=== PATIENT | male | born 1935 | race Caucasian/White ===

== ENCOUNTER 2017-09-18 17:46 | Inpatient (IN) | payer MEDICARE, OTHER ==
[~2017-09-18] VITALS: Ht 182.9 cm; Wt 102.3 kg
--- NOTE | 2017-09-18 18:12 | ED.ADGEN ---
Past History Past Medical History: Dementia, Depression, High Cholesterol, Other Adult General Chief Complaint Chief Complaint " I don't like sticker's.. " HPI HPI Patient is a 82 year old male who presents with hx of Dementia, Behavior Disorder, and increase aggressive behavior at [facility] in [place], [place]. Pt. has been hitting staff and other residents. Spitting on residents and staff. Pt. has hx of elevated lipids, depression, and anxiety. Pt. Dementia reportedly seems to becoming more profound the past couple months. Pt. currently can only identify his , does not recognizes his child or other close family members Pt. Normally follows with Dr. Ferrell. Review of Systems Review of Systems Constitutional: Denies fever or chills [] Eyes: Denies change in visual acuity, redness, or eye pain [] HENT: Denies nasal congestion or sore throat [] Respiratory: Denies cough or shortness of breath [] Cardiovascular: No additional information not addressed in HPI [] GI: Denies abdominal pain, nausea, vomiting, bloody stools or diarrhea [] : Denies dysuria or hematuria [] Musculoskeletal: Denies back pain or joint pain [] Integument: Denies rash or skin lesions [] Neurologic: Denies headache, focal weakness or sensory changes [] Endocrine: Denies polyuria or polydipsia [] All other systems were reviewed and found to be within normal limits, except as documented in this note. Family History Family History Non-contributory Current Medications Current Medications Current Medications Medications (Trade) Dose Ordered Sig/Jane Start Time Stop Time Status Last Admin Dose Admin Diphenhydramine HCl (Benadryl) 50 mg 1X ONCE 09/18/17 20:30 09/18/17 20:31 DC 09/18/17 21:14 50 MG Iohexol (Omnipaque 300 Mg/ml) 75 ml 1X ONCE 09/18/17 20:30 09/18/17 20:31 DC 09/18/17 21:29 75 ML Lactated Ringer's 1,000 ml @ 1,000 mls/hr 1X ONCE 09/18/17 20:30 09/18/17 21:29 DC 09/18/17 21:14 1,000 MLS/HR Lorazepam (Ativan) 2 mg 1X ONCE 09/18/17 22:45 09/18/17 22:46 DC Ziprasidone (Geodon Im) 10 mg 1X ONCE 09/18/17 22:45 09/18/17 22:46 DC See Nursing for home meds Allergies Allergies Allergies Coded Allergies Type Severity Reaction Last Updated Verified mirtazapine Allergy Unknown 09/18/17 Yes Physical Exam Physical Exam Constitutional: Well developed, well nourished, in acute emotional distress, non-toxic appearance. [] HENT: Normocephalic, atraumatic, bilateral external ears normal, oropharynx moist, no oral exudates, nose normal. [] Eyes: PERRLA, EOMI, conjunctiva normal, no discharge. [] Neck: Normal range of motion, no tenderness, supple, no stridor. [] Cardiovascular:Heart rate regular rhythm, no murmur [] Lungs & Thorax: Bilateral breath sounds at apex with wheezes, crackles and rhonchi on Rt with auscultation [] Abdomen: Bowel sounds normal, soft, no tenderness, no masses, no pulsatile masses. [] Skin: Warm, dry, no erythema, no rash. [] Back: No tenderness, no CVA tenderness. [] Extremities: No tenderness, no cyanosis, no clubbing, ROM intact, no edema. [] Scar Lt Knee Neurologic: Alert and oriented X 3,No gross motor function deficits, distal sensory function, no gross focal deficits noted. [] Psychologic: Affect angry, agitated, judgement lacks insight, mood depressed, obvious memory problems. Current Patient Data Vital Signs Vital Signs Date Time Temp Pulse Resp B/P (MAP) Pulse Ox O2 Delivery O2 Flow Rate FiO2 09/19/17 00:02 64 14 154/69 (97) 96 Room Air 09/18/17 19:09 97.4 Lab Results Laboratory Tests Test 09/18/17 19:27 09/19/17 00:06 White Blood Count 5.2 x10^3/uL (4.0-11.0) Red Blood Count 4.11 x10^6/uL (4.30-5.70) L Hemoglobin 14.2 g/dL (13.0-17.5) Hematocrit 41.1 % (39.0-53.0) Mean Corpuscular Volume 100 fL (79-100) Mean Corpuscular Hemoglobin 34 pg (25-35) Mean Corpuscular Hemoglobin Concent 34 g/dL (31-37) Red Cell Distribution Width 15.8 % (11.5-14.5) H Platelet Count 135 x10^3/uL (140-400) L Neutrophils (%) (Auto) 80 % (31-73) H Lymphocytes (%) (Auto) 12 % (24-48) L Monocytes (%) (Auto) 6 % (0-9) Eosinophils (%) (Auto) 1 % (0-3) Basophils (%) (Auto) 0 % (0-3) Neutrophils # (Auto) 4.2 x10^3uL (1.8-7.7) Lymphocytes # (Auto) 0.6 x10^3/uL (1.0-4.8) L Monocytes # (Auto) 0.3 x10^3/uL (0.0-1.1) Eosinophils # (Auto) 0.1 x10^3/uL (0.0-0.7) Basophils # (Auto) 0.0 x10^3/uL (0.0-0.2) Prothrombin Time 11.6 SEC (9.4-11.4) H Prothrombin Time INR 1.1 (0.9-1.1) PTT 27 SEC (23-33) Sodium Level 144 mmol/L (136-145) Potassium Level 4.8 mmol/L (3.5-5.1) Chloride Level 108 mmol/L (98-107) H Carbon Dioxide Level 31 mmol/L (21-32) Anion Gap 5 (6-14) L Blood Urea Nitrogen 15 mg/dL (8-26) Creatinine 1.0 mg/dL (0.7-1.3) Estimated GFR (Cockcroft-Gault) 71.5 BUN/Creatinine Ratio 15 (6-20) Glucose Level 119 mg/dL (70-99) H Calcium Level 8.2 mg/dL (8.5-10.1) L Magnesium Level 2.3 mg/dL (1.8-2.4) Total Bilirubin 0.6 mg/dL (0.2-1.0) Aspartate Amino Transferase (AST) 13 U/L (15-37) L Alanine Aminotransferase (ALT) 19 U/L (16-63) Alkaline Phosphatase 121 U/L (46-116) H Troponin I Quantitative < 0.017 ng/mL (0-0.055) UV-Apo-M-Type Natriuretic Peptide 472 pg/mL (0-449) H Total Protein 6.7 g/dL (6.4-8.2) Albumin 3.0 g/dL (3.4-5.0) L Albumin/Globulin Ratio 0.8 (1.0-1.7) L Valproic Acid Level 31 mcg/mL (50-100) L Valproic Acid Last Dose Date 09/18/2017 Valproic Acid Last Dose Time 1900 Urine Collection Type U cath Urine Color Yellow Urine Clarity Clear Urine pH 6.5 Urine Specific [place] 1.010 Urine Protein Neg (NEG-TRACE) Urine Glucose (UA) Neg mg/dL (NEG) Urine Ketones (Stick) Neg mg/dL (NEG) Urine Blood Trace (NEG) Urine Nitrite Neg (NEG) Urine Bilirubin Neg (NEG) Urine Urobilinogen Dipstick 0.2 mg/dL (0.2 mg/dL) Urine Leukocyte Esterase Neg (NEG) Urine RBC Occ /HPF (0-2) Urine WBC 1-4 /HPF (0-4) Urine Squamous Epithelial Cells None /LPF Urine Bacteria 0 /HPF (0-FEW) EKG EKG My interpretation of EKG shows a irregular rhythm at 64 and low voltage. No findings acute STEMI with contralateral changes. Radiology/Procedures Radiology/Procedures I interpretation of chest x-ray shows[] obvious pleural thickening and volume loss on right side. CT head shows no shift, mass, edema, bleed, or fracture. Does have significant parenchymal volume loss. CT of chest shows no pulmonary embolism but rounded atelectasis and pleural thickening. Course & Med Decision Making Course & Med Decision Making Pertinent Labs and Imaging studies reviewed. (See chart for details) Discussed presentation, testing and treatment plan with - Will admit to [facility]. will attempt to obtain old films or CT 's. Pt. admitted to Dr. Godfrey. [] Final Impression Final Impression 1. Mental Status Change[] 2. Dementia 3. Aggressive Behavior 4. Thrombocytopenia 5. 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 Reactive? Problems: Dragon Disclaimer Dragon Disclaimer This electronic medical record was generated, in whole or in part, using a voice recognition dictation system. ZAID NEWMAN MD Sep 18, 2017 18:12
--- NOTE | 2017-09-18 18:31 | EKG ---
[address] [address] Test Date: 2017-09-18 Test Time: 18:23:07 Pat Name: CHARLIE GODWIN Department: Room: Gender: M Resaw Feeder: AWA : 1935 Requested By: ZAID NEWMAN Order Number: [id number] Reading MD: Hussain Smyth Measurements Intervals [place] Rate: 64 P: MS: QRS: 21 QRSD: 56 T: 17 QT: 446 QTc: 465 Interpretive Statements ATRIAL FIBRILLATION LOW LIMB LEAD VOLTAGE Electronically Signed On 09-25-2017 14:26:35 ART CLASS MODEL by Hussain Smyth
[2017-09-18 19:45] LABS: BASO % 0 % (0-3); EOS # 0.1 x10^3/uL (0.0-0.7); EOS % 1 % (0-3); HEMATOCRIT 41.1 % (39.0-53.0); HEMOGLOBIN 14.2 g/dL (13.0-17.5); LYMPH # 0.6 x10^3/uL (1.0-4.8); LYMPH % 12 % (24-48); MEAN CORPUSCULAR HEMOGLOBIN 34 pg (25-35); MEAN CORPUSCULAR HGB CONC 34 g/dL (31-37); MEAN CORPUSCULAR VOLUME 100 fL (79-100); MONO # 0.3 x10^3/uL (0.0-1.1); MONO % 6 % (0-9); NEUT # 4.2 x10^3uL (1.8-7.7); NEUT % 80 % (31-73); PLATELET COUNT 135 x10^3/uL (140-400); RED BLOOD COUNT 4.11 x10^6/uL (4.30-5.70); RED CELL DISTRIBUTION WIDTH 15.8 % (11.5-14.5); WHITE BLOOD COUNT 5.2 x10^3/uL (4.0-11.0)
[2017-09-18 19:57] LABS: ALBUMIN/GLOBULIN RATIO 0.8 (1.0-1.7); CALCIUM 8.2 mg/dL (8.5-10.1); GFR 71.5; MAGNESIUM 2.3 mg/dL (1.8-2.4); POTASSIUM 4.8 mmol/L (3.5-5.1); TOTAL BILIRUBIN 0.6 mg/dL (0.2-1.0); TOTAL PROTEIN 6.7 g/dL (6.4-8.2)
[2017-09-18] MEDS ORDERED: diphenhydrAMINE 50 MG/ML VIAL IVP ONE (20:30)
[2017-09-18] MEDS ORDERED: IOHEXOL 300 MG/ML 75 ML VIAL. IV ONE (20:30)
[2017-09-18] MEDS ORDERED: IV RINGERS SOLUTION,LACTATED 1,000 ML IV ONE (20:30)
[2017-09-18] MEDS ORDERED: LORazepam 2 MG/ML VIAL IV ONE (20:30)
[2017-09-18] MEDS ORDERED: DONE23TA3 PO (20:50)
[2017-09-18] MEDS ORDERED: LORA0.5T96 PO (20:50)
[2017-09-18] MEDS ORDERED: SENN-6 PO (20:50)
[2017-09-18] MEDS ORDERED: POTA20TA4 PO (20:50)
[2017-09-18] MEDS ORDERED: ESCITALOPRAM OX10 MG PO (20:50)
[2017-09-18] MEDS ORDERED: MULT1TAB52 PO (20:50)
[2017-09-18] MEDS ORDERED: TRAZ50TA15 PO (20:50)
[2017-09-18] MEDS ORDERED: QUET25TA5 PO (20:50)
[2017-09-18] MEDS ORDERED: DIVA125C PO (20:50)
[2017-09-18] MEDS ORDERED: MAGN400O7 PO (20:50)
[2017-09-18] MEDS ORDERED: ACET325T9 PO (20:50)
[2017-09-18] MEDS ORDERED: METH1TAB47 PO (20:50)
[2017-09-18] MEDS ORDERED: ZIPRASIDONE IM 20 MG VIAL. IM ONE ×2 (22:30→22:45)
[2017-09-18] MEDS ORDERED: LORazepam 2 MG/ML VIAL IM ONE (22:45)
--- NOTE | 2017-09-18 23:18 | RAD ---
CT Head W/O Contrast: History: 557514.001 Altered mental status, combative, confusion. Hx: Dementia. No priors. Comparison: none Axial images were obtained without contrast. There is severe diffuse atrophy. There is no mass effect, extraaxial fluid collections or hydrocephalus. There is no gross bleed. Mild, patchy periventricular and subcortical white matter hypoattenuation is seen. There is no focal loss of ulrich-white matter distinction to suggest acute ischemia, i.e. stroke. Impression: Severe atrophy. No acute findings. PQRS Compliance Statement: One or more of the following individualized dose reduction techniques were utilized for this examination: 1. Automated exposure control 2. Adjustment of the mA and/or kV according to patient size 3. Use of iterative reconstruction technique Electronically signed by: Dillon Henry III, MD (09/18/2017 11:15 PM) [facility]
--- NOTE | 2017-09-18 23:46 | RAD ---
CTA Chest with contrast: Clinical History: 454912.001 Omni 300 75cc: PE protocol: Abnormal CXR tonight, short of air, wheezing. Pt has altered mental status, dementia, unable to follow breathing instructions for test. No priors but I sent CXR from [facility] for comparison. . Axial helical images of the chest were obtained after the administration of 100 cc of IV Isovue-370 and timed appropriately for a pulmonary arterial study. Conventional axial reconstruction was performed in addition to coronal, sagittal and bilateral oblique MIP (maximum intensity projection). This study was ordered to detect possible pulmonary embolism. There are no filling defects to suggest pulmonary embolism. The ascending thoracic aorta is mildly dilated measuring 4.3 cm in diameter. There is patchy round-like opacities in the right lung base with volume loss and shift of the mediastinal contents to the right. There is no mediastinal or hilar lymphadenopathy. Impression: 1. No evidence of pulmonary embolism. 2. Pleural parenchymal changes in the right lung base and volume loss could be round atelectasis. A neoplasm is possible. Comparison to old studies would be helpful. Otherwise the patient may benefit from a PET/CT. 3. Mildly dilated ascending thoracic aorta. PQRS Compliance Statement: One or more of the following individualized dose reduction techniques were utilized for this examination: 1. Automated exposure control 2. Adjustment of the mA and/or kV according to patient size 3. Use of iterative reconstruction technique Electronically signed by: Dillon Henry III, MD (09/18/2017 11:42 PM) [facility]
--- NOTE | 2017-09-18 23:57 | RAD ---
PORTABLE CHEST 1V Clinical History: 600255.001 Short of air, wheezing. No priors. Technique: AP view of the chest was obtained at 09/18/2017 6:19 PM. Comparison: None. Findings: The heart is moderately enlarged. The pulmonary vessels appear normal. There is hazy opacity over the right hemithorax. There is density along the pleural margin on the right. Impression: Mild to moderate right-sided pleural effusion. Electronically signed by: Dillon Henry III, MD (09/18/2017 11:54 PM) [facility]
[2017-09-19 00:38] LABS: BILIRUBIN,URINE NEG (NEG); CLARITY,URINE CLEAR; COLOR,URINE YELLOW; GLUCOSE,URINE NEG (NEG)
[2017-09-19 00:39] LABS: BACTERIA,URINE 0 /HPF (0-FEW); NITRITE,URINE NEG (NEG); RBC,URINE OCC /HPF (0-2); UROBILINOGEN,URINE 0.2 mg/dL (0.2 mg/dL)
[2017-09-19 01:28] VITALS: BP 148/88
[2017-09-19] MEDS ORDERED: ACETAMINOPHEN 325 MG TABLET PO PRN ×2 (01:30→06:15)
[2017-09-19] MEDS ORDERED: MAG HYDROX/AL HYDROX/SIMETH 30 ML ORAL.SUSP PO PRN (01:30)
[2017-09-19] MEDS ORDERED: METHYL SALICYLATE/MENTHOL TOPICAL OINTMENT 29GM TUBE. TP PRN (01:30)
[2017-09-19 02:12] LABS: VAL ACID 31 mcg/mL (50-100)
[2017-09-19] MEDS ORDERED: MAGNESIUM HYDROXIDE 2,400 MG/30 ML ORAL.SUSP. PO PRN (06:15)
[2017-09-19 06:20] VITALS: BP 141/79
[2017-09-19] MEDS: MULTIVITAMIN with MINERAL TABLET. PO SCH ×2 (08:04→09:00)
[2017-09-19] MEDS: CITALOPRAM 20 MG TABLET. PO SCH (08:04)
[2017-09-19] MEDS: VITAMIN B COMPLEX CAPSULE. PO SCH ×3 (08:04→19:35)
[2017-09-19] MEDS: POTASSIUM CHLORIDE 20 MEQ TABLET.ER. PO SCH ×3 (08:05→19:36)
[2017-09-19] MEDS ORDERED: DIVALPROEX 125 MG CAP.SPRINK PO SCH (09:00)
[2017-09-19 15:13] LABS: THYROID STIM HORMONE (TSH) 2.641 uIU/mL (0.358-3.740)
[2017-09-19 15:47] VITALS: BP 131/88
[2017-09-19 18:07] LABS: T3 TOTAL 62 ng/dL (71-180)
[2017-09-19] MEDS: DIVALPROEX 125 MG CAP.SPRINK PO SCH (19:35)
[2017-09-19] MEDS: DONEPEZIL 23 MG TABLET PO SCH (19:35)
[2017-09-19] MEDS: traZODone 50 MG TABLET. PO SCH (19:36)
[2017-09-19] MEDS: SENNOSIDES/DOCUSATE 8.6/50MG TABLET. PO SCH (19:36)
[2017-09-19] MEDS: QUEtiapine 25 MG TABLET. PO SCH (19:36)
--- NOTE | 2017-09-19 20:11 | PDOC ---
Exam Note: Cyrus Note: Please also refer to the separate dictated note~for this date of service dictated separately.~Patient seen individually. Discussed the patient with Nursing staff reviewed the chart.~Reviewed interim history and current functioning. Reviewed vital signs,~Labs/ Radiology~and current medications noted below. Continue current treatment with the changes noted in the dictated addendum note Assessment: Vital Signs: Vital Signs Date Time Temp Pulse Resp B/P (MAP) Pulse Ox O2 Delivery O2 Flow Rate FiO2 09/19/17 15:47 97.7 81 18 131/88 (102) 96 Room Air 09/19/17 01:28 0.0 I&O Intake and Output 09/19/17 07:00 Intake Total 800 ml Balance 800 ml IV Total 800 ml # Voids 3 # Bowel Movements 1 Labs: Laboratory Tests Test 09/19/17 00:06 Urine Collection Type U cath Urine Color Yellow Urine Clarity Clear Urine pH 6.5 Urine Specific [place] 1.010 Urine Protein Neg (NEG-TRACE) Urine Glucose (UA) Neg mg/dL (NEG) Urine Ketones (Stick) Neg mg/dL (NEG) Urine Blood Trace (NEG) Urine Nitrite Neg (NEG) Urine Bilirubin Neg (NEG) Urine Urobilinogen Dipstick 0.2 mg/dL (0.2 mg/dL) Urine Leukocyte Esterase Neg (NEG) Urine RBC Occ /HPF (0-2) Urine WBC 1-4 /HPF (0-4) Urine Squamous Epithelial Cells None /LPF Urine Bacteria 0 /HPF (0-FEW) Current Medications: Meds: Current Medications Iohexol (Omnipaque 300 Mg/ml) 75 ml 1X ONCE IV Last administered on 21:29; Start 09/18/17 at 20:30; Stop 09/18/17 at 20:31; Status DC Lorazepam (Ativan) 2 mg 1X ONCE IV Last administered on 09/18/17 21:14; Start 09/18/17 at 20:30; Stop 09/18/17 at 20:31; Status DC Diphenhydramine HCl (Benadryl) 50 mg 1X ONCE IVP Last administered on 21:14; Start 09/18/17 at 20:30; Stop 09/18/17 at 20:31; Status DC Lactated Ringer's 1,000 ml @ 1,000 mls/hr 1X ONCE IV Last administered on 21:14; Start 09/18/17 at 20:30; Stop 09/18/17 at 21:29; Status DC Ziprasidone (Geodon Im) 20 mg 1X ONCE IM Last administered on 09/18/17 22:07 ; Start 09/18/17 at 22:30; Stop 09/18/17 at 22:31; Status DC Lorazepam (Ativan) 2 mg 1X ONCE IM ; Start 09/18/17 at 22:45; Stop 09/18/17 at 22:46; Status DC Ziprasidone (Geodon Im) 10 mg 1X ONCE IM ; Start 09/18/17 at 22:45; Stop at 22:46; Status DC Acetaminophen (Tylenol) 650 mg PRN Q6HRS PRN PO MILD PAIN / TEMP; Start at 01:30 Multi-Ingredient Ointment (Analgesic [place]) 1 betzy PRN QID PRN TP MUSCLE PAIN; Start 09/19/17 at 01:30 Al Hydroxide/Mg Hydroxide (Mylanta Plus Xs) 15 ml PRN AFTMEALHC PRN PO DYSPEPSIA; Start 09/19/17 at 01:30 Magnesium Hydroxide (Milk Of Magnesia) 2,400 mg PRN QHS PRN PO CONSTIPATION; Start 09/19/17 at 01:30 Divalproex Sodium (Depakote Sprinkles) 250 mg BID PO Last administered on 09/19 08:04; Start 09/19/17 at 09:00; Stop 09/19/17 at 19:02; Status DC Donepezil HCl (Aricept) 23 mg QHS PO Last administered on 09/19/17 19:35; Start 09/19/17 at 21:00 Lorazepam (Ativan) 0.25 mg PRN Q4HRS PRN PO ANXIETY / AGITATION; Start at 01:30 Quetiapine Fumarate (SEROquel) 25 mg QHS PO Last administered on 09/19/17 19: 36; Start 09/19/17 at 21:00 Trazodone HCl (Desyrel) 125 mg QHS PO Last administered on 09/19/17 19:36; Start 09/19/17 at 21:00 Citalopram Hydrobromide (CeleXA) 20 mg DAILY PO Last administered on 08:04; Start 09/19/17 at 09:00 Acetaminophen (Tylenol) 650 mg PRN Q6HRS PRN PO PAIN / TEMP; Start 09/19/17 at 06:15; Status UNV Magnesium Hydroxide (Milk Of Magnesia) 2,400 mg PRN QHS PRN PO CONSTIPATION; Start 09/19/17 at 06:15; Status UNV Potassium Chloride (Klor-Con) 20 meq BID PO Last administered on 09/19/17 19: 36; Start 09/19/17 at 09:00 Senna/Docusate Sodium (Senna Plus) 2 tab QHS PO Last administered on 19:36; Start 09/19/17 at 21:00 Vitamin B Complex 1 cap BID PO Last administered on 09/19/17 19:35; Start at 09:00 Multivitamins/ Calcium (Thera-M Plus) 1 tab DAILY PO ; Start 09/19/17 at 09:00 Divalproex Sodium (Depakote Sprinkles) 375 mg BID PO Last administered on 09/19 19:35; Start 09/19/17 at 21:00 Active Scripts Active Reported Milk Of Magnesia (Magnesium Hydroxide) 400 Mg/5 Ml Oral.susp 2,400 Mg PO PRN QHS PRN Ativan (Lorazepam) 0.5 Mg Tablet 0.25 Mg PO PRN Q4HRS PRN Tylenol (Acetaminophen) 325 Mg Tablet 650 Mg PO PRN Q6HRS PRN Trazodone Hcl 50 Mg Tablet 125 Mg PO QHS Senna S Tablet (Sennosides/Docusate Sodium) 1 Each Tablet 2 Tab PO QHS Seroquel (Quetiapine Fumarate) 25 Mg Tablet 25 Mg PO QHS Klor-Con M20 (Potassium Chloride) 20 Meq Tab.er.prt 20 Meq PO BID Multivitamins (Multivitamin) 1 Each Tablet 1 Tab PO DAILY U-Gussyg-L0-B12 Tablet (Methyl-B12/L-Mefolate/B6 Phos) 1 Each Tablet 1 Tab PO BID Escitalopram Oxalate 10 Mg Tablet 10 Mg PO DAILY Aricept (Donepezil Hcl) 23 Mg Tablet 23 Mg PO QHS Depakote Sprinkle (Divalproex Sodium) 125 Mg Cap.sprink 250 Mg PO BID I have reviewed the current psychotropics carefully including drug interactions. Risk benefit ratio favors no change other than as noted in my dictated progress note. 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
[2017-09-20 01:11] LABS: HEMOGLOBIN A1C 4.7 % (4.8-5.6)
[2017-09-20 06:32] VITALS: BP 142/72
[2017-09-20] MEDS: CITALOPRAM 20 MG TABLET. PO SCH (09:01)
[2017-09-20] MEDS: MULTIVITAMIN with MINERAL TABLET. PO SCH (09:01)
[2017-09-20] MEDS: DIVALPROEX 125 MG CAP.SPRINK PO SCH ×2 (09:01→19:36)
[2017-09-20] MEDS: POTASSIUM CHLORIDE 20 MEQ TABLET.ER. PO SCH ×2 (09:01→19:36)
[2017-09-20] MEDS: VITAMIN B COMPLEX CAPSULE. PO SCH ×2 (09:01→19:36)
[2017-09-20 15:36] VITALS: BP 110/73
--- NOTE | 2017-09-20 15:49 | HP ---
ADMIT DATE: 09/19/2017 PSYCHIATRIC ADMISSION HISTORY/EVALUATION This is a late entry, date of service 09/19/2017, covers elements not covered in my initial note 09/19/2017. IDENTIFYING DATA: The patient is an 82-year-old male referred to us from [facility] by Dr. Izzy Ferrell, his primary care physician, on account of increasing confusion, delusions after the patient was physically striking out at peers at the long term, increased agitation, hitting at other peoples. He has been aggressive, disruptive appeared delusional. Symptoms have been worsening for about 2 weeks, have failed outpatient interventions in addition to being started on Seroquel recently. He has failed outpatient psychiatric interventions. Behaviors deemed dangerous, unmanageable, referred for inpatient psychiatric stabilization. CHIEF COMPLAINT: "I have been here 5 years." The patient was oblivious the way he was, seated in a wheelchair as I met with him, unaware of how long he had been here. HISTORY OF PRESENT ILLNESS: The patient has a history of dementia, Alzheimer's vascular type. He has been residing at the above nursing facility, doing reasonably well, but for the past 2 weeks behaviors have been escalating. He has been paranoid, delusional, agitated, aggressive, disruptive, quite volatile. He has had sleep and appetite changes. No clear history of bipolar disorder, suicidal or homicidal ideation. PAST PSYCHIATRIC HISTORY: As above. MEDICAL HISTORY: Positive for hyperlipidemia, status post right pleural effusion. CODE STATUS: DNR. ALLERGIES: REMERON. ACCU-CHEKS: None. Diet is regular, takes his medications hidden in food and fluids. Ambulates wheelchair with 2 person max assist for transfers. CURRENT PSYCHOTROPICS: Celexa 20 mg a day, Depakote Sprinkles 250 mg p.o. at bedtime, Aricept 23 mg a day, trazodone 125 mg at bedtime, Seroquel 25 mg at bedtime, Ativan 0.25 mg q. 4 hours p.r.n. anxiety. DIET: Regular. FAMILY HISTORY: Noncontributory. SOCIAL HISTORY: No history of alcohol, drug abuse, physical, sexual or elder abuse. He is not known to be a perpetrator. MENTAL STATUS EXAMINATION: The patient was seen individually evening of 09/19/2017. He is in his wheelchair, oblivious of where he was or how long he had been here. Speech moderate to marked latency, often responses monosyllabic. Insight, judgment, recent and remote memory, attention, concentration, fund of knowledge poor, consistent with his diagnoses mentioned in my initial note. REVIEW OF SYSTEMS: Ambulation impaired, in wheelchair. No CV, , pulmonary, eye, ENT system symptoms on review. IMPRESSION: Major neurocognitive disorder, Alzheimer, vascular with depression, delusion, behavioral disturbance; anxiety disorder, unspecified; impulse control disorder, unspecified. PLAN: Continue current psychotropics. The patient was quite volatile, labile, aggressive in the Emergency Room at [facility] prior to admission, received 2 mg of IV Ativan, 50 mg IV Benadryl, 20 mg IM Geodon in the ER with some relief of his agitation. I will see the patient daily individually from a psychiatric standpoint. Medical followup per Dr. Urena/Dr. Trotter. Increase Depakote to 250 mg twice a day since valproic acid level currently is 31 subtherapeutic. Check CBC, CMP, valproic acid level in 3 days. Maintain rest of the psychotropics. Consider Zoloft as an antidepressant, BuSpar for anxiety if aggression persists despite the above changes, further determinations will be made post baseline assessment. GERALD KUMAR MD DR: SAKINA/yasemin JOB#: [id number] / [id number]
[2017-09-20] MEDS: SENNOSIDES/DOCUSATE 8.6/50MG TABLET. PO SCH (19:35)
[2017-09-20] MEDS: traZODone 50 MG TABLET. PO SCH (19:35)
[2017-09-20] MEDS: QUEtiapine 25 MG TABLET. PO SCH (19:36)
[2017-09-20] MEDS: DONEPEZIL 23 MG TABLET PO SCH (19:36)
--- NOTE | 2017-09-20 20:15 | PDOC ---
Exam Note: Cyrus Note: Please also refer to the separate dictated note~for this date of service dictated separately.~Patient seen individually. Discussed the patient with Nursing staff reviewed the chart.~Reviewed interim history and current functioning. Reviewed vital signs,~Labs/ Radiology~and current medications noted below. Continue current treatment with the changes noted in the dictated addendum note Assessment: Vital Signs: Vital Signs Date Time Temp Pulse Resp B/P (MAP) Pulse Ox O2 Delivery O2 Flow Rate FiO2 09/20/17 15:36 97.8 66 19 110/73 (85) 98 09/19/17 15:47 Room Air 09/19/17 01:28 0.0 I&O Intake and Output 09/20/17 07:00 Intake Total 720 ml Balance 720 ml Intake Oral 720 ml Current Medications: Meds: Current Medications Iohexol (Omnipaque 300 Mg/ml) 75 ml 1X ONCE IV Last administered on 21:29; Start 09/18/17 at 20:30; Stop 09/18/17 at 20:31; Status DC Lorazepam (Ativan) 2 mg 1X ONCE IV Last administered on 09/18/17 21:14; Start 09/18/17 at 20:30; Stop 09/18/17 at 20:31; Status DC Diphenhydramine HCl (Benadryl) 50 mg 1X ONCE IVP Last administered on 21:14; Start 09/18/17 at 20:30; Stop 09/18/17 at 20:31; Status DC Lactated Ringer's 1,000 ml @ 1,000 mls/hr 1X ONCE IV Last administered on 21:14; Start 09/18/17 at 20:30; Stop 09/18/17 at 21:29; Status DC Ziprasidone (Geodon Im) 20 mg 1X ONCE IM Last administered on 09/18/17 22:07 ; Start 09/18/17 at 22:30; Stop 09/18/17 at 22:31; Status DC Lorazepam (Ativan) 2 mg 1X ONCE IM ; Start 09/18/17 at 22:45; Stop 09/18/17 at 22:46; Status DC Ziprasidone (Geodon Im) 10 mg 1X ONCE IM ; Start 09/18/17 at 22:45; Stop at 22:46; Status DC Acetaminophen (Tylenol) 650 mg PRN Q6HRS PRN PO MILD PAIN / TEMP; Start at 01:30 Multi-Ingredient Ointment (Analgesic [place]) 1 betzy PRN QID PRN TP MUSCLE PAIN; Start 09/19/17 at 01:30 Al Hydroxide/Mg Hydroxide (Mylanta Plus Xs) 15 ml PRN AFTMEALHC PRN PO DYSPEPSIA; Start 09/19/17 at 01:30 Magnesium Hydroxide (Milk Of Magnesia) 2,400 mg PRN QHS PRN PO CONSTIPATION; Start 09/19/17 at 01:30 Divalproex Sodium (Depakote Sprinkles) 250 mg BID PO Last administered on 09/19 08:04; Start 09/19/17 at 09:00; Stop 09/19/17 at 19:02; Status DC Donepezil HCl (Aricept) 23 mg QHS PO Last administered on 09/20/17 19:36; Start 09/19/17 at 21:00 Lorazepam (Ativan) 0.25 mg PRN Q4HRS PRN PO ANXIETY / AGITATION; Start at 01:30 Quetiapine Fumarate (SEROquel) 25 mg QHS PO Last administered on 09/20/17 19: 36; Start 09/19/17 at 21:00 Trazodone HCl (Desyrel) 125 mg QHS PO Last administered on 09/20/17 19:35; Start 09/19/17 at 21:00 Citalopram Hydrobromide (CeleXA) 20 mg DAILY PO Last administered on 09:01; Start 09/19/17 at 09:00 Acetaminophen (Tylenol) 650 mg PRN Q6HRS PRN PO PAIN / TEMP; Start 09/19/17 at 06:15; Status UNV Magnesium Hydroxide (Milk Of Magnesia) 2,400 mg PRN QHS PRN PO CONSTIPATION; Start 09/19/17 at 06:15; Status UNV Potassium Chloride (Klor-Con) 20 meq BID PO Last administered on 09/20/17 19: 36; Start 09/19/17 at 09:00 Senna/Docusate Sodium (Senna Plus) 2 tab QHS PO Last administered on 19:35; Start 09/19/17 at 21:00 Vitamin B Complex 1 cap BID PO Last administered on 09/20/17 09:01; Start at 09:00 Multivitamins/ Calcium (Thera-M Plus) 1 tab DAILY PO Last administered on 09/20 09:01; Start 09/19/17 at 09:00 Divalproex Sodium (Depakote Sprinkles) 375 mg BID PO Last administered on 09/20 19:36; Start 09/19/17 at 21:00 Quetiapine Fumarate (SEROquel) 12.5 mg DAILY PO ; Start 09/21/17 at 09:00 Active Scripts Active Reported Milk Of Magnesia (Magnesium Hydroxide) 400 Mg/5 Ml Oral.susp 2,400 Mg PO PRN QHS PRN Ativan (Lorazepam) 0.5 Mg Tablet 0.25 Mg PO PRN Q4HRS PRN Tylenol (Acetaminophen) 325 Mg Tablet 650 Mg PO PRN Q6HRS PRN Trazodone Hcl 50 Mg Tablet 125 Mg PO QHS Senna S Tablet (Sennosides/Docusate Sodium) 1 Each Tablet 2 Tab PO QHS Seroquel (Quetiapine Fumarate) 25 Mg Tablet 25 Mg PO QHS Klor-Con M20 (Potassium Chloride) 20 Meq Tab.er.prt 20 Meq PO BID Multivitamins (Multivitamin) 1 Each Tablet 1 Tab PO DAILY [id number] Tablet (Methyl-B12/L-Mefolate/B6 Phos) 1 Each Tablet 1 Tab PO BID Escitalopram Oxalate 10 Mg Tablet 10 Mg PO DAILY Aricept (Donepezil Hcl) 23 Mg Tablet 23 Mg PO QHS Depakote Sprinkle (Divalproex Sodium) 125 Mg Cap.sprink 250 Mg PO BID I have reviewed the current psychotropics carefully including drug interactions. Risk benefit ratio favors no change other than as noted in my dictated progress note. Diagnosis: Problems: (1) Dementia (2) Pleural disorder (3) Anxiety disorder (4) Dementia, vascular, with delusions (5) Dementia in Alzheimer's disease with delusions (6) Dementia in Alzheimer's disease with depression (7) Dementia, vascular, with depression (8) Impulse control disorder JOSÉ,MAN M MD Sep 20, 2017 20:15
[2017-09-21 06:06] VITALS: BP 119/84
[2017-09-21] MEDS: VITAMIN B COMPLEX CAPSULE. PO SCH (09:00)
[2017-09-21] MEDS: CITALOPRAM 20 MG TABLET. PO SCH (10:07)
[2017-09-21] MEDS: DIVALPROEX 125 MG CAP.SPRINK PO SCH ×2 (10:07→19:18)
[2017-09-21] MEDS: MULTIVITAMIN with MINERAL TABLET. PO SCH (10:08)
[2017-09-21] MEDS: POTASSIUM CHLORIDE 20 MEQ TABLET.ER. PO SCH ×2 (10:08→19:17)
[2017-09-21] MEDS: QUEtiapine 25 MG TABLET. PO SCH ×2 (10:09→19:18)
[2017-09-21 16:03] VITALS: BP 109/67
[2017-09-21] MEDS: LORazepam 0.5 MG TABLET PO PRN (16:40)
[2017-09-21] MEDS: traZODone 50 MG TABLET. PO SCH (19:19)
[2017-09-21] MEDS: SENNOSIDES/DOCUSATE 8.6/50MG TABLET. PO SCH (19:19)
[2017-09-21] MEDS: DONEPEZIL 23 MG TABLET PO SCH (19:19)
--- NOTE | 2017-09-21 20:10 | PDOC ---
Exam Note: Cyrus Note: Please also refer to the separate dictated note~for this date of service dictated separately.~Patient seen individually. Discussed the patient with Nursing staff reviewed the chart.~Reviewed interim history and current functioning. Reviewed vital signs,~Labs/ Radiology~and current medications noted below. Continue current treatment with the changes noted in the dictated addendum note Assessment: Vital Signs: Vital Signs Date Time Temp Pulse Resp B/P (MAP) Pulse Ox O2 Delivery O2 Flow Rate FiO2 09/21/17 16:03 97.8 78 20 109/67 (81) 92 Room Air 09/19/17 01:28 0.0 I&O Intake and Output 09/21/17 07:00 Intake Total 1200 ml Balance 1200 ml Intake Oral 1200 ml Current Medications: Meds: Current Medications Iohexol (Omnipaque 300 Mg/ml) 75 ml 1X ONCE IV Last administered on 21:29; Start 09/18/17 at 20:30; Stop 09/18/17 at 20:31; Status DC Lorazepam (Ativan) 2 mg 1X ONCE IV Last administered on 09/18/17 21:14; Start 09/18/17 at 20:30; Stop 09/18/17 at 20:31; Status DC Diphenhydramine HCl (Benadryl) 50 mg 1X ONCE IVP Last administered on 21:14; Start 09/18/17 at 20:30; Stop 09/18/17 at 20:31; Status DC Lactated Ringer's 1,000 ml @ 1,000 mls/hr 1X ONCE IV Last administered on 21:14; Start 09/18/17 at 20:30; Stop 09/18/17 at 21:29; Status DC Ziprasidone (Geodon Im) 20 mg 1X ONCE IM Last administered on 09/18/17 22:07 ; Start 09/18/17 at 22:30; Stop 09/18/17 at 22:31; Status DC Lorazepam (Ativan) 2 mg 1X ONCE IM ; Start 09/18/17 at 22:45; Stop 09/18/17 at 22:46; Status DC Ziprasidone (Geodon Im) 10 mg 1X ONCE IM ; Start 09/18/17 at 22:45; Stop at 22:46; Status DC Acetaminophen (Tylenol) 650 mg PRN Q6HRS PRN PO MILD PAIN / TEMP; Start at 01:30 Multi-Ingredient Ointment (Analgesic [place]) 1 betzy PRN QID PRN TP MUSCLE PAIN; Start 09/19/17 at 01:30 Al Hydroxide/Mg Hydroxide (Mylanta Plus Xs) 15 ml PRN AFTMEALHC PRN PO DYSPEPSIA; Start 09/19/17 at 01:30 Magnesium Hydroxide (Milk Of Magnesia) 2,400 mg PRN QHS PRN PO CONSTIPATION; Start 09/19/17 at 01:30 Divalproex Sodium (Depakote Sprinkles) 250 mg BID PO Last administered on 09/19 08:04; Start 09/19/17 at 09:00; Stop 09/19/17 at 19:02; Status DC Donepezil HCl (Aricept) 23 mg QHS PO Last administered on 09/21/17 19:19; Start 09/19/17 at 21:00 Lorazepam (Ativan) 0.25 mg PRN Q4HRS PRN PO ANXIETY / AGITATION Last administered on 09/21/17 16:40; Start 09/19/17 at 01:30 Quetiapine Fumarate (SEROquel) 25 mg QHS PO Last administered on 09/21/17 19: 18; Start 09/19/17 at 21:00 Trazodone HCl (Desyrel) 125 mg QHS PO Last administered on 09/21/17 19:19; Start 09/19/17 at 21:00 Citalopram Hydrobromide (CeleXA) 20 mg DAILY PO Last administered on 10:07; Start 09/19/17 at 09:00 Acetaminophen (Tylenol) 650 mg PRN Q6HRS PRN PO PAIN / TEMP; Start 09/19/17 at 06:15; Status UNV Magnesium Hydroxide (Milk Of Magnesia) 2,400 mg PRN QHS PRN PO CONSTIPATION; Start 09/19/17 at 06:15; Status UNV Potassium Chloride (Klor-Con) 20 meq BID PO Last administered on 09/21/17 19: 17; Start 09/19/17 at 09:00 Senna/Docusate Sodium (Senna Plus) 2 tab QHS PO Last administered on 19:19; Start 09/19/17 at 21:00 Vitamin B Complex 1 cap BID PO Last administered on 09/20/17 09:01; Start at 09:00; Stop 09/21/17 at 14:27; Status DC Multivitamins/ Calcium (Thera-M Plus) 1 tab DAILY PO Last administered on 09/21 10:08; Start 09/19/17 at 09:00 Divalproex Sodium (Depakote Sprinkles) 375 mg BID PO Last administered on 09/21 19:18; Start 09/19/17 at 21:00 Quetiapine Fumarate (SEROquel) 12.5 mg DAILY PO Last administered on 10:09; Start 09/21/17 at 09:00 Vitamin B Complex 1 cap DAILY PO ; Start 09/22/17 at 09:00 Active Scripts Active Reported Milk Of Magnesia (Magnesium Hydroxide) 400 Mg/5 Ml Oral.susp 2,400 Mg PO PRN QHS PRN Ativan (Lorazepam) 0.5 Mg Tablet 0.25 Mg PO PRN Q4HRS PRN Tylenol (Acetaminophen) 325 Mg Tablet 650 Mg PO PRN Q6HRS PRN Trazodone Hcl 50 Mg Tablet 125 Mg PO QHS Senna S Tablet (Sennosides/Docusate Sodium) 1 Each Tablet 2 Tab PO QHS Seroquel (Quetiapine Fumarate) 25 Mg Tablet 25 Mg PO QHS Klor-Con M20 (Potassium Chloride) 20 Meq Tab.er.prt 20 Meq PO BID Multivitamins (Multivitamin) 1 Each Tablet 1 Tab PO DAILY [id number]-B12 Tablet (Methyl-B12/L-Mefolate/B6 Phos) 1 Each Tablet 1 Tab PO BID Escitalopram Oxalate 10 Mg Tablet 10 Mg PO DAILY Aricept (Donepezil Hcl) 23 Mg Tablet 23 Mg PO QHS Depakote Sprinkle (Divalproex Sodium) 125 Mg Cap.sprink 250 Mg PO BID I have reviewed the current psychotropics carefully including drug interactions. Risk benefit ratio favors no change other than as noted in my dictated progress note. Diagnosis: Problems: (1) Dementia (2) Pleural disorder (3) Anxiety disorder (4) Dementia, vascular, with delusions (5) Dementia in Alzheimer's disease with delusions (6) Dementia in Alzheimer's disease with depression (7) Dementia, vascular, with depression (8) Impulse control disorder GERALD KUMAR MD Sep 21, 2017 20:10
--- NOTE | 2017-09-22 01:28 | CONS ---
DATE OF CONSULTATION: 09/21/2017 INDICATIONS: [facility]. He is an 82-year-old gentleman with increased confusion, delusions, also somewhat aggressiveness and agitation at the people in the facility. He was thus placed in the [place]. The patient's past history besides his Alzheimer disease, vascular type has paranoid delusion, agitation, aggressive behavior, hyperlipidemia, status post right pleural effusion. The patient is a DNR. FAMILY HISTORY: Unremarkable. SOCIAL HISTORY: No smoking or alcohol use was noted. MEDICATIONS: Celexa 20 mg a day, Depakote Sprinkles 250 mg p.o. at bedtime, Aricept 23 mg, trazodone 125, Seroquel 25 at bedtime, Ativan 0.25. His other home medications include Tylenol, Depakote Sprinkles, milk of magnesia, B vitamins, potassium chloride 20 mEq a day, senna-S for constipation. ALLERGIES: ALLERGY TO REMERON. REVIEW OF SYSTEMS: The patient not able to give any type of a good history for his review of systems. PHYSICAL EXAMINATION: GENERAL: The patient on exam is a pleasant white male. VITAL SIGNS: Blood pressure 140/80, respiratory rate ____, pulse 60, and afebrile. NEUROLOGICAL: He is cooperative at this time. The patient is alert and oriented. LUNGS: Diminished, but basically clear. HEENT: The head was atraumatic, normocephalic. Eyes: PERRL. CARDIOVASCULAR: Regular sinus rhythm. ABDOMEN: Protuberant, soft, nontender, no rebounding or guarding. Positive bowel sounds. No hepatosplenomegaly. EXTREMITIES: No clubbing, cyanosis, or edema. NEUROLOGIC: He is alert with obvious severe dementia, not able really to answer questions as he is not able to maintain ____. LABORATORY DATA: The patient's labs were reviewed. A1c was 4.7. His B12 was over 2000. Urine was clear. Serology nonreactive for RPR. IMPRESSION: Alzheimer disease, vascular type; history of hyperlipidemia. The patient had problems with aggressive behavior and will be monitored and adjusted according to Dr. Godfrey. Other diagnoses include his major neurocognitive disorder, behavioral disturbance, anxiety disorder unspecified, impulse control disorder. Thank you for this consultation. We will follow along with you medically and make further adjustments as indicated. MARIBEL BAUER MD DR: RIGO/yasemin JOB#: [id number] / [id number]
[2017-09-22 05:50] VITALS: BP 146/96
[2017-09-22 07:58] LABS: BASO % 1 % (0-3); EOS % 2 % (0-3); HEMATOCRIT 40.9 % (39.0-53.0); HEMOGLOBIN 13.8 g/dL (13.0-17.5); LYMPH # 0.8 x10^3/uL (1.0-4.8); LYMPH % 25 % (24-48); MEAN CORPUSCULAR HEMOGLOBIN 34 pg (25-35); MEAN CORPUSCULAR HGB CONC 34 g/dL (31-37); MEAN CORPUSCULAR VOLUME 101 fL (79-100); MONO # 0.5 x10^3/uL (0.0-1.1); MONO % 16 % (0-9); NEUT # 1.8 x10^3uL (1.8-7.7); NEUT % 57 % (31-73); PLATELET COUNT 111 x10^3/uL (140-400); RED BLOOD COUNT 4.04 x10^6/uL (4.30-5.70); RED CELL DISTRIBUTION WIDTH 15.8 % (11.5-14.5); WHITE BLOOD COUNT 3.1 x10^3/uL (4.0-11.0)
[2017-09-22 08:00] LABS: ALBUMIN 2.9 g/dL (3.4-5.0); ALBUMIN/GLOBULIN RATIO 0.8 (1.0-1.7); ALK PHOS 121 U/L (46-116); ALT (SGPT) 17 U/L (16-63); ANION GAP 9 (6-14); AST (SGOT) 15 U/L (15-37); BLOOD UREA NITROGEN 13 mg/dL (8-26); BUN/CREATININE RATIO 13 (6-20); CALCIUM 8.4 mg/dL (8.5-10.1); CARBON DIOXIDE 29 mmol/L (21-32); CHLORIDE 109 mmol/L (98-107); GFR 71.5; GLUCOSE 96 mg/dL (70-99); POTASSIUM 4.4 mmol/L (3.5-5.1); SODIUM 147 mmol/L (136-145); TOTAL BILIRUBIN 0.8 mg/dL (0.2-1.0); TOTAL PROTEIN 6.4 g/dL (6.4-8.2)
[2017-09-22 08:01] LABS: VAL ACID 45 mcg/mL (50-100)
[2017-09-22] MEDS: DIVALPROEX 125 MG CAP.SPRINK PO SCH ×2 (10:48→19:52)
[2017-09-22] MEDS: CITALOPRAM 20 MG TABLET. PO SCH (10:48)
[2017-09-22] MEDS: MULTIVITAMIN with MINERAL TABLET. PO SCH (10:49)
[2017-09-22] MEDS: POTASSIUM CHLORIDE 20 MEQ TABLET.ER. PO SCH ×2 (10:49→19:52)
[2017-09-22] MEDS: QUEtiapine 25 MG TABLET. PO SCH ×2 (10:49→19:52)
[2017-09-22] MEDS: VITAMIN B COMPLEX CAPSULE. PO SCH (10:50)
[2017-09-22] MEDS: LORazepam 0.5 MG TABLET PO PRN ×2 (10:51→16:31)
[2017-09-22 15:56] VITALS: BP 110/76
[2017-09-22] MEDS: traZODone 50 MG TABLET. PO SCH (19:52)
[2017-09-22] MEDS: SENNOSIDES/DOCUSATE 8.6/50MG TABLET. PO SCH (19:52)
[2017-09-22] MEDS: DONEPEZIL 23 MG TABLET PO SCH (19:52)
--- NOTE | 2017-09-22 20:29 | PDOC ---
Exam Note: Cyrus Note: Please also refer to the separate dictated note~for this date of service dictated separately.~Patient seen individually. Discussed the patient with Nursing staff reviewed the chart.~Reviewed interim history and current functioning. Reviewed vital signs,~Labs/ Radiology~and current medications noted below. Continue current treatment with the changes noted in the dictated addendum note Assessment: Vital Signs: Vital Signs Date Time Temp Pulse Resp B/P (MAP) Pulse Ox O2 Delivery O2 Flow Rate FiO2 09/22/17 15:56 97.5 83 18 110/76 (87) 90 09/21/17 16:03 Room Air 09/19/17 01:28 0.0 I&O Intake and Output 09/22/17 07:00 Intake Total 600 ml Balance 600 ml Intake Oral 600 ml Labs: Laboratory Tests Test 09/22/17 07:35 White Blood Count 3.1 x10^3/uL (4.0-11.0) L Red Blood Count 4.04 x10^6/uL (4.30-5.70) L Hemoglobin 13.8 g/dL (13.0-17.5) Hematocrit 40.9 % (39.0-53.0) Mean Corpuscular Volume 101 fL (79-100) H Mean Corpuscular Hemoglobin 34 pg (25-35) Mean Corpuscular Hemoglobin Concent 34 g/dL (31-37) Red Cell Distribution Width 15.8 % (11.5-14.5) H Platelet Count 111 x10^3/uL (140-400) L Neutrophils (%) (Auto) 57 % (31-73) Lymphocytes (%) (Auto) 25 % (24-48) Monocytes (%) (Auto) 16 % (0-9) H Eosinophils (%) (Auto) 2 % (0-3) Basophils (%) (Auto) 1 % (0-3) Neutrophils # (Auto) 1.8 x10^3uL (1.8-7.7) Lymphocytes # (Auto) 0.8 x10^3/uL (1.0-4.8) L Monocytes # (Auto) 0.5 x10^3/uL (0.0-1.1) Eosinophils # (Auto) 0.0 x10^3/uL (0.0-0.7) Basophils # (Auto) 0.0 x10^3/uL (0.0-0.2) Sodium Level 147 mmol/L (136-145) H Potassium Level 4.4 mmol/L (3.5-5.1) Chloride Level 109 mmol/L (98-107) H Carbon Dioxide Level 29 mmol/L (21-32) Anion Gap 9 (6-14) Blood Urea Nitrogen 13 mg/dL (8-26) Creatinine 1.0 mg/dL (0.7-1.3) Estimated GFR (Cockcroft-Gault) 71.5 BUN/Creatinine Ratio 13 (6-20) Glucose Level 96 mg/dL (70-99) Calcium Level 8.4 mg/dL (8.5-10.1) L Total Bilirubin 0.8 mg/dL (0.2-1.0) Aspartate Amino Transferase (AST) 15 U/L (15-37) Alanine Aminotransferase (ALT) 17 U/L (16-63) Alkaline Phosphatase 121 U/L (46-116) H Total Protein 6.4 g/dL (6.4-8.2) Albumin 2.9 g/dL (3.4-5.0) L Albumin/Globulin Ratio 0.8 (1.0-1.7) L Valproic Acid Level 45 mcg/mL (50-100) L Valproic Acid Last Dose Date 09/21/17 Valproic Acid Last Dose Time 2100 Current Medications: Meds: Current Medications Iohexol (Omnipaque 300 Mg/ml) 75 ml 1X ONCE IV Last administered on 21:29; Start 09/18/17 at 20:30; Stop 09/18/17 at 20:31; Status DC Lorazepam (Ativan) 2 mg 1X ONCE IV Last administered on 09/18/17 21:14; Start 09/18/17 at 20:30; Stop 09/18/17 at 20:31; Status DC Diphenhydramine HCl (Benadryl) 50 mg 1X ONCE IVP Last administered on 21:14; Start 09/18/17 at 20:30; Stop 09/18/17 at 20:31; Status DC Lactated Ringer's 1,000 ml @ 1,000 mls/hr 1X ONCE IV Last administered on 21:14; Start 09/18/17 at 20:30; Stop 09/18/17 at 21:29; Status DC Ziprasidone (Geodon Im) 20 mg 1X ONCE IM Last administered on 09/18/17 22:07 ; Start 09/18/17 at 22:30; Stop 09/18/17 at 22:31; Status DC Lorazepam (Ativan) 2 mg 1X ONCE IM ; Start 09/18/17 at 22:45; Stop 09/18/17 at 22:46; Status DC Ziprasidone (Geodon Im) 10 mg 1X ONCE IM ; Start 09/18/17 at 22:45; Stop at 22:46; Status DC Acetaminophen (Tylenol) 650 mg PRN Q6HRS PRN PO MILD PAIN / TEMP; Start at 01:30 Multi-Ingredient Ointment (Analgesic [place]) 1 betzy PRN QID PRN TP MUSCLE PAIN; Start 09/19/17 at 01:30 Al Hydroxide/Mg Hydroxide (Mylanta Plus Xs) 15 ml PRN AFTMEALHC PRN PO DYSPEPSIA; Start 09/19/17 at 01:30 Magnesium Hydroxide (Milk Of Magnesia) 2,400 mg PRN QHS PRN PO CONSTIPATION; Start 09/19/17 at 01:30 Divalproex Sodium (Depakote Sprinkles) 250 mg BID PO Last administered on 09/19 08:04; Start 09/19/17 at 09:00; Stop 09/19/17 at 19:02; Status DC Donepezil HCl (Aricept) 23 mg QHS PO Last administered on 09/22/17 19:52; Start 09/19/17 at 21:00 Lorazepam (Ativan) 0.25 mg PRN Q4HRS PRN PO ANXIETY / AGITATION Last administered on 09/22/17 16:31; Start 09/19/17 at 01:30 Quetiapine Fumarate (SEROquel) 25 mg QHS PO Last administered on 09/22/17 19: 52; Start 09/19/17 at 21:00 Trazodone HCl (Desyrel) 125 mg QHS PO Last administered on 09/22/17 19:52; Start 09/19/17 at 21:00 Citalopram Hydrobromide (CeleXA) 20 mg DAILY PO Last administered on 09/22/17 10:48; Start 09/19/17 at 09:00 Acetaminophen (Tylenol) 650 mg PRN Q6HRS PRN PO PAIN / TEMP; Start 09/19/17 at 06:15; Status UNV Magnesium Hydroxide (Milk Of Magnesia) 2,400 mg PRN QHS PRN PO CONSTIPATION; Start 09/19/17 at 06:15; Status UNV Potassium Chloride (Klor-Con) 20 meq BID PO Last administered on 09/22/17 19: 52; Start 09/19/17 at 09:00 Senna/Docusate Sodium (Senna Plus) 2 tab QHS PO Last administered on 09/22/17 19:52; Start 09/19/17 at 21:00 Vitamin B Complex 1 cap BID PO Last administered on 09/20/17 09:01; Start at 09:00; Stop 09/21/17 at 14:27; Status DC Multivitamins/ Calcium (Thera-M Plus) 1 tab DAILY PO Last administered on 10:49; Start 09/19/17 at 09:00 Divalproex Sodium (Depakote Sprinkles) 375 mg BID PO Last administered on 19:52; Start 09/19/17 at 21:00 Quetiapine Fumarate (SEROquel) 12.5 mg DAILY PO Last administered on 09/22/17 10:49; Start 09/21/17 at 09:00; Stop 09/22/17 at 19:35; Status DC Vitamin B Complex 1 cap DAILY PO Last administered on 09/22/17 10:50; Start 09/22/17 at 09:00 Quetiapine Fumarate (SEROquel) 12.5 mg TID@0900,1400,1700 PO ; Start 09/23/17 at 09:00 Active Scripts Active Reported Milk Of Magnesia (Magnesium Hydroxide) 400 Mg/5 Ml Oral.susp 2,400 Mg PO PRN QHS PRN Ativan (Lorazepam) 0.5 Mg Tablet 0.25 Mg PO PRN Q4HRS PRN Tylenol (Acetaminophen) 325 Mg Tablet 650 Mg PO PRN Q6HRS PRN Trazodone Hcl 50 Mg Tablet 125 Mg PO QHS Senna S Tablet (Sennosides/Docusate Sodium) 1 Each Tablet 2 Tab PO QHS Seroquel (Quetiapine Fumarate) 25 Mg Tablet 25 Mg PO QHS Klor-Con M20 (Potassium Chloride) 20 Meq Tab.er.prt 20 Meq PO BID Multivitamins (Multivitamin) 1 Each Tablet 1 Tab PO DAILY A-Aonuxh-B1-B12 Tablet (Methyl-B12/L-Mefolate/B6 Phos) 1 Each Tablet 1 Tab PO BID Escitalopram Oxalate 10 Mg Tablet 10 Mg PO DAILY Aricept (Donepezil Hcl) 23 Mg Tablet 23 Mg PO QHS Depakote Sprinkle (Divalproex Sodium) 125 Mg Cap.sprink 250 Mg PO BID I have reviewed the current psychotropics carefully including drug interactions. Risk benefit ratio favors no change other than as noted in my dictated progress note. Diagnosis: Problems: (1) Dementia (2) Pleural disorder (3) Anxiety disorder (4) Dementia, vascular, with delusions (5) Dementia in Alzheimer's disease with delusions (6) Dementia in Alzheimer's disease with depression (7) Dementia, vascular, with depression (8) Impulse control disorder GERALD KUMAR MD Sep 22, 2017 20:29
[2017-09-23 06:12] VITALS: BP 139/74
--- NOTE | 2017-09-23 07:20 | PN ---
DATE: 09/20/2017 This late entry 09/20/2017 covers elements not covered in my initial note 09/20/2017. SUBJECTIVE: Met with the patient evening of 09/20/2017. The patient slept 7-3/4 hours previous evening, was somewhat delusional, anxious, labile in the morning, believing everyone was in his kitchen, resistive to cares, refused medication. Did redirect and gets distracted. Staff done the conversation to something else. REVIEW OF SYSTEMS: No CV, , pulmonary, eye system symptoms on review. Reliability poor. Gait unsteady, in wheelchair. MENTAL STATUS EXAM: Oriented to himself. Insight, judgment, recent and remote memory, attention, concentration, fund of knowledge poor, consistent with his diagnosis mentioned in my initial note. PLAN: Continue current psychotropics. Add Seroquel 12.5 mg at 9:00 a.m. Continue Celexa 20 mg a day, Depakote Sprinkles 375 mg b.i.d., with repeat labs level on 09/22/2017, Aricept 23 mg a day, trazodone 125 mg at bedtime, Seroquel 25 mg at bedtime, Ativan p.r.n. Adjust further as clinically indicated. GERALD KUMAR MD DR: SAKINA/yasemin JOB#: [id number] / [id number]
--- NOTE | 2017-09-23 07:50 | PN ---
DATE: 09/21/2017 This is a late entry for 09/21/2017 and covers elements not covered in my initial note of 09/21/2017. The patient was seen individually evening of 09/21/2016. INCOMPLETE DICTATION MAN Gigi KUMAR MD DR: SAKINA/yasemin JOB#: [id number] / [id number]
--- NOTE | 2017-09-23 07:55 | PN ---
DATE: 09/21/2017 This is a late entry for 09/21/2017 and covers elements not covered in my initial note of 09/21/2017. I met with the patient in the evening of 09/21/2017, also staffed at a treatment team meeting with the entire team morning of 09/21/2017. His , Nancy attended conferences along with other family member. Reviewed his history at length of extremely impulsive, erratic behaviors which made him quite aggressive, almost unprovoked at the nursing facility, prompting this referral. He has been somewhat delusional, sleeping 5-6 hours. Appetite 75%. Combative with cares, frequently complaining that people are going to drop him on the floor. REVIEW OF SYSTEMS: Ambulation impaired, in wheelchair. No CV, , pulmonary, eye, ENT system symptoms on review. Reliability poor. MENTAL STATUS EXAM: Oriented to himself. Insight, judgment, recent and remote memory, attention, concentration, fund of knowledge poor, consistent with his diagnosis as mentioned in my initial note. PLAN: Continue current psychotropics. Seroquel was added. Labs to be repeated on 09/22/2017. We will adjust Depakote thereafter. Reviewed at length. GERALD KUMAR MD DR: SAKINA/yasemin JOB#: [id number] / [id number]
[2017-09-23] MEDS: DIVALPROEX 125 MG CAP.SPRINK PO SCH ×2 (09:03→19:30)
[2017-09-23] MEDS: CITALOPRAM 20 MG TABLET. PO SCH (09:03)
[2017-09-23] MEDS: VITAMIN B COMPLEX CAPSULE. PO SCH (09:03)
[2017-09-23] MEDS: QUEtiapine 25 MG TABLET. PO SCH ×4 (09:04→19:31)
[2017-09-23] MEDS: MULTIVITAMIN with MINERAL TABLET. PO SCH (09:04)
[2017-09-23] MEDS: POTASSIUM CHLORIDE 20 MEQ TABLET.ER. PO SCH ×2 (09:04→19:31)
[2017-09-23 16:33] VITALS: BP 113/69
[2017-09-23] MEDS: SENNOSIDES/DOCUSATE 8.6/50MG TABLET. PO SCH (19:30)
[2017-09-23] MEDS: traZODone 50 MG TABLET. PO SCH (19:31)
[2017-09-23] MEDS: DONEPEZIL 23 MG TABLET PO SCH (19:31)
--- NOTE | 2017-09-23 21:54 | PDOC ---
Exam Note: Cyrus Note: Please also refer to the separate dictated note~for this date of service dictated separately.~Patient seen individually. Discussed the patient with Nursing staff reviewed the chart.~Reviewed interim history and current functioning. Reviewed vital signs,~Labs/ Radiology~and current medications noted below. Continue current treatment with the changes noted in the dictated addendum note Assessment: Vital Signs: Vital Signs Date Time Temp Pulse Resp B/P (MAP) Pulse Ox O2 Delivery O2 Flow Rate FiO2 09/23/17 16:33 97.9 75 18 113/69 (84) 99 09/21/17 16:03 Room Air 09/19/17 01:28 0.0 I&O Intake and Output 09/23/17 07:00 Intake Total 180 ml Balance 180 ml Intake Oral 180 ml Current Medications: Meds: Current Medications Iohexol (Omnipaque 300 Mg/ml) 75 ml 1X ONCE IV Last administered on 21:29; Start 09/18/17 at 20:30; Stop 09/18/17 at 20:31; Status DC Lorazepam (Ativan) 2 mg 1X ONCE IV Last administered on 09/18/17 21:14; Start 09/18/17 at 20:30; Stop 09/18/17 at 20:31; Status DC Diphenhydramine HCl (Benadryl) 50 mg 1X ONCE IVP Last administered on 21:14; Start 09/18/17 at 20:30; Stop 09/18/17 at 20:31; Status DC Lactated Ringer's 1,000 ml @ 1,000 mls/hr 1X ONCE IV Last administered on 21:14; Start 09/18/17 at 20:30; Stop 09/18/17 at 21:29; Status DC Ziprasidone (Geodon Im) 20 mg 1X ONCE IM Last administered on 09/18/17 22:07 ; Start 09/18/17 at 22:30; Stop 09/18/17 at 22:31; Status DC Lorazepam (Ativan) 2 mg 1X ONCE IM ; Start 09/18/17 at 22:45; Stop 09/18/17 at 22:46; Status DC Ziprasidone (Geodon Im) 10 mg 1X ONCE IM ; Start 09/18/17 at 22:45; Stop at 22:46; Status DC Acetaminophen (Tylenol) 650 mg PRN Q6HRS PRN PO MILD PAIN / TEMP; Start at 01:30 Multi-Ingredient Ointment (Analgesic [place]) 1 betzy PRN QID PRN TP MUSCLE PAIN; Start 09/19/17 at 01:30 Al Hydroxide/Mg Hydroxide (Mylanta Plus Xs) 15 ml PRN AFTMEALHC PRN PO DYSPEPSIA; Start 09/19/17 at 01:30 Magnesium Hydroxide (Milk Of Magnesia) 2,400 mg PRN QHS PRN PO CONSTIPATION; Start 09/19/17 at 01:30 Divalproex Sodium (Depakote Sprinkles) 250 mg BID PO Last administered on 09/19 08:04; Start 09/19/17 at 09:00; Stop 09/19/17 at 19:02; Status DC Donepezil HCl (Aricept) 23 mg QHS PO Last administered on 09/23/17 19:31; Start 09/19/17 at 21:00 Lorazepam (Ativan) 0.25 mg PRN Q4HRS PRN PO ANXIETY / AGITATION Last administered on 09/22/17 16:31; Start 09/19/17 at 01:30 Quetiapine Fumarate (SEROquel) 25 mg QHS PO Last administered on 09/23/17 19: 31; Start 09/19/17 at 21:00 Trazodone HCl (Desyrel) 125 mg QHS PO Last administered on 09/23/17 19:31; Start 09/19/17 at 21:00 Citalopram Hydrobromide (CeleXA) 20 mg DAILY PO Last administered on 09/23/17 09:03; Start 09/19/17 at 09:00 Acetaminophen (Tylenol) 650 mg PRN Q6HRS PRN PO PAIN / TEMP; Start 09/19/17 at 06:15; Status UNV Magnesium Hydroxide (Milk Of Magnesia) 2,400 mg PRN QHS PRN PO CONSTIPATION; Start 09/19/17 at 06:15; Status UNV Potassium Chloride (Klor-Con) 20 meq BID PO Last administered on 09/23/17 19: 31; Start 09/19/17 at 09:00 Senna/Docusate Sodium (Senna Plus) 2 tab QHS PO Last administered on 09/23/17 19:30; Start 09/19/17 at 21:00 Vitamin B Complex 1 cap BID PO Last administered on 09/20/17 09:01; Start at 09:00; Stop 09/21/17 at 14:27; Status DC Multivitamins/ Calcium (Thera-M Plus) 1 tab DAILY PO Last administered on 09:04; Start 09/19/17 at 09:00 Divalproex Sodium (Depakote Sprinkles) 375 mg BID PO Last administered on 19:30; Start 09/19/17 at 21:00 Quetiapine Fumarate (SEROquel) 12.5 mg DAILY PO Last administered on 09/22/17 10:49; Start 09/21/17 at 09:00; Stop 09/22/17 at 19:35; Status DC Vitamin B Complex 1 cap DAILY PO Last administered on 09/23/17 09:03; Start 09/22/17 at 09:00 Quetiapine Fumarate (SEROquel) 12.5 mg TID@0900,1400,1700 PO Last administered on 09/23/17 17:04; Start 09/23/17 at 09:00 Active Scripts Active Reported Milk Of Magnesia (Magnesium Hydroxide) 400 Mg/5 Ml Oral.susp 2,400 Mg PO PRN QHS PRN Ativan (Lorazepam) 0.5 Mg Tablet 0.25 Mg PO PRN Q4HRS PRN Tylenol (Acetaminophen) 325 Mg Tablet 650 Mg PO PRN Q6HRS PRN Trazodone Hcl 50 Mg Tablet 125 Mg PO QHS Senna S Tablet (Sennosides/Docusate Sodium) 1 Each Tablet 2 Tab PO QHS Seroquel (Quetiapine Fumarate) 25 Mg Tablet 25 Mg PO QHS Klor-Con M20 (Potassium Chloride) 20 Meq Tab.er.prt 20 Meq PO BID Multivitamins (Multivitamin) 1 Each Tablet 1 Tab PO DAILY V-Epwfxg-[id number]-[id number] Tablet (Methyl-B12/L-Mefolate/B6 Phos) 1 Each Tablet 1 Tab PO BID Escitalopram Oxalate 10 Mg Tablet 10 Mg PO DAILY Aricept (Donepezil Hcl) 23 Mg Tablet 23 Mg PO QHS Depakote Sprinkle (Divalproex Sodium) 125 Mg Cap.sprink 250 Mg PO BID I have reviewed the current psychotropics carefully including drug interactions. Risk benefit ratio favors no change other than as noted in my dictated progress note. Diagnosis: Problems: (1) Dementia (2) Pleural disorder (3) Anxiety disorder (4) Dementia, vascular, with delusions (5) Dementia in Alzheimer's disease with delusions (6) Dementia in Alzheimer's disease with depression (7) Dementia, vascular, with depression (8) Impulse control disorder GERALD KUMAR MD Sep 23, 2017 21:54
[2017-09-24 08:43] VITALS: BP 92/58
[2017-09-24] MEDS: MULTIVITAMIN with MINERAL TABLET. PO SCH (09:00)
[2017-09-24] MEDS: VITAMIN B COMPLEX CAPSULE. PO SCH (09:00)
[2017-09-24] MEDS: DIVALPROEX 125 MG CAP.SPRINK PO SCH ×2 (10:03→19:52)
[2017-09-24] MEDS: CITALOPRAM 20 MG TABLET. PO SCH (10:03)
[2017-09-24] MEDS: POTASSIUM CHLORIDE 20 MEQ TABLET.ER. PO SCH ×2 (10:04→19:50)
[2017-09-24 16:19] VITALS: BP 114/77
[2017-09-24] MEDS: DONEPEZIL 23 MG TABLET PO SCH (19:53)
[2017-09-24] MEDS: SENNOSIDES/DOCUSATE 8.6/50MG TABLET. PO SCH (19:53)
[2017-09-24] MEDS: traZODone 50 MG TABLET. PO SCH (19:53)
--- NOTE | 2017-09-24 20:10 | PDOC ---
Exam Note: Cyrus Note: Please also refer to the separate dictated note~for this date of service dictated separately.~Patient seen individually. Discussed the patient with Nursing staff reviewed the chart.~Reviewed interim history and current functioning. Reviewed vital signs,~Labs/ Radiology~and current medications noted below. Continue current treatment with the changes noted in the dictated addendum note Assessment: Vital Signs: Vital Signs Date Time Temp Pulse Resp B/P (MAP) Pulse Ox O2 Delivery O2 Flow Rate FiO2 09/24/17 16:19 98.5 68 20 114/77 (89) 95 09/21/17 16:03 Room Air 09/19/17 01:28 0.0 I&O Intake and Output 09/24/17 07:00 Intake Total 360 ml Balance 360 ml Intake Oral 360 ml # Bowel Movements 1 Current Medications: Meds: Current Medications Iohexol (Omnipaque 300 Mg/ml) 75 ml 1X ONCE IV Last administered on 21:29; Start 09/18/17 at 20:30; Stop 09/18/17 at 20:31; Status DC Lorazepam (Ativan) 2 mg 1X ONCE IV Last administered on 09/18/17 21:14; Start 09/18/17 at 20:30; Stop 09/18/17 at 20:31; Status DC Diphenhydramine HCl (Benadryl) 50 mg 1X ONCE IVP Last administered on 21:14; Start 09/18/17 at 20:30; Stop 09/18/17 at 20:31; Status DC Lactated Ringer's 1,000 ml @ 1,000 mls/hr 1X ONCE IV Last administered on 21:14; Start 09/18/17 at 20:30; Stop 09/18/17 at 21:29; Status DC Ziprasidone (Geodon Im) 20 mg 1X ONCE IM Last administered on 09/18/17 22:07 ; Start 09/18/17 at 22:30; Stop 09/18/17 at 22:31; Status DC Lorazepam (Ativan) 2 mg 1X ONCE IM ; Start 09/18/17 at 22:45; Stop 09/18/17 at 22:46; Status DC Ziprasidone (Geodon Im) 10 mg 1X ONCE IM ; Start 09/18/17 at 22:45; Stop at 22:46; Status DC Acetaminophen (Tylenol) 650 mg PRN Q6HRS PRN PO MILD PAIN / TEMP; Start at 01:30 Multi-Ingredient Ointment (Analgesic [place]) 1 betzy PRN QID PRN TP MUSCLE PAIN; Start 09/19/17 at 01:30 Al Hydroxide/Mg Hydroxide (Mylanta Plus Xs) 15 ml PRN AFTMEALHC PRN PO DYSPEPSIA; Start 09/19/17 at 01:30 Magnesium Hydroxide (Milk Of Magnesia) 2,400 mg PRN QHS PRN PO CONSTIPATION; Start 09/19/17 at 01:30 Divalproex Sodium (Depakote Sprinkles) 250 mg BID PO Last administered on 09/19 08:04; Start 09/19/17 at 09:00; Stop 09/19/17 at 19:02; Status DC Donepezil HCl (Aricept) 23 mg QHS PO Last administered on 09/24/17 19:53; Start 09/19/17 at 21:00 Lorazepam (Ativan) 0.25 mg PRN Q4HRS PRN PO ANXIETY / AGITATION Last administered on 09/22/17 16:31; Start 09/19/17 at 01:30 Quetiapine Fumarate (SEROquel) 25 mg QHS PO Last administered on 09/23/17 19: 31; Start 09/19/17 at 21:00; Stop 09/24/17 at 09:56; Status DC Trazodone HCl (Desyrel) 125 mg QHS PO Last administered on 09/24/17 19:53; Start 09/19/17 at 21:00 Citalopram Hydrobromide (CeleXA) 20 mg DAILY PO Last administered on 09/24/17 10:03; Start 09/19/17 at 09:00 Acetaminophen (Tylenol) 650 mg PRN Q6HRS PRN PO PAIN / TEMP; Start 09/19/17 at 06:15; Status UNV Magnesium Hydroxide (Milk Of Magnesia) 2,400 mg PRN QHS PRN PO CONSTIPATION; Start 09/19/17 at 06:15; Status UNV Potassium Chloride (Klor-Con) 20 meq BID PO Last administered on 09/24/17 19: 50; Start 09/19/17 at 09:00 Senna/Docusate Sodium (Senna Plus) 2 tab QHS PO Last administered on 09/24/17 19:53; Start 09/19/17 at 21:00 Vitamin B Complex 1 cap BID PO Last administered on 09/20/17 09:01; Start at 09:00; Stop 09/21/17 at 14:27; Status DC Multivitamins/ Calcium (Thera-M Plus) 1 tab DAILY PO Last administered on 09:04; Start 09/19/17 at 09:00 Divalproex Sodium (Depakote Sprinkles) 375 mg BID PO Last administered on 10:03; Start 09/19/17 at 21:00; Stop 09/24/17 at 18:07; Status DC Quetiapine Fumarate (SEROquel) 12.5 mg DAILY PO Last administered on 09/22/17 10:49; Start 09/21/17 at 09:00; Stop 09/22/17 at 19:35; Status DC Vitamin B Complex 1 cap DAILY PO Last administered on 09/23/17 09:03; Start 09/22/17 at 09:00 Quetiapine Fumarate (SEROquel) 12.5 mg TID@0900,1400,1700 PO Last administered on 09/23/17 17:04; Start 09/23/17 at 09:00; Stop 09/24/17 at 09:56; Status DC Divalproex Sodium (Depakote Sprinkles) 500 mg BID PO Last administered on 19:52; Start 09/24/17 at 21:00 Active Scripts Active Reported Milk Of Magnesia (Magnesium Hydroxide) 400 Mg/5 Ml Oral.susp 2,400 Mg PO PRN QHS PRN Ativan (Lorazepam) 0.5 Mg Tablet 0.25 Mg PO PRN Q4HRS PRN Tylenol (Acetaminophen) 325 Mg Tablet 650 Mg PO PRN Q6HRS PRN Trazodone Hcl 50 Mg Tablet 125 Mg PO QHS Senna S Tablet (Sennosides/Docusate Sodium) 1 Each Tablet 2 Tab PO QHS Seroquel (Quetiapine Fumarate) 25 Mg Tablet 25 Mg PO QHS Klor-Con M20 (Potassium Chloride) 20 Meq Tab.er.prt 20 Meq PO BID Multivitamins (Multivitamin) 1 Each Tablet 1 Tab PO DAILY O-Yjikkh-E9-B12 Tablet (Methyl-B12/L-Mefolate/B6 Phos) 1 Each Tablet 1 Tab PO BID Escitalopram Oxalate 10 Mg Tablet 10 Mg PO DAILY Aricept (Donepezil Hcl) 23 Mg Tablet 23 Mg PO QHS Depakote Sprinkle (Divalproex Sodium) 125 Mg Cap.sprink 250 Mg PO BID I have reviewed the current psychotropics carefully including drug interactions. Risk benefit ratio favors no change other than as noted in my dictated progress note. Diagnosis: Problems: (1) Dementia (2) Pleural disorder (3) Anxiety disorder (4) Dementia, vascular, with delusions (5) Dementia in Alzheimer's disease with delusions (6) Dementia in Alzheimer's disease with depression (7) Dementia, vascular, with depression (8) Impulse control disorder GERALD KUMAR MD Sep 24, 2017 20:10
--- NOTE | 2017-09-24 23:59 | PN ---
DATE: 09/22/2017 PSYCHIATRIC PROGRESS NOTE This late entry for date of service 09/22/2017, covers elements not covered in my initial note of 09/22/2017. I met with the patient evening of 09/22/2017. The patient remains quite confused and impulsive. He put himself on the floor previous evening, combative with cares, agitated with the lab draw, slept till 11 a.m. combative, took 5 staff members to take him off the floor to the chair. He was fighting, hitting, received Ativan in the morning with meds, helped minimally. REVIEW OF SYSTEMS: Ambulation impaired. No CV, , pulmonary, eye, ENT system symptoms on review. Reliability poor. MENTAL STATUS EXAM: Oriented to himself. Insight, judgment, recent and remote memory, attention, concentration, fund of knowledge poor, consistent with his diagnosis mentioned in my initial note. PLAN: Given the marked agitation, mood lability, we will increase the Seroquel from 12.5 mg daily to 12.5 mg 9 a.m., 2:00 p.m. and 5 p.m. Maintain Seroquel 25 mg at bedtime, Celexa 20 mg a day, Depakote Sprinkle 375 mg b.i.d., level at last check was 31, subtherapeutic, repeat level is awaited, Aricept 23 mg a day, trazodone 125 mg p.o. at bedtime, Ativan p.r.n. Adjust further as clinically indicated. GERALD KUMAR MD DR: SAKINA/yasemin JOB#: [id number] / [id number]
--- NOTE | 2017-09-25 01:57 | PN ---
DATE: 09/23/2017 This is a late entry for 09/23/2017, covers elements not covered in my initial note of 09/23/2017. SUBJECTIVE: I met with the patient the evening of 09/23/2017. The patient was agitated previous evening again, aggressive with care. To get him from a sitting to standing position, lift was used this morning, which seemed to help. Reduced the interaction with staff and reduced the aggression. He threatened to "deck," the [employer]ER in the face, trying to ____, quite impulsive. I had been called earlier in the day, blood pressure was low, we have stopped the Seroquel. Valproic acid level is subtherapeutic, has been increased, repeat labs will be completed to adjust further. REVIEW OF SYSTEMS: Ambulation impaired, in wheelchair. No CV, , pulmonary, eye, ENT system symptoms on review, reliability poor. MENTAL STATUS EXAMINATION: Oriented to himself. Insight, judgment, recent and remote memory, attention, concentration, fund of knowledge poor, consistent with his diagnosis mentioned in my initial note. PLAN: Continue current psychotropics. Seroquel has been stopped. Depakote increased to reach a therapeutic level. Repeat labs. Continue Aricept, trazodone, ___ along with Ativan p.r.n. MAN Gigi KUMAR MD DR: SAKINA/yasemin JOB#: [id number] / [id number]
[2017-09-25 06:02] VITALS: BP 105/70
[2017-09-25] MEDS: VITAMIN B COMPLEX CAPSULE. PO SCH (08:48)
[2017-09-25] MEDS: DIVALPROEX 125 MG CAP.SPRINK PO SCH ×2 (08:49→20:18)
[2017-09-25] MEDS: POTASSIUM CHLORIDE 20 MEQ TABLET.ER. PO SCH ×2 (08:49→20:19)
[2017-09-25] MEDS: MULTIVITAMIN with MINERAL TABLET. PO SCH (08:49)
[2017-09-25] MEDS: CITALOPRAM 20 MG TABLET. PO SCH (08:49)
[2017-09-25 16:04] VITALS: BP 106/70
--- NOTE | 2017-09-25 20:07 | PDOC ---
Exam Note: Cyrus Note: Please also refer to the separate dictated note~for this date of service dictated separately.~Patient seen individually. Discussed the patient with Nursing staff reviewed the chart.~Reviewed interim history and current functioning. Reviewed vital signs,~Labs/ Radiology~and current medications noted below. Continue current treatment with the changes noted in the dictated addendum note Assessment: Vital Signs: Vital Signs Date Time Temp Pulse Resp B/P (MAP) Pulse Ox O2 Delivery O2 Flow Rate FiO2 09/25/17 16:04 97.8 77 20 106/70 (82) 97 09/21/17 16:03 Room Air I&O Intake and Output 09/25/17 07:00 Intake Total 1080 ml Balance 1080 ml Intake Oral 1080 ml # Bowel Movements 1 Current Medications: Meds: Current Medications Iohexol (Omnipaque 300 Mg/ml) 75 ml 1X ONCE IV Last administered on 21:29; Start 09/18/17 at 20:30; Stop 09/18/17 at 20:31; Status DC Lorazepam (Ativan) 2 mg 1X ONCE IV Last administered on 09/18/17 21:14; Start 09/18/17 at 20:30; Stop 09/18/17 at 20:31; Status DC Diphenhydramine HCl (Benadryl) 50 mg 1X ONCE IVP Last administered on 21:14; Start 09/18/17 at 20:30; Stop 09/18/17 at 20:31; Status DC Lactated Ringer's 1,000 ml @ 1,000 mls/hr 1X ONCE IV Last administered on 21:14; Start 09/18/17 at 20:30; Stop 09/18/17 at 21:29; Status DC Ziprasidone (Geodon Im) 20 mg 1X ONCE IM Last administered on 09/18/17 22:07 ; Start 09/18/17 at 22:30; Stop 09/18/17 at 22:31; Status DC Lorazepam (Ativan) 2 mg 1X ONCE IM ; Start 09/18/17 at 22:45; Stop 09/18/17 at 22:46; Status DC Ziprasidone (Geodon Im) 10 mg 1X ONCE IM ; Start 09/18/17 at 22:45; Stop at 22:46; Status DC Acetaminophen (Tylenol) 650 mg PRN Q6HRS PRN PO MILD PAIN / TEMP; Start at 01:30 Multi-Ingredient Ointment (Analgesic [place]) 1 betzy PRN QID PRN TP MUSCLE PAIN; Start 09/19/17 at 01:30 Al Hydroxide/Mg Hydroxide (Mylanta Plus Xs) 15 ml PRN AFTMEALHC PRN PO DYSPEPSIA; Start 09/19/17 at 01:30 Magnesium Hydroxide (Milk Of Magnesia) 2,400 mg PRN QHS PRN PO CONSTIPATION; Start 09/19/17 at 01:30 Divalproex Sodium (Depakote Sprinkles) 250 mg BID PO Last administered on 09/19 08:04; Start 09/19/17 at 09:00; Stop 09/19/17 at 19:02; Status DC Donepezil HCl (Aricept) 23 mg QHS PO Last administered on 09/24/17 19:53; Start 09/19/17 at 21:00 Lorazepam (Ativan) 0.25 mg PRN Q4HRS PRN PO ANXIETY / AGITATION Last administered on 09/22/17 16:31; Start 09/19/17 at 01:30 Quetiapine Fumarate (SEROquel) 25 mg QHS PO Last administered on 09/23/17 19: 31; Start 09/19/17 at 21:00; Stop 09/24/17 at 09:56; Status DC Trazodone HCl (Desyrel) 125 mg QHS PO Last administered on 09/24/17 19:53; Start 09/19/17 at 21:00 Citalopram Hydrobromide (CeleXA) 20 mg DAILY PO Last administered on 09/25/17 08:49; Start 09/19/17 at 09:00 Acetaminophen (Tylenol) 650 mg PRN Q6HRS PRN PO PAIN / TEMP; Start 09/19/17 at 06:15; Status UNV Magnesium Hydroxide (Milk Of Magnesia) 2,400 mg PRN QHS PRN PO CONSTIPATION; Start 09/19/17 at 06:15; Status UNV Potassium Chloride (Klor-Con) 20 meq BID PO Last administered on 09/25/17 08: 49; Start 09/19/17 at 09:00 Senna/Docusate Sodium (Senna Plus) 2 tab QHS PO Last administered on 09/24/17 19:53; Start 09/19/17 at 21:00 Vitamin B Complex 1 cap BID PO Last administered on 09/20/17 09:01; Start at 09:00; Stop 09/21/17 at 14:27; Status DC Multivitamins/ Calcium (Thera-M Plus) 1 tab DAILY PO Last administered on 08:49; Start 09/19/17 at 09:00 Divalproex Sodium (Depakote Sprinkles) 375 mg BID PO Last administered on 10:03; Start 09/19/17 at 21:00; Stop 09/24/17 at 18:07; Status DC Quetiapine Fumarate (SEROquel) 12.5 mg DAILY PO Last administered on 09/22/17 10:49; Start 09/21/17 at 09:00; Stop 09/22/17 at 19:35; Status DC Vitamin B Complex 1 cap DAILY PO Last administered on 09/25/17 08:48; Start 09/22/17 at 09:00 Quetiapine Fumarate (SEROquel) 12.5 mg TID@0900,1400,1700 PO Last administered on 09/23/17 17:04; Start 09/23/17 at 09:00; Stop 09/24/17 at 09:56; Status DC Divalproex Sodium (Depakote Sprinkles) 500 mg BID PO Last administered on 08:49; Start 09/24/17 at 21:00 Active Scripts Active Reported Milk Of Magnesia (Magnesium Hydroxide) 400 Mg/5 Ml Oral.susp 2,400 Mg PO PRN QHS PRN Ativan (Lorazepam) 0.5 Mg Tablet 0.25 Mg PO PRN Q4HRS PRN Tylenol (Acetaminophen) 325 Mg Tablet 650 Mg PO PRN Q6HRS PRN Trazodone Hcl 50 Mg Tablet 125 Mg PO QHS Senna S Tablet (Sennosides/Docusate Sodium) 1 Each Tablet 2 Tab PO QHS Seroquel (Quetiapine Fumarate) 25 Mg Tablet 25 Mg PO QHS Klor-Con M20 (Potassium Chloride) 20 Meq Tab.er.prt 20 Meq PO BID Multivitamins (Multivitamin) 1 Each Tablet 1 Tab PO DAILY W-Uolpyg-R4-B12 Tablet (Methyl-B12/L-Mefolate/B6 Phos) 1 Each Tablet 1 Tab PO BID Escitalopram Oxalate 10 Mg Tablet 10 Mg PO DAILY Aricept (Donepezil Hcl) 23 Mg Tablet 23 Mg PO QHS Depakote Sprinkle (Divalproex Sodium) 125 Mg Cap.sprink 250 Mg PO BID I have reviewed the current psychotropics carefully including drug interactions. Risk benefit ratio favors no change other than as noted in my dictated progress note. Diagnosis: Problems: (1) Dementia (2) Pleural disorder (3) Anxiety disorder (4) Dementia, vascular, with delusions (5) Dementia in Alzheimer's disease with delusions (6) Dementia in Alzheimer's disease with depression (7) Dementia, vascular, with depression (8) Impulse control disorder GERALD KUMAR MD Sep 25, 2017 20:07
[2017-09-25] MEDS: traZODone 50 MG TABLET. PO SCH (20:17)
[2017-09-25] MEDS: SENNOSIDES/DOCUSATE 8.6/50MG TABLET. PO SCH (20:19)
[2017-09-25] MEDS: DONEPEZIL 23 MG TABLET PO SCH (20:19)
[2017-09-26] MEDS: CITALOPRAM 20 MG TABLET. PO SCH (07:35)
[2017-09-26] MEDS: DIVALPROEX 125 MG CAP.SPRINK PO SCH ×2 (07:35→20:42)
[2017-09-26] MEDS: MULTIVITAMIN with MINERAL TABLET. PO SCH (07:35)
[2017-09-26] MEDS: POTASSIUM CHLORIDE 20 MEQ TABLET.ER. PO SCH ×2 (07:35→20:43)
[2017-09-26] MEDS: VITAMIN B COMPLEX CAPSULE. PO SCH (07:35)
--- NOTE | 2017-09-26 07:59 | PN ---
DATE: 09/24/2017 PSYCHIATRIC PROGRESS NOTE This is a late entry 09/24/2017, covers elements not covered in my initial note 09/24/2017. SUBJECTIVE: I met with the patient the evening of 09/24/2017. The patient has been intermittently agitated, scratching, hitting nursing staff, resistive to cares. He was extremely aggressive during morning, rafael cares, did better in the evening. Nursing staff had called me as an emergency morning of 09/24/2017. Blood pressure was somewhat low, possibly attributed to the Seroquel and we have discontinued it. REVIEW OF SYSTEMS: Ambulation impaired, in wheelchair. No CV, , pulmonary, eye, ENT system symptoms on review. Reliability poor. MENTAL STATUS EXAM: Oriented to himself. Insight, judgment, recent and remote memory, attention, concentration, fund of knowledge poor, consistent with his diagnoses mentioned in my initial note. Valproic acid level is 45, subtherapeutic on Depakote Sprinkles 375 mg b.i.d. PLAN: Increase Depakote to 500 mg b.i.d. Check CBC, CMP, valproic acid level in 3 days. Adjust further to reach a therapeutic level. Continue Celexa, Aricept, trazodone, along with Ativan p.r.n. for now. MAN Gigi KUMAR MD DR: SAKINA/yasemin JOB#: [id number] / [id number]
[2017-09-26] MEDS: LORazepam 0.5 MG TABLET PO PRN ×2 (11:27→17:47)
[2017-09-26 15:17] VITALS: BP 148/64
--- NOTE | 2017-09-26 20:07 | PDOC ---
Exam Note: Cyrus Note: Please also refer to the separate dictated note~for this date of service dictated separately.~Patient seen individually. Discussed the patient with Nursing staff reviewed the chart.~Reviewed interim history and current functioning. Reviewed vital signs,~Labs/ Radiology~and current medications noted below. Continue current treatment with the changes noted in the dictated addendum note Assessment: Vital Signs: Vital Signs Date Time Temp Pulse Resp B/P (MAP) Pulse Ox O2 Delivery O2 Flow Rate FiO2 09/26/17 15:17 98.4 73 18 148/64 (92) 95 09/21/17 16:03 Room Air I&O Intake and Output 09/26/17 07:00 Intake Total 840 ml Balance 840 ml Intake Oral 840 ml # Voids 1 # Bowel Movements 1 Current Medications: Meds: Current Medications Iohexol (Omnipaque 300 Mg/ml) 75 ml 1X ONCE IV Last administered on 21:29; Start 09/18/17 at 20:30; Stop 09/18/17 at 20:31; Status DC Lorazepam (Ativan) 2 mg 1X ONCE IV Last administered on 09/18/17 21:14; Start 09/18/17 at 20:30; Stop 09/18/17 at 20:31; Status DC Diphenhydramine HCl (Benadryl) 50 mg 1X ONCE IVP Last administered on 21:14; Start 09/18/17 at 20:30; Stop 09/18/17 at 20:31; Status DC Lactated Ringer's 1,000 ml @ 1,000 mls/hr 1X ONCE IV Last administered on 21:14; Start 09/18/17 at 20:30; Stop 09/18/17 at 21:29; Status DC Ziprasidone (Geodon Im) 20 mg 1X ONCE IM Last administered on 09/18/17 22:07 ; Start 09/18/17 at 22:30; Stop 09/18/17 at 22:31; Status DC Lorazepam (Ativan) 2 mg 1X ONCE IM ; Start 09/18/17 at 22:45; Stop 09/18/17 at 22:46; Status DC Ziprasidone (Geodon Im) 10 mg 1X ONCE IM ; Start 09/18/17 at 22:45; Stop at 22:46; Status DC Acetaminophen (Tylenol) 650 mg PRN Q6HRS PRN PO MILD PAIN / TEMP; Start at 01:30 Multi-Ingredient Ointment (Analgesic [place]) 1 betzy PRN QID PRN TP MUSCLE PAIN; Start 09/19/17 at 01:30 Al Hydroxide/Mg Hydroxide (Mylanta Plus Xs) 15 ml PRN AFTMEALHC PRN PO DYSPEPSIA; Start 09/19/17 at 01:30 Magnesium Hydroxide (Milk Of Magnesia) 2,400 mg PRN QHS PRN PO CONSTIPATION; Start 09/19/17 at 01:30 Divalproex Sodium (Depakote Sprinkles) 250 mg BID PO Last administered on 09/19 08:04; Start 09/19/17 at 09:00; Stop 09/19/17 at 19:02; Status DC Donepezil HCl (Aricept) 23 mg QHS PO Last administered on 09/25/17 20:19; Start 09/19/17 at 21:00 Lorazepam (Ativan) 0.25 mg PRN Q4HRS PRN PO ANXIETY / AGITATION Last administered on 09/26/17 17:47; Start 09/19/17 at 01:30 Quetiapine Fumarate (SEROquel) 25 mg QHS PO Last administered on 09/23/17 19: 31; Start 09/19/17 at 21:00; Stop 09/24/17 at 09:56; Status DC Trazodone HCl (Desyrel) 125 mg QHS PO Last administered on 09/25/17 20:17; Start 09/19/17 at 21:00 Citalopram Hydrobromide (CeleXA) 20 mg DAILY PO Last administered on 09/26/17 07:35; Start 09/19/17 at 09:00 Acetaminophen (Tylenol) 650 mg PRN Q6HRS PRN PO PAIN / TEMP; Start 09/19/17 at 06:15; Status UNV Magnesium Hydroxide (Milk Of Magnesia) 2,400 mg PRN QHS PRN PO CONSTIPATION; Start 09/19/17 at 06:15; Status UNV Potassium Chloride (Klor-Con) 20 meq BID PO Last administered on 09/26/17 07: 35; Start 09/19/17 at 09:00 Senna/Docusate Sodium (Senna Plus) 2 tab QHS PO Last administered on 09/25/17 20:19; Start 09/19/17 at 21:00 Vitamin B Complex 1 cap BID PO Last administered on 09/20/17 09:01; Start at 09:00; Stop 09/21/17 at 14:27; Status DC Multivitamins/ Calcium (Thera-M Plus) 1 tab DAILY PO Last administered on 07:35; Start 09/19/17 at 09:00 Divalproex Sodium (Depakote Sprinkles) 375 mg BID PO Last administered on 10:03; Start 09/19/17 at 21:00; Stop 09/24/17 at 18:07; Status DC Quetiapine Fumarate (SEROquel) 12.5 mg DAILY PO Last administered on 09/22/17 10:49; Start 09/21/17 at 09:00; Stop 09/22/17 at 19:35; Status DC Vitamin B Complex 1 cap DAILY PO Last administered on 09/26/17 07:35; Start 09/22/17 at 09:00 Quetiapine Fumarate (SEROquel) 12.5 mg TID@0900,1400,1700 PO Last administered on 09/23/17 17:04; Start 09/23/17 at 09:00; Stop 09/24/17 at 09:56; Status DC Divalproex Sodium (Depakote Sprinkles) 500 mg BID PO Last administered on 07:35; Start 09/24/17 at 21:00 Olanzapine (ZyPREXA ZYDIS) 2.5 mg PRN Q2HR PRN PO PSYCHOSIS; Start 09/26/17 at 18:30 Active Scripts Active Reported Milk Of Magnesia (Magnesium Hydroxide) 400 Mg/5 Ml Oral.susp 2,400 Mg PO PRN QHS PRN Ativan (Lorazepam) 0.5 Mg Tablet 0.25 Mg PO PRN Q4HRS PRN Tylenol (Acetaminophen) 325 Mg Tablet 650 Mg PO PRN Q6HRS PRN Trazodone Hcl 50 Mg Tablet 125 Mg PO QHS Senna S Tablet (Sennosides/Docusate Sodium) 1 Each Tablet 2 Tab PO QHS Seroquel (Quetiapine Fumarate) 25 Mg Tablet 25 Mg PO QHS Klor-Con M20 (Potassium Chloride) 20 Meq Tab.er.prt 20 Meq PO BID Multivitamins (Multivitamin) 1 Each Tablet 1 Tab PO DAILY [id number] Tablet (Methyl-B12/L-Mefolate/B6 Phos) 1 Each Tablet 1 Tab PO BID Escitalopram Oxalate 10 Mg Tablet 10 Mg PO DAILY Aricept (Donepezil Hcl) 23 Mg Tablet 23 Mg PO QHS Depakote Sprinkle (Divalproex Sodium) 125 Mg Cap.sprink 250 Mg PO BID I have reviewed the current psychotropics carefully including drug interactions. Risk benefit ratio favors no change other than as noted in my dictated progress note. Diagnosis: Problems: (1) Dementia (2) Pleural disorder (3) Anxiety disorder (4) Dementia, vascular, with delusions (5) Dementia in Alzheimer's disease with delusions (6) Dementia in Alzheimer's disease with depression (7) Dementia, vascular, with depression (8) Impulse control disorder GERALD KUMAR MD Sep 26, 2017 20:07
[2017-09-26] MEDS: SENNOSIDES/DOCUSATE 8.6/50MG TABLET. PO SCH (20:43)
[2017-09-26] MEDS: traZODone 50 MG TABLET. PO SCH (20:43)
[2017-09-26] MEDS: DONEPEZIL 23 MG TABLET PO SCH (20:43)
[2017-09-27 06:37] VITALS: BP 137/81
[2017-09-27] MEDS: CITALOPRAM 20 MG TABLET. PO SCH (11:37)
[2017-09-27] MEDS: DIVALPROEX 125 MG CAP.SPRINK PO SCH ×2 (11:37→19:10)
[2017-09-27] MEDS: MULTIVITAMIN with MINERAL TABLET. PO SCH (11:37)
[2017-09-27] MEDS: POTASSIUM CHLORIDE 20 MEQ TABLET.ER. PO SCH ×2 (11:37→19:09)
[2017-09-27] MEDS: VITAMIN B COMPLEX CAPSULE. PO SCH (11:37)
--- NOTE | 2017-09-27 12:24 | PN ---
DATE: 09/25/2017 PSYCHIATRIC PROGRESS NOTE This is late entry 09/25/2017 covers elements not covered in my initial note of 09/25/2017. SUBJECTIVE: Met with the patient in the evening of 09/25/2017 in his room. He remains confused. Per nursing report, he has been hallucinating in the day room, slept 7-3/4 hours previous evening, combative with cares, verbally aggressive with cares. REVIEW OF SYSTEMS: Ambulation impaired, in wheelchair. No CV, , pulmonary, eye, ENT system symptoms on review. Reliability is poor. MENTAL STATUS EXAM: Oriented to himself. Insight, judgment, recent and remote memory, attention, concentration, fund of knowledge poor, consistent with his diagnosis mentioned in my initial note. PLAN: Continue current psychotropics mentioned in my initial note, adjust further as clinically indicated. MAN Gigi KUMAR MD DR: SAKINA/yasemin JOB#: [id number] / [id number]
[2017-09-27 16:36] VITALS: BP 91/62
[2017-09-27] MEDS: SENNOSIDES/DOCUSATE 8.6/50MG TABLET. PO SCH (19:09)
[2017-09-27] MEDS: traZODone 50 MG TABLET. PO SCH (19:09)
[2017-09-27] MEDS: DONEPEZIL 23 MG TABLET PO SCH (19:09)
--- NOTE | 2017-09-27 21:17 | PDOC ---
Exam Note: Cyrus Note: Please also refer to the separate dictated note~for this date of service dictated separately.~Patient seen individually. Discussed the patient with Nursing staff reviewed the chart.~Reviewed interim history and current functioning. Reviewed vital signs,~Labs/ Radiology~and current medications noted below. Continue current treatment with the changes noted in the dictated addendum note Assessment: Vital Signs: Vital Signs Date Time Temp Pulse Resp B/P (MAP) Pulse Ox O2 Delivery O2 Flow Rate FiO2 09/27/17 16:36 77 18 91/62 (72) 95 Room Air 09/27/17 06:37 97.6 I&O Intake and Output 09/27/17 07:00 Intake Total 840 ml Balance 840 ml Intake Oral 840 ml # Voids 1 Current Medications: Meds: Current Medications Iohexol (Omnipaque 300 Mg/ml) 75 ml 1X ONCE IV Last administered on 21:29; Start 09/18/17 at 20:30; Stop 09/18/17 at 20:31; Status DC Lorazepam (Ativan) 2 mg 1X ONCE IV Last administered on 09/18/17 21:14; Start 09/18/17 at 20:30; Stop 09/18/17 at 20:31; Status DC Diphenhydramine HCl (Benadryl) 50 mg 1X ONCE IVP Last administered on 21:14; Start 09/18/17 at 20:30; Stop 09/18/17 at 20:31; Status DC Lactated Ringer's 1,000 ml @ 1,000 mls/hr 1X ONCE IV Last administered on 21:14; Start 09/18/17 at 20:30; Stop 09/18/17 at 21:29; Status DC Ziprasidone (Geodon Im) 20 mg 1X ONCE IM Last administered on 09/18/17 22:07 ; Start 09/18/17 at 22:30; Stop 09/18/17 at 22:31; Status DC Lorazepam (Ativan) 2 mg 1X ONCE IM ; Start 09/18/17 at 22:45; Stop 09/18/17 at 22:46; Status DC Ziprasidone (Geodon Im) 10 mg 1X ONCE IM ; Start 09/18/17 at 22:45; Stop at 22:46; Status DC Acetaminophen (Tylenol) 650 mg PRN Q6HRS PRN PO MILD PAIN / TEMP; Start at 01:30 Multi-Ingredient Ointment (Analgesic [place]) 1 betzy PRN QID PRN TP MUSCLE PAIN; Start 09/19/17 at 01:30 Al Hydroxide/Mg Hydroxide (Mylanta Plus Xs) 15 ml PRN AFTMEALHC PRN PO DYSPEPSIA; Start 09/19/17 at 01:30 Magnesium Hydroxide (Milk Of Magnesia) 2,400 mg PRN QHS PRN PO CONSTIPATION; Start 09/19/17 at 01:30 Divalproex Sodium (Depakote Sprinkles) 250 mg BID PO Last administered on 09/19 08:04; Start 09/19/17 at 09:00; Stop 09/19/17 at 19:02; Status DC Donepezil HCl (Aricept) 23 mg QHS PO Last administered on 09/27/17 19:09; Start 09/19/17 at 21:00 Lorazepam (Ativan) 0.25 mg PRN Q4HRS PRN PO ANXIETY / AGITATION Last administered on 09/26/17 17:47; Start 09/19/17 at 01:30 Quetiapine Fumarate (SEROquel) 25 mg QHS PO Last administered on 09/23/17 19: 31; Start 09/19/17 at 21:00; Stop 09/24/17 at 09:56; Status DC Trazodone HCl (Desyrel) 125 mg QHS PO Last administered on 09/27/17 19:09; Start 09/19/17 at 21:00 Citalopram Hydrobromide (CeleXA) 20 mg DAILY PO Last administered on 09/27/17 11:37; Start 09/19/17 at 09:00 Acetaminophen (Tylenol) 650 mg PRN Q6HRS PRN PO PAIN / TEMP; Start 09/19/17 at 06:15; Status UNV Magnesium Hydroxide (Milk Of Magnesia) 2,400 mg PRN QHS PRN PO CONSTIPATION; Start 09/19/17 at 06:15; Status UNV Potassium Chloride (Klor-Con) 20 meq BID PO Last administered on 09/27/17 19: 09; Start 09/19/17 at 09:00 Senna/Docusate Sodium (Senna Plus) 2 tab QHS PO Last administered on 09/27/17 19:09; Start 09/19/17 at 21:00 Vitamin B Complex 1 cap BID PO Last administered on 09/20/17 09:01; Start at 09:00; Stop 09/21/17 at 14:27; Status DC Multivitamins/ Calcium (Thera-M Plus) 1 tab DAILY PO Last administered on 11:37; Start 09/19/17 at 09:00 Divalproex Sodium (Depakote Sprinkles) 375 mg BID PO Last administered on 10:03; Start 09/19/17 at 21:00; Stop 09/24/17 at 18:07; Status DC Quetiapine Fumarate (SEROquel) 12.5 mg DAILY PO Last administered on 09/22/17 10:49; Start 09/21/17 at 09:00; Stop 09/22/17 at 19:35; Status DC Vitamin B Complex 1 cap DAILY PO Last administered on 09/27/17 11:37; Start 09/22/17 at 09:00 Quetiapine Fumarate (SEROquel) 12.5 mg TID@0900,1400,1700 PO Last administered on 09/23/17 17:04; Start 09/23/17 at 09:00; Stop 09/24/17 at 09:56; Status DC Divalproex Sodium (Depakote Sprinkles) 500 mg BID PO Last administered on 19:10; Start 09/24/17 at 21:00 Olanzapine (ZyPREXA ZYDIS) 2.5 mg PRN Q2HR PRN PO PSYCHOSIS Last administered on 09/27/17 16:07; Start 09/26/17 at 18:30 Active Scripts Active Reported Milk Of Magnesia (Magnesium Hydroxide) 400 Mg/5 Ml Oral.susp 2,400 Mg PO PRN QHS PRN Ativan (Lorazepam) 0.5 Mg Tablet 0.25 Mg PO PRN Q4HRS PRN Tylenol (Acetaminophen) 325 Mg Tablet 650 Mg PO PRN Q6HRS PRN Trazodone Hcl 50 Mg Tablet 125 Mg PO QHS Senna S Tablet (Sennosides/Docusate Sodium) 1 Each Tablet 2 Tab PO QHS Seroquel (Quetiapine Fumarate) 25 Mg Tablet 25 Mg PO QHS Klor-Con M20 (Potassium Chloride) 20 Meq Tab.er.prt 20 Meq PO BID Multivitamins (Multivitamin) 1 Each Tablet 1 Tab PO DAILY V-Mugzbl-I3-B12 Tablet (Methyl-B12/L-Mefolate/B6 Phos) 1 Each Tablet 1 Tab PO BID Escitalopram Oxalate 10 Mg Tablet 10 Mg PO DAILY Aricept (Donepezil Hcl) 23 Mg Tablet 23 Mg PO QHS Depakote Sprinkle (Divalproex Sodium) 125 Mg Cap.sprink 250 Mg PO BID I have reviewed the current psychotropics carefully including drug interactions. Risk benefit ratio favors no change other than as noted in my dictated progress note. Diagnosis: Problems: (1) Dementia (2) Pleural disorder (3) Anxiety disorder (4) Dementia, vascular, with delusions (5) Dementia in Alzheimer's disease with delusions (6) Dementia in Alzheimer's disease with depression (7) Dementia, vascular, with depression (8) Impulse control disorder GERALD KUMAR MD Sep 27, 2017 21:17
[2017-09-28 06:00] VITALS: BP 128/79
--- NOTE | 2017-09-28 07:18 | PN ---
DATE: 09/26/2017 This is a late entry for 09/26/2017 and covers elements not covered in my initial note of 09/26/2017. I met with the patient in the evening of 09/26/2017 in his room. He is being quite anxious, restless, had to be in the West hallway. Received Ativan at 11:30; at dinnertime, he was growling yelling at others around him, later kicking the door, yelling, calling other patients on the unit turkeys. REVIEW OF SYSTEMS: Ambulation impaired, in wheelchair. No CV, , pulmonary, eye, ENT system symptoms on review. Reliability poor. MENTAL STATUS EXAM: Oriented to himself. Insight, judgment, recent and remote memory, attention, concentration, fund of knowledge poor, consistent with his diagnosis as mentioned in my initial note. PLAN: Start Zyprexa 2.5 mg q. 2 hours p.r.n. psychosis, agitation, max 10 mg in 24 hours. Rest of the psychotropics will continue at current dosage, including the Depakote and repeat labs and valproic acid level to be checked on 09/27/2017 and then adjust thereafter as clinically indicated. GERALD KUMAR MD DR: SAKINA/yasemin JOB#: [id number] / [id number]
[2017-09-28 08:25] LABS: BASO % 0 % (0-3); EOS # 0.1 x10^3/uL (0.0-0.7); EOS % 1 % (0-3); HEMATOCRIT 41.3 % (39.0-53.0); HEMOGLOBIN 14.2 g/dL (13.0-17.5); LYMPH # 0.7 x10^3/uL (1.0-4.8); LYMPH % 16 % (24-48); MEAN CORPUSCULAR HEMOGLOBIN 35 pg (25-35); MEAN CORPUSCULAR HGB CONC 34 g/dL (31-37); MEAN CORPUSCULAR VOLUME 102 fL (79-100); MONO # 0.6 x10^3/uL (0.0-1.1); MONO % 12 % (0-9); NEUT # 3.2 x10^3uL (1.8-7.7); NEUT % 70 % (31-73); PLATELET COUNT 114 x10^3/uL (140-400); RED BLOOD COUNT 4.05 x10^6/uL (4.30-5.70); RED CELL DISTRIBUTION WIDTH 16.4 % (11.5-14.5); WHITE BLOOD COUNT 4.5 x10^3/uL (4.0-11.0)
[2017-09-28 08:33] LABS: ALBUMIN 3.1 g/dL (3.4-5.0); ALBUMIN/GLOBULIN RATIO 0.8 (1.0-1.7); ALK PHOS 118 U/L (46-116); ALT (SGPT) 19 U/L (16-63); ANION GAP 6 (6-14); AST (SGOT) 17 U/L (15-37); BLOOD UREA NITROGEN 10 mg/dL (8-26); BUN/CREATININE RATIO 10 (6-20); CALCIUM 8.8 mg/dL (8.5-10.1); CARBON DIOXIDE 32 mmol/L (21-32); CHLORIDE 109 mmol/L (98-107); GFR 71.5; GLUCOSE 114 mg/dL (70-99); POTASSIUM 4.7 mmol/L (3.5-5.1); SODIUM 147 mmol/L (136-145); TOTAL BILIRUBIN 0.9 mg/dL (0.2-1.0); TOTAL PROTEIN 6.8 g/dL (6.4-8.2)
[2017-09-28 08:34] LABS: VAL ACID 72 mcg/mL (50-100)
[2017-09-28] MEDS: CITALOPRAM 20 MG TABLET. PO SCH (08:54)
[2017-09-28] MEDS: VITAMIN B COMPLEX CAPSULE. PO SCH (08:54)
[2017-09-28] MEDS: MULTIVITAMIN with MINERAL TABLET. PO SCH (08:54)
[2017-09-28] MEDS: POTASSIUM CHLORIDE 20 MEQ TABLET.ER. PO SCH ×2 (08:54→19:42)
[2017-09-28] MEDS: DIVALPROEX 125 MG CAP.SPRINK PO SCH ×2 (08:54→19:42)
[2017-09-28] MEDS: risperiDONE 0.25 MG TABLET. PO SCH ×2 (13:59→16:24)
[2017-09-28 16:38] VITALS: BP 118/71
[2017-09-28] MEDS: SENNOSIDES/DOCUSATE 8.6/50MG TABLET. PO SCH (19:42)
[2017-09-28] MEDS: traZODone 50 MG TABLET. PO SCH (19:42)
[2017-09-28] MEDS: DONEPEZIL 23 MG TABLET PO SCH (19:42)
--- NOTE | 2017-09-28 20:02 | PDOC ---
Exam Note: Cyrus Note: Please also refer to the separate dictated note~for this date of service dictated separately.~Patient seen individually. Discussed the patient with Nursing staff reviewed the chart.~Reviewed interim history and current functioning. Reviewed vital signs,~Labs/ Radiology~and current medications noted below. Continue current treatment with the changes noted in the dictated addendum note Assessment: Vital Signs: Vital Signs Date Time Temp Pulse Resp B/P (MAP) Pulse Ox O2 Delivery O2 Flow Rate FiO2 09/28/17 16:38 97.1 80 20 118/71 (87) 97 09/28/17 06:00 Room Air I&O Intake and Output 09/28/17 07:00 Intake Total 520 ml Balance 520 ml Intake Oral 520 ml # Voids 1 Labs: Laboratory Tests Test 09/28/17 07:49 White Blood Count 4.5 x10^3/uL (4.0-11.0) Red Blood Count 4.05 x10^6/uL (4.30-5.70) L Hemoglobin 14.2 g/dL (13.0-17.5) Hematocrit 41.3 % (39.0-53.0) Mean Corpuscular Volume 102 fL (79-100) H Mean Corpuscular Hemoglobin 35 pg (25-35) Mean Corpuscular Hemoglobin Concent 34 g/dL (31-37) Red Cell Distribution Width 16.4 % (11.5-14.5) H Platelet Count 114 x10^3/uL (140-400) L Neutrophils (%) (Auto) 70 % (31-73) Lymphocytes (%) (Auto) 16 % (24-48) L Monocytes (%) (Auto) 12 % (0-9) H Eosinophils (%) (Auto) 1 % (0-3) Basophils (%) (Auto) 0 % (0-3) Neutrophils # (Auto) 3.2 x10^3uL (1.8-7.7) Lymphocytes # (Auto) 0.7 x10^3/uL (1.0-4.8) L Monocytes # (Auto) 0.6 x10^3/uL (0.0-1.1) Eosinophils # (Auto) 0.1 x10^3/uL (0.0-0.7) Basophils # (Auto) 0.0 x10^3/uL (0.0-0.2) Sodium Level 147 mmol/L (136-145) H Potassium Level 4.7 mmol/L (3.5-5.1) Chloride Level 109 mmol/L (98-107) H Carbon Dioxide Level 32 mmol/L (21-32) Anion Gap 6 (6-14) Blood Urea Nitrogen 10 mg/dL (8-26) Creatinine 1.0 mg/dL (0.7-1.3) Estimated GFR (Cockcroft-Gault) 71.5 BUN/Creatinine Ratio 10 (6-20) Glucose Level 114 mg/dL (70-99) H Calcium Level 8.8 mg/dL (8.5-10.1) Total Bilirubin 0.9 mg/dL (0.2-1.0) Aspartate Amino Transferase (AST) 17 U/L (15-37) Alanine Aminotransferase (ALT) 19 U/L (16-63) Alkaline Phosphatase 118 U/L (46-116) H Total Protein 6.8 g/dL (6.4-8.2) Albumin 3.1 g/dL (3.4-5.0) L Albumin/Globulin Ratio 0.8 (1.0-1.7) L Valproic Acid Level 72 mcg/mL (50-100) Valproic Acid Last Dose Date 09/27/17 Valproic Acid Last Dose Time 2100 Current Medications: Meds: Current Medications Iohexol (Omnipaque 300 Mg/ml) 75 ml 1X ONCE IV Last administered on 21:29; Start 09/18/17 at 20:30; Stop 09/18/17 at 20:31; Status DC Lorazepam (Ativan) 2 mg 1X ONCE IV Last administered on 09/18/17 21:14; Start 09/18/17 at 20:30; Stop 09/18/17 at 20:31; Status DC Diphenhydramine HCl (Benadryl) 50 mg 1X ONCE IVP Last administered on 21:14; Start 09/18/17 at 20:30; Stop 09/18/17 at 20:31; Status DC Lactated Ringer's 1,000 ml @ 1,000 mls/hr 1X ONCE IV Last administered on 21:14; Start 09/18/17 at 20:30; Stop 09/18/17 at 21:29; Status DC Ziprasidone (Geodon Im) 20 mg 1X ONCE IM Last administered on 09/18/17 22:07 ; Start 09/18/17 at 22:30; Stop 09/18/17 at 22:31; Status DC Lorazepam (Ativan) 2 mg 1X ONCE IM ; Start 09/18/17 at 22:45; Stop 09/18/17 at 22:46; Status DC Ziprasidone (Geodon Im) 10 mg 1X ONCE IM ; Start 09/18/17 at 22:45; Stop at 22:46; Status DC Acetaminophen (Tylenol) 650 mg PRN Q6HRS PRN PO MILD PAIN / TEMP; Start at 01:30 Multi-Ingredient Ointment (Analgesic [place]) 1 betzy PRN QID PRN TP MUSCLE PAIN; Start 09/19/17 at 01:30 Al Hydroxide/Mg Hydroxide (Mylanta Plus Xs) 15 ml PRN AFTMEALHC PRN PO DYSPEPSIA; Start 09/19/17 at 01:30 Magnesium Hydroxide (Milk Of Magnesia) 2,400 mg PRN QHS PRN PO CONSTIPATION; Start 09/19/17 at 01:30 Divalproex Sodium (Depakote Sprinkles) 250 mg BID PO Last administered on 09/19 08:04; Start 09/19/17 at 09:00; Stop 09/19/17 at 19:02; Status DC Donepezil HCl (Aricept) 23 mg QHS PO Last administered on 09/28/17 19:42; Start 09/19/17 at 21:00 Lorazepam (Ativan) 0.25 mg PRN Q4HRS PRN PO ANXIETY / AGITATION Last administered on 09/26/17 17:47; Start 09/19/17 at 01:30 Quetiapine Fumarate (SEROquel) 25 mg QHS PO Last administered on 09/23/17 19: 31; Start 09/19/17 at 21:00; Stop 09/24/17 at 09:56; Status DC Trazodone HCl (Desyrel) 125 mg QHS PO Last administered on 09/28/17 19:42; Start 09/19/17 at 21:00 Citalopram Hydrobromide (CeleXA) 20 mg DAILY PO Last administered on 09/28/17 08:54; Start 09/19/17 at 09:00 Acetaminophen (Tylenol) 650 mg PRN Q6HRS PRN PO PAIN / TEMP; Start 09/19/17 at 06:15; Status UNV Magnesium Hydroxide (Milk Of Magnesia) 2,400 mg PRN QHS PRN PO CONSTIPATION; Start 09/19/17 at 06:15; Status UNV Potassium Chloride (Klor-Con) 20 meq BID PO Last administered on 09/28/17 19: 42; Start 09/19/17 at 09:00 Senna/Docusate Sodium (Senna Plus) 2 tab QHS PO Last administered on 09/28/17 19:42; Start 09/19/17 at 21:00 Vitamin B Complex 1 cap BID PO Last administered on 09/20/17 09:01; Start at 09:00; Stop 09/21/17 at 14:27; Status DC Multivitamins/ Calcium (Thera-M Plus) 1 tab DAILY PO Last administered on 08:54; Start 09/19/17 at 09:00 Divalproex Sodium (Depakote Sprinkles) 375 mg BID PO Last administered on 10:03; Start 09/19/17 at 21:00; Stop 09/24/17 at 18:07; Status DC Quetiapine Fumarate (SEROquel) 12.5 mg DAILY PO Last administered on 09/22/17 10:49; Start 09/21/17 at 09:00; Stop 09/22/17 at 19:35; Status DC Vitamin B Complex 1 cap DAILY PO Last administered on 09/28/17 08:54; Start 09/22/17 at 09:00 Quetiapine Fumarate (SEROquel) 12.5 mg TID@0900,1400,1700 PO Last administered on 09/23/17 17:04; Start 09/23/17 at 09:00; Stop 09/24/17 at 09:56; Status DC Divalproex Sodium (Depakote Sprinkles) 500 mg BID PO Last administered on 19:42; Start 09/24/17 at 21:00 Olanzapine (ZyPREXA ZYDIS) 2.5 mg PRN Q2HR PRN PO PSYCHOSIS Last administered on 09/28/17 08:55; Start 09/26/17 at 18:30 Risperidone (RisperDAL) 0.125 mg DAILY@0900,1400,1700 PO Last administered on 09/28/17 16:24; Start 09/28/17 at 14:00 Active Scripts Active Reported Milk Of Magnesia (Magnesium Hydroxide) 400 Mg/5 Ml Oral.susp 2,400 Mg PO PRN QHS PRN Ativan (Lorazepam) 0.5 Mg Tablet 0.25 Mg PO PRN Q4HRS PRN Tylenol (Acetaminophen) 325 Mg Tablet 650 Mg PO PRN Q6HRS PRN Trazodone Hcl 50 Mg Tablet 125 Mg PO QHS Senna S Tablet (Sennosides/Docusate Sodium) 1 Each Tablet 2 Tab PO QHS Seroquel (Quetiapine Fumarate) 25 Mg Tablet 25 Mg PO QHS Klor-Con M20 (Potassium Chloride) 20 Meq Tab.er.prt 20 Meq PO BID Multivitamins (Multivitamin) 1 Each Tablet 1 Tab PO DAILY A-Xrwhoe-V1-B12 Tablet (Methyl-B12/L-Mefolate/B6 Phos) 1 Each Tablet 1 Tab PO BID Escitalopram Oxalate 10 Mg Tablet 10 Mg PO DAILY Aricept (Donepezil Hcl) 23 Mg Tablet 23 Mg PO QHS Depakote Sprinkle (Divalproex Sodium) 125 Mg Cap.sprink 250 Mg PO BID I have reviewed the current psychotropics carefully including drug interactions. Risk benefit ratio favors no change other than as noted in my dictated progress note. Diagnosis: Problems: (1) Dementia (2) Pleural disorder (3) Anxiety disorder (4) Dementia, vascular, with delusions (5) Dementia in Alzheimer's disease with delusions (6) Dementia in Alzheimer's disease with depression (7) Dementia, vascular, with depression (8) Impulse control disorder GERALD KUMAR MD Sep 28, 2017 20:02
--- NOTE | 2017-09-29 02:53 | PN ---
DATE: 09/27/2017 This is a late entry for 09/27/2017, covers elements not covered in my initial note of 09/27/2017. SUBJECTIVE: I met with the patient the evening of 09/27/2017. The patient has been sexually inappropriate, asked the female nursing staff to undress for him, yelling at nursing staff, using profanities with the "B word." It took 4 staff members to assist him while labs were being drawn and 5 people to get him up. He is extremely labile, aggressive, agitated, confused. REVIEW OF SYSTEMS: Ambulation impaired, in wheelchair. No CV, , pulmonary, eye, ENT system symptoms on review. Reliability poor. MENTAL STATUS EXAMINATION: Oriented to himself. Insight, judgment, recent and remote memory, attention, concentration, fund of knowledge poor, consistent with his diagnosis mentioned in my initial note. PLAN: Continue psychotropics mentioned in my initial note. Repeat valproic acid level on 09/28/2017, adjust Depakote thereafter to reach a therapeutic level, rest unchanged for now and he may need to be restarted back on atypical antipsychotic, perhaps Risperdal since Seroquel was discontinued earlier on account of hypotension. GERALD KUMAR MD DR: SAKNIA/yasemin JOB#: [id number] / [id number]
[2017-09-29 05:54] VITALS: BP 132/88
[2017-09-29] MEDS: VITAMIN B COMPLEX CAPSULE. PO SCH (07:39)
[2017-09-29] MEDS: CITALOPRAM 20 MG TABLET. PO SCH (07:39)
[2017-09-29] MEDS: risperiDONE 0.25 MG TABLET. PO SCH ×3 (07:39→16:20)
[2017-09-29] MEDS: POTASSIUM CHLORIDE 20 MEQ TABLET.ER. PO SCH ×2 (07:39→19:30)
[2017-09-29] MEDS: DIVALPROEX 125 MG CAP.SPRINK PO SCH ×2 (07:40→19:30)
[2017-09-29] MEDS: MULTIVITAMIN with MINERAL TABLET. PO SCH (07:40)
[2017-09-29 16:13] VITALS: BP 97/63
[2017-09-29] MEDS: DONEPEZIL 23 MG TABLET PO SCH (19:29)
[2017-09-29] MEDS: SENNOSIDES/DOCUSATE 8.6/50MG TABLET. PO SCH (19:30)
[2017-09-29] MEDS: traZODone 50 MG TABLET. PO SCH (19:30)
--- NOTE | 2017-09-29 20:00 | PDOC ---
Exam Note: Cyrus Note: Please also refer to the separate dictated note~for this date of service dictated separately.~Patient seen individually. Discussed the patient with Nursing staff reviewed the chart.~Reviewed interim history and current functioning. Reviewed vital signs,~Labs/ Radiology~and current medications noted below. Continue current treatment with the changes noted in the dictated addendum note Assessment: Vital Signs: Vital Signs Date Time Temp Pulse Resp B/P (MAP) Pulse Ox O2 Delivery O2 Flow Rate FiO2 09/29/17 16:13 97.5 84 20 97/63 (74) 99 09/28/17 06:00 Room Air I&O Intake and Output 09/29/17 07:00 Intake Total 1080 ml Balance 1080 ml Intake Oral 1080 ml # Voids 1 Current Medications: Meds: Current Medications Iohexol (Omnipaque 300 Mg/ml) 75 ml 1X ONCE IV Last administered on 21:29; Start 09/18/17 at 20:30; Stop 09/18/17 at 20:31; Status DC Lorazepam (Ativan) 2 mg 1X ONCE IV Last administered on 09/18/17 21:14; Start 09/18/17 at 20:30; Stop 09/18/17 at 20:31; Status DC Diphenhydramine HCl (Benadryl) 50 mg 1X ONCE IVP Last administered on 21:14; Start 09/18/17 at 20:30; Stop 09/18/17 at 20:31; Status DC Lactated Ringer's 1,000 ml @ 1,000 mls/hr 1X ONCE IV Last administered on 21:14; Start 09/18/17 at 20:30; Stop 09/18/17 at 21:29; Status DC Ziprasidone (Geodon Im) 20 mg 1X ONCE IM Last administered on 09/18/17 22:07 ; Start 09/18/17 at 22:30; Stop 09/18/17 at 22:31; Status DC Lorazepam (Ativan) 2 mg 1X ONCE IM ; Start 09/18/17 at 22:45; Stop 09/18/17 at 22:46; Status DC Ziprasidone (Geodon Im) 10 mg 1X ONCE IM ; Start 09/18/17 at 22:45; Stop at 22:46; Status DC Acetaminophen (Tylenol) 650 mg PRN Q6HRS PRN PO MILD PAIN / TEMP; Start at 01:30 Multi-Ingredient Ointment (Analgesic [place]) 1 betzy PRN QID PRN TP MUSCLE PAIN; Start 09/19/17 at 01:30 Al Hydroxide/Mg Hydroxide (Mylanta Plus Xs) 15 ml PRN AFTMEALHC PRN PO DYSPEPSIA; Start 09/19/17 at 01:30 Magnesium Hydroxide (Milk Of Magnesia) 2,400 mg PRN QHS PRN PO CONSTIPATION; Start 09/19/17 at 01:30 Divalproex Sodium (Depakote Sprinkles) 250 mg BID PO Last administered on 09/19 08:04; Start 09/19/17 at 09:00; Stop 09/19/17 at 19:02; Status DC Donepezil HCl (Aricept) 23 mg QHS PO Last administered on 09/29/17 19:29; Start 09/19/17 at 21:00 Lorazepam (Ativan) 0.25 mg PRN Q4HRS PRN PO ANXIETY / AGITATION Last administered on 09/26/17 17:47; Start 09/19/17 at 01:30 Quetiapine Fumarate (SEROquel) 25 mg QHS PO Last administered on 09/23/17 19: 31; Start 09/19/17 at 21:00; Stop 09/24/17 at 09:56; Status DC Trazodone HCl (Desyrel) 125 mg QHS PO Last administered on 09/29/17 19:30; Start 09/19/17 at 21:00 Citalopram Hydrobromide (CeleXA) 20 mg DAILY PO Last administered on 09/29/17 07:39; Start 09/19/17 at 09:00 Acetaminophen (Tylenol) 650 mg PRN Q6HRS PRN PO PAIN / TEMP; Start 09/19/17 at 06:15; Status UNV Magnesium Hydroxide (Milk Of Magnesia) 2,400 mg PRN QHS PRN PO CONSTIPATION; Start 09/19/17 at 06:15; Status UNV Potassium Chloride (Klor-Con) 20 meq BID PO Last administered on 09/29/17 19: 30; Start 09/19/17 at 09:00 Senna/Docusate Sodium (Senna Plus) 2 tab QHS PO Last administered on 09/29/17 19:30; Start 09/19/17 at 21:00 Vitamin B Complex 1 cap BID PO Last administered on 09/20/17 09:01; Start at 09:00; Stop 09/21/17 at 14:27; Status DC Multivitamins/ Calcium (Thera-M Plus) 1 tab DAILY PO Last administered on 07:40; Start 09/19/17 at 09:00 Divalproex Sodium (Depakote Sprinkles) 375 mg BID PO Last administered on 10:03; Start 09/19/17 at 21:00; Stop 09/24/17 at 18:07; Status DC Quetiapine Fumarate (SEROquel) 12.5 mg DAILY PO Last administered on 09/22/17 10:49; Start 09/21/17 at 09:00; Stop 09/22/17 at 19:35; Status DC Vitamin B Complex 1 cap DAILY PO Last administered on 09/29/17 07:39; Start 09/22/17 at 09:00 Quetiapine Fumarate (SEROquel) 12.5 mg TID@0900,1400,1700 PO Last administered on 09/23/17 17:04; Start 09/23/17 at 09:00; Stop 09/24/17 at 09:56; Status DC Divalproex Sodium (Depakote Sprinkles) 500 mg BID PO Last administered on 19:30; Start 09/24/17 at 21:00 Olanzapine (ZyPREXA ZYDIS) 2.5 mg PRN Q2HR PRN PO PSYCHOSIS Last administered on 09/28/17 08:55; Start 09/26/17 at 18:30 Risperidone (RisperDAL) 0.125 mg DAILY@0900,1400,1700 PO Last administered on 09/29/17 16:20; Start 09/28/17 at 14:00 Active Scripts Active Reported Milk Of Magnesia (Magnesium Hydroxide) 400 Mg/5 Ml Oral.susp 2,400 Mg PO PRN QHS PRN Ativan (Lorazepam) 0.5 Mg Tablet 0.25 Mg PO PRN Q4HRS PRN Tylenol (Acetaminophen) 325 Mg Tablet 650 Mg PO PRN Q6HRS PRN Trazodone Hcl 50 Mg Tablet 125 Mg PO QHS Senna S Tablet (Sennosides/Docusate Sodium) 1 Each Tablet 2 Tab PO QHS Seroquel (Quetiapine Fumarate) 25 Mg Tablet 25 Mg PO QHS Klor-Con M20 (Potassium Chloride) 20 Meq Tab.er.prt 20 Meq PO BID Multivitamins (Multivitamin) 1 Each Tablet 1 Tab PO DAILY C-Fdryut-Y0-B12 Tablet (Methyl-B12/L-Mefolate/B6 Phos) 1 Each Tablet 1 Tab PO BID Escitalopram Oxalate 10 Mg Tablet 10 Mg PO DAILY Aricept (Donepezil Hcl) 23 Mg Tablet 23 Mg PO QHS Depakote Sprinkle (Divalproex Sodium) 125 Mg Cap.sprink 250 Mg PO BID I have reviewed the current psychotropics carefully including drug interactions. Risk benefit ratio favors no change other than as noted in my dictated progress note. Diagnosis: Problems: (1) Dementia (2) Pleural disorder (3) Anxiety disorder (4) Dementia, vascular, with delusions (5) Dementia in Alzheimer's disease with delusions (6) Dementia in Alzheimer's disease with depression (7) Dementia, vascular, with depression (8) Impulse control disorder GERALD KUMAR MD Sep 29, 2017 20:00
[2017-09-30] MEDS: VITAMIN B COMPLEX CAPSULE. PO SCH (07:42)
[2017-09-30] MEDS: CITALOPRAM 20 MG TABLET. PO SCH (07:42)
[2017-09-30] MEDS: POTASSIUM CHLORIDE 20 MEQ TABLET.ER. PO SCH ×2 (07:42→19:59)
[2017-09-30] MEDS: risperiDONE 0.25 MG TABLET. PO SCH ×3 (07:42→17:00)
[2017-09-30] MEDS: MULTIVITAMIN with MINERAL TABLET. PO SCH (07:42)
[2017-09-30] MEDS: DIVALPROEX 125 MG CAP.SPRINK PO SCH ×2 (07:43→19:59)
[2017-09-30 16:31] VITALS: BP 110/71
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
[2017-09-30] MEDS: traZODone 50 MG TABLET. PO SCH (19:59)
[2017-09-30] MEDS: DONEPEZIL 23 MG TABLET PO SCH (19:59)
[2017-09-30] MEDS: SENNOSIDES/DOCUSATE 8.6/50MG TABLET. PO SCH (19:59)
--- NOTE | 2017-09-30 21:40 | PDOC ---
Exam Note: Cyrus Note: Please also refer to the separate dictated note~for this date of service dictated separately.~Patient seen individually. Discussed the patient with Nursing staff reviewed the chart.~Reviewed interim history and current functioning. Reviewed vital signs,~Labs/ Radiology~and current medications noted below. Continue current treatment with the changes noted in the dictated addendum note Assessment: Vital Signs: Vital Signs Date Time Temp Pulse Resp B/P (MAP) Pulse Ox O2 Delivery O2 Flow Rate FiO2 09/30/17 16:31 97.5 98 18 110/71 (84) 96 Room Air I&O Intake and Output 09/30/17 07:00 Intake Total 600 ml Balance 600 ml Intake Oral 600 ml # Voids 1 Current Medications: Meds: Current Medications Iohexol (Omnipaque 300 Mg/ml) 75 ml 1X ONCE IV Last administered on 21:29; Start 09/18/17 at 20:30; Stop 09/18/17 at 20:31; Status DC Lorazepam (Ativan) 2 mg 1X ONCE IV Last administered on 09/18/17 21:14; Start 09/18/17 at 20:30; Stop 09/18/17 at 20:31; Status DC Diphenhydramine HCl (Benadryl) 50 mg 1X ONCE IVP Last administered on 21:14; Start 09/18/17 at 20:30; Stop 09/18/17 at 20:31; Status DC Lactated Ringer's 1,000 ml @ 1,000 mls/hr 1X ONCE IV Last administered on 21:14; Start 09/18/17 at 20:30; Stop 09/18/17 at 21:29; Status DC Ziprasidone (Geodon Im) 20 mg 1X ONCE IM Last administered on 09/18/17 22:07 ; Start 09/18/17 at 22:30; Stop 09/18/17 at 22:31; Status DC Lorazepam (Ativan) 2 mg 1X ONCE IM ; Start 09/18/17 at 22:45; Stop 09/18/17 at 22:46; Status DC Ziprasidone (Geodon Im) 10 mg 1X ONCE IM ; Start 09/18/17 at 22:45; Stop at 22:46; Status DC Acetaminophen (Tylenol) 650 mg PRN Q6HRS PRN PO MILD PAIN / TEMP; Start at 01:30 Multi-Ingredient Ointment (Analgesic [place]) 1 betzy PRN QID PRN TP MUSCLE PAIN; Start 09/19/17 at 01:30 Al Hydroxide/Mg Hydroxide (Mylanta Plus Xs) 15 ml PRN AFTMEALHC PRN PO DYSPEPSIA; Start 09/19/17 at 01:30 Magnesium Hydroxide (Milk Of Magnesia) 2,400 mg PRN QHS PRN PO CONSTIPATION; Start 09/19/17 at 01:30 Divalproex Sodium (Depakote Sprinkles) 250 mg BID PO Last administered on 09/19 08:04; Start 09/19/17 at 09:00; Stop 09/19/17 at 19:02; Status DC Donepezil HCl (Aricept) 23 mg QHS PO Last administered on 09/30/17 19:59; Start 09/19/17 at 21:00 Lorazepam (Ativan) 0.25 mg PRN Q4HRS PRN PO ANXIETY / AGITATION Last administered on 09/26/17 17:47; Start 09/19/17 at 01:30 Quetiapine Fumarate (SEROquel) 25 mg QHS PO Last administered on 09/23/17 19: 31; Start 09/19/17 at 21:00; Stop 09/24/17 at 09:56; Status DC Trazodone HCl (Desyrel) 125 mg QHS PO Last administered on 09/30/17 19:59; Start 09/19/17 at 21:00 Citalopram Hydrobromide (CeleXA) 20 mg DAILY PO Last administered on 09/30/17 07:42; Start 09/19/17 at 09:00 Acetaminophen (Tylenol) 650 mg PRN Q6HRS PRN PO PAIN / TEMP; Start 09/19/17 at 06:15; Status UNV Magnesium Hydroxide (Milk Of Magnesia) 2,400 mg PRN QHS PRN PO CONSTIPATION; Start 09/19/17 at 06:15; Status UNV Potassium Chloride (Klor-Con) 20 meq BID PO Last administered on 09/30/17 19: 59; Start 09/19/17 at 09:00 Senna/Docusate Sodium (Senna Plus) 2 tab QHS PO Last administered on 09/30/17 19:59; Start 09/19/17 at 21:00 Vitamin B Complex 1 cap BID PO Last administered on 09/20/17 09:01; Start at 09:00; Stop 09/21/17 at 14:27; Status DC Multivitamins/ Calcium (Thera-M Plus) 1 tab DAILY PO Last administered on 07:42; Start 09/19/17 at 09:00 Divalproex Sodium (Depakote Sprinkles) 375 mg BID PO Last administered on 10:03; Start 09/19/17 at 21:00; Stop 09/24/17 at 18:07; Status DC Quetiapine Fumarate (SEROquel) 12.5 mg DAILY PO Last administered on 09/22/17 10:49; Start 09/21/17 at 09:00; Stop 09/22/17 at 19:35; Status DC Vitamin B Complex 1 cap DAILY PO Last administered on 09/30/17 07:42; Start 09/22/17 at 09:00 Quetiapine Fumarate (SEROquel) 12.5 mg TID@0900,1400,1700 PO Last administered on 09/23/17 17:04; Start 09/23/17 at 09:00; Stop 09/24/17 at 09:56; Status DC Divalproex Sodium (Depakote Sprinkles) 500 mg BID PO Last administered on 19:59; Start 09/24/17 at 21:00 Olanzapine (ZyPREXA ZYDIS) 2.5 mg PRN Q2HR PRN PO PSYCHOSIS Last administered on 09/28/17 08:55; Start 09/26/17 at 18:30 Risperidone (RisperDAL) 0.125 mg DAILY@0900,1400,1700 PO Last administered on 09/30/17 17:00; Start 09/28/17 at 14:00; Stop 09/30/17 at 19:17; Status DC Risperidone (RisperDAL) 0.125 mg DAILY@1400 PO ; Start 10/01/17 at 14:00 Risperidone (RisperDAL) 0.25 mg BID@0900,1700 PO ; Start 10/01/17 at 09:00 Active Scripts Active Reported Milk Of Magnesia (Magnesium Hydroxide) 400 Mg/5 Ml Oral.susp 2,400 Mg PO PRN QHS PRN Ativan (Lorazepam) 0.5 Mg Tablet 0.25 Mg PO PRN Q4HRS PRN Tylenol (Acetaminophen) 325 Mg Tablet 650 Mg PO PRN Q6HRS PRN Trazodone Hcl 50 Mg Tablet 125 Mg PO QHS Senna S Tablet (Sennosides/Docusate Sodium) 1 Each Tablet 2 Tab PO QHS Seroquel (Quetiapine Fumarate) 25 Mg Tablet 25 Mg PO QHS Klor-Con M20 (Potassium Chloride) 20 Meq Tab.er.prt 20 Meq PO BID Multivitamins (Multivitamin) 1 Each Tablet 1 Tab PO DAILY B-Xxwvjm-I1-B12 Tablet (Methyl-B12/L-Mefolate/B6 Phos) 1 Each Tablet 1 Tab PO BID Escitalopram Oxalate 10 Mg Tablet 10 Mg PO DAILY Aricept (Donepezil Hcl) 23 Mg Tablet 23 Mg PO QHS Depakote Sprinkle (Divalproex Sodium) 125 Mg Cap.sprink 250 Mg PO BID I have reviewed the current psychotropics carefully including drug interactions. Risk benefit ratio favors no change other than as noted in my dictated progress note. Diagnosis: Problems: (1) Dementia (2) Pleural disorder (3) Anxiety disorder (4) Dementia, vascular, with delusions (5) Dementia in Alzheimer's disease with delusions (6) Dementia in Alzheimer's disease with depression (7) Dementia, vascular, with depression (8) Impulse control disorder GERALD KUMAR MD Sep 30, 2017 21:40
[2017-10-01 06:27] VITALS: BP 113/72
[2017-10-01] MEDS: MULTIVITAMIN with MINERAL TABLET. PO SCH (07:47)
[2017-10-01] MEDS: POTASSIUM CHLORIDE 20 MEQ TABLET.ER. PO SCH ×2 (07:47→19:54)
[2017-10-01] MEDS: CITALOPRAM 20 MG TABLET. PO SCH (07:47)
[2017-10-01] MEDS: VITAMIN B COMPLEX CAPSULE. PO SCH (07:51)
[2017-10-01] MEDS: DIVALPROEX 125 MG CAP.SPRINK PO SCH ×2 (07:52→19:55)
[2017-10-01] MEDS: risperiDONE 0.25 MG TABLET. PO SCH ×3 (07:52→18:26)
[2017-10-01 16:23] VITALS: BP 139/84
[2017-10-01] MEDS: DONEPEZIL 23 MG TABLET PO SCH (19:54)
[2017-10-01] MEDS: SENNOSIDES/DOCUSATE 8.6/50MG TABLET. PO SCH (19:54)
[2017-10-01] MEDS: traZODone 50 MG TABLET. PO SCH (19:55)
--- NOTE | 2017-10-01 20:13 | PDOC ---
Exam Note: Cyrus Note: Please also refer to the separate dictated note~for this date of service dictated separately.~Patient seen individually. Discussed the patient with Nursing staff reviewed the chart.~Reviewed interim history and current functioning. Reviewed vital signs,~Labs/ Radiology~and current medications noted below. Continue current treatment with the changes noted in the dictated addendum note Assessment: Vital Signs: Vital Signs Date Time Temp Pulse Resp B/P (MAP) Pulse Ox O2 Delivery O2 Flow Rate FiO2 10/01/17 16:23 97.3 76 18 139/84 (102) 95 09/30/17 16:31 Room Air I&O Intake and Output 10/01/17 07:00 Intake Total 840 ml Balance 840 ml Intake Oral 840 ml # Voids 1 Current Medications: Meds: Current Medications Iohexol (Omnipaque 300 Mg/ml) 75 ml 1X ONCE IV Last administered on 21:29; Start 09/18/17 at 20:30; Stop 09/18/17 at 20:31; Status DC Lorazepam (Ativan) 2 mg 1X ONCE IV Last administered on 09/18/17 21:14; Start 09/18/17 at 20:30; Stop 09/18/17 at 20:31; Status DC Diphenhydramine HCl (Benadryl) 50 mg 1X ONCE IVP Last administered on 21:14; Start 09/18/17 at 20:30; Stop 09/18/17 at 20:31; Status DC Lactated Ringer's 1,000 ml @ 1,000 mls/hr 1X ONCE IV Last administered on 21:14; Start 09/18/17 at 20:30; Stop 09/18/17 at 21:29; Status DC Ziprasidone (Geodon Im) 20 mg 1X ONCE IM Last administered on 09/18/17 22:07 ; Start 09/18/17 at 22:30; Stop 09/18/17 at 22:31; Status DC Lorazepam (Ativan) 2 mg 1X ONCE IM ; Start 09/18/17 at 22:45; Stop 09/18/17 at 22:46; Status DC Ziprasidone (Geodon Im) 10 mg 1X ONCE IM ; Start 09/18/17 at 22:45; Stop at 22:46; Status DC Acetaminophen (Tylenol) 650 mg PRN Q6HRS PRN PO MILD PAIN / TEMP; Start at 01:30 Multi-Ingredient Ointment (Analgesic [place]) 1 betzy PRN QID PRN TP MUSCLE PAIN; Start 09/19/17 at 01:30 Al Hydroxide/Mg Hydroxide (Mylanta Plus Xs) 15 ml PRN AFTMEALHC PRN PO DYSPEPSIA; Start 09/19/17 at 01:30 Magnesium Hydroxide (Milk Of Magnesia) 2,400 mg PRN QHS PRN PO CONSTIPATION; Start 09/19/17 at 01:30 Divalproex Sodium (Depakote Sprinkles) 250 mg BID PO Last administered on 09/19 08:04; Start 09/19/17 at 09:00; Stop 09/19/17 at 19:02; Status DC Donepezil HCl (Aricept) 23 mg QHS PO Last administered on 10/01/17 19:54; Start 09/19/17 at 21:00 Lorazepam (Ativan) 0.25 mg PRN Q4HRS PRN PO ANXIETY / AGITATION Last administered on 09/26/17 17:47; Start 09/19/17 at 01:30 Quetiapine Fumarate (SEROquel) 25 mg QHS PO Last administered on 09/23/17 19: 31; Start 09/19/17 at 21:00; Stop 09/24/17 at 09:56; Status DC Trazodone HCl (Desyrel) 125 mg QHS PO Last administered on 10/01/17 19:55; Start 09/19/17 at 21:00 Citalopram Hydrobromide (CeleXA) 20 mg DAILY PO Last administered on 07:47; Start 09/19/17 at 09:00 Acetaminophen (Tylenol) 650 mg PRN Q6HRS PRN PO PAIN / TEMP; Start 09/19/17 at 06:15; Status UNV Magnesium Hydroxide (Milk Of Magnesia) 2,400 mg PRN QHS PRN PO CONSTIPATION; Start 09/19/17 at 06:15; Status UNV Potassium Chloride (Klor-Con) 20 meq BID PO Last administered on 10/01/17 19: 54; Start 09/19/17 at 09:00 Senna/Docusate Sodium (Senna Plus) 2 tab QHS PO Last administered on 19:54; Start 09/19/17 at 21:00 Vitamin B Complex 1 cap BID PO Last administered on 09/20/17 09:01; Start at 09:00; Stop 09/21/17 at 14:27; Status DC Multivitamins/ Calcium (Thera-M Plus) 1 tab DAILY PO Last administered on 10/01 07:47; Start 09/19/17 at 09:00 Divalproex Sodium (Depakote Sprinkles) 375 mg BID PO Last administered on 10:03; Start 09/19/17 at 21:00; Stop 09/24/17 at 18:07; Status DC Quetiapine Fumarate (SEROquel) 12.5 mg DAILY PO Last administered on 09/22/17 10:49; Start 09/21/17 at 09:00; Stop 09/22/17 at 19:35; Status DC Vitamin B Complex 1 cap DAILY PO Last administered on 10/01/17 07:51; Start 09/22/17 at 09:00 Quetiapine Fumarate (SEROquel) 12.5 mg TID@0900,1400,1700 PO Last administered on 09/23/17 17:04; Start 09/23/17 at 09:00; Stop 09/24/17 at 09:56; Status DC Divalproex Sodium (Depakote Sprinkles) 500 mg BID PO Last administered on 10/01 19:55; Start 09/24/17 at 21:00 Olanzapine (ZyPREXA ZYDIS) 2.5 mg PRN Q2HR PRN PO PSYCHOSIS Last administered on 09/28/17 08:55; Start 09/26/17 at 18:30 Risperidone (RisperDAL) 0.125 mg DAILY@0900,1400,1700 PO Last administered on 09/30/17 17:00; Start 09/28/17 at 14:00; Stop 09/30/17 at 19:17; Status DC Risperidone (RisperDAL) 0.125 mg DAILY@1400 PO ; Start 10/01/17 at 14:00 Risperidone (RisperDAL) 0.25 mg BID@0900,1700 PO Last administered on t 18:26; Start 10/01/17 at 09:00 Active Scripts Active Reported Milk Of Magnesia (Magnesium Hydroxide) 400 Mg/5 Ml Oral.susp 2,400 Mg PO PRN QHS PRN Ativan (Lorazepam) 0.5 Mg Tablet 0.25 Mg PO PRN Q4HRS PRN Tylenol (Acetaminophen) 325 Mg Tablet 650 Mg PO PRN Q6HRS PRN Trazodone Hcl 50 Mg Tablet 125 Mg PO QHS Senna S Tablet (Sennosides/Docusate Sodium) 1 Each Tablet 2 Tab PO QHS Seroquel (Quetiapine Fumarate) 25 Mg Tablet 25 Mg PO QHS Klor-Con M20 (Potassium Chloride) 20 Meq Tab.er.prt 20 Meq PO BID Multivitamins (Multivitamin) 1 Each Tablet 1 Tab PO DAILY O-Sxmhct-I1-B12 Tablet (Methyl-B12/L-Mefolate/B6 Phos) 1 Each Tablet 1 Tab PO BID Escitalopram Oxalate 10 Mg Tablet 10 Mg PO DAILY Aricept (Donepezil Hcl) 23 Mg Tablet 23 Mg PO QHS Depakote Sprinkle (Divalproex Sodium) 125 Mg Cap.sprink 250 Mg PO BID I have reviewed the current psychotropics carefully including drug interactions. Risk benefit ratio favors no change other than as noted in my dictated progress note. Diagnosis: Problems: (1) Dementia (2) Pleural disorder (3) Anxiety disorder (4) Dementia, vascular, with delusions (5) Dementia in Alzheimer's disease with delusions (6) Dementia in Alzheimer's disease with depression (7) Dementia, vascular, with depression (8) Impulse control disorder GERALD KUMAR MD Oct 01, 2017 20:12
--- NOTE | 2017-10-01 20:45 | PN ---
DATE: 09/29/2017 This is a late entry 09/29/2017 covers elements not covered in my initial note 09/29/2017. I met with the patient evening of 09/29/2017. The patient had a difficult day, refused to get up in the morning, refused a.m. medications, agitated, labile at times, cursing at staff. REVIEW OF SYSTEMS: Ambulation impaired, in wheelchair. No CV, , pulmonary, eye, ENT system symptoms on review. Reliability poor. MENTAL STATUS EXAM: Oriented to himself. Insight, judgment, recent and remote memory, attention, concentration, fund of knowledge poor, consistent with his diagnosis mentioned in my initial note. PLAN: Continue psychotropics mentioned in my initial note. Valproic acid level is 45. Will adjust Depakote gradually depending on his progress. On further checking repeat level is 72 on the . MAN FredCarla KUMAR MD DR: SAKINA/yasemin JOB#: [id number] / [id number]
--- NOTE | 2017-10-02 05:00 | PN ---
DATE: 09/30/2017 This is a late entry for 09/30/2017, covers elements not covered in my initial note of 09/30/2017. SUBJECTIVE: I met with the patient the evening of 09/30/2017. He remains confused, quite dismissive, combative at times, scratched on himself, jerked himself to the floor, took a Sean lift to help him up, combative, calling profanities to nursing staff. REVIEW OF SYSTEMS: Ambulation impaired, in wheelchair. No CV, , pulmonary, eye, ENT system symptoms on review. A little dismissive at times as I met with him. Reliability poor. MENTAL STATUS EXAMINATION: Oriented to himself. Insight, judgment, recent and remote memory, attention, concentration, fund of knowledge poor, consistent with his diagnosis. IMPRESSION: Unchanged from initial note. PLAN: Increase Risperdal to 0.25 mg twice a day, 0.125 mg once a day, adjust further as clinically indicated. Rest unchanged. MAN Gigi KUMAR MD DR: SAKINA/yasemin JOB#: [id number] / [id number]
[2017-10-02 05:57] VITALS: BP 143/75
[2017-10-02] MEDS: MULTIVITAMIN with MINERAL TABLET. PO SCH (09:25)
[2017-10-02] MEDS: DIVALPROEX 125 MG CAP.SPRINK PO SCH ×2 (09:25→21:12)
[2017-10-02] MEDS: VITAMIN B COMPLEX CAPSULE. PO SCH (09:25)
[2017-10-02] MEDS: CITALOPRAM 20 MG TABLET. PO SCH (09:25)
[2017-10-02] MEDS: POTASSIUM CHLORIDE 20 MEQ TABLET.ER. PO SCH ×2 (09:27→21:12)
[2017-10-02] MEDS: risperiDONE 0.25 MG TABLET. PO SCH ×3 (12:52→17:00)
[2017-10-02] MEDS: MAGNESIUM HYDROXIDE 2,400 MG/30 ML ORAL.SUSP. PO PRN (14:00)
[2017-10-02 16:01] VITALS: BP 102/68
[2017-10-02] MEDS: SENNOSIDES/DOCUSATE 8.6/50MG TABLET. PO SCH (21:11)
[2017-10-02] MEDS: DONEPEZIL 23 MG TABLET PO SCH (21:11)
[2017-10-02] MEDS: traZODone 50 MG TABLET. PO SCH (21:11)
--- NOTE | 2017-10-02 21:37 | PDOC ---
Exam Note: Cyrus Note: Please also refer to the separate dictated note~for this date of service dictated separately.~Patient seen individually. Discussed the patient with Nursing staff reviewed the chart.~Reviewed interim history and current functioning. Reviewed vital signs,~Labs/ Radiology~and current medications noted below. Continue current treatment with the changes noted in the dictated addendum note Assessment: Vital Signs: Vital Signs Date Time Temp Pulse Resp B/P (MAP) Pulse Ox O2 Delivery O2 Flow Rate FiO2 10/02/17 16:01 97.6 88 20 102/68 (79) 95 09/30/17 16:31 Room Air I&O Intake and Output 10/02/17 06:59 Intake Total 480 ml Balance 480 ml Intake Oral 480 ml # Voids 1 Current Medications: Meds: Current Medications Iohexol (Omnipaque 300 Mg/ml) 75 ml 1X ONCE IV Last administered on 21:29; Start 09/18/17 at 20:30; Stop 09/18/17 at 20:31; Status DC Lorazepam (Ativan) 2 mg 1X ONCE IV Last administered on 09/18/17 21:14; Start 09/18/17 at 20:30; Stop 09/18/17 at 20:31; Status DC Diphenhydramine HCl (Benadryl) 50 mg 1X ONCE IVP Last administered on 21:14; Start 09/18/17 at 20:30; Stop 09/18/17 at 20:31; Status DC Lactated Ringer's 1,000 ml @ 1,000 mls/hr 1X ONCE IV Last administered on 21:14; Start 09/18/17 at 20:30; Stop 09/18/17 at 21:29; Status DC Ziprasidone (Geodon Im) 20 mg 1X ONCE IM Last administered on 09/18/17 22:07 ; Start 09/18/17 at 22:30; Stop 09/18/17 at 22:31; Status DC Lorazepam (Ativan) 2 mg 1X ONCE IM ; Start 09/18/17 at 22:45; Stop 09/18/17 at 22:46; Status DC Ziprasidone (Geodon Im) 10 mg 1X ONCE IM ; Start 09/18/17 at 22:45; Stop at 22:46; Status DC Acetaminophen (Tylenol) 650 mg PRN Q6HRS PRN PO MILD PAIN / TEMP; Start at 01:30 Multi-Ingredient Ointment (Analgesic [place]) 1 betzy PRN QID PRN TP MUSCLE PAIN; Start 09/19/17 at 01:30 Al Hydroxide/Mg Hydroxide (Mylanta Plus Xs) 15 ml PRN AFTMEALHC PRN PO DYSPEPSIA; Start 09/19/17 at 01:30 Magnesium Hydroxide (Milk Of Magnesia) 2,400 mg PRN QHS PRN PO CONSTIPATION Last administered on 10/02/17 14:00; Start 09/19/17 at 01:30 Divalproex Sodium (Depakote Sprinkles) 250 mg BID PO Last administered on 09/19 08:04; Start 09/19/17 at 09:00; Stop 09/19/17 at 19:02; Status DC Donepezil HCl (Aricept) 23 mg QHS PO Last administered on 10/02/17 21:11; Start 09/19/17 at 21:00 Lorazepam (Ativan) 0.25 mg PRN Q4HRS PRN PO ANXIETY / AGITATION Last administered on 09/26/17 17:47; Start 09/19/17 at 01:30 Quetiapine Fumarate (SEROquel) 25 mg QHS PO Last administered on 09/23/17 19: 31; Start 09/19/17 at 21:00; Stop 09/24/17 at 09:56; Status DC Trazodone HCl (Desyrel) 125 mg QHS PO Last administered on 10/02/17 21:11; Start 09/19/17 at 21:00 Citalopram Hydrobromide (CeleXA) 20 mg DAILY PO Last administered on 09:25; Start 09/19/17 at 09:00 Acetaminophen (Tylenol) 650 mg PRN Q6HRS PRN PO PAIN / TEMP; Start 09/19/17 at 06:15; Status UNV Magnesium Hydroxide (Milk Of Magnesia) 2,400 mg PRN QHS PRN PO CONSTIPATION; Start 09/19/17 at 06:15; Status UNV Potassium Chloride (Klor-Con) 20 meq BID PO Last administered on 10/02/17 21: 12; Start 09/19/17 at 09:00 Senna/Docusate Sodium (Senna Plus) 2 tab QHS PO Last administered on 21:11; Start 09/19/17 at 21:00 Vitamin B Complex 1 cap BID PO Last administered on 09/20/17 09:01; Start at 09:00; Stop 09/21/17 at 14:27; Status DC Multivitamins/ Calcium (Thera-M Plus) 1 tab DAILY PO Last administered on 10/02 09:25; Start 09/19/17 at 09:00 Divalproex Sodium (Depakote Sprinkles) 375 mg BID PO Last administered on 10:03; Start 09/19/17 at 21:00; Stop 09/24/17 at 18:07; Status DC Quetiapine Fumarate (SEROquel) 12.5 mg DAILY PO Last administered on 09/22/17 10:49; Start 09/21/17 at 09:00; Stop 09/22/17 at 19:35; Status DC Vitamin B Complex 1 cap DAILY PO Last administered on 10/02/17 09:25; Start 09/22/17 at 09:00 Quetiapine Fumarate (SEROquel) 12.5 mg TID@0900,1400,1700 PO Last administered on 09/23/17 17:04; Start 09/23/17 at 09:00; Stop 09/24/17 at 09:56; Status DC Divalproex Sodium (Depakote Sprinkles) 500 mg BID PO Last administered on 10/02 21:12; Start 09/24/17 at 21:00 Olanzapine (ZyPREXA ZYDIS) 2.5 mg PRN Q2HR PRN PO PSYCHOSIS Last administered on 09/28/17 08:55; Start 09/26/17 at 18:30 Risperidone (RisperDAL) 0.125 mg DAILY@0900,1400,1700 PO Last administered on 09/30/17 17:00; Start 09/28/17 at 14:00; Stop 09/30/17 at 19:17; Status DC Risperidone (RisperDAL) 0.125 mg DAILY@1400 PO ; Start 10/01/17 at 14:00 Risperidone (RisperDAL) 0.25 mg BID@0900,1700 PO Last administered on t 12:52; Start 10/01/17 at 09:00 Buspirone HCl (Buspar) 5 mg TID@0900,1400,1700 PO ; Start 10/03/17 at 09:00 Active Scripts Active Reported Milk Of Magnesia (Magnesium Hydroxide) 400 Mg/5 Ml Oral.susp 2,400 Mg PO PRN QHS PRN Ativan (Lorazepam) 0.5 Mg Tablet 0.25 Mg PO PRN Q4HRS PRN Tylenol (Acetaminophen) 325 Mg Tablet 650 Mg PO PRN Q6HRS PRN Trazodone Hcl 50 Mg Tablet 125 Mg PO QHS Senna S Tablet (Sennosides/Docusate Sodium) 1 Each Tablet 2 Tab PO QHS Seroquel (Quetiapine Fumarate) 25 Mg Tablet 25 Mg PO QHS Klor-Con M20 (Potassium Chloride) 20 Meq Tab.er.prt 20 Meq PO BID Multivitamins (Multivitamin) 1 Each Tablet 1 Tab PO DAILY [id number] Tablet (Methyl-B12/L-Mefolate/B6 Phos) 1 Each Tablet 1 Tab PO BID Escitalopram Oxalate 10 Mg Tablet 10 Mg PO DAILY Aricept (Donepezil Hcl) 23 Mg Tablet 23 Mg PO QHS Depakote Sprinkle (Divalproex Sodium) 125 Mg Cap.sprink 250 Mg PO BID I have reviewed the current psychotropics carefully including drug interactions. Risk benefit ratio favors no change other than as noted in my dictated progress note. Diagnosis: Problems: (1) Dementia (2) Pleural disorder (3) Anxiety disorder (4) Dementia, vascular, with delusions (5) Dementia in Alzheimer's disease with delusions (6) Dementia in Alzheimer's disease with depression (7) Dementia, vascular, with depression (8) Impulse control disorder GERALD KUMAR MD Oct 02, 2017 21:37
--- NOTE | 2017-10-02 23:12 | PN ---
DATE: 10/01/2017 This is a late entry, covers the elements not covered in my initial note, 10/01/2017. SUBJECTIVE: The patient is up for breakfast, took Boost with medications, refused his lunch. Oral intake is poor, remains quite labile, somewhat sedated on Risperdal, but when he is awake, he can be quite disruptive, aggressive, and labile. REVIEW OF SYSTEMS: Ambulation impaired, in wheelchair. No CV, , pulmonary, eye, ENT system symptoms on review. Reliability poor. MENTAL STATUS EXAM: Oriented to himself. Insight, judgment, recent and remote memory, attention, concentration, fund of knowledge poor, consistent with his diagnosis as mentioned in my initial note. PLAN: Risperdal was increased to 0.25 mg at 0900, 1700; 0.125 mg at 1400. Continue rest of the psychotropics unchanged. Adjust further as clinically indicated. MAN Gigi KUMAR MD DR: SAKINA/yasemin JOB#: [id number] / [id number]
[2017-10-03 07:55] LABS: BASO % 0 % (0-3); EOS % 1 % (0-3); HEMATOCRIT 38.2 % (39.0-53.0); HEMOGLOBIN 13.1 g/dL (13.0-17.5); LYMPH # 0.3 x10^3/uL (1.0-4.8); LYMPH % 11 % (24-48); MEAN CORPUSCULAR HEMOGLOBIN 35 pg (25-35); MEAN CORPUSCULAR HGB CONC 34 g/dL (31-37); MEAN CORPUSCULAR VOLUME 102 fL (79-100); MONO # 0.4 x10^3/uL (0.0-1.1); MONO % 14 % (0-9); NEUT # 2.2 x10^3uL (1.8-7.7); NEUT % 74 % (31-73); PLATELET COUNT 68 x10^3/uL (140-400); RED BLOOD COUNT 3.74 x10^6/uL (4.30-5.70); RED CELL DISTRIBUTION WIDTH 16.4 % (11.5-14.5)
[2017-10-03 08:06] LABS: ALBUMIN 2.6 g/dL (3.4-5.0); ALBUMIN/GLOBULIN RATIO 0.8 (1.0-1.7); CALCIUM 8.1 mg/dL (8.5-10.1); CREATININE 0.9 mg/dL (0.7-1.3); GFR 80.8; POTASSIUM 3.8 mmol/L (3.5-5.1); TOTAL BILIRUBIN 0.8 mg/dL (0.2-1.0); TOTAL PROTEIN 5.9 g/dL (6.4-8.2)
[2017-10-03] MEDS: VITAMIN B COMPLEX CAPSULE. PO SCH (09:29)
[2017-10-03] MEDS: POTASSIUM CHLORIDE 20 MEQ TABLET.ER. PO SCH ×2 (09:29→20:53)
[2017-10-03] MEDS: DIVALPROEX 125 MG CAP.SPRINK PO SCH ×2 (09:29→20:54)
[2017-10-03] MEDS: CITALOPRAM 20 MG TABLET. PO SCH (09:29)
[2017-10-03] MEDS: MULTIVITAMIN with MINERAL TABLET. PO SCH (09:29)
[2017-10-03] MEDS: risperiDONE 0.25 MG TABLET. PO SCH ×3 (09:30→16:32)
[2017-10-03] MEDS: busPIRone 5 MG TABLET. PO SCH ×3 (09:31→16:38)
[2017-10-03 16:12] VITALS: BP 114/77
[2017-10-03] MEDS: traZODone 50 MG TABLET. PO SCH (20:53)
[2017-10-03] MEDS: DONEPEZIL 23 MG TABLET PO SCH (20:53)
[2017-10-03] MEDS: SENNOSIDES/DOCUSATE 8.6/50MG TABLET. PO SCH (20:53)
[2017-10-03] MEDS: guaiFENesin DM 600/30MG 1 TAB TAB.ER.12H PO SCH (20:54)
--- NOTE | 2017-10-03 22:15 | PDOC ---
Exam Note: Cyrus Note: Please also refer to the separate dictated note~for this date of service dictated separately.~Patient seen individually. Discussed the patient with Nursing staff reviewed the chart.~Reviewed interim history and current functioning. Reviewed vital signs,~Labs/ Radiology~and current medications noted below. Continue current treatment with the changes noted in the dictated addendum note Assessment: Vital Signs: Vital Signs Date Time Temp Pulse Resp B/P (MAP) Pulse Ox O2 Delivery O2 Flow Rate FiO2 10/03/17 16:12 97.6 84 18 114/77 (89) 98 09/30/17 16:31 Room Air I&O Intake and Output 10/03/17 07:00 Intake Total 480 ml Balance 480 ml Intake Oral 480 ml Labs: Laboratory Tests Test 10/03/17 07:19 White Blood Count 3.0 x10^3/uL (4.0-11.0) L Red Blood Count 3.74 x10^6/uL (4.30-5.70) L Hemoglobin 13.1 g/dL (13.0-17.5) Hematocrit 38.2 % (39.0-53.0) L Mean Corpuscular Volume 102 fL (79-100) H Mean Corpuscular Hemoglobin 35 pg (25-35) Mean Corpuscular Hemoglobin Concent 34 g/dL (31-37) Red Cell Distribution Width 16.4 % (11.5-14.5) H Platelet Count 68 x10^3/uL (140-400) L Neutrophils (%) (Auto) 74 % (31-73) H Lymphocytes (%) (Auto) 11 % (24-48) L Monocytes (%) (Auto) 14 % (0-9) H Eosinophils (%) (Auto) 1 % (0-3) Basophils (%) (Auto) 0 % (0-3) Neutrophils # (Auto) 2.2 x10^3uL (1.8-7.7) Lymphocytes # (Auto) 0.3 x10^3/uL (1.0-4.8) L Monocytes # (Auto) 0.4 x10^3/uL (0.0-1.1) Eosinophils # (Auto) 0.0 x10^3/uL (0.0-0.7) Basophils # (Auto) 0.0 x10^3/uL (0.0-0.2) Sodium Level 147 mmol/L (136-145) H Potassium Level 3.8 mmol/L (3.5-5.1) Chloride Level 111 mmol/L (98-107) H Carbon Dioxide Level 29 mmol/L (21-32) Anion Gap 7 (6-14) Blood Urea Nitrogen 13 mg/dL (8-26) Creatinine 0.9 mg/dL (0.7-1.3) Estimated GFR (Cockcroft-Gault) 80.8 BUN/Creatinine Ratio 14 (6-20) Glucose Level 98 mg/dL (70-99) Calcium Level 8.1 mg/dL (8.5-10.1) L Total Bilirubin 0.8 mg/dL (0.2-1.0) Aspartate Amino Transferase (AST) 42 U/L (15-37) H Alanine Aminotransferase (ALT) 23 U/L (16-63) Alkaline Phosphatase 88 U/L (46-116) Total Protein 5.9 g/dL (6.4-8.2) L Albumin 2.6 g/dL (3.4-5.0) L Albumin/Globulin Ratio 0.8 (1.0-1.7) L Current Medications: Meds: Current Medications Iohexol (Omnipaque 300 Mg/ml) 75 ml 1X ONCE IV Last administered on 21:29; Start 09/18/17 at 20:30; Stop 09/18/17 at 20:31; Status DC Lorazepam (Ativan) 2 mg 1X ONCE IV Last administered on 09/18/17 21:14; Start 09/18/17 at 20:30; Stop 09/18/17 at 20:31; Status DC Diphenhydramine HCl (Benadryl) 50 mg 1X ONCE IVP Last administered on 21:14; Start 09/18/17 at 20:30; Stop 09/18/17 at 20:31; Status DC Lactated Ringer's 1,000 ml @ 1,000 mls/hr 1X ONCE IV Last administered on 21:14; Start 09/18/17 at 20:30; Stop 09/18/17 at 21:29; Status DC Ziprasidone (Geodon Im) 20 mg 1X ONCE IM Last administered on 09/18/17 22:07 ; Start 09/18/17 at 22:30; Stop 09/18/17 at 22:31; Status DC Lorazepam (Ativan) 2 mg 1X ONCE IM ; Start 09/18/17 at 22:45; Stop 09/18/17 at 22:46; Status DC Ziprasidone (Geodon Im) 10 mg 1X ONCE IM ; Start 09/18/17 at 22:45; Stop at 22:46; Status DC Acetaminophen (Tylenol) 650 mg PRN Q6HRS PRN PO MILD PAIN / TEMP; Start at 01:30 Multi-Ingredient Ointment (Analgesic [place]) 1 betzy PRN QID PRN TP MUSCLE PAIN; Start 09/19/17 at 01:30 Al Hydroxide/Mg Hydroxide (Mylanta Plus Xs) 15 ml PRN AFTMEALHC PRN PO DYSPEPSIA; Start 09/19/17 at 01:30 Magnesium Hydroxide (Milk Of Magnesia) 2,400 mg PRN QHS PRN PO CONSTIPATION Last administered on 10/02/17 14:00; Start 09/19/17 at 01:30 Divalproex Sodium (Depakote Sprinkles) 250 mg BID PO Last administered on 09/19 08:04; Start 09/19/17 at 09:00; Stop 09/19/17 at 19:02; Status DC Donepezil HCl (Aricept) 23 mg QHS PO Last administered on 10/03/17 20:53; Start 09/19/17 at 21:00 Lorazepam (Ativan) 0.25 mg PRN Q4HRS PRN PO ANXIETY / AGITATION Last administered on 09/26/17 17:47; Start 09/19/17 at 01:30 Quetiapine Fumarate (SEROquel) 25 mg QHS PO Last administered on 09/23/17 19: 31; Start 09/19/17 at 21:00; Stop 09/24/17 at 09:56; Status DC Trazodone HCl (Desyrel) 125 mg QHS PO Last administered on 10/03/17 20:53; Start 09/19/17 at 21:00 Citalopram Hydrobromide (CeleXA) 20 mg DAILY PO Last administered on 09:29; Start 09/19/17 at 09:00; Stop 10/03/17 at 18:16; Status DC Acetaminophen (Tylenol) 650 mg PRN Q6HRS PRN PO PAIN / TEMP; Start 09/19/17 at 06:15; Status UNV Magnesium Hydroxide (Milk Of Magnesia) 2,400 mg PRN QHS PRN PO CONSTIPATION; Start 09/19/17 at 06:15; Status UNV Potassium Chloride (Klor-Con) 20 meq BID PO Last administered on 10/03/17 20: 53; Start 09/19/17 at 09:00 Senna/Docusate Sodium (Senna Plus) 2 tab QHS PO Last administered on 20:53; Start 09/19/17 at 21:00 Vitamin B Complex 1 cap BID PO Last administered on 09/20/17 09:01; Start at 09:00; Stop 09/21/17 at 14:27; Status DC Multivitamins/ Calcium (Thera-M Plus) 1 tab DAILY PO Last administered on 10/03 09:29; Start 09/19/17 at 09:00 Divalproex Sodium (Depakote Sprinkles) 375 mg BID PO Last administered on 10:03; Start 09/19/17 at 21:00; Stop 09/24/17 at 18:07; Status DC Quetiapine Fumarate (SEROquel) 12.5 mg DAILY PO Last administered on 09/22/17 10:49; Start 09/21/17 at 09:00; Stop 09/22/17 at 19:35; Status DC Vitamin B Complex 1 cap DAILY PO Last administered on 10/03/17 09:29; Start 09/22/17 at 09:00 Quetiapine Fumarate (SEROquel) 12.5 mg TID@0900,1400,1700 PO Last administered on 09/23/17 17:04; Start 09/23/17 at 09:00; Stop 09/24/17 at 09:56; Status DC Divalproex Sodium (Depakote Sprinkles) 500 mg BID PO Last administered on 10/03 20:54; Start 09/24/17 at 21:00 Olanzapine (ZyPREXA ZYDIS) 2.5 mg PRN Q2HR PRN PO PSYCHOSIS Last administered on 09/28/17 08:55; Start 09/26/17 at 18:30 Risperidone (RisperDAL) 0.125 mg DAILY@0900,1400,1700 PO Last administered on 09/30/17 17:00; Start 09/28/17 at 14:00; Stop 09/30/17 at 19:17; Status DC Risperidone (RisperDAL) 0.125 mg DAILY@1400 PO Last administered on 10/03/17 14:05; Start 10/01/17 at 14:00 Risperidone (RisperDAL) 0.25 mg BID@0900,1700 PO Last administered on 09:30; Start 10/01/17 at 09:00 Buspirone HCl (Buspar) 5 mg TID@0900,1400,1700 PO Last administered on 16:38; Start 10/03/17 at 09:00 Guaifenesin (MUCINEX ER with DM) 1 tab BID PO Last administered on 10/03/17 20:54; Start 10/03/17 at 21:00; Stop 10/08/17 at 20:59 Duloxetine HCl (Cymbalta) 30 mg DAILY PO ; Start 10/04/17 at 09:00 Active Scripts Active Reported Milk Of Magnesia (Magnesium Hydroxide) 400 Mg/5 Ml Oral.susp 2,400 Mg PO PRN QHS PRN Ativan (Lorazepam) 0.5 Mg Tablet 0.25 Mg PO PRN Q4HRS PRN Tylenol (Acetaminophen) 325 Mg Tablet 650 Mg PO PRN Q6HRS PRN Trazodone Hcl 50 Mg Tablet 125 Mg PO QHS Senna S Tablet (Sennosides/Docusate Sodium) 1 Each Tablet 2 Tab PO QHS Seroquel (Quetiapine Fumarate) 25 Mg Tablet 25 Mg PO QHS Klor-Con M20 (Potassium Chloride) 20 Meq Tab.er.prt 20 Meq PO BID Multivitamins (Multivitamin) 1 Each Tablet 1 Tab PO DAILY [id number]-[id number] Tablet (Methyl-B12/L-Mefolate/B6 Phos) 1 Each Tablet 1 Tab PO BID Escitalopram Oxalate 10 Mg Tablet 10 Mg PO DAILY Aricept (Donepezil Hcl) 23 Mg Tablet 23 Mg PO QHS Depakote Sprinkle (Divalproex Sodium) 125 Mg Cap.sprink 250 Mg PO BID I have reviewed the current psychotropics carefully including drug interactions. Risk benefit ratio favors no change other than as noted in my dictated progress note. Diagnosis: Problems: (1) Dementia (2) Pleural disorder (3) Anxiety disorder (4) Dementia, vascular, with delusions (5) Dementia in Alzheimer's disease with delusions (6) Dementia in Alzheimer's disease with depression (7) Dementia, vascular, with depression (8) Impulse control disorder GERALD KUMAR MD Oct 03, 2017 22:15
[2017-10-04 06:27] VITALS: BP 124/78
--- NOTE | 2017-10-04 08:02 | PN ---
DATE: 10/02/2017 PSYCHIATRIC PROGRESS NOTE This is a late entry 10/02/2017, covers elements not covered in my initial note 10/02/2017. SUBJECTIVE: I met with the patient the evening of 10/02/2017. The patient slept 9-1/2 hours previous evening, slept in the morning. At lunchtime he was combative, resistive to cares, drowsy in his wheelchair. Per nursing report does not have or extremely aggressive. Risperdal was held at 2:00 p.m. and 5 p.m. due to his sedation. Oral intake is poor. We will check a CBC, CMP in the morning to make sure he is not getting dehydrated. REVIEW OF SYSTEMS: Ambulation impaired, in wheelchair. No CV, , pulmonary, eye, ENT system symptoms on review, somewhat abrasive as I met with him confused. MENTAL STATUS EXAM: Oriented to himself. Insight, judgment, recent and remote memory, attention, concentration, fund of knowledge poor, consistent with his diagnoses mentioned in my initial note. PLAN: Start BuSpar 5 mg 3 times a day for anxiety. Maintain Celexa 20 mg a day, Depakote Sprinkles 500 mg b.i.d., level therapeutic at 72, Aricept 23 mg a day, trazodone 125 mg at bedtime, Ativan p.r.n., Zyprexa p.r.n., Risperdal 0.125 mg at 1400, 0.25 mg at hold if sedated. Review drug interactions. Risk/benefit ratio favors no further change. Adjust further depending on his clinical progress. MAN Gigi KUMAR MD DR: SAKINA/yasemin JOB#: [id number] / [id number]
[2017-10-04] MEDS ORDERED: DULoxetine HCL 30 MG CAPSULE.DR PO SCH (09:00)
[2017-10-04] MEDS: busPIRone 5 MG TABLET. PO SCH ×3 (09:36→17:16)
[2017-10-04] MEDS: VITAMIN B COMPLEX CAPSULE. PO SCH (09:36)
[2017-10-04] MEDS: MULTIVITAMIN with MINERAL TABLET. PO SCH (09:36)
[2017-10-04] MEDS: POTASSIUM CHLORIDE 20 MEQ TABLET.ER. PO SCH ×2 (09:36→19:40)
[2017-10-04] MEDS: guaiFENesin DM 600/30MG 1 TAB TAB.ER.12H PO SCH ×2 (09:36→19:37)
[2017-10-04] MEDS: risperiDONE 0.25 MG TABLET. PO SCH ×3 (09:36→17:17)
[2017-10-04] MEDS: DIVALPROEX 125 MG CAP.SPRINK PO SCH ×2 (09:36→19:40)
[2017-10-04] MEDS: MAGNESIUM HYDROXIDE 2,400 MG/30 ML ORAL.SUSP. PO PRN (12:26)
[2017-10-04 16:34] VITALS: BP 103/72
[2017-10-04] MEDS: traZODone 50 MG TABLET. PO SCH (19:38)
[2017-10-04] MEDS: DONEPEZIL 23 MG TABLET PO SCH (19:39)
[2017-10-04] MEDS: SENNOSIDES/DOCUSATE 8.6/50MG TABLET. PO SCH (19:40)
--- NOTE | 2017-10-04 20:17 | PDOC ---
Exam Note: Cyrus Note: Please also refer to the separate dictated note~for this date of service dictated separately.~Patient seen individually. Discussed the patient with Nursing staff reviewed the chart.~Reviewed interim history and current functioning. Reviewed vital signs,~Labs/ Radiology~and current medications noted below. Continue current treatment with the changes noted in the dictated addendum note Assessment: Vital Signs: Vital Signs Date Time Temp Pulse Resp B/P (MAP) Pulse Ox O2 Delivery O2 Flow Rate FiO2 10/04/17 16:34 97.7 86 17 103/72 (82) 97 09/30/17 16:31 Room Air I&O Intake and Output 10/04/17 07:00 Intake Total 660 ml Balance 660 ml Intake Oral 660 ml Current Medications: Meds: Current Medications Iohexol (Omnipaque 300 Mg/ml) 75 ml 1X ONCE IV Last administered on 21:29; Start 09/18/17 at 20:30; Stop 09/18/17 at 20:31; Status DC Lorazepam (Ativan) 2 mg 1X ONCE IV Last administered on 09/18/17 21:14; Start 09/18/17 at 20:30; Stop 09/18/17 at 20:31; Status DC Diphenhydramine HCl (Benadryl) 50 mg 1X ONCE IVP Last administered on 21:14; Start 09/18/17 at 20:30; Stop 09/18/17 at 20:31; Status DC Lactated Ringer's 1,000 ml @ 1,000 mls/hr 1X ONCE IV Last administered on 21:14; Start 09/18/17 at 20:30; Stop 09/18/17 at 21:29; Status DC Ziprasidone (Geodon Im) 20 mg 1X ONCE IM Last administered on 09/18/17 22:07 ; Start 09/18/17 at 22:30; Stop 09/18/17 at 22:31; Status DC Lorazepam (Ativan) 2 mg 1X ONCE IM ; Start 09/18/17 at 22:45; Stop 09/18/17 at 22:46; Status DC Ziprasidone (Geodon Im) 10 mg 1X ONCE IM ; Start 09/18/17 at 22:45; Stop at 22:46; Status DC Acetaminophen (Tylenol) 650 mg PRN Q6HRS PRN PO MILD PAIN / TEMP; Start at 01:30 Multi-Ingredient Ointment (Analgesic [place]) 1 betzy PRN QID PRN TP MUSCLE PAIN; Start 09/19/17 at 01:30 Al Hydroxide/Mg Hydroxide (Mylanta Plus Xs) 15 ml PRN AFTMEALHC PRN PO DYSPEPSIA; Start 09/19/17 at 01:30 Magnesium Hydroxide (Milk Of Magnesia) 2,400 mg PRN QHS PRN PO CONSTIPATION Last administered on 10/04/17 12:26; Start 09/19/17 at 01:30 Divalproex Sodium (Depakote Sprinkles) 250 mg BID PO Last administered on 09/19 08:04; Start 09/19/17 at 09:00; Stop 09/19/17 at 19:02; Status DC Donepezil HCl (Aricept) 23 mg QHS PO Last administered on 10/04/17 19:39; Start 09/19/17 at 21:00 Lorazepam (Ativan) 0.25 mg PRN Q4HRS PRN PO ANXIETY / AGITATION Last administered on 09/26/17 17:47; Start 09/19/17 at 01:30 Quetiapine Fumarate (SEROquel) 25 mg QHS PO Last administered on 09/23/17 19: 31; Start 09/19/17 at 21:00; Stop 09/24/17 at 09:56; Status DC Trazodone HCl (Desyrel) 125 mg QHS PO Last administered on 10/04/17 19:38; Start 09/19/17 at 21:00 Citalopram Hydrobromide (CeleXA) 20 mg DAILY PO Last administered on 09:29; Start 09/19/17 at 09:00; Stop 10/03/17 at 18:16; Status DC Acetaminophen (Tylenol) 650 mg PRN Q6HRS PRN PO PAIN / TEMP; Start 09/19/17 at 06:15; Status UNV Magnesium Hydroxide (Milk Of Magnesia) 2,400 mg PRN QHS PRN PO CONSTIPATION; Start 09/19/17 at 06:15; Status UNV Potassium Chloride (Klor-Con) 20 meq BID PO Last administered on 10/04/17 19: 40; Start 09/19/17 at 09:00 Senna/Docusate Sodium (Senna Plus) 2 tab QHS PO Last administered on 19:40; Start 09/19/17 at 21:00 Vitamin B Complex 1 cap BID PO Last administered on 09/20/17 09:01; Start at 09:00; Stop 09/21/17 at 14:27; Status DC Multivitamins/ Calcium (Thera-M Plus) 1 tab DAILY PO Last administered on 10/04 09:36; Start 09/19/17 at 09:00 Divalproex Sodium (Depakote Sprinkles) 375 mg BID PO Last administered on 10:03; Start 09/19/17 at 21:00; Stop 09/24/17 at 18:07; Status DC Quetiapine Fumarate (SEROquel) 12.5 mg DAILY PO Last administered on 09/22/17 10:49; Start 09/21/17 at 09:00; Stop 09/22/17 at 19:35; Status DC Vitamin B Complex 1 cap DAILY PO Last administered on 10/04/17 09:36; Start 09/22/17 at 09:00 Quetiapine Fumarate (SEROquel) 12.5 mg TID@0900,1400,1700 PO Last administered on 09/23/17 17:04; Start 09/23/17 at 09:00; Stop 09/24/17 at 09:56; Status DC Divalproex Sodium (Depakote Sprinkles) 500 mg BID PO Last administered on 10/04 19:40; Start 09/24/17 at 21:00 Olanzapine (ZyPREXA ZYDIS) 2.5 mg PRN Q2HR PRN PO PSYCHOSIS Last administered on 09/28/17 08:55; Start 09/26/17 at 18:30 Risperidone (RisperDAL) 0.125 mg DAILY@0900,1400,1700 PO Last administered on 09/30/17 17:00; Start 09/28/17 at 14:00; Stop 09/30/17 at 19:17; Status DC Risperidone (RisperDAL) 0.125 mg DAILY@1400 PO Last administered on 10/03/17 14:05; Start 10/01/17 at 14:00 Risperidone (RisperDAL) 0.25 mg BID@0900,1700 PO Last administered on 17:17; Start 10/01/17 at 09:00 Buspirone HCl (Buspar) 5 mg TID@0900,1400,1700 PO Last administered on 17:16; Start 10/03/17 at 09:00 Guaifenesin (MUCINEX ER with DM) 1 tab BID PO Last administered on 10/04/17 19:37; Start 10/03/17 at 21:00; Stop 10/08/17 at 20:59 Duloxetine HCl (Cymbalta) 30 mg DAILY PO Last administered on 10/04/17 09:37 ; Start 10/04/17 at 09:00; Stop 10/04/17 at 18:59; Status DC Duloxetine HCl (Cymbalta) 60 mg DAILY PO ; Start 10/05/17 at 09:00 Active Scripts Active Reported Milk Of Magnesia (Magnesium Hydroxide) 400 Mg/5 Ml Oral.susp 2,400 Mg PO PRN QHS PRN Ativan (Lorazepam) 0.5 Mg Tablet 0.25 Mg PO PRN Q4HRS PRN Tylenol (Acetaminophen) 325 Mg Tablet 650 Mg PO PRN Q6HRS PRN Trazodone Hcl 50 Mg Tablet 125 Mg PO QHS Senna S Tablet (Sennosides/Docusate Sodium) 1 Each Tablet 2 Tab PO QHS Seroquel (Quetiapine Fumarate) 25 Mg Tablet 25 Mg PO QHS Klor-Con M20 (Potassium Chloride) 20 Meq Tab.er.prt 20 Meq PO BID Multivitamins (Multivitamin) 1 Each Tablet 1 Tab PO DAILY V-[id number]-E4-B12 Tablet (Methyl-B12/L-Mefolate/B6 Phos) 1 Each Tablet 1 Tab PO BID Escitalopram Oxalate 10 Mg Tablet 10 Mg PO DAILY Aricept (Donepezil Hcl) 23 Mg Tablet 23 Mg PO QHS Depakote Sprinkle (Divalproex Sodium) 125 Mg Cap.sprink 250 Mg PO BID I have reviewed the current psychotropics carefully including drug interactions. Risk benefit ratio favors no change other than as noted in my dictated progress note. Diagnosis: Problems: (1) Dementia (2) Pleural disorder (3) Anxiety disorder (4) Dementia, vascular, with delusions (5) Dementia in Alzheimer's disease with delusions (6) Dementia in Alzheimer's disease with depression (7) Dementia, vascular, with depression (8) Impulse control disorder GERALD KUMAR MD Oct 04, 2017 20:17
--- NOTE | 2017-10-05 01:46 | PN ---
DATE: 10/03/2017 This late entry 10/03/2017 covers elements not covered in my initial note 10/03/2017. SUBJECTIVE: I met with the patient evening of 10/03/2017. The patient slept 6-3/4 hours previous evening, combative with cares, yelling. In the morning, he was pleasant, joking with nursing staff, but mood changed fairly quickly thereafter. Risperdal 5 p.m. was held due to sedation. REVIEW OF SYSTEMS: Ambulation impaired, in wheelchair. No CV, , pulmonary, eye, ENT system symptoms on review. Reliability poor. MENTAL STATUS EXAM: Oriented to himself. Insight, judgment, recent and remote memory, attention, concentration, fund of knowledge poor, consistent with his diagnosis mentioned in my initial note. PLAN: Change Celexa to Cymbalta 30 mg a day. Maintain Depakote, Aricept, trazodone, Ativan p.r.n., Zyprexa p.r.n., Risperdal 0.125 mg at 1400 and 0.25 mg at 0900, 1700, BuSpar 5 mg 3 times a day. Adjust further as clinically indicated. GERALD KUMAR MD DR: SAKINA/yasemin JOB#: [id number] / [id number]
[2017-10-05] MEDS: VITAMIN B COMPLEX CAPSULE. PO SCH (09:10)
[2017-10-05] MEDS: busPIRone 5 MG TABLET. PO SCH ×2 (09:10→13:47)
[2017-10-05] MEDS: DULoxetine HCL 60 MG CAPSULE.DR PO SCH (09:11)
[2017-10-05] MEDS: guaiFENesin DM 600/30MG 1 TAB TAB.ER.12H PO SCH ×2 (09:11→21:06)
[2017-10-05] MEDS: DIVALPROEX 125 MG CAP.SPRINK PO SCH ×2 (09:11→21:06)
[2017-10-05] MEDS: MULTIVITAMIN with MINERAL TABLET. PO SCH (09:11)
[2017-10-05] MEDS: POTASSIUM CHLORIDE 20 MEQ TABLET.ER. PO SCH (09:11)
[2017-10-05] MEDS: risperiDONE 0.25 MG TABLET. PO SCH ×3 (09:11→17:28)
[2017-10-05 13:42] LABS: ALBUMIN 2.9 g/dL (3.4-5.0); ALBUMIN/GLOBULIN RATIO 0.8 (1.0-1.7); CALCIUM 8.9 mg/dL (8.5-10.1); CREATININE 1.1 mg/dL (0.7-1.3); GFR 64.1; TOTAL PROTEIN 6.7 g/dL (6.4-8.2)
[2017-10-05 14:00] LABS: POTASSIUM 6.1 mmol/L (3.5-5.1)
[2017-10-05] MEDS ORDERED: SODIUM POLYSTYRENE SULFONATE 15 GM/60 ML ORAL.SUSP. PO ONE (15:00)
[2017-10-05 16:38] VITALS: BP 103/67
[2017-10-05] MEDS: busPIRone 10 MG TABLET. PO SCH (17:28)
--- NOTE | 2017-10-05 20:17 | PDOC ---
Exam Note: Cyrus Note: Please also refer to the separate dictated note~for this date of service dictated separately.~Patient seen individually. Discussed the patient with Nursing staff reviewed the chart.~Reviewed interim history and current functioning. Reviewed vital signs,~Labs/ Radiology~and current medications noted below. Continue current treatment with the changes noted in the dictated addendum note Assessment: Vital Signs: Vital Signs Date Time Temp Pulse Resp B/P (MAP) Pulse Ox O2 Delivery O2 Flow Rate FiO2 10/05/17 16:38 98.1 82 18 103/67 (79) 99 09/30/17 16:31 Room Air I&O Intake and Output 10/05/17 07:00 Intake Total 400 ml Balance 400 ml Intake Oral 400 ml Labs: Laboratory Tests Test 10/05/17 13:22 10/05/17 14:05 Sodium Level 150 mmol/L (136-145) H Potassium Level 6.1 mmol/L (3.5-5.1) *H 6.1 mmol/L (3.5-5.1) *H Chloride Level 115 mmol/L (98-107) H Carbon Dioxide Level 29 mmol/L (21-32) Anion Gap 6 (6-14) Blood Urea Nitrogen 13 mg/dL (8-26) Creatinine 1.1 mg/dL (0.7-1.3) Estimated GFR (Cockcroft-Gault) 64.1 BUN/Creatinine Ratio 12 (6-20) Glucose Level 122 mg/dL (70-99) H Calcium Level 8.9 mg/dL (8.5-10.1) Total Bilirubin 1.0 mg/dL (0.2-1.0) Aspartate Amino Transferase (AST) 27 U/L (15-37) Alanine Aminotransferase (ALT) 24 U/L (16-63) Alkaline Phosphatase 103 U/L (46-116) Total Protein 6.7 g/dL (6.4-8.2) Albumin 2.9 g/dL (3.4-5.0) L Albumin/Globulin Ratio 0.8 (1.0-1.7) L Current Medications: Meds: Current Medications Iohexol (Omnipaque 300 Mg/ml) 75 ml 1X ONCE IV Last administered on t 21:29; Start 09/18/17 at 20:30; Stop 09/18/17 at 20:31; Status DC Lorazepam (Ativan) 2 mg 1X ONCE IV Last administered on 09/18/17 21:14; Start 09/18/17 at 20:30; Stop 09/18/17 at 20:31; Status DC Diphenhydramine HCl (Benadryl) 50 mg 1X ONCE IVP Last administered on 21:14; Start 09/18/17 at 20:30; Stop 09/18/17 at 20:31; Status DC Lactated Ringer's 1,000 ml @ 1,000 mls/hr 1X ONCE IV Last administered on 21:14; Start 09/18/17 at 20:30; Stop 09/18/17 at 21:29; Status DC Ziprasidone (Geodon Im) 20 mg 1X ONCE IM Last administered on 09/18/17 22:07 ; Start 09/18/17 at 22:30; Stop 09/18/17 at 22:31; Status DC Lorazepam (Ativan) 2 mg 1X ONCE IM ; Start 09/18/17 at 22:45; Stop 09/18/17 at 22:46; Status DC Ziprasidone (Geodon Im) 10 mg 1X ONCE IM ; Start 09/18/17 at 22:45; Stop at 22:46; Status DC Acetaminophen (Tylenol) 650 mg PRN Q6HRS PRN PO MILD PAIN / TEMP; Start at 01:30 Multi-Ingredient Ointment (Analgesic [place]) 1 betzy PRN QID PRN TP MUSCLE PAIN; Start 09/19/17 at 01:30 Al Hydroxide/Mg Hydroxide (Mylanta Plus Xs) 15 ml PRN AFTMEALHC PRN PO DYSPEPSIA; Start 09/19/17 at 01:30 Magnesium Hydroxide (Milk Of Magnesia) 2,400 mg PRN QHS PRN PO CONSTIPATION Last administered on 10/04/17 12:26; Start 09/19/17 at 01:30 Divalproex Sodium (Depakote Sprinkles) 250 mg BID PO Last administered on 09/19 08:04; Start 09/19/17 at 09:00; Stop 09/19/17 at 19:02; Status DC Donepezil HCl (Aricept) 23 mg QHS PO Last administered on 10/04/17 19:39; Start 09/19/17 at 21:00 Lorazepam (Ativan) 0.25 mg PRN Q4HRS PRN PO ANXIETY / AGITATION Last administered on 09/26/17 17:47; Start 09/19/17 at 01:30 Quetiapine Fumarate (SEROquel) 25 mg QHS PO Last administered on 09/23/17 19: 31; Start 09/19/17 at 21:00; Stop 09/24/17 at 09:56; Status DC Trazodone HCl (Desyrel) 125 mg QHS PO Last administered on 10/04/17 19:38; Start 09/19/17 at 21:00 Citalopram Hydrobromide (CeleXA) 20 mg DAILY PO Last administered on 09:29; Start 09/19/17 at 09:00; Stop 10/03/17 at 18:16; Status DC Acetaminophen (Tylenol) 650 mg PRN Q6HRS PRN PO PAIN / TEMP; Start 09/19/17 at 06:15; Status UNV Magnesium Hydroxide (Milk Of Magnesia) 2,400 mg PRN QHS PRN PO CONSTIPATION; Start 09/19/17 at 06:15; Status UNV Potassium Chloride (Klor-Con) 20 meq BID PO Last administered on 10/05/17 09: 11; Start 09/19/17 at 09:00; Stop 10/05/17 at 14:04; Status DC Senna/Docusate Sodium (Senna Plus) 2 tab QHS PO Last administered on 19:40; Start 09/19/17 at 21:00 Vitamin B Complex 1 cap BID PO Last administered on 09/20/17 09:01; Start at 09:00; Stop 09/21/17 at 14:27; Status DC Multivitamins/ Calcium (Thera-M Plus) 1 tab DAILY PO Last administered on 10/05 09:11; Start 09/19/17 at 09:00 Divalproex Sodium (Depakote Sprinkles) 375 mg BID PO Last administered on 10:03; Start 09/19/17 at 21:00; Stop 09/24/17 at 18:07; Status DC Quetiapine Fumarate (SEROquel) 12.5 mg DAILY PO Last administered on 09/22/17 10:49; Start 09/21/17 at 09:00; Stop 09/22/17 at 19:35; Status DC Vitamin B Complex 1 cap DAILY PO Last administered on 10/05/17 09:10; Start 09/22/17 at 09:00 Quetiapine Fumarate (SEROquel) 12.5 mg TID@0900,1400,1700 PO Last administered on 09/23/17 17:04; Start 09/23/17 at 09:00; Stop 09/24/17 at 09:56; Status DC Divalproex Sodium (Depakote Sprinkles) 500 mg BID PO Last administered on 10/05 09:11; Start 09/24/17 at 21:00 Olanzapine (ZyPREXA ZYDIS) 2.5 mg PRN Q2HR PRN PO PSYCHOSIS Last administered on 09/28/17 08:55; Start 09/26/17 at 18:30 Risperidone (RisperDAL) 0.125 mg DAILY@0900,1400,1700 PO Last administered on 09/30/17 17:00; Start 09/28/17 at 14:00; Stop 09/30/17 at 19:17; Status DC Risperidone (RisperDAL) 0.125 mg DAILY@1400 PO Last administered on 10/05/17 13:47; Start 10/01/17 at 14:00 Risperidone (RisperDAL) 0.25 mg BID@0900,1700 PO Last administered on 17:28; Start 10/01/17 at 09:00 Buspirone HCl (Buspar) 5 mg TID@0900,1400,1700 PO Last administered on 09:10; Start 10/03/17 at 09:00; Stop 10/05/17 at 11:21; Status DC Guaifenesin (MUCINEX ER with DM) 1 tab BID PO Last administered on 10/05/17 09:11; Start 10/03/17 at 21:00; Stop 10/08/17 at 20:59 Duloxetine HCl (Cymbalta) 30 mg DAILY PO Last administered on 10/04/17 09:37 ; Start 10/04/17 at 09:00; Stop 10/04/17 at 18:59; Status DC Duloxetine HCl (Cymbalta) 60 mg DAILY PO Last administered on 10/05/17 09:11 ; Start 10/05/17 at 09:00 Buspirone HCl (Buspar) 5 mg BID92 PO Last administered on 10/05/17 13:47; Start 10/05/17 at 14:00 Buspirone HCl (Buspar) 10 mg DAILY@1700 PO Last administered on 10/05/17 17: 28; Start 10/05/17 at 17:00 Sodium Polystyrene Sulfonate (Kayexalate) 40 gm 1X ONCE PO Last administered on 10/05/17 14:50; Start 10/05/17 at 15:00; Stop 10/05/17 at 15:01; Status DC Active Scripts Active Reported Milk Of Magnesia (Magnesium Hydroxide) 400 Mg/5 Ml Oral.susp 2,400 Mg PO PRN QHS PRN Ativan (Lorazepam) 0.5 Mg Tablet 0.25 Mg PO PRN Q4HRS PRN Tylenol (Acetaminophen) 325 Mg Tablet 650 Mg PO PRN Q6HRS PRN Trazodone Hcl 50 Mg Tablet 125 Mg PO QHS Senna S Tablet (Sennosides/Docusate Sodium) 1 Each Tablet 2 Tab PO QHS Seroquel (Quetiapine Fumarate) 25 Mg Tablet 25 Mg PO QHS Klor-Con M20 (Potassium Chloride) 20 Meq Tab.er.prt 20 Meq PO BID Multivitamins (Multivitamin) 1 Each Tablet 1 Tab PO DAILY [id number] Tablet (Methyl-B12/L-Mefolate/B6 Phos) 1 Each Tablet 1 Tab PO BID Escitalopram Oxalate 10 Mg Tablet 10 Mg PO DAILY Aricept (Donepezil Hcl) 23 Mg Tablet 23 Mg PO QHS Depakote Sprinkle (Divalproex Sodium) 125 Mg Cap.sprink 250 Mg PO BID I have reviewed the current psychotropics carefully including drug interactions. Risk benefit ratio favors no change other than as noted in my dictated progress note. Diagnosis: Problems: (1) Dementia (2) Pleural disorder (3) Anxiety disorder (4) Dementia, vascular, with delusions (5) Dementia in Alzheimer's disease with delusions (6) Dementia in Alzheimer's disease with depression (7) Dementia, vascular, with depression (8) Impulse control disorder GERALD KUMAR MD Oct 05, 2017 20:17
[2017-10-05] MEDS: traZODone 50 MG TABLET. PO SCH (21:06)
[2017-10-05] MEDS: SENNOSIDES/DOCUSATE 8.6/50MG TABLET. PO SCH (21:07)
[2017-10-05] MEDS: DONEPEZIL 23 MG TABLET PO SCH (21:07)
[2017-10-05 21:16] LABS: CALCIUM 8.7 mg/dL (8.5-10.1); GFR 71.5; POTASSIUM 4.9 mmol/L (3.5-5.1)
[2017-10-06] MEDS: DIVALPROEX 125 MG CAP.SPRINK PO SCH (09:37)
[2017-10-06] MEDS: VITAMIN B COMPLEX CAPSULE. PO SCH (09:37)
[2017-10-06] MEDS: risperiDONE 0.25 MG TABLET. PO SCH (09:38)
[2017-10-06] MEDS: guaiFENesin DM 600/30MG 1 TAB TAB.ER.12H PO SCH ×2 (09:38→19:56)
[2017-10-06] MEDS: DULoxetine HCL 60 MG CAPSULE.DR PO SCH (09:38)
[2017-10-06] MEDS: MULTIVITAMIN with MINERAL TABLET. PO SCH (09:38)
[2017-10-06] MEDS: busPIRone 5 MG TABLET. PO SCH ×2 (09:39→14:25)
[2017-10-06 09:52] LABS: ALBUMIN 2.6 g/dL (3.4-5.0); ALBUMIN/GLOBULIN RATIO 0.7 (1.0-1.7); GFR 71.5; TOTAL BILIRUBIN 0.7 mg/dL (0.2-1.0); TOTAL PROTEIN 6.3 g/dL (6.4-8.2)
[2017-10-06] MEDS ORDERED: ACETAMINOPHEN 650 MG/20.3 ML SOLUTION. PO PRN (10:15)
[2017-10-06] MEDS: VALPROATE ACID 250 MG/5 ML ORAL SOLUTION PO SCH ×2 (10:30→19:56)
[2017-10-06 11:19] LABS: BASO % 0 % (0-3); EOS % 1 % (0-3); HEMATOCRIT 40.5 % (39.0-53.0); HEMOGLOBIN 13.7 g/dL (13.0-17.5); LYMPH # 0.5 x10^3/uL (1.0-4.8); LYMPH % 18 % (24-48); MEAN CORPUSCULAR HEMOGLOBIN 35 pg (25-35); MEAN CORPUSCULAR HGB CONC 34 g/dL (31-37); MEAN CORPUSCULAR VOLUME 103 fL (79-100); MONO # 0.3 x10^3/uL (0.0-1.1); MONO % 9 % (0-9); NEUT # 2.1 x10^3uL (1.8-7.7); NEUT % 72 % (31-73); PLATELET COUNT 81 x10^3/uL (140-400); RED BLOOD COUNT 3.93 x10^6/uL (4.30-5.70); RED CELL DISTRIBUTION WIDTH 16.1 % (11.5-14.5); WHITE BLOOD COUNT 2.9 x10^3/uL (4.0-11.0)
[2017-10-06] MEDS: risperiDONE ORAL 1 MG/ML 30ml BOTTLE. PO SCH ×2 (14:26→16:25)
[2017-10-06] MEDS: busPIRone 10 MG TABLET. PO SCH (16:24)
[2017-10-06 17:06] VITALS: BP 108/72
[2017-10-06] MEDS: DONEPEZIL 23 MG TABLET PO SCH (19:56)
[2017-10-06] MEDS: traZODone 50 MG TABLET. PO SCH (19:56)
[2017-10-06] MEDS: SENNOSIDES/DOCUSATE 8.6/50MG TABLET. PO SCH (19:56)
[2017-10-07] MEDS: VALPROATE ACID 250 MG/5 ML ORAL SOLUTION PO SCH ×2 (08:21→20:07)
[2017-10-07] MEDS: DULoxetine HCL 60 MG CAPSULE.DR PO SCH (08:21)
[2017-10-07] MEDS: MULTIVITAMIN with MINERAL TABLET. PO SCH (08:22)
[2017-10-07] MEDS: VITAMIN B COMPLEX CAPSULE. PO SCH (08:22)
[2017-10-07] MEDS: guaiFENesin DM 600/30MG 1 TAB TAB.ER.12H PO SCH ×2 (08:22→20:07)
[2017-10-07] MEDS: busPIRone 5 MG TABLET. PO SCH ×2 (08:22→13:46)
[2017-10-07] MEDS: risperiDONE ORAL 1 MG/ML 30ml BOTTLE. PO SCH ×3 (08:22→17:27)
--- NOTE | 2017-10-07 08:22 | PN ---
DATE: 10/04/2017 This late entry 10/04/2017 covers elements not covered in my initial note 10/04/2017, met with the patient in the evening of 10/04/2017. The patient has been combative with cares, slept 7 hours, often not sleeping in the daytime, Risperdal gets held, remains depressed, withdrawn, irritable, labile at times. REVIEW OF SYSTEMS: Ambulation impaired, in wheelchair. No CV, , pulmonary, eye system symptoms on review. Reliability poor. MENTAL STATUS EXAM: Oriented to himself. Insight, judgment, recent and remote memory, attention, concentration, fund of knowledge poor, consistent with his diagnosis mentioned in my initial note. PLAN: Increase Cymbalta to 60 mg a day. Continue rest of psychotropics mentioned in my initial note. MAN Gigi KUMAR MD DR: SAKINA/yasemin JOB#: [id number] / [id number]
--- NOTE | 2017-10-07 08:26 | PN ---
DATE: 10/05/2017 This is a late entry 10/05/2017 covers elements not covered in my initial note 10/05/2017. Met with the patient in the evening of 10/05/2017. Staffed at a treatment team meeting morning of 10/05/2017. Slept 5-3/4 hours, refused vital signs in the morning. REVIEW OF SYSTEMS: Ambulation impaired, in wheelchair. No CV, , pulmonary, eye system symptoms on review. Reliability poor. MENTAL STATUS EXAM: Oriented to himself. Insight, judgment, recent and remote memory, attention, concentration, fund of knowledge poor, consistent with his diagnosis. O2 sats 96%. Appetite 75%, irritable with cares. Lungs have some wheezing and cough. Past history of pleural effusion. WBC is 3. We will check a CMP as on the , sodium was 147 and AST 42. IMPRESSION: Unchanged from initial note. PLAN: Increase the 1700 BuSpar to 10 mg. Rest psychotropics unchanged from initial note. MAN Gigi KUMAR MD DR: SAKINA/yasemin JOB#: [id number] / [id number]
--- NOTE | 2017-10-07 10:43 | PDOC ---
Exam Note: Cyrus Note: This is late entry for date of service 10/06/2017.Please also refer to the separate dictated note~for this date of service dictated separately.~Patient seen individually. Discussed the patient with Nursing staff reviewed the chart.~ Reviewed interim history and current functioning. Reviewed vital signs,~Labs/ Radiology~and current medications noted below. Continue current treatment with the changes noted in the dictated addendum note Assessment: Vital Signs: VS - Last 72 Hours, by Label Date Time Temp Pulse Resp B/P (MAP) Pulse Ox O2 Delivery O2 Flow Rate FiO2 10/06/17 17:06 98.3 65 16 108/72 (84) 98 Room Air 10/05/17 16:38 98.1 82 18 103/67 (79) 99 10/04/17 16:34 97.7 86 17 103/72 (82) 97 Vital Signs Date Time Temp Pulse Resp B/P (MAP) Pulse Ox O2 Delivery O2 Flow Rate FiO2 10/06/17 17:06 98.3 65 16 108/72 (84) 98 Room Air I&O Intake and Output 10/07/17 07:00 Intake Total 1025 ml Balance 1025 ml Intake Oral 1025 ml Current Medications: Meds: Current Medications Iohexol (Omnipaque 300 Mg/ml) 75 ml 1X ONCE IV Last administered on 21:29; Start 09/18/17 at 20:30; Stop 09/18/17 at 20:31; Status DC Lorazepam (Ativan) 2 mg 1X ONCE IV Last administered on 09/18/17 21:14; Start 09/18/17 at 20:30; Stop 09/18/17 at 20:31; Status DC Diphenhydramine HCl (Benadryl) 50 mg 1X ONCE IVP Last administered on 21:14; Start 09/18/17 at 20:30; Stop 09/18/17 at 20:31; Status DC Lactated Ringer's 1,000 ml @ 1,000 mls/hr 1X ONCE IV Last administered on 21:14; Start 09/18/17 at 20:30; Stop 09/18/17 at 21:29; Status DC Ziprasidone (Geodon Im) 20 mg 1X ONCE IM Last administered on 11/27/17at 22:07 ; Start 09/18/17 at 22:30; Stop 09/18/17 at 22:31; Status DC Lorazepam (Ativan) 2 mg 1X ONCE IM ; Start 09/18/17 at 22:45; Stop 09/18/17 at 22:46; Status DC Ziprasidone (Geodon Im) 10 mg 1X ONCE IM ; Start 09/18/17 at 22:45; Stop at 22:46; Status DC Acetaminophen (Tylenol) 650 mg PRN Q6HRS PRN PO MILD PAIN / TEMP; Start at 01:30; Stop 10/06/17 at 10:13; Status DC Multi-Ingredient Ointment (Analgesic [place]) 1 betzy PRN QID PRN TP MUSCLE PAIN; Start 09/19/17 at 01:30 Al Hydroxide/Mg Hydroxide (Mylanta Plus Xs) 15 ml PRN AFTMEALHC PRN PO DYSPEPSIA; Start 09/19/17 at 01:30 Magnesium Hydroxide (Milk Of Magnesia) 2,400 mg PRN QHS PRN PO CONSTIPATION Last administered on 10/04/17 12:26; Start 09/19/17 at 01:30 Divalproex Sodium (Depakote Sprinkles) 250 mg BID PO Last administered on 09/19 08:04; Start 09/19/17 at 09:00; Stop 09/19/17 at 19:02; Status DC Donepezil HCl (Aricept) 23 mg QHS PO Last administered on 10/06/17 19:56; Start 09/19/17 at 21:00 Lorazepam (Ativan) 0.25 mg PRN Q4HRS PRN PO ANXIETY / AGITATION Last administered on 09/26/17 17:47; Start 09/19/17 at 01:30 Quetiapine Fumarate (SEROquel) 25 mg QHS PO Last administered on 09/23/17 19: 31; Start 09/19/17 at 21:00; Stop 09/24/17 at 09:56; Status DC Trazodone HCl (Desyrel) 125 mg QHS PO Last administered on 10/06/17 19:56; Start 09/19/17 at 21:00 Citalopram Hydrobromide (CeleXA) 20 mg DAILY PO Last administered on 09:29; Start 09/19/17 at 09:00; Stop 10/03/17 at 18:16; Status DC Acetaminophen (Tylenol) 650 mg PRN Q6HRS PRN PO PAIN / TEMP; Start 09/19/17 at 06:15; Status UNV Magnesium Hydroxide (Milk Of Magnesia) 2,400 mg PRN QHS PRN PO CONSTIPATION; Start 09/19/17 at 06:15; Status UNV Potassium Chloride (Klor-Con) 20 meq BID PO Last administered on 10/05/17 09: 11; Start 09/19/17 at 09:00; Stop 10/05/17 at 14:04; Status DC Senna/Docusate Sodium (Senna Plus) 2 tab QHS PO Last administered on 19:56; Start 09/19/17 at 21:00 Vitamin B Complex 1 cap BID PO Last administered on 09/20/17 09:01; Start at 09:00; Stop 09/21/17 at 14:27; Status DC Multivitamins/ Calcium (Thera-M Plus) 1 tab DAILY PO Last administered on 10/07 08:22; Start 09/19/17 at 09:00 Divalproex Sodium (Depakote Sprinkles) 375 mg BID PO Last administered on 10:03; Start 09/19/17 at 21:00; Stop 09/24/17 at 18:07; Status DC Quetiapine Fumarate (SEROquel) 12.5 mg DAILY PO Last administered on 09/22/17 10:49; Start 09/21/17 at 09:00; Stop 09/22/17 at 19:35; Status DC Vitamin B Complex 1 cap DAILY PO Last administered on 10/07/17 08:22; Start 09/22/17 at 09:00 Quetiapine Fumarate (SEROquel) 12.5 mg TID@0900,1400,1700 PO Last administered on 09/23/17 17:04; Start 09/23/17 at 09:00; Stop 09/24/17 at 09:56; Status DC Divalproex Sodium (Depakote Sprinkles) 500 mg BID PO Last administered on 10/06 09:37; Start 09/24/17 at 21:00; Stop 10/06/17 at 10:31; Status DC Olanzapine (ZyPREXA ZYDIS) 2.5 mg PRN Q2HR PRN PO PSYCHOSIS Last administered on 09/28/17 08:55; Start 09/26/17 at 18:30 Risperidone (RisperDAL) 0.125 mg DAILY@0900,1400,1700 PO Last administered on 09/30/17 17:00; Start 09/28/17 at 14:00; Stop 09/30/17 at 19:17; Status DC Risperidone (RisperDAL) 0.125 mg DAILY@1400 PO Last administered on 10/05/17 13:47; Start 10/01/17 at 14:00; Stop 10/06/17 at 10:16; Status DC Risperidone (RisperDAL) 0.25 mg BID@0900,1700 PO Last administered on 09:38; Start 10/01/17 at 09:00; Stop 10/06/17 at 10:18; Status DC Buspirone HCl (Buspar) 5 mg TID@0900,1400,1700 PO Last administered on 09:10; Start 10/03/17 at 09:00; Stop 10/05/17 at 11:21; Status DC Guaifenesin (MUCINEX ER with DM) 1 tab BID PO Last administered on 10/07/17 08:22; Start 10/03/17 at 21:00; Stop 10/08/17 at 20:59 Duloxetine HCl (Cymbalta) 30 mg DAILY PO Last administered on 10/04/17 09:37 ; Start 10/04/17 at 09:00; Stop 10/04/17 at 18:59; Status DC Duloxetine HCl (Cymbalta) 60 mg DAILY PO Last administered on 10/07/17 08:21 ; Start 10/05/17 at 09:00 Buspirone HCl (Buspar) 5 mg BID92 PO Last administered on 10/07/17 08:22; Start 10/05/17 at 14:00 Buspirone HCl (Buspar) 10 mg DAILY@1700 PO Last administered on 10/06/17 16: 24; Start 10/05/17 at 17:00 Sodium Polystyrene Sulfonate (Kayexalate) 40 gm 1X ONCE PO Last administered on 10/05/17 14:50; Start 10/05/17 at 15:00; Stop 10/05/17 at 15:01; Status DC Acetaminophen (Tylenol) 650 mg PRN Q6HRS PRN PO PAIN; Start 10/06/17 at 10:15 Risperidone (RisperDAL) 0.125 mg DAILY@1400 PO Last administered on 10/06/17 14:26; Start 10/06/17 at 14:00 Risperidone (RisperDAL) 0.25 mg BID@0900,1700 PO Last administered on 08:22; Start 10/06/17 at 17:00 Valproic Acid (Depakene) 500 mg BID PO Last administered on 10/07/17 08:21; Start 10/06/17 at 10:30 Active Scripts Active Reported Milk Of Magnesia (Magnesium Hydroxide) 400 Mg/5 Ml Oral.susp 2,400 Mg PO PRN QHS PRN Ativan (Lorazepam) 0.5 Mg Tablet 0.25 Mg PO PRN Q4HRS PRN Tylenol (Acetaminophen) 325 Mg Tablet 650 Mg PO PRN Q6HRS PRN Trazodone Hcl 50 Mg Tablet 125 Mg PO QHS Senna S Tablet (Sennosides/Docusate Sodium) 1 Each Tablet 2 Tab PO QHS Seroquel (Quetiapine Fumarate) 25 Mg Tablet 25 Mg PO QHS Klor-Con M20 (Potassium Chloride) 20 Meq Tab.er.prt 20 Meq PO BID Multivitamins (Multivitamin) 1 Each Tablet 1 Tab PO DAILY [id number] Tablet (Methyl-B12/L-Mefolate/B6 Phos) 1 Each Tablet 1 Tab PO BID Escitalopram Oxalate 10 Mg Tablet 10 Mg PO DAILY Aricept (Donepezil Hcl) 23 Mg Tablet 23 Mg PO QHS Depakote Sprinkle (Divalproex Sodium) 125 Mg Cap.sprink 250 Mg PO BID I have reviewed the current psychotropics carefully including drug interactions. Risk benefit ratio favors no change other than as noted in my dictated progress note. Diagnosis: Problems: (1) Dementia (2) Pleural disorder (3) Anxiety disorder (4) Dementia, vascular, with delusions (5) Dementia in Alzheimer's disease with delusions (6) Dementia in Alzheimer's disease with depression (7) Dementia, vascular, with depression (8) Impulse control disorder GERALD KUMAR MD Oct 07, 2017 10:43
[2017-10-07 16:43] VITALS: BP 132/92
[2017-10-07] MEDS: busPIRone 10 MG TABLET. PO SCH (17:26)
[2017-10-07] MEDS: DONEPEZIL 23 MG TABLET PO SCH (20:07)
[2017-10-07] MEDS: SENNOSIDES/DOCUSATE 8.6/50MG TABLET. PO SCH (20:07)
[2017-10-07] MEDS: traZODone 50 MG TABLET. PO SCH (20:08)
--- NOTE | 2017-10-07 21:53 | PDOC ---
Exam Note: Cyrus Note: Please also refer to the separate dictated note~for this date of service dictated separately.~Patient seen individually. Discussed the patient with Nursing staff reviewed the chart.~Reviewed interim history and current functioning. Reviewed vital signs,~Labs/ Radiology~and current medications noted below. Continue current treatment with the changes noted in the dictated addendum note Assessment: Vital Signs: Vital Signs Date Time Temp Pulse Resp B/P (MAP) Pulse Ox O2 Delivery O2 Flow Rate FiO2 10/07/17 16:43 97.3 70 18 132/92 (105) 92 10/06/17 17:06 Room Air I&O Intake and Output 10/07/17 07:00 Intake Total 1025 ml Balance 1025 ml Intake Oral 1025 ml Current Medications: Meds: Current Medications Iohexol (Omnipaque 300 Mg/ml) 75 ml 1X ONCE IV Last administered on 21:29; Start 09/18/17 at 20:30; Stop 09/18/17 at 20:31; Status DC Lorazepam (Ativan) 2 mg 1X ONCE IV Last administered on 09/18/17 21:14; Start 09/18/17 at 20:30; Stop 09/18/17 at 20:31; Status DC Diphenhydramine HCl (Benadryl) 50 mg 1X ONCE IVP Last administered on 21:14; Start 09/18/17 at 20:30; Stop 09/18/17 at 20:31; Status DC Lactated Ringer's 1,000 ml @ 1,000 mls/hr 1X ONCE IV Last administered on 21:14; Start 09/18/17 at 20:30; Stop 09/18/17 at 21:29; Status DC Ziprasidone (Geodon Im) 20 mg 1X ONCE IM Last administered on 09/18/17 22:07 ; Start 09/18/17 at 22:30; Stop 09/18/17 at 22:31; Status DC Lorazepam (Ativan) 2 mg 1X ONCE IM ; Start 09/18/17 at 22:45; Stop 09/18/17 at 22:46; Status DC Ziprasidone (Geodon Im) 10 mg 1X ONCE IM ; Start 09/18/17 at 22:45; Stop at 22:46; Status DC Acetaminophen (Tylenol) 650 mg PRN Q6HRS PRN PO MILD PAIN / TEMP; Start at 01:30; Stop 10/06/17 at 10:13; Status DC Multi-Ingredient Ointment (Analgesic Velpen) 1 betzy PRN QID PRN TP MUSCLE PAIN; Start 09/19/17 at 01:30 Al Hydroxide/Mg Hydroxide (Mylanta Plus Xs) 15 ml PRN AFTMEALHC PRN PO DYSPEPSIA; Start 09/19/17 at 01:30 Magnesium Hydroxide (Milk Of Magnesia) 2,400 mg PRN QHS PRN PO CONSTIPATION Last administered on 10/04/17 12:26; Start 09/19/17 at 01:30 Divalproex Sodium (Depakote Sprinkles) 250 mg BID PO Last administered on 09/19 08:04; Start 09/19/17 at 09:00; Stop 09/19/17 at 19:02; Status DC Donepezil HCl (Aricept) 23 mg QHS PO Last administered on 10/07/17 20:07; Start 09/19/17 at 21:00 Lorazepam (Ativan) 0.25 mg PRN Q4HRS PRN PO ANXIETY / AGITATION Last administered on 09/26/17 17:47; Start 09/19/17 at 01:30 Quetiapine Fumarate (SEROquel) 25 mg QHS PO Last administered on 09/23/17 19: 31; Start 09/19/17 at 21:00; Stop 09/24/17 at 09:56; Status DC Trazodone HCl (Desyrel) 125 mg QHS PO Last administered on 10/07/17 20:08; Start 09/19/17 at 21:00 Citalopram Hydrobromide (CeleXA) 20 mg DAILY PO Last administered on 09:29; Start 09/19/17 at 09:00; Stop 10/03/17 at 18:16; Status DC Acetaminophen (Tylenol) 650 mg PRN Q6HRS PRN PO PAIN / TEMP; Start 09/19/17 at 06:15; Status UNV Magnesium Hydroxide (Milk Of Magnesia) 2,400 mg PRN QHS PRN PO CONSTIPATION; Start 09/19/17 at 06:15; Status UNV Potassium Chloride (Klor-Con) 20 meq BID PO Last administered on 10/05/17 09: 11; Start 09/19/17 at 09:00; Stop 10/05/17 at 14:04; Status DC Senna/Docusate Sodium (Senna Plus) 2 tab QHS PO Last administered on 20:07; Start 09/19/17 at 21:00 Vitamin B Complex 1 cap BID PO Last administered on 09/20/17 09:01; Start at 09:00; Stop 09/21/17 at 14:27; Status DC Multivitamins/ Calcium (Thera-M Plus) 1 tab DAILY PO Last administered on 10/07 08:22; Start 09/19/17 at 09:00 Divalproex Sodium (Depakote Sprinkles) 375 mg BID PO Last administered on 10:03; Start 09/19/17 at 21:00; Stop 09/24/17 at 18:07; Status DC Quetiapine Fumarate (SEROquel) 12.5 mg DAILY PO Last administered on 09/22/17 10:49; Start 09/21/17 at 09:00; Stop 09/22/17 at 19:35; Status DC Vitamin B Complex 1 cap DAILY PO Last administered on 10/07/17 08:22; Start 09/22/17 at 09:00 Quetiapine Fumarate (SEROquel) 12.5 mg TID@0900,1400,1700 PO Last administered on 09/23/17 17:04; Start 09/23/17 at 09:00; Stop 09/24/17 at 09:56; Status DC Divalproex Sodium (Depakote Sprinkles) 500 mg BID PO Last administered on 10/06 09:37; Start 09/24/17 at 21:00; Stop 10/06/17 at 10:31; Status DC Olanzapine (ZyPREXA ZYDIS) 2.5 mg PRN Q2HR PRN PO PSYCHOSIS Last administered on 09/28/17 08:55; Start 09/26/17 at 18:30 Risperidone (RisperDAL) 0.125 mg DAILY@0900,1400,1700 PO Last administered on 09/30/17 17:00; Start 09/28/17 at 14:00; Stop 09/30/17 at 19:17; Status DC Risperidone (RisperDAL) 0.125 mg DAILY@1400 PO Last administered on 10/05/17 13:47; Start 10/01/17 at 14:00; Stop 10/06/17 at 10:16; Status DC Risperidone (RisperDAL) 0.25 mg BID@0900,1700 PO Last administered on 09:38; Start 10/01/17 at 09:00; Stop 10/06/17 at 10:18; Status DC Buspirone HCl (Buspar) 5 mg TID@0900,1400,1700 PO Last administered on 09:10; Start 10/03/17 at 09:00; Stop 10/05/17 at 11:21; Status DC Guaifenesin (MUCINEX ER with DM) 1 tab BID PO Last administered on 10/07/17 20:07; Start 10/03/17 at 21:00; Stop 10/08/17 at 20:59 Duloxetine HCl (Cymbalta) 30 mg DAILY PO Last administered on 10/04/17 09:37 ; Start 10/04/17 at 09:00; Stop 10/04/17 at 18:59; Status DC Duloxetine HCl (Cymbalta) 60 mg DAILY PO Last administered on 10/07/17 08:21 ; Start 10/05/17 at 09:00 Buspirone HCl (Buspar) 5 mg BID92 PO Last administered on 10/07/17 13:46; Start 10/05/17 at 14:00 Buspirone HCl (Buspar) 10 mg DAILY@1700 PO Last administered on 10/07/17 17: 26; Start 10/05/17 at 17:00 Sodium Polystyrene Sulfonate (Kayexalate) 40 gm 1X ONCE PO Last administered on 10/05/17 14:50; Start 10/05/17 at 15:00; Stop 10/05/17 at 15:01; Status DC Acetaminophen (Tylenol) 650 mg PRN Q6HRS PRN PO PAIN; Start 10/06/17 at 10:15 Risperidone (RisperDAL) 0.125 mg DAILY@1400 PO Last administered on 10/07/17 13:46; Start 10/06/17 at 14:00; Stop 10/07/17 at 14:31; Status DC Risperidone (RisperDAL) 0.25 mg BID@0900,1700 PO Last administered on 08:22; Start 10/06/17 at 17:00; Stop 10/07/17 at 14:32; Status DC Valproic Acid (Depakene) 500 mg BID PO Last administered on 10/07/17 20:07; Start 10/06/17 at 10:30 Risperidone (RisperDAL) 0.125 mg DAILY@1400 PO ; Start 10/07/17 at 14:31 Risperidone (RisperDAL) 0.25 mg BID@0900,1700 PO Last administered on 17:27; Start 10/07/17 at 14:32 Active Scripts Active Reported Milk Of Magnesia (Magnesium Hydroxide) 400 Mg/5 Ml Oral.susp 2,400 Mg PO PRN QHS PRN Ativan (Lorazepam) 0.5 Mg Tablet 0.25 Mg PO PRN Q4HRS PRN Tylenol (Acetaminophen) 325 Mg Tablet 650 Mg PO PRN Q6HRS PRN Trazodone Hcl 50 Mg Tablet 125 Mg PO QHS Senna S Tablet (Sennosides/Docusate Sodium) 1 Each Tablet 2 Tab PO QHS Seroquel (Quetiapine Fumarate) 25 Mg Tablet 25 Mg PO QHS Klor-Con M20 (Potassium Chloride) 20 Meq Tab.er.prt 20 Meq PO BID Multivitamins (Multivitamin) 1 Each Tablet 1 Tab PO DAILY [id number] Tablet (Methyl-B12/L-Mefolate/B6 Phos) 1 Each Tablet 1 Tab PO BID Escitalopram Oxalate 10 Mg Tablet 10 Mg PO DAILY Aricept (Donepezil Hcl) 23 Mg Tablet 23 Mg PO QHS Depakote Sprinkle (Divalproex Sodium) 125 Mg Cap.sprink 250 Mg PO BID I have reviewed the current psychotropics carefully including drug interactions. Risk benefit ratio favors no change other than as noted in my dictated progress note. Diagnosis: Problems: (1) Dementia (2) Pleural disorder (3) Anxiety disorder (4) Dementia, vascular, with delusions (5) Dementia in Alzheimer's disease with delusions (6) Dementia in Alzheimer's disease with depression (7) Dementia, vascular, with depression (8) Impulse control disorder GERALD KUMAR MD Oct 07, 2017 21:53
[2017-10-08] MEDS: guaiFENesin DM 600/30MG 1 TAB TAB.ER.12H PO SCH (07:50)
[2017-10-08] MEDS: VALPROATE ACID 250 MG/5 ML ORAL SOLUTION PO SCH ×2 (07:51→21:15)
[2017-10-08] MEDS: VITAMIN B COMPLEX CAPSULE. PO SCH (07:51)
[2017-10-08] MEDS: busPIRone 5 MG TABLET. PO SCH ×2 (07:51→13:30)
[2017-10-08] MEDS: DULoxetine HCL 60 MG CAPSULE.DR PO SCH (07:51)
[2017-10-08] MEDS: MULTIVITAMIN with MINERAL TABLET. PO SCH (07:51)
[2017-10-08] MEDS: risperiDONE ORAL 1 MG/ML 30ml BOTTLE. PO SCH ×3 (07:52→16:22)
[2017-10-08 16:14] VITALS: BP 112/73
[2017-10-08] MEDS: busPIRone 10 MG TABLET. PO SCH (16:22)
--- NOTE | 2017-10-08 20:20 | PDOC ---
Exam Note: Cyrus Note: Please also refer to the separate dictated note~for this date of service dictated separately.~Patient seen individually. Discussed the patient with Nursing staff reviewed the chart.~Reviewed interim history and current functioning. Reviewed vital signs,~Labs/ Radiology~and current medications noted below. Continue current treatment with the changes noted in the dictated addendum note Assessment: Vital Signs: Vital Signs Date Time Temp Pulse Resp B/P (MAP) Pulse Ox O2 Delivery O2 Flow Rate FiO2 10/08/17 16:14 98.8 105 18 112/73 (86) 93 10/06/17 17:06 Room Air I&O Intake and Output 10/08/17 07:00 Intake Total 1140 ml Balance 1140 ml Intake Oral 1140 ml # Voids 1 Current Medications: Meds: Current Medications Iohexol (Omnipaque 300 Mg/ml) 75 ml 1X ONCE IV Last administered on 21:29; Start 09/18/17 at 20:30; Stop 09/18/17 at 20:31; Status DC Lorazepam (Ativan) 2 mg 1X ONCE IV Last administered on 09/18/17 21:14; Start 09/18/17 at 20:30; Stop 09/18/17 at 20:31; Status DC Diphenhydramine HCl (Benadryl) 50 mg 1X ONCE IVP Last administered on 21:14; Start 09/18/17 at 20:30; Stop 09/18/17 at 20:31; Status DC Lactated Ringer's 1,000 ml @ 1,000 mls/hr 1X ONCE IV Last administered on 21:14; Start 09/18/17 at 20:30; Stop 09/18/17 at 21:29; Status DC Ziprasidone (Geodon Im) 20 mg 1X ONCE IM Last administered on 09/18/17 22:07 ; Start 09/18/17 at 22:30; Stop 09/18/17 at 22:31; Status DC Lorazepam (Ativan) 2 mg 1X ONCE IM ; Start 09/18/17 at 22:45; Stop 09/18/17 at 22:46; Status DC Ziprasidone (Geodon Im) 10 mg 1X ONCE IM ; Start 09/18/17 at 22:45; Stop at 22:46; Status DC Acetaminophen (Tylenol) 650 mg PRN Q6HRS PRN PO MILD PAIN / TEMP; Start at 01:30; Stop 10/06/17 at 10:13; Status DC Multi-Ingredient Ointment (Analgesic Lynn) 1 betzy PRN QID PRN TP MUSCLE PAIN; Start 09/19/17 at 01:30 Al Hydroxide/Mg Hydroxide (Mylanta Plus Xs) 15 ml PRN AFTMEALHC PRN PO DYSPEPSIA; Start 09/19/17 at 01:30 Magnesium Hydroxide (Milk Of Magnesia) 2,400 mg PRN QHS PRN PO CONSTIPATION Last administered on 10/04/17 12:26; Start 09/19/17 at 01:30 Divalproex Sodium (Depakote Sprinkles) 250 mg BID PO Last administered on 09/19 08:04; Start 09/19/17 at 09:00; Stop 09/19/17 at 19:02; Status DC Donepezil HCl (Aricept) 23 mg QHS PO Last administered on 10/07/17 20:07; Start 09/19/17 at 21:00 Lorazepam (Ativan) 0.25 mg PRN Q4HRS PRN PO ANXIETY / AGITATION Last administered on 09/26/17 17:47; Start 09/19/17 at 01:30 Quetiapine Fumarate (SEROquel) 25 mg QHS PO Last administered on 09/23/17 19: 31; Start 09/19/17 at 21:00; Stop 09/24/17 at 09:56; Status DC Trazodone HCl (Desyrel) 125 mg QHS PO Last administered on 10/07/17 20:08; Start 09/19/17 at 21:00 Citalopram Hydrobromide (CeleXA) 20 mg DAILY PO Last administered on 09:29; Start 09/19/17 at 09:00; Stop 10/03/17 at 18:16; Status DC Acetaminophen (Tylenol) 650 mg PRN Q6HRS PRN PO PAIN / TEMP; Start 09/19/17 at 06:15; Status UNV Magnesium Hydroxide (Milk Of Magnesia) 2,400 mg PRN QHS PRN PO CONSTIPATION; Start 09/19/17 at 06:15; Status UNV Potassium Chloride (Klor-Con) 20 meq BID PO Last administered on 10/05/17 09: 11; Start 09/19/17 at 09:00; Stop 10/05/17 at 14:04; Status DC Senna/Docusate Sodium (Senna Plus) 2 tab QHS PO Last administered on 20:07; Start 09/19/17 at 21:00 Vitamin B Complex 1 cap BID PO Last administered on 09/20/17 09:01; Start at 09:00; Stop 09/21/17 at 14:27; Status DC Multivitamins/ Calcium (Thera-M Plus) 1 tab DAILY PO Last administered on 10/08 07:51; Start 09/19/17 at 09:00 Divalproex Sodium (Depakote Sprinkles) 375 mg BID PO Last administered on 10:03; Start 09/19/17 at 21:00; Stop 09/24/17 at 18:07; Status DC Quetiapine Fumarate (SEROquel) 12.5 mg DAILY PO Last administered on 09/22/17 10:49; Start 09/21/17 at 09:00; Stop 09/22/17 at 19:35; Status DC Vitamin B Complex 1 cap DAILY PO Last administered on 10/08/17 07:51; Start 09/22/17 at 09:00 Quetiapine Fumarate (SEROquel) 12.5 mg TID@0900,1400,1700 PO Last administered on 09/23/17 17:04; Start 09/23/17 at 09:00; Stop 09/24/17 at 09:56; Status DC Divalproex Sodium (Depakote Sprinkles) 500 mg BID PO Last administered on 10/06 09:37; Start 09/24/17 at 21:00; Stop 10/06/17 at 10:31; Status DC Olanzapine (ZyPREXA ZYDIS) 2.5 mg PRN Q2HR PRN PO PSYCHOSIS Last administered on 09/28/17 08:55; Start 09/26/17 at 18:30 Risperidone (RisperDAL) 0.125 mg DAILY@0900,1400,1700 PO Last administered on 09/30/17 17:00; Start 09/28/17 at 14:00; Stop 09/30/17 at 19:17; Status DC Risperidone (RisperDAL) 0.125 mg DAILY@1400 PO Last administered on 10/05/17 13:47; Start 10/01/17 at 14:00; Stop 10/06/17 at 10:16; Status DC Risperidone (RisperDAL) 0.25 mg BID@0900,1700 PO Last administered on 09:38; Start 10/01/17 at 09:00; Stop 10/06/17 at 10:18; Status DC Buspirone HCl (Buspar) 5 mg TID@0900,1400,1700 PO Last administered on 09:10; Start 10/03/17 at 09:00; Stop 10/05/17 at 11:21; Status DC Guaifenesin (MUCINEX ER with DM) 1 tab BID PO Last administered on 10/08/17 07:50; Start 10/03/17 at 21:00; Stop 10/08/17 at 20:59 Duloxetine HCl (Cymbalta) 30 mg DAILY PO Last administered on 10/04/17 09:37 ; Start 10/04/17 at 09:00; Stop 10/04/17 at 18:59; Status DC Duloxetine HCl (Cymbalta) 60 mg DAILY PO Last administered on 10/08/17 07:51 ; Start 10/05/17 at 09:00 Buspirone HCl (Buspar) 5 mg BID92 PO Last administered on 10/08/17 13:30; Start 10/05/17 at 14:00 Buspirone HCl (Buspar) 10 mg DAILY@1700 PO Last administered on 10/08/17 16: 22; Start 10/05/17 at 17:00 Sodium Polystyrene Sulfonate (Kayexalate) 40 gm 1X ONCE PO Last administered on 10/05/17 14:50; Start 10/05/17 at 15:00; Stop 10/05/17 at 15:01; Status DC Acetaminophen (Tylenol) 650 mg PRN Q6HRS PRN PO PAIN; Start 10/06/17 at 10:15 Risperidone (RisperDAL) 0.125 mg DAILY@1400 PO Last administered on 10/07/17 13:46; Start 10/06/17 at 14:00; Stop 10/07/17 at 14:31; Status DC Risperidone (RisperDAL) 0.25 mg BID@0900,1700 PO Last administered on 08:22; Start 10/06/17 at 17:00; Stop 10/07/17 at 14:32; Status DC Valproic Acid (Depakene) 500 mg BID PO Last administered on 10/08/17 07:51; Start 10/06/17 at 10:30 Risperidone (RisperDAL) 0.125 mg DAILY@1400 PO Last administered on 10/08/17 13:31; Start 10/07/17 at 14:31 Risperidone (RisperDAL) 0.25 mg BID@0900,1700 PO Last administered on 16:22; Start 10/07/17 at 14:32 Active Scripts Active Reported Milk Of Magnesia (Magnesium Hydroxide) 400 Mg/5 Ml Oral.susp 2,400 Mg PO PRN QHS PRN Ativan (Lorazepam) 0.5 Mg Tablet 0.25 Mg PO PRN Q4HRS PRN Tylenol (Acetaminophen) 325 Mg Tablet 650 Mg PO PRN Q6HRS PRN Trazodone Hcl 50 Mg Tablet 125 Mg PO QHS Senna S Tablet (Sennosides/Docusate Sodium) 1 Each Tablet 2 Tab PO QHS Seroquel (Quetiapine Fumarate) 25 Mg Tablet 25 Mg PO QHS Klor-Con M20 (Potassium Chloride) 20 Meq Tab.er.prt 20 Meq PO BID Multivitamins (Multivitamin) 1 Each Tablet 1 Tab PO DAILY [id number] Tablet (Methyl-B12/L-Mefolate/B6 Phos) 1 Each Tablet 1 Tab PO BID Escitalopram Oxalate 10 Mg Tablet 10 Mg PO DAILY Aricept (Donepezil Hcl) 23 Mg Tablet 23 Mg PO QHS Depakote Sprinkle (Divalproex Sodium) 125 Mg Cap.sprink 250 Mg PO BID I have reviewed the current psychotropics carefully including drug interactions. Risk benefit ratio favors no change other than as noted in my dictated progress note. Diagnosis: Problems: (1) Dementia (2) Pleural disorder (3) Anxiety disorder (4) Dementia, vascular, with delusions (5) Dementia in Alzheimer's disease with delusions (6) Dementia in Alzheimer's disease with depression (7) Dementia, vascular, with depression (8) Impulse control disorder GERALD KUMAR MD Oct 08, 2017 20:20
[2017-10-08] MEDS: SENNOSIDES/DOCUSATE 8.6/50MG TABLET. PO SCH (21:14)
[2017-10-08] MEDS: traZODone 50 MG TABLET. PO SCH (21:15)
[2017-10-08] MEDS: DONEPEZIL 23 MG TABLET PO SCH (21:17)
--- NOTE | 2017-10-08 21:38 | PN ---
DATE: 10/06/2017 This late entry 10/06/2017 covers elements not covered in my initial note 10/06/2017. SUBJECTIVE: I met with the patient evening of 10/06/2017. The patient's repeat potassium is unremarkable. Platelet has improved from 60s. Resistive to medications, took 30 minutes to take his medications, likes his meds in juice, Risperdal and Depakote was changed to liquid to be given in juice, aggressive, intermittently agitated, only ate dinner after much coaxing. REVIEW OF SYSTEMS: Ambulation impaired, in wheelchair. No CV, , pulmonary, eye, ENT system symptoms on review. Reliability poor. MENTAL STATUS EXAM: Oriented to himself. Insight, judgment, recent and remote memory, attention, concentration, fund of knowledge poor, consistent with his diagnosis mentioned in my initial note. IMPRESSION: Major neurocognitive disorder, Alzheimer, vascular with depression, delusion, behavioral disturbance. Rest unchanged from initial note. PLAN: Continue current psychotropics mentioned in my initial note. Valproic acid level therapeutic at 72. MAN Gigi KUMAR MD DR: SAKINA/yasemin JOB#: [id number] / [id number]
--- NOTE | 2017-10-08 21:41 | PN ---
DATE: 10/07/2017 PSYCHIATRIC PROGRESS NOTE This late entry 10/07/2017 covers elements, not covered in my initial note of 10/07/2017. I met with the patient in the evening of 10/07/2017. He is aggressive with care, resistive with medications ____ hidden in juice for his Depakote and Risperdal. CBC: WBC 2.9. MAN Gigi KUMAR MD DR: SAKINA/yasemin JOB#: [id number] / [id number]
[2017-10-09 06:41] VITALS: BP 110/67
[2017-10-09] MEDS: VALPROATE ACID 250 MG/5 ML ORAL SOLUTION PO SCH ×2 (12:22→19:40)
[2017-10-09] MEDS: MULTIVITAMIN with MINERAL TABLET. PO SCH (12:22)
[2017-10-09] MEDS: busPIRone 5 MG TABLET. PO SCH ×2 (12:22→14:00)
[2017-10-09] MEDS: DULoxetine HCL 60 MG CAPSULE.DR PO SCH (12:22)
[2017-10-09] MEDS: VITAMIN B COMPLEX CAPSULE. PO SCH (12:22)
[2017-10-09] MEDS: risperiDONE ORAL 1 MG/ML 30ml BOTTLE. PO SCH ×3 (12:24→17:29)
[2017-10-09 13:11] LABS: BASO # 0.1 x10^3/uL (0.0-0.2); BASO % 1 % (0-3); EOS % 0 % (0-3); HEMATOCRIT 41.4 % (39.0-53.0); HEMOGLOBIN 13.9 g/dL (13.0-17.5); LYMPH # 0.9 x10^3/uL (1.0-4.8); LYMPH % 13 % (24-48); MEAN CORPUSCULAR HEMOGLOBIN 35 pg (25-35); MEAN CORPUSCULAR HGB CONC 34 g/dL (31-37); MEAN CORPUSCULAR VOLUME 103 fL (79-100); MONO # 0.7 x10^3/uL (0.0-1.1); MONO % 10 % (0-9); NEUT # 5.1 x10^3uL (1.8-7.7); NEUT % 76 % (31-73); PLATELET COUNT 98 x10^3/uL (140-400); RED BLOOD COUNT 4.01 x10^6/uL (4.30-5.70); RED CELL DISTRIBUTION WIDTH 16.2 % (11.5-14.5); WHITE BLOOD COUNT 6.8 x10^3/uL (4.0-11.0)
[2017-10-09 13:28] LABS: ALBUMIN 2.7 g/dL (3.4-5.0); ALBUMIN/GLOBULIN RATIO 0.7 (1.0-1.7); CALCIUM 8.7 mg/dL (8.5-10.1); CREATININE 1.1 mg/dL (0.7-1.3); GFR 64.1; POTASSIUM 4.3 mmol/L (3.5-5.1); TOTAL PROTEIN 6.7 g/dL (6.4-8.2)
[2017-10-09 16:03] VITALS: BP 153/66
--- NOTE | 2017-10-09 17:25 | RAD ---
AP abdomen radiograph 10/09/2017 Clinical history: Constipation. 3 AP supine digital radiographs of the abdomen/pelvis were obtained. Surgical clips overlie the lower pelvis. Cardiac silhouette is mild to moderately enlarged. The abdominal bowel gas pattern is nonobstructive. A moderate amount of stool seen throughout the colon. Atherosclerotic calcification the abdominal aorta and its branches is noted. Calcifications are seen within the pelvis consistent with phleboliths. Degenerative changes are seen involving the lower thoracic and throughout the lumbar spine and both hips. Impression: Nonobstructive bowel gas pattern. Moderate amount of stool is seen throughout the colon.
[2017-10-09] MEDS: busPIRone 10 MG TABLET. PO SCH (17:29)
[2017-10-09] MEDS: MAGNESIUM HYDROXIDE 2,400 MG/30 ML ORAL.SUSP. PO PRN (17:29)
[2017-10-09] MEDS: DONEPEZIL 23 MG TABLET PO SCH (19:41)
[2017-10-09] MEDS: SENNOSIDES/DOCUSATE 8.6/50MG TABLET. PO SCH (19:41)
[2017-10-09] MEDS: traZODone 50 MG TABLET. PO SCH (19:41)
--- NOTE | 2017-10-09 20:10 | PDOC ---
Exam Note: Cyrus Note: Please also refer to the separate dictated note~for this date of service dictated separately.~Patient seen individually. Discussed the patient with Nursing staff reviewed the chart.~Reviewed interim history and current functioning. Reviewed vital signs,~Labs/ Radiology~and current medications noted below. Continue current treatment with the changes noted in the dictated addendum note Assessment: Vital Signs: Vital Signs Date Time Temp Pulse Resp B/P (MAP) Pulse Ox O2 Delivery O2 Flow Rate FiO2 10/09/17 16:03 97.9 64 20 153/66 (95) 96 10/06/17 17:06 Room Air I&O Intake and Output 10/09/17 07:00 Intake Total 700 ml Balance 700 ml Intake Oral 700 ml # Voids 2 Labs: Laboratory Tests Test 10/09/17 13:04 White Blood Count 6.8 x10^3/uL (4.0-11.0) # Red Blood Count 4.01 x10^6/uL (4.30-5.70) L Hemoglobin 13.9 g/dL (13.0-17.5) Hematocrit 41.4 % (39.0-53.0) Mean Corpuscular Volume 103 fL (79-100) H Mean Corpuscular Hemoglobin 35 pg (25-35) Mean Corpuscular Hemoglobin Concent 34 g/dL (31-37) Red Cell Distribution Width 16.2 % (11.5-14.5) H Platelet Count 98 x10^3/uL (140-400) L Neutrophils (%) (Auto) 76 % (31-73) H Lymphocytes (%) (Auto) 13 % (24-48) L Monocytes (%) (Auto) 10 % (0-9) H Eosinophils (%) (Auto) 0 % (0-3) Basophils (%) (Auto) 1 % (0-3) Neutrophils # (Auto) 5.1 x10^3uL (1.8-7.7) Lymphocytes # (Auto) 0.9 x10^3/uL (1.0-4.8) L Monocytes # (Auto) 0.7 x10^3/uL (0.0-1.1) Eosinophils # (Auto) 0.0 x10^3/uL (0.0-0.7) Basophils # (Auto) 0.1 x10^3/uL (0.0-0.2) Sodium Level 149 mmol/L (136-145) H Potassium Level 4.3 mmol/L (3.5-5.1) Chloride Level 109 mmol/L (98-107) H Carbon Dioxide Level 31 mmol/L (21-32) Anion Gap 9 (6-14) Blood Urea Nitrogen 15 mg/dL (8-26) Creatinine 1.1 mg/dL (0.7-1.3) Estimated GFR (Cockcroft-Gault) 64.1 BUN/Creatinine Ratio 14 (6-20) Glucose Level 168 mg/dL (70-99) H Calcium Level 8.7 mg/dL (8.5-10.1) Total Bilirubin 1.0 mg/dL (0.2-1.0) Aspartate Amino Transferase (AST) 26 U/L (15-37) Alanine Aminotransferase (ALT) 21 U/L (16-63) Alkaline Phosphatase 93 U/L (46-116) Total Protein 6.7 g/dL (6.4-8.2) Albumin 2.7 g/dL (3.4-5.0) L Albumin/Globulin Ratio 0.7 (1.0-1.7) L Current Medications: Meds: Current Medications Iohexol (Omnipaque 300 Mg/ml) 75 ml 1X ONCE IV Last administered on 21:29; Start 09/18/17 at 20:30; Stop 09/18/17 at 20:31; Status DC Lorazepam (Ativan) 2 mg 1X ONCE IV Last administered on 09/18/17 21:14; Start 09/18/17 at 20:30; Stop 09/18/17 at 20:31; Status DC Diphenhydramine HCl (Benadryl) 50 mg 1X ONCE IVP Last administered on 21:14; Start 09/18/17 at 20:30; Stop 09/18/17 at 20:31; Status DC Lactated Ringer's 1,000 ml @ 1,000 mls/hr 1X ONCE IV Last administered on 21:14; Start 09/18/17 at 20:30; Stop 09/18/17 at 21:29; Status DC Ziprasidone (Geodon Im) 20 mg 1X ONCE IM Last administered on 09/18/17 22:07 ; Start 09/18/17 at 22:30; Stop 09/18/17 at 22:31; Status DC Lorazepam (Ativan) 2 mg 1X ONCE IM ; Start 09/18/17 at 22:45; Stop 09/18/17 at 22:46; Status DC Ziprasidone (Geodon Im) 10 mg 1X ONCE IM ; Start 09/18/17 at 22:45; Stop at 22:46; Status DC Acetaminophen (Tylenol) 650 mg PRN Q6HRS PRN PO MILD PAIN / TEMP; Start at 01:30; Stop 10/06/17 at 10:13; Status DC Multi-Ingredient Ointment (Analgesic [place]) 1 betzy PRN QID PRN TP MUSCLE PAIN; Start 09/19/17 at 01:30 Al Hydroxide/Mg Hydroxide (Mylanta Plus Xs) 15 ml PRN AFTMEALHC PRN PO DYSPEPSIA; Start 09/19/17 at 01:30 Magnesium Hydroxide (Milk Of Magnesia) 2,400 mg PRN QHS PRN PO CONSTIPATION Last administered on 10/09/17 17:29; Start 09/19/17 at 01:30 Divalproex Sodium (Depakote Sprinkles) 250 mg BID PO Last administered on 09/19 08:04; Start 09/19/17 at 09:00; Stop 09/19/17 at 19:02; Status DC Donepezil HCl (Aricept) 23 mg QHS PO Last administered on 10/09/17 19:41; Start 09/19/17 at 21:00 Lorazepam (Ativan) 0.25 mg PRN Q4HRS PRN PO ANXIETY / AGITATION Last administered on 09/26/17 17:47; Start 09/19/17 at 01:30 Quetiapine Fumarate (SEROquel) 25 mg QHS PO Last administered on 09/23/17 19: 31; Start 09/19/17 at 21:00; Stop 09/24/17 at 09:56; Status DC Trazodone HCl (Desyrel) 125 mg QHS PO Last administered on 10/09/17 19:41; Start 09/19/17 at 21:00 Citalopram Hydrobromide (CeleXA) 20 mg DAILY PO Last administered on 09:29; Start 09/19/17 at 09:00; Stop 10/03/17 at 18:16; Status DC Acetaminophen (Tylenol) 650 mg PRN Q6HRS PRN PO PAIN / TEMP; Start 09/19/17 at 06:15; Status UNV Magnesium Hydroxide (Milk Of Magnesia) 2,400 mg PRN QHS PRN PO CONSTIPATION; Start 09/19/17 at 06:15; Status UNV Potassium Chloride (Klor-Con) 20 meq BID PO Last administered on 10/05/17 09: 11; Start 09/19/17 at 09:00; Stop 10/05/17 at 14:04; Status DC Senna/Docusate Sodium (Senna Plus) 2 tab QHS PO Last administered on 19:41; Start 09/19/17 at 21:00 Vitamin B Complex 1 cap BID PO Last administered on 09/20/17 09:01; Start at 09:00; Stop 09/21/17 at 14:27; Status DC Multivitamins/ Calcium (Thera-M Plus) 1 tab DAILY PO Last administered on 10/09 12:22; Start 09/19/17 at 09:00 Divalproex Sodium (Depakote Sprinkles) 375 mg BID PO Last administered on 10:03; Start 09/19/17 at 21:00; Stop 09/24/17 at 18:07; Status DC Quetiapine Fumarate (SEROquel) 12.5 mg DAILY PO Last administered on 09/22/17 10:49; Start 09/21/17 at 09:00; Stop 09/22/17 at 19:35; Status DC Vitamin B Complex 1 cap DAILY PO Last administered on 10/09/17 12:22; Start 09/22/17 at 09:00 Quetiapine Fumarate (SEROquel) 12.5 mg TID@0900,1400,1700 PO Last administered on 09/23/17 17:04; Start 09/23/17 at 09:00; Stop 09/24/17 at 09:56; Status DC Divalproex Sodium (Depakote Sprinkles) 500 mg BID PO Last administered on 10/06 09:37; Start 09/24/17 at 21:00; Stop 10/06/17 at 10:31; Status DC Olanzapine (ZyPREXA ZYDIS) 2.5 mg PRN Q2HR PRN PO PSYCHOSIS Last administered on 09/28/17 08:55; Start 09/26/17 at 18:30 Risperidone (RisperDAL) 0.125 mg DAILY@0900,1400,1700 PO Last administered on 09/30/17 17:00; Start 09/28/17 at 14:00; Stop 09/30/17 at 19:17; Status DC Risperidone (RisperDAL) 0.125 mg DAILY@1400 PO Last administered on 10/05/17 13:47; Start 10/01/17 at 14:00; Stop 10/06/17 at 10:16; Status DC Risperidone (RisperDAL) 0.25 mg BID@0900,1700 PO Last administered on 09:38; Start 10/01/17 at 09:00; Stop 10/06/17 at 10:18; Status DC Buspirone HCl (Buspar) 5 mg TID@0900,1400,1700 PO Last administered on 09:10; Start 10/03/17 at 09:00; Stop 10/05/17 at 11:21; Status DC Guaifenesin (MUCINEX ER with DM) 1 tab BID PO Last administered on 10/08/17 07:50; Start 10/03/17 at 21:00; Stop 10/08/17 at 21:00; Status DC Duloxetine HCl (Cymbalta) 30 mg DAILY PO Last administered on 10/04/17 09:37 ; Start 10/04/17 at 09:00; Stop 10/04/17 at 18:59; Status DC Duloxetine HCl (Cymbalta) 60 mg DAILY PO Last administered on 10/09/17 12:22 ; Start 10/05/17 at 09:00 Buspirone HCl (Buspar) 5 mg BID92 PO Last administered on 10/09/17 12:22; Start 10/05/17 at 14:00 Buspirone HCl (Buspar) 10 mg DAILY@1700 PO Last administered on 10/09/17 17: 29; Start 10/05/17 at 17:00 Sodium Polystyrene Sulfonate (Kayexalate) 40 gm 1X ONCE PO Last administered on 10/05/17 14:50; Start 10/05/17 at 15:00; Stop 10/05/17 at 15:01; Status DC Acetaminophen (Tylenol) 650 mg PRN Q6HRS PRN PO PAIN; Start 10/06/17 at 10:15 Risperidone (RisperDAL) 0.125 mg DAILY@1400 PO Last administered on 10/07/17 13:46; Start 10/06/17 at 14:00; Stop 10/07/17 at 14:31; Status DC Risperidone (RisperDAL) 0.25 mg BID@0900,1700 PO Last administered on 08:22; Start 10/06/17 at 17:00; Stop 10/07/17 at 14:32; Status DC Valproic Acid (Depakene) 500 mg BID PO Last administered on 10/09/17 19:40; Start 10/06/17 at 10:30 Risperidone (RisperDAL) 0.125 mg DAILY@1400 PO Last administered on 10/08/17 13:31; Start 10/07/17 at 14:31 Risperidone (RisperDAL) 0.25 mg BID@0900,1700 PO Last administered on 17:29; Start 10/07/17 at 14:32 Active Scripts Active Reported Milk Of Magnesia (Magnesium Hydroxide) 400 Mg/5 Ml Oral.susp 2,400 Mg PO PRN QHS PRN Ativan (Lorazepam) 0.5 Mg Tablet 0.25 Mg PO PRN Q4HRS PRN Tylenol (Acetaminophen) 325 Mg Tablet 650 Mg PO PRN Q6HRS PRN Trazodone Hcl 50 Mg Tablet 125 Mg PO QHS Senna S Tablet (Sennosides/Docusate Sodium) 1 Each Tablet 2 Tab PO QHS Seroquel (Quetiapine Fumarate) 25 Mg Tablet 25 Mg PO QHS Klor-Con M20 (Potassium Chloride) 20 Meq Tab.er.prt 20 Meq PO BID Multivitamins (Multivitamin) 1 Each Tablet 1 Tab PO DAILY L-Yydxls-Q2-B12 Tablet (Methyl-B12/L-Mefolate/B6 Phos) 1 Each Tablet 1 Tab PO BID Escitalopram Oxalate 10 Mg Tablet 10 Mg PO DAILY Aricept (Donepezil Hcl) 23 Mg Tablet 23 Mg PO QHS Depakote Sprinkle (Divalproex Sodium) 125 Mg Cap.sprink 250 Mg PO BID I have reviewed the current psychotropics carefully including drug interactions. Risk benefit ratio favors no change other than as noted in my dictated progress note. Diagnosis: Problems: (1) Dementia (2) Pleural disorder (3) Anxiety disorder (4) Dementia, vascular, with delusions (5) Dementia in Alzheimer's disease with delusions (6) Dementia in Alzheimer's disease with depression (7) Dementia, vascular, with depression (8) Impulse control disorder GERALD KUMAR MD Oct 09, 2017 20:10
[2017-10-10 06:29] VITALS: BP 117/78
--- NOTE | 2017-10-10 07:00 | PN ---
DATE: 10/08/2017 This late entry, 10/08/2017, covers elements not covered in my initial note of 10/08/2017. SUBJECTIVE: I met with the patient the evening of 10/08/2017. The patient has been aggressive with cares, but better in other respects, has to be fed. We will be checking labs in the morning. REVIEW OF SYSTEMS: Ambulation impaired, in wheelchair. No CV, , pulmonary, eye, ENT system symptoms on review. MENTAL STATUS EXAM: Oriented to himself. Insight, judgment, recent and remote memory, attention, concentration, fund of knowledge poor, consistent with his diagnosis mentioned in my initial note. IMPRESSION: Major neurocognitive disorder, Alzheimer, vascular with depression, delusion, behavioral disturbance. Rest unchanged. PLAN: Continue current psychotropics mentioned in my initial note. Adjust as clinically indicated. MAN Gigi KUMAR MD DR: SAKINA/yasemin JOB#: [id number] / [id number]
[2017-10-10] MEDS: DULoxetine HCL 60 MG CAPSULE.DR PO SCH (11:19)
[2017-10-10] MEDS: VALPROATE ACID 250 MG/5 ML ORAL SOLUTION PO SCH ×2 (11:19→19:56)
[2017-10-10] MEDS: busPIRone 5 MG TABLET. PO SCH ×2 (11:19→14:00)
[2017-10-10] MEDS: risperiDONE ORAL 1 MG/ML 30ml BOTTLE. PO SCH ×3 (11:20→18:02)
[2017-10-10] MEDS: MULTIVITAMIN with MINERAL TABLET. PO SCH (11:20)
[2017-10-10] MEDS: VITAMIN B COMPLEX CAPSULE. PO SCH (11:20)
[2017-10-10 15:43] VITALS: BP 108/72
[2017-10-10] MEDS: busPIRone 10 MG TABLET. PO SCH (18:02)
[2017-10-10] MEDS: DONEPEZIL 23 MG TABLET PO SCH (19:55)
[2017-10-10] MEDS: SENNOSIDES/DOCUSATE 8.6/50MG TABLET. PO SCH (19:56)
[2017-10-10] MEDS: traZODone 50 MG TABLET. PO SCH (19:56)
--- NOTE | 2017-10-10 20:13 | PDOC ---
Exam Note: Cyrus Note: Please also refer to the separate dictated note~for this date of service dictated separately.~Patient seen individually. Discussed the patient with Nursing staff reviewed the chart.~Reviewed interim history and current functioning. Reviewed vital signs,~Labs/ Radiology~and current medications noted below. Continue current treatment with the changes noted in the dictated addendum note Assessment: Vital Signs: Vital Signs Date Time Temp Pulse Resp B/P (MAP) Pulse Ox O2 Delivery O2 Flow Rate FiO2 10/10/17 15:43 97.7 54 18 108/72 (84) 99 10/06/17 17:06 Room Air I&O Intake and Output 10/10/17 07:00 Intake Total 1200 ml Balance 1200 ml Intake Oral 1200 ml # Voids 2 Current Medications: Meds: Current Medications Iohexol (Omnipaque 300 Mg/ml) 75 ml 1X ONCE IV Last administered on 21:29; Start 09/18/17 at 20:30; Stop 09/18/17 at 20:31; Status DC Lorazepam (Ativan) 2 mg 1X ONCE IV Last administered on 09/18/17 21:14; Start 09/18/17 at 20:30; Stop 09/18/17 at 20:31; Status DC Diphenhydramine HCl (Benadryl) 50 mg 1X ONCE IVP Last administered on 21:14; Start 09/18/17 at 20:30; Stop 09/18/17 at 20:31; Status DC Lactated Ringer's 1,000 ml @ 1,000 mls/hr 1X ONCE IV Last administered on 21:14; Start 09/18/17 at 20:30; Stop 09/18/17 at 21:29; Status DC Ziprasidone (Geodon Im) 20 mg 1X ONCE IM Last administered on 09/18/17 22:07 ; Start 09/18/17 at 22:30; Stop 09/18/17 at 22:31; Status DC Lorazepam (Ativan) 2 mg 1X ONCE IM ; Start 09/18/17 at 22:45; Stop 09/18/17 at 22:46; Status DC Ziprasidone (Geodon Im) 10 mg 1X ONCE IM ; Start 09/18/17 at 22:45; Stop at 22:46; Status DC Acetaminophen (Tylenol) 650 mg PRN Q6HRS PRN PO MILD PAIN / TEMP; Start at 01:30; Stop 10/06/17 at 10:13; Status DC Multi-Ingredient Ointment (Analgesic [place]) 1 betzy PRN QID PRN TP MUSCLE PAIN; Start 09/19/17 at 01:30 Al Hydroxide/Mg Hydroxide (Mylanta Plus Xs) 15 ml PRN AFTMEALHC PRN PO DYSPEPSIA; Start 09/19/17 at 01:30 Magnesium Hydroxide (Milk Of Magnesia) 2,400 mg PRN QHS PRN PO CONSTIPATION Last administered on 10/09/17 17:29; Start 09/19/17 at 01:30 Divalproex Sodium (Depakote Sprinkles) 250 mg BID PO Last administered on 09/19 08:04; Start 09/19/17 at 09:00; Stop 09/19/17 at 19:02; Status DC Donepezil HCl (Aricept) 23 mg QHS PO Last administered on 10/10/17 19:55; Start 09/19/17 at 21:00 Lorazepam (Ativan) 0.25 mg PRN Q4HRS PRN PO ANXIETY / AGITATION Last administered on 09/26/17 17:47; Start 09/19/17 at 01:30 Quetiapine Fumarate (SEROquel) 25 mg QHS PO Last administered on 09/23/17 19: 31; Start 09/19/17 at 21:00; Stop 09/24/17 at 09:56; Status DC Trazodone HCl (Desyrel) 125 mg QHS PO Last administered on 10/10/17 19:56; Start 09/19/17 at 21:00 Citalopram Hydrobromide (CeleXA) 20 mg DAILY PO Last administered on 09:29; Start 09/19/17 at 09:00; Stop 10/03/17 at 18:16; Status DC Acetaminophen (Tylenol) 650 mg PRN Q6HRS PRN PO PAIN / TEMP; Start 09/19/17 at 06:15; Status UNV Magnesium Hydroxide (Milk Of Magnesia) 2,400 mg PRN QHS PRN PO CONSTIPATION; Start 09/19/17 at 06:15; Status UNV Potassium Chloride (Klor-Con) 20 meq BID PO Last administered on 10/05/17 09: 11; Start 09/19/17 at 09:00; Stop 10/05/17 at 14:04; Status DC Senna/Docusate Sodium (Senna Plus) 2 tab QHS PO Last administered on 19:56; Start 09/19/17 at 21:00 Vitamin B Complex 1 cap BID PO Last administered on 09/20/17 09:01; Start at 09:00; Stop 09/21/17 at 14:27; Status DC Multivitamins/ Calcium (Thera-M Plus) 1 tab DAILY PO Last administered on 10/10 11:20; Start 09/19/17 at 09:00 Divalproex Sodium (Depakote Sprinkles) 375 mg BID PO Last administered on 10:03; Start 09/19/17 at 21:00; Stop 09/24/17 at 18:07; Status DC Quetiapine Fumarate (SEROquel) 12.5 mg DAILY PO Last administered on 09/22/17 10:49; Start 09/21/17 at 09:00; Stop 09/22/17 at 19:35; Status DC Vitamin B Complex 1 cap DAILY PO Last administered on 10/10/17 11:20; Start 09/22/17 at 09:00 Quetiapine Fumarate (SEROquel) 12.5 mg TID@0900,1400,1700 PO Last administered on 09/23/17 17:04; Start 09/23/17 at 09:00; Stop 09/24/17 at 09:56; Status DC Divalproex Sodium (Depakote Sprinkles) 500 mg BID PO Last administered on 10/06 09:37; Start 09/24/17 at 21:00; Stop 10/06/17 at 10:31; Status DC Olanzapine (ZyPREXA ZYDIS) 2.5 mg PRN Q2HR PRN PO PSYCHOSIS Last administered on 09/28/17 08:55; Start 09/26/17 at 18:30 Risperidone (RisperDAL) 0.125 mg DAILY@0900,1400,1700 PO Last administered on 09/30/17 17:00; Start 09/28/17 at 14:00; Stop 09/30/17 at 19:17; Status DC Risperidone (RisperDAL) 0.125 mg DAILY@1400 PO Last administered on 10/05/17 13:47; Start 10/01/17 at 14:00; Stop 10/06/17 at 10:16; Status DC Risperidone (RisperDAL) 0.25 mg BID@0900,1700 PO Last administered on 09:38; Start 10/01/17 at 09:00; Stop 10/06/17 at 10:18; Status DC Buspirone HCl (Buspar) 5 mg TID@0900,1400,1700 PO Last administered on 09:10; Start 10/03/17 at 09:00; Stop 10/05/17 at 11:21; Status DC Guaifenesin (MUCINEX ER with DM) 1 tab BID PO Last administered on 10/08/17 07:50; Start 10/03/17 at 21:00; Stop 10/08/17 at 21:00; Status DC Duloxetine HCl (Cymbalta) 30 mg DAILY PO Last administered on 10/04/17 09:37 ; Start 10/04/17 at 09:00; Stop 10/04/17 at 18:59; Status DC Duloxetine HCl (Cymbalta) 60 mg DAILY PO Last administered on 10/10/17 11:19 ; Start 10/05/17 at 09:00 Buspirone HCl (Buspar) 5 mg BID92 PO Last administered on 10/10/17 11:19; Start 10/05/17 at 14:00 Buspirone HCl (Buspar) 10 mg DAILY@1700 PO Last administered on 10/10/17 18: 02; Start 10/05/17 at 17:00 Sodium Polystyrene Sulfonate (Kayexalate) 40 gm 1X ONCE PO Last administered on 10/05/17 14:50; Start 10/05/17 at 15:00; Stop 10/05/17 at 15:01; Status DC Acetaminophen (Tylenol) 650 mg PRN Q6HRS PRN PO PAIN; Start 10/06/17 at 10:15 Risperidone (RisperDAL) 0.125 mg DAILY@1400 PO Last administered on 10/07/17 13:46; Start 10/06/17 at 14:00; Stop 10/07/17 at 14:31; Status DC Risperidone (RisperDAL) 0.25 mg BID@0900,1700 PO Last administered on 08:22; Start 10/06/17 at 17:00; Stop 10/07/17 at 14:32; Status DC Valproic Acid (Depakene) 500 mg BID PO Last administered on 10/10/17 19:56; Start 10/06/17 at 10:30 Risperidone (RisperDAL) 0.125 mg DAILY@1400 PO Last administered on 10/08/17 13:31; Start 10/07/17 at 14:31 Risperidone (RisperDAL) 0.25 mg BID@0900,1700 PO Last administered on 18:02; Start 10/07/17 at 14:32 Active Scripts Active Reported Milk Of Magnesia (Magnesium Hydroxide) 400 Mg/5 Ml Oral.susp 2,400 Mg PO PRN QHS PRN Ativan (Lorazepam) 0.5 Mg Tablet 0.25 Mg PO PRN Q4HRS PRN Tylenol (Acetaminophen) 325 Mg Tablet 650 Mg PO PRN Q6HRS PRN Trazodone Hcl 50 Mg Tablet 125 Mg PO QHS Senna S Tablet (Sennosides/Docusate Sodium) 1 Each Tablet 2 Tab PO QHS Seroquel (Quetiapine Fumarate) 25 Mg Tablet 25 Mg PO QHS Klor-Con M20 (Potassium Chloride) 20 Meq Tab.er.prt 20 Meq PO BID Multivitamins (Multivitamin) 1 Each Tablet 1 Tab PO DAILY Q-Xcwfqw-O0-B12 Tablet (Methyl-B12/L-Mefolate/B6 Phos) 1 Each Tablet 1 Tab PO BID Escitalopram Oxalate 10 Mg Tablet 10 Mg PO DAILY Aricept (Donepezil Hcl) 23 Mg Tablet 23 Mg PO QHS Depakote Sprinkle (Divalproex Sodium) 125 Mg Cap.sprink 250 Mg PO BID I have reviewed the current psychotropics carefully including drug interactions. Risk benefit ratio favors no change other than as noted in my dictated progress note. Diagnosis: Problems: (1) Dementia (2) Pleural disorder (3) Anxiety disorder (4) Dementia, vascular, with delusions (5) Dementia in Alzheimer's disease with delusions (6) Dementia in Alzheimer's disease with depression (7) Dementia, vascular, with depression (8) Impulse control disorder GERALD KUMAR MD Oct 10, 2017 20:13
--- NOTE | 2017-10-11 06:40 | PN ---
DATE: 10/09/2017 This is a late entry 10/09/2017 covers elements not covered in my initial note 10/09/2017. I met with the patient in the evening of 10/09/2017. The patient slept 6-3/4 hours previous evening and then slept into lunchtime. Evening Risperdal was not given due to sedation, but when he is awake, he is irritable, especially with cares, quite labile, mitts have to be placed on his hand when nursing staff assist him with cares, so that he is not scratching staff members. KUB was done secondary to no bowel movements ____ will be treated symptomatically, he is on finger foods, fluids are being pushed. Sodium is elevated. REVIEW OF SYSTEMS: Ambulation impaired, in wheelchair. No CV, , pulmonary, eye, ENT system symptoms on review. Reliability poor. MENTAL STATUS EXAM: Oriented to himself. Insight, judgment, recent and remote memory, attention, concentration, fund of knowledge poor, consistent with his diagnosis mentioned in my initial note. IMPRESSION: Major neurocognitive disorder, Alzheimer, vascular with depression, delusion, behavioral disturbance; anxiety disorder, unspecified; impulse control disorder, unspecified. PLAN: Continue current psychotropics mentioned in my initial note. Adjust further as clinically indicated. MAN Gigi KUMAR MD DR: SAKINA/yasemin JOB#: [id number] / [id number]
[2017-10-11] MEDS: busPIRone 5 MG TABLET. PO SCH ×2 (12:12→13:51)
[2017-10-11] MEDS: DULoxetine HCL 60 MG CAPSULE.DR PO SCH (12:12)
[2017-10-11] MEDS: VITAMIN B COMPLEX CAPSULE. PO SCH (12:12)
[2017-10-11] MEDS: VALPROATE ACID 250 MG/5 ML ORAL SOLUTION PO SCH ×2 (12:12→20:30)
[2017-10-11] MEDS: MULTIVITAMIN with MINERAL TABLET. PO SCH (12:13)
[2017-10-11] MEDS: risperiDONE ORAL 1 MG/ML 30ml BOTTLE. PO SCH ×3 (12:14→17:02)
[2017-10-11 15:41] VITALS: BP 99/69
[2017-10-11] MEDS: busPIRone 10 MG TABLET. PO SCH (17:01)
[2017-10-11] MEDS: traZODone 50 MG TABLET. PO SCH (20:30)
[2017-10-11] MEDS: SENNOSIDES/DOCUSATE 8.6/50MG TABLET. PO SCH (20:30)
[2017-10-11] MEDS: DONEPEZIL 23 MG TABLET PO SCH (20:30)
--- NOTE | 2017-10-11 21:30 | PDOC ---
Exam Note: Cyrus Note: Please also refer to the separate dictated note~for this date of service dictated separately.~Patient seen individually. Discussed the patient with Nursing staff reviewed the chart.~Reviewed interim history and current functioning. Reviewed vital signs,~Labs/ Radiology~and current medications noted below. Continue current treatment with the changes noted in the dictated addendum note Assessment: Vital Signs: Vital Signs Date Time Temp Pulse Resp B/P (MAP) Pulse Ox O2 Delivery O2 Flow Rate FiO2 10/11/17 15:41 97.3 62 18 99/69 (79) 95 10/06/17 17:06 Room Air I&O Intake and Output 10/11/17 07:00 Intake Total 480 ml Balance 480 ml Intake Oral 480 ml Current Medications: Meds: Current Medications Iohexol (Omnipaque 300 Mg/ml) 75 ml 1X ONCE IV Last administered on 21:29; Start 09/18/17 at 20:30; Stop 09/18/17 at 20:31; Status DC Lorazepam (Ativan) 2 mg 1X ONCE IV Last administered on 09/18/17 21:14; Start 09/18/17 at 20:30; Stop 09/18/17 at 20:31; Status DC Diphenhydramine HCl (Benadryl) 50 mg 1X ONCE IVP Last administered on 21:14; Start 09/18/17 at 20:30; Stop 09/18/17 at 20:31; Status DC Lactated Ringer's 1,000 ml @ 1,000 mls/hr 1X ONCE IV Last administered on 21:14; Start 09/18/17 at 20:30; Stop 09/18/17 at 21:29; Status DC Ziprasidone (Geodon Im) 20 mg 1X ONCE IM Last administered on 09/18/17 22:07 ; Start 09/18/17 at 22:30; Stop 09/18/17 at 22:31; Status DC Lorazepam (Ativan) 2 mg 1X ONCE IM ; Start 09/18/17 at 22:45; Stop 09/18/17 at 22:46; Status DC Ziprasidone (Geodon Im) 10 mg 1X ONCE IM ; Start 09/18/17 at 22:45; Stop at 22:46; Status DC Acetaminophen (Tylenol) 650 mg PRN Q6HRS PRN PO MILD PAIN / TEMP; Start at 01:30; Stop 10/06/17 at 10:13; Status DC Multi-Ingredient Ointment (Analgesic [place]) 1 betzy PRN QID PRN TP MUSCLE PAIN; Start 09/19/17 at 01:30 Al Hydroxide/Mg Hydroxide (Mylanta Plus Xs) 15 ml PRN AFTMEALHC PRN PO DYSPEPSIA; Start 09/19/17 at 01:30 Magnesium Hydroxide (Milk Of Magnesia) 2,400 mg PRN QHS PRN PO CONSTIPATION Last administered on 10/09/17 17:29; Start 09/19/17 at 01:30 Divalproex Sodium (Depakote Sprinkles) 250 mg BID PO Last administered on 09/19 08:04; Start 09/19/17 at 09:00; Stop 09/19/17 at 19:02; Status DC Donepezil HCl (Aricept) 23 mg QHS PO Last administered on 10/11/17 20:30; Start 09/19/17 at 21:00 Lorazepam (Ativan) 0.25 mg PRN Q4HRS PRN PO ANXIETY / AGITATION Last administered on 09/26/17 17:47; Start 09/19/17 at 01:30 Quetiapine Fumarate (SEROquel) 25 mg QHS PO Last administered on 09/23/17 19: 31; Start 09/19/17 at 21:00; Stop 09/24/17 at 09:56; Status DC Trazodone HCl (Desyrel) 125 mg QHS PO Last administered on 10/11/17 20:30; Start 09/19/17 at 21:00 Citalopram Hydrobromide (CeleXA) 20 mg DAILY PO Last administered on 09:29; Start 09/19/17 at 09:00; Stop 10/03/17 at 18:16; Status DC Acetaminophen (Tylenol) 650 mg PRN Q6HRS PRN PO PAIN / TEMP; Start 09/19/17 at 06:15; Status UNV Magnesium Hydroxide (Milk Of Magnesia) 2,400 mg PRN QHS PRN PO CONSTIPATION; Start 09/19/17 at 06:15; Status UNV Potassium Chloride (Klor-Con) 20 meq BID PO Last administered on 10/05/17 09: 11; Start 09/19/17 at 09:00; Stop 10/05/17 at 14:04; Status DC Senna/Docusate Sodium (Senna Plus) 2 tab QHS PO Last administered on 20:30; Start 09/19/17 at 21:00 Vitamin B Complex 1 cap BID PO Last administered on 09/20/17 09:01; Start at 09:00; Stop 09/21/17 at 14:27; Status DC Multivitamins/ Calcium (Thera-M Plus) 1 tab DAILY PO Last administered on 10/11 12:13; Start 09/19/17 at 09:00 Divalproex Sodium (Depakote Sprinkles) 375 mg BID PO Last administered on 10:03; Start 09/19/17 at 21:00; Stop 09/24/17 at 18:07; Status DC Quetiapine Fumarate (SEROquel) 12.5 mg DAILY PO Last administered on 09/22/17 10:49; Start 09/21/17 at 09:00; Stop 09/22/17 at 19:35; Status DC Vitamin B Complex 1 cap DAILY PO Last administered on 10/11/17 12:12; Start 09/22/17 at 09:00 Quetiapine Fumarate (SEROquel) 12.5 mg TID@0900,1400,1700 PO Last administered on 09/23/17 17:04; Start 09/23/17 at 09:00; Stop 09/24/17 at 09:56; Status DC Divalproex Sodium (Depakote Sprinkles) 500 mg BID PO Last administered on 10/06 09:37; Start 09/24/17 at 21:00; Stop 10/06/17 at 10:31; Status DC Olanzapine (ZyPREXA ZYDIS) 2.5 mg PRN Q2HR PRN PO PSYCHOSIS Last administered on 09/28/17 08:55; Start 09/26/17 at 18:30 Risperidone (RisperDAL) 0.125 mg DAILY@0900,1400,1700 PO Last administered on 09/30/17 17:00; Start 09/28/17 at 14:00; Stop 09/30/17 at 19:17; Status DC Risperidone (RisperDAL) 0.125 mg DAILY@1400 PO Last administered on 10/05/17 13:47; Start 10/01/17 at 14:00; Stop 10/06/17 at 10:16; Status DC Risperidone (RisperDAL) 0.25 mg BID@0900,1700 PO Last administered on 09:38; Start 10/01/17 at 09:00; Stop 10/06/17 at 10:18; Status DC Buspirone HCl (Buspar) 5 mg TID@0900,1400,1700 PO Last administered on 09:10; Start 10/03/17 at 09:00; Stop 10/05/17 at 11:21; Status DC Guaifenesin (MUCINEX ER with DM) 1 tab BID PO Last administered on 10/08/17 07:50; Start 10/03/17 at 21:00; Stop 10/08/17 at 21:00; Status DC Duloxetine HCl (Cymbalta) 30 mg DAILY PO Last administered on 10/04/17 09:37 ; Start 10/04/17 at 09:00; Stop 10/04/17 at 18:59; Status DC Duloxetine HCl (Cymbalta) 60 mg DAILY PO Last administered on 10/11/17 12:12 ; Start 10/05/17 at 09:00 Buspirone HCl (Buspar) 5 mg BID92 PO Last administered on 10/11/17 13:51; Start 10/05/17 at 14:00 Buspirone HCl (Buspar) 10 mg DAILY@1700 PO Last administered on 10/11/17 17: 01; Start 10/05/17 at 17:00 Sodium Polystyrene Sulfonate (Kayexalate) 40 gm 1X ONCE PO Last administered on 10/05/17 14:50; Start 10/05/17 at 15:00; Stop 10/05/17 at 15:01; Status DC Acetaminophen (Tylenol) 650 mg PRN Q6HRS PRN PO PAIN; Start 10/06/17 at 10:15 Risperidone (RisperDAL) 0.125 mg DAILY@1400 PO Last administered on 10/07/17 13:46; Start 10/06/17 at 14:00; Stop 10/07/17 at 14:31; Status DC Risperidone (RisperDAL) 0.25 mg BID@0900,1700 PO Last administered on 08:22; Start 10/06/17 at 17:00; Stop 10/07/17 at 14:32; Status DC Valproic Acid (Depakene) 500 mg BID PO Last administered on 10/11/17 20:30; Start 10/06/17 at 10:30 Risperidone (RisperDAL) 0.125 mg DAILY@1400 PO Last administered on 10/08/17 13:31; Start 10/07/17 at 14:31 Risperidone (RisperDAL) 0.25 mg BID@0900,1700 PO Last administered on 17:02; Start 10/07/17 at 14:32 Bupropion HCl (Wellbutrin Xl) 150 mg DAILY PO ; Start 10/12/17 at 09:00 Active Scripts Active Reported Milk Of Magnesia (Magnesium Hydroxide) 400 Mg/5 Ml Oral.susp 2,400 Mg PO PRN QHS PRN Ativan (Lorazepam) 0.5 Mg Tablet 0.25 Mg PO PRN Q4HRS PRN Tylenol (Acetaminophen) 325 Mg Tablet 650 Mg PO PRN Q6HRS PRN Trazodone Hcl 50 Mg Tablet 125 Mg PO QHS Senna S Tablet (Sennosides/Docusate Sodium) 1 Each Tablet 2 Tab PO QHS Seroquel (Quetiapine Fumarate) 25 Mg Tablet 25 Mg PO QHS Klor-Con M20 (Potassium Chloride) 20 Meq Tab.er.prt 20 Meq PO BID Multivitamins (Multivitamin) 1 Each Tablet 1 Tab PO DAILY [id number] Tablet (Methyl-B12/L-Mefolate/B6 Phos) 1 Each Tablet 1 Tab PO BID Escitalopram Oxalate 10 Mg Tablet 10 Mg PO DAILY Aricept (Donepezil Hcl) 23 Mg Tablet 23 Mg PO QHS Depakote Sprinkle (Divalproex Sodium) 125 Mg Cap.sprink 250 Mg PO BID I have reviewed the current psychotropics carefully including drug interactions. Risk benefit ratio favors no change other than as noted in my dictated progress note. Diagnosis: Problems: (1) Dementia (2) Pleural disorder (3) Anxiety disorder (4) Dementia, vascular, with delusions (5) Dementia in Alzheimer's disease with delusions (6) Dementia in Alzheimer's disease with depression (7) Dementia, vascular, with depression (8) Impulse control disorder GERALD KUMAR MD Oct 11, 2017 21:30
--- NOTE | 2017-10-12 03:32 | PN ---
DATE: 10/10/2017 This late entry 10/10/2017 covers elements not covered in my initial note 10/10/2017. SUBJECTIVE: I met with the patient evening of 10/10/2017. The patient slept 6 hours previous evening about the same per nursing report, refusing his medications, combative with cares, otherwise sedated in between that. Oral intake is poor. Sodium 149. REVIEW OF SYSTEMS: Ambulation impaired, in wheelchair. No CV, , pulmonary, eye, ENT system symptoms on review, somewhat gruff in his responses, but otherwise pleasant, as I met with him. MENTAL STATUS EXAM: Oriented to himself. Insight, judgment, recent and remote memory, attention, concentration, fund of knowledge poor, consistent with his diagnosis mentioned in my initial note. IMPRESSION: Major neurocognitive disorder, Alzheimer, vascular with depression, delusion, behavioral disturbance. Rest unchanged from initial note. PLAN: Continue psychotropics mentioned in my initial note. I have carefully reviewed drug interactions. We do not want to increase his antipsychotics despite his ongoing mood lability and we are restricted to increasing the dosage due to his sedation otherwise. We will have to carefully see what are the changes we make over the next day or so. Discussed with social service staff about placement options as well. GERALD KUMAR MD DR: SAKINA/yasemin JOB#: [id number] / [id number]
[2017-10-12 05:49] VITALS: BP 115/63
[2017-10-12] MEDS: busPIRone 5 MG TABLET. PO SCH ×2 (10:32→14:24)
[2017-10-12] MEDS: buPROPion XL 150 MG TAB.ER.24H PO SCH (10:32)
[2017-10-12] MEDS: VITAMIN B COMPLEX CAPSULE. PO SCH (10:32)
[2017-10-12] MEDS: DULoxetine HCL 60 MG CAPSULE.DR PO SCH (10:32)
[2017-10-12] MEDS: VALPROATE ACID 250 MG/5 ML ORAL SOLUTION PO SCH ×2 (10:33→20:00)
[2017-10-12] MEDS: MULTIVITAMIN with MINERAL TABLET. PO SCH (10:33)
[2017-10-12] MEDS: MAGNESIUM HYDROXIDE 2,400 MG/30 ML ORAL.SUSP. PO PRN (10:33)
[2017-10-12] MEDS: risperiDONE ORAL 1 MG/ML 30ml BOTTLE. PO SCH ×3 (10:34→16:46)
[2017-10-12 16:02] VITALS: BP 105/69
[2017-10-12] MEDS: busPIRone 10 MG TABLET. PO SCH (16:45)
[2017-10-12] MEDS: traZODone 50 MG TABLET. PO SCH (20:00)
[2017-10-12] MEDS: DONEPEZIL 23 MG TABLET PO SCH (20:01)
[2017-10-12] MEDS: SENNOSIDES/DOCUSATE 8.6/50MG TABLET. PO SCH (20:02)
--- NOTE | 2017-10-12 20:09 | PDOC ---
Exam Note: Cyrus Note: Please also refer to the separate dictated note~for this date of service dictated separately.~Patient seen individually. Discussed the patient with Nursing staff reviewed the chart.~Reviewed interim history and current functioning. Reviewed vital signs,~Labs/ Radiology~and current medications noted below. Continue current treatment with the changes noted in the dictated addendum note Assessment: Vital Signs: Vital Signs Date Time Temp Pulse Resp B/P (MAP) Pulse Ox O2 Delivery O2 Flow Rate FiO2 10/12/17 16:02 97.4 60 20 105/69 (81) 100 Room Air I&O Intake and Output 10/12/17 07:00 Intake Total 340 ml Balance 340 ml Intake Oral 340 ml Current Medications: Meds: Current Medications Iohexol (Omnipaque 300 Mg/ml) 75 ml 1X ONCE IV Last administered on 21:29; Start 09/18/17 at 20:30; Stop 09/18/17 at 20:31; Status DC Lorazepam (Ativan) 2 mg 1X ONCE IV Last administered on 09/18/17 21:14; Start 09/18/17 at 20:30; Stop 09/18/17 at 20:31; Status DC Diphenhydramine HCl (Benadryl) 50 mg 1X ONCE IVP Last administered on 21:14; Start 09/18/17 at 20:30; Stop 09/18/17 at 20:31; Status DC Lactated Ringer's 1,000 ml @ 1,000 mls/hr 1X ONCE IV Last administered on 21:14; Start 09/18/17 at 20:30; Stop 09/18/17 at 21:29; Status DC Ziprasidone (Geodon Im) 20 mg 1X ONCE IM Last administered on 09/18/17 22:07 ; Start 09/18/17 at 22:30; Stop 09/18/17 at 22:31; Status DC Lorazepam (Ativan) 2 mg 1X ONCE IM ; Start 09/18/17 at 22:45; Stop 09/18/17 at 22:46; Status DC Ziprasidone (Geodon Im) 10 mg 1X ONCE IM ; Start 09/18/17 at 22:45; Stop at 22:46; Status DC Acetaminophen (Tylenol) 650 mg PRN Q6HRS PRN PO MILD PAIN / TEMP; Start at 01:30; Stop 10/06/17 at 10:13; Status DC Multi-Ingredient Ointment (Analgesic [place]) 1 betyz PRN QID PRN TP MUSCLE PAIN; Start 09/19/17 at 01:30 Al Hydroxide/Mg Hydroxide (Mylanta Plus Xs) 15 ml PRN AFTMEALHC PRN PO DYSPEPSIA; Start 09/19/17 at 01:30 Magnesium Hydroxide (Milk Of Magnesia) 2,400 mg PRN QHS PRN PO CONSTIPATION Last administered on 10/12/17 10:33; Start 09/19/17 at 01:30 Divalproex Sodium (Depakote Sprinkles) 250 mg BID PO Last administered on 09/19 08:04; Start 09/19/17 at 09:00; Stop 09/19/17 at 19:02; Status DC Donepezil HCl (Aricept) 23 mg QHS PO Last administered on 10/11/17 20:30; Start 09/19/17 at 21:00 Lorazepam (Ativan) 0.25 mg PRN Q4HRS PRN PO ANXIETY / AGITATION Last administered on 09/26/17 17:47; Start 09/19/17 at 01:30 Quetiapine Fumarate (SEROquel) 25 mg QHS PO Last administered on 09/23/17 19: 31; Start 09/19/17 at 21:00; Stop 09/24/17 at 09:56; Status DC Trazodone HCl (Desyrel) 125 mg QHS PO Last administered on 10/11/17 20:30; Start 09/19/17 at 21:00 Citalopram Hydrobromide (CeleXA) 20 mg DAILY PO Last administered on 09:29; Start 09/19/17 at 09:00; Stop 10/03/17 at 18:16; Status DC Acetaminophen (Tylenol) 650 mg PRN Q6HRS PRN PO PAIN / TEMP; Start 09/19/17 at 06:15; Status UNV Magnesium Hydroxide (Milk Of Magnesia) 2,400 mg PRN QHS PRN PO CONSTIPATION; Start 09/19/17 at 06:15; Status UNV Potassium Chloride (Klor-Con) 20 meq BID PO Last administered on 10/05/17 09: 11; Start 09/19/17 at 09:00; Stop 10/05/17 at 14:04; Status DC Senna/Docusate Sodium (Senna Plus) 2 tab QHS PO Last administered on 20:30; Start 09/19/17 at 21:00 Vitamin B Complex 1 cap BID PO Last administered on 09/20/17 09:01; Start at 09:00; Stop 09/21/17 at 14:27; Status DC Multivitamins/ Calcium (Thera-M Plus) 1 tab DAILY PO Last administered on 10/12 10:33; Start 09/19/17 at 09:00 Divalproex Sodium (Depakote Sprinkles) 375 mg BID PO Last administered on 10:03; Start 09/19/17 at 21:00; Stop 09/24/17 at 18:07; Status DC Quetiapine Fumarate (SEROquel) 12.5 mg DAILY PO Last administered on 09/22/17 10:49; Start 09/21/17 at 09:00; Stop 09/22/17 at 19:35; Status DC Vitamin B Complex 1 cap DAILY PO Last administered on 10/12/17 10:32; Start 09/22/17 at 09:00 Quetiapine Fumarate (SEROquel) 12.5 mg TID@0900,1400,1700 PO Last administered on 09/23/17 17:04; Start 09/23/17 at 09:00; Stop 09/24/17 at 09:56; Status DC Divalproex Sodium (Depakote Sprinkles) 500 mg BID PO Last administered on 10/06 09:37; Start 09/24/17 at 21:00; Stop 10/06/17 at 10:31; Status DC Olanzapine (ZyPREXA ZYDIS) 2.5 mg PRN Q2HR PRN PO PSYCHOSIS Last administered on 09/28/17 08:55; Start 09/26/17 at 18:30 Risperidone (RisperDAL) 0.125 mg DAILY@0900,1400,1700 PO Last administered on 09/30/17 17:00; Start 09/28/17 at 14:00; Stop 09/30/17 at 19:17; Status DC Risperidone (RisperDAL) 0.125 mg DAILY@1400 PO Last administered on 10/05/17 13:47; Start 10/01/17 at 14:00; Stop 10/06/17 at 10:16; Status DC Risperidone (RisperDAL) 0.25 mg BID@0900,1700 PO Last administered on 09:38; Start 10/01/17 at 09:00; Stop 10/06/17 at 10:18; Status DC Buspirone HCl (Buspar) 5 mg TID@0900,1400,1700 PO Last administered on 09:10; Start 10/03/17 at 09:00; Stop 10/05/17 at 11:21; Status DC Guaifenesin (MUCINEX ER with DM) 1 tab BID PO Last administered on 10/08/17 07:50; Start 10/03/17 at 21:00; Stop 10/08/17 at 21:00; Status DC Duloxetine HCl (Cymbalta) 30 mg DAILY PO Last administered on 10/04/17 09:37 ; Start 10/04/17 at 09:00; Stop 10/04/17 at 18:59; Status DC Duloxetine HCl (Cymbalta) 60 mg DAILY PO Last administered on 10/12/17 10:32 ; Start 10/05/17 at 09:00 Buspirone HCl (Buspar) 5 mg BID92 PO Last administered on 10/12/17 14:24; Start 10/05/17 at 14:00 Buspirone HCl (Buspar) 10 mg DAILY@1700 PO Last administered on 10/12/17 16: 45; Start 10/05/17 at 17:00 Sodium Polystyrene Sulfonate (Kayexalate) 40 gm 1X ONCE PO Last administered on 10/05/17 14:50; Start 10/05/17 at 15:00; Stop 10/05/17 at 15:01; Status DC Acetaminophen (Tylenol) 650 mg PRN Q6HRS PRN PO PAIN; Start 10/06/17 at 10:15 Risperidone (RisperDAL) 0.125 mg DAILY@1400 PO Last administered on 10/07/17 13:46; Start 10/06/17 at 14:00; Stop 10/07/17 at 14:31; Status DC Risperidone (RisperDAL) 0.25 mg BID@0900,1700 PO Last administered on 08:22; Start 10/06/17 at 17:00; Stop 10/07/17 at 14:32; Status DC Valproic Acid (Depakene) 500 mg BID PO Last administered on 10/12/17 10:33; Start 10/06/17 at 10:30 Risperidone (RisperDAL) 0.125 mg DAILY@1400 PO Last administered on 10/12/17 14:24; Start 10/07/17 at 14:31 Risperidone (RisperDAL) 0.25 mg BID@0900,1700 PO Last administered on 16:46; Start 10/07/17 at 14:32 Bupropion HCl (Wellbutrin Xl) 150 mg DAILY PO Last administered on 10/12/17 10:32; Start 10/12/17 at 09:00 Docusate Sodium (Colace) 100 mg BID PO ; Start 10/12/17 at 21:00 Polyethylene Glycol (miraLAX) 17 gm DAILY PO ; Start 10/13/17 at 09:00 Active Scripts Active Reported Milk Of Magnesia (Magnesium Hydroxide) 400 Mg/5 Ml Oral.susp 2,400 Mg PO PRN QHS PRN Ativan (Lorazepam) 0.5 Mg Tablet 0.25 Mg PO PRN Q4HRS PRN Tylenol (Acetaminophen) 325 Mg Tablet 650 Mg PO PRN Q6HRS PRN Trazodone Hcl 50 Mg Tablet 125 Mg PO QHS Senna S Tablet (Sennosides/Docusate Sodium) 1 Each Tablet 2 Tab PO QHS Seroquel (Quetiapine Fumarate) 25 Mg Tablet 25 Mg PO QHS Klor-Con M20 (Potassium Chloride) 20 Meq Tab.er.prt 20 Meq PO BID Multivitamins (Multivitamin) 1 Each Tablet 1 Tab PO DAILY [id number] Tablet (Methyl-B12/L-Mefolate/B6 Phos) 1 Each Tablet 1 Tab PO BID Escitalopram Oxalate 10 Mg Tablet 10 Mg PO DAILY Aricept (Donepezil Hcl) 23 Mg Tablet 23 Mg PO QHS Depakote Sprinkle (Divalproex Sodium) 125 Mg Cap.sprink 250 Mg PO BID I have reviewed the current psychotropics carefully including drug interactions. Risk benefit ratio favors no change other than as noted in my dictated progress note. Diagnosis: Problems: (1) Dementia (2) Pleural disorder (3) Anxiety disorder (4) Dementia, vascular, with delusions (5) Dementia in Alzheimer's disease with delusions (6) Dementia in Alzheimer's disease with depression (7) Dementia, vascular, with depression (8) Impulse control disorder GERALD KUMAR MD Oct 12, 2017 20:09
[2017-10-12] MEDS: DOCUSATE SODIUM 100 MG CAPSULE PO SCH (20:20)
[2017-10-13 05:47] VITALS: BP 117/77
[2017-10-13 06:39] LABS: HEMATOCRIT 39.2 % (39.0-53.0); HEMOGLOBIN 13.5 g/dL (13.0-17.5); RED BLOOD COUNT 3.85 x10^6/uL (4.30-5.70); RED CELL DISTRIBUTION WIDTH 15.5 % (11.5-14.5); WHITE BLOOD COUNT 3.4 x10^3/uL (4.0-11.0)
[2017-10-13 06:57] LABS: ALBUMIN 2.6 g/dL (3.4-5.0); ALBUMIN/GLOBULIN RATIO 0.7 (1.0-1.7); CALCIUM 8.5 mg/dL (8.5-10.1); CREATININE 0.9 mg/dL (0.7-1.3); GFR 80.8; TOTAL BILIRUBIN 0.7 mg/dL (0.2-1.0); TOTAL PROTEIN 6.3 g/dL (6.4-8.2)
[2017-10-13 07:04] LABS: POTASSIUM 5.3 mmol/L (3.5-5.1)
[2017-10-13] MEDS: buPROPion XL 150 MG TAB.ER.24H PO SCH ×2 (09:00→09:03)
[2017-10-13] MEDS: DULoxetine HCL 60 MG CAPSULE.DR PO SCH ×2 (09:00→09:03)
[2017-10-13] MEDS: VALPROATE ACID 250 MG/5 ML ORAL SOLUTION PO SCH ×2 (09:03→20:00)
[2017-10-13] MEDS: DOCUSATE SODIUM 100 MG CAPSULE PO SCH ×2 (09:03→20:00)
[2017-10-13] MEDS: VITAMIN B COMPLEX CAPSULE. PO SCH (09:03)
[2017-10-13] MEDS: MULTIVITAMIN with MINERAL TABLET. PO SCH (09:03)
[2017-10-13] MEDS: busPIRone 5 MG TABLET. PO SCH ×2 (09:03→13:51)
[2017-10-13] MEDS: risperiDONE ORAL 1 MG/ML 30ml BOTTLE. PO SCH ×3 (09:05→17:00)
[2017-10-13] MEDS: POLYETHYLENE GLYCOL 3350 17 GM PACKET. PO SCH (09:05)
[2017-10-13 16:16] VITALS: BP 101/65
[2017-10-13] MEDS: busPIRone 10 MG TABLET. PO SCH (17:00)
--- NOTE | 2017-10-13 19:07 | CONS ---
DATE OF CONSULTATION: 09/28/2017 NEUROLOGICAL CONSULTATION REFERRING PHYSICIAN: Dr. Godfrey. REASON FOR CONSULTATION: Right-sided weakness and ptosis of the right eye. HISTORY OF PRESENT ILLNESS: This is an 82-year-old right-handed male, who was admitted through Emergency Room on 09/19/2017 after he presented with a chief complaint of behavior disturbances. The patient is a group home resident in [place], has had intermittent behavior disturbances, described as agitation, delusion, hitting staff and residents, spitting on residents and staff. Neuro consult was requested because the patient demonstrated right-sided weakness to rule out stroke or TIA. The patient had a longstanding history of dementia. He has recently demonstrated increased confusion, agitation, and aggressive behavior, which have worsened in the last 2 weeks. The patient complains of pain of the right shoulder and elbow. He denies headaches, visual disturbances, nausea, vomiting, chest pain, shortness of breath, palpitation, dysarthria, dysphagia, or diplopia. PAST MEDICAL HISTORY: Significant for hyperlipidemia, right-sided weakness, questionable old stroke, and dementia. SOCIAL HISTORY: The patient is a group home resident in [place]. He denies smoking, alcohol, drinking, or illicit drug use. FAMILY HISTORY: Not obtainable. CURRENT HOME MEDICATIONS: Include Celexa 20 mg daily, Depakote sprinkles 250 mg at bedtime, ____, lorazepam 0.5 mg p.r.n., multivitamins, potassium chloride 20 mEq daily, Seroquel 25 mg daily, trazodone 50 mg at bedtime, ____ Depakote 250 mg b.i.d., Cymbalta, olanzapine p.r.n., Risperdal, and vitamin B complex. ALLERGIES: MIRTAZAPINE. EVIEW OF SYSTEMS: A 10-point review of systems was performed and consistent with history of present illness. PHYSICAL EXAMINATION: GENERAL: A moderately obese white male, not in acute distress. He weighs 220 pounds. VITAL SIGNS: Blood pressure 128/79, respiratory rate 16, pulse is 73 and regular, temperature 96.7, oxygen saturation 100% on room air. HEENT: Normocephalic, atraumatic, otherwise unremarkable. NECK: Supple. Negative for carotid bruit, lymphadenopathy, or thyromegaly. LUNGS: Clear to A and P. CARDIOVASCULAR: Regular rhythm, normal S1 and S2. ABDOMEN: Soft, bowel sounds positive. EXTREMITIES: Negative for cyanosis, clubbing, or pitting edema. NEUROLOGICAL EXAM: Mental Status: The patient is alert and oriented x 3. Speech is fluent. There is no language dysfunction. Memory, judgment, and abstract thinking are fair. The patient denies hallucination or delusion. CRANIAL NERVES: The patient had right ptosis. Pupils are reactive to light and accommodation. The visual de la rosa are full. There is no nystagmus. There is no facial motor or sensory deficit. Motor examination revealed no focal muscle bulk was seen. The tone is normal. The strength is 4/5 throughout. The patient is confined to a wheelchair. Sensory examination revealed normal pinprick and light touch senses throughout. Deep tendon reflexes were symmetric and active with absent Achilles responses. Gait: The patient is confined to a wheelchair and unable to stand up because of severe arthritis. LABORATORY DATA: CBC revealed white blood cells of 4500, hemoglobin 14.2, hematocrit 41.3, and platelet count 114,000. Chemistry from 09/18/2017 revealed a PT of 11.6, INR 1.1. DIAGNOSTIC DATA: Nonenhanced ____ CT scan performed on 09/18/2017 revealed severe atrophy without acute intracranial process. Chest CT angio revealed no evidence of pulmonary embolism and possible right lung pleural and parenchymal changes. Neoplasm was not completely ruled out. KUB, x-ray revealed no significant abnormalities and chest x-ray revealed [id number] right-sided pleural effusion. IMPRESSION: 1. Intermittent right-sided weakness, probably due to decreased range of motion of the right shoulder secondary to pain. There was no evidence of acute stroke. 2. Dementia. 3. Anxiety. 4. Psychiatric depression. 5. Gait disturbances, probably secondary to severe degenerative joint disease. RECOMMENDATIONS: 1. Continue with current medical care. 2. Continue with current psychiatric care. 3. Physical therapy as tolerated. M Kori REED MD DR: KATY/yasemin JOB#: [id number] / [id number]
[2017-10-13] MEDS: traZODone 50 MG TABLET. PO SCH (20:00)
[2017-10-13] MEDS: SENNOSIDES/DOCUSATE 8.6/50MG TABLET. PO SCH (20:01)
[2017-10-13] MEDS: DONEPEZIL 23 MG TABLET PO SCH (20:01)
--- NOTE | 2017-10-13 22:20 | PDOC ---
Exam Note: Cyrus Note: Please also refer to the separate dictated note~for this date of service dictated separately.~Patient seen individually. Discussed the patient with Nursing staff reviewed the chart.~Reviewed interim history and current functioning. Reviewed vital signs,~Labs/ Radiology~and current medications noted below. Continue current treatment with the changes noted in the dictated addendum note Assessment: Vital Signs: Vital Signs Date Time Temp Pulse Resp B/P (MAP) Pulse Ox O2 Delivery O2 Flow Rate FiO2 10/13/17 16:16 97.8 66 18 101/65 (77) 98 10/12/17 16:02 Room Air I&O Intake and Output 10/13/17 07:00 Intake Total 360 ml Balance 360 ml Intake Oral 360 ml Labs: Laboratory Tests Test 10/13/17 06:31 White Blood Count 3.4 x10^3/uL (4.0-11.0) L Red Blood Count 3.85 x10^6/uL (4.30-5.70) L Hemoglobin 13.5 g/dL (13.0-17.5) Hematocrit 39.2 % (39.0-53.0) Mean Corpuscular Volume 102 fL (79-100) H Mean Corpuscular Hemoglobin 35 pg (25-35) Mean Corpuscular Hemoglobin Concent 35 g/dL (31-37) Red Cell Distribution Width 15.5 % (11.5-14.5) H Platelet Count 103 x10^3/uL (140-400) L Sodium Level 147 mmol/L (136-145) H Potassium Level 5.3 mmol/L (3.5-5.1) H Chloride Level 111 mmol/L (98-107) H Carbon Dioxide Level 30 mmol/L (21-32) Anion Gap 6 (6-14) Blood Urea Nitrogen 15 mg/dL (8-26) Creatinine 0.9 mg/dL (0.7-1.3) Estimated GFR (Cockcroft-Gault) 80.8 BUN/Creatinine Ratio 17 (6-20) Glucose Level 116 mg/dL (70-99) H Calcium Level 8.5 mg/dL (8.5-10.1) Total Bilirubin 0.7 mg/dL (0.2-1.0) Aspartate Amino Transferase (AST) 29 U/L (15-37) Alanine Aminotransferase (ALT) 18 U/L (16-63) Alkaline Phosphatase 91 U/L (46-116) Total Protein 6.3 g/dL (6.4-8.2) L Albumin 2.6 g/dL (3.4-5.0) L Albumin/Globulin Ratio 0.7 (1.0-1.7) L Current Medications: Meds: Current Medications Iohexol (Omnipaque 300 Mg/ml) 75 ml 1X ONCE IV Last administered on 21:29; Start 09/18/17 at 20:30; Stop 09/18/17 at 20:31; Status DC Lorazepam (Ativan) 2 mg 1X ONCE IV Last administered on 09/18/17 21:14; Start 09/18/17 at 20:30; Stop 09/18/17 at 20:31; Status DC Diphenhydramine HCl (Benadryl) 50 mg 1X ONCE IVP Last administered on 21:14; Start 09/18/17 at 20:30; Stop 09/18/17 at 20:31; Status DC Lactated Ringer's 1,000 ml @ 1,000 mls/hr 1X ONCE IV Last administered on 21:14; Start 09/18/17 at 20:30; Stop 09/18/17 at 21:29; Status DC Ziprasidone (Geodon Im) 20 mg 1X ONCE IM Last administered on 09/18/17 22:07 ; Start 09/18/17 at 22:30; Stop 09/18/17 at 22:31; Status DC Lorazepam (Ativan) 2 mg 1X ONCE IM ; Start 09/18/17 at 22:45; Stop 09/18/17 at 22:46; Status DC Ziprasidone (Geodon Im) 10 mg 1X ONCE IM ; Start 09/18/17 at 22:45; Stop at 22:46; Status DC Acetaminophen (Tylenol) 650 mg PRN Q6HRS PRN PO MILD PAIN / TEMP; Start at 01:30; Stop 10/06/17 at 10:13; Status DC Multi-Ingredient Ointment (Analgesic [place]) 1 betzy PRN QID PRN TP MUSCLE PAIN; Start 09/19/17 at 01:30 Al Hydroxide/Mg Hydroxide (Mylanta Plus Xs) 15 ml PRN AFTMEALHC PRN PO DYSPEPSIA; Start 09/19/17 at 01:30 Magnesium Hydroxide (Milk Of Magnesia) 2,400 mg PRN QHS PRN PO CONSTIPATION Last administered on 10/12/17 10:33; Start 09/19/17 at 01:30 Divalproex Sodium (Depakote Sprinkles) 250 mg BID PO Last administered on 09/19 08:04; Start 09/19/17 at 09:00; Stop 09/19/17 at 19:02; Status DC Donepezil HCl (Aricept) 23 mg QHS PO Last administered on 10/13/17 20:01; Start 09/19/17 at 21:00 Lorazepam (Ativan) 0.25 mg PRN Q4HRS PRN PO ANXIETY / AGITATION Last administered on 09/26/17 17:47; Start 09/19/17 at 01:30 Quetiapine Fumarate (SEROquel) 25 mg QHS PO Last administered on 09/23/17 19: 31; Start 09/19/17 at 21:00; Stop 09/24/17 at 09:56; Status DC Trazodone HCl (Desyrel) 125 mg QHS PO Last administered on 10/13/17 20:00; Start 09/19/17 at 21:00 Citalopram Hydrobromide (CeleXA) 20 mg DAILY PO Last administered on 09:29; Start 09/19/17 at 09:00; Stop 10/03/17 at 18:16; Status DC Acetaminophen (Tylenol) 650 mg PRN Q6HRS PRN PO PAIN / TEMP; Start 09/19/17 at 06:15; Status UNV Magnesium Hydroxide (Milk Of Magnesia) 2,400 mg PRN QHS PRN PO CONSTIPATION; Start 09/19/17 at 06:15; Status UNV Potassium Chloride (Klor-Con) 20 meq BID PO Last administered on 10/05/17 09: 11; Start 09/19/17 at 09:00; Stop 10/05/17 at 14:04; Status DC Senna/Docusate Sodium (Senna Plus) 2 tab QHS PO Last administered on 20:01; Start 09/19/17 at 21:00 Vitamin B Complex 1 cap BID PO Last administered on 09/20/17 09:01; Start at 09:00; Stop 09/21/17 at 14:27; Status DC Multivitamins/ Calcium (Thera-M Plus) 1 tab DAILY PO Last administered on 10/13 09:03; Start 09/19/17 at 09:00 Divalproex Sodium (Depakote Sprinkles) 375 mg BID PO Last administered on 10:03; Start 09/19/17 at 21:00; Stop 09/24/17 at 18:07; Status DC Quetiapine Fumarate (SEROquel) 12.5 mg DAILY PO Last administered on 09/22/17 10:49; Start 09/21/17 at 09:00; Stop 09/22/17 at 19:35; Status DC Vitamin B Complex 1 cap DAILY PO Last administered on 10/13/17 09:03; Start 09/22/17 at 09:00 Quetiapine Fumarate (SEROquel) 12.5 mg TID@0900,1400,1700 PO Last administered on 09/23/17 17:04; Start 09/23/17 at 09:00; Stop 09/24/17 at 09:56; Status DC Divalproex Sodium (Depakote Sprinkles) 500 mg BID PO Last administered on 10/06 09:37; Start 09/24/17 at 21:00; Stop 10/06/17 at 10:31; Status DC Olanzapine (ZyPREXA ZYDIS) 2.5 mg PRN Q2HR PRN PO PSYCHOSIS Last administered on 09/28/17 08:55; Start 09/26/17 at 18:30 Risperidone (RisperDAL) 0.125 mg DAILY@0900,1400,1700 PO Last administered on 09/30/17 17:00; Start 09/28/17 at 14:00; Stop 09/30/17 at 19:17; Status DC Risperidone (RisperDAL) 0.125 mg DAILY@1400 PO Last administered on 10/05/17 13:47; Start 10/01/17 at 14:00; Stop 10/06/17 at 10:16; Status DC Risperidone (RisperDAL) 0.25 mg BID@0900,1700 PO Last administered on 09:38; Start 10/01/17 at 09:00; Stop 10/06/17 at 10:18; Status DC Buspirone HCl (Buspar) 5 mg TID@0900,1400,1700 PO Last administered on 09:10; Start 10/03/17 at 09:00; Stop 10/05/17 at 11:21; Status DC Guaifenesin (MUCINEX ER with DM) 1 tab BID PO Last administered on 10/08/17 07:50; Start 10/03/17 at 21:00; Stop 10/08/17 at 21:00; Status DC Duloxetine HCl (Cymbalta) 30 mg DAILY PO Last administered on 10/04/17 09:37 ; Start 10/04/17 at 09:00; Stop 10/04/17 at 18:59; Status DC Duloxetine HCl (Cymbalta) 60 mg DAILY PO Last administered on 10/12/17 10:32 ; Start 10/05/17 at 09:00 Buspirone HCl (Buspar) 5 mg BID92 PO Last administered on 10/13/17 13:51; Start 10/05/17 at 14:00 Buspirone HCl (Buspar) 10 mg DAILY@1700 PO Last administered on 10/13/17 17: 00; Start 10/05/17 at 17:00 Sodium Polystyrene Sulfonate (Kayexalate) 40 gm 1X ONCE PO Last administered on 10/05/17 14:50; Start 10/05/17 at 15:00; Stop 10/05/17 at 15:01; Status DC Acetaminophen (Tylenol) 650 mg PRN Q6HRS PRN PO PAIN; Start 10/06/17 at 10:15 Risperidone (RisperDAL) 0.125 mg DAILY@1400 PO Last administered on 10/07/17 13:46; Start 10/06/17 at 14:00; Stop 10/07/17 at 14:31; Status DC Risperidone (RisperDAL) 0.25 mg BID@0900,1700 PO Last administered on 08:22; Start 10/06/17 at 17:00; Stop 10/07/17 at 14:32; Status DC Valproic Acid (Depakene) 500 mg BID PO Last administered on 10/13/17 20:00; Start 10/06/17 at 10:30 Risperidone (RisperDAL) 0.125 mg DAILY@1400 PO Last administered on 10/12/17 14:24; Start 10/07/17 at 14:31 Risperidone (RisperDAL) 0.25 mg BID@0900,1700 PO Last administered on 17:00; Start 10/07/17 at 14:32 Bupropion HCl (Wellbutrin Xl) 150 mg DAILY PO Last administered on 10/12/17 10:32; Start 10/12/17 at 09:00; Stop 10/13/17 at 18:02; Status DC Docusate Sodium (Colace) 100 mg BID PO Last administered on 10/13/17 20:00; Start 10/12/17 at 21:00 Polyethylene Glycol (miraLAX) 17 gm DAILY PO Last administered on 10/13/17 09 :05; Start 10/13/17 at 09:00 Bupropion HCl (Wellbutrin) 75 mg BID@0900,1200 PO ; Start 10/14/17 at 09:00 Active Scripts Active Reported Milk Of Magnesia (Magnesium Hydroxide) 400 Mg/5 Ml Oral.susp 2,400 Mg PO PRN QHS PRN Ativan (Lorazepam) 0.5 Mg Tablet 0.25 Mg PO PRN Q4HRS PRN Tylenol (Acetaminophen) 325 Mg Tablet 650 Mg PO PRN Q6HRS PRN Trazodone Hcl 50 Mg Tablet 125 Mg PO QHS Senna S Tablet (Sennosides/Docusate Sodium) 1 Each Tablet 2 Tab PO QHS Seroquel (Quetiapine Fumarate) 25 Mg Tablet 25 Mg PO QHS Klor-Con M20 (Potassium Chloride) 20 Meq Tab.er.prt 20 Meq PO BID Multivitamins (Multivitamin) 1 Each Tablet 1 Tab PO DAILY T-Iygpdj-C4-B12 Tablet (Methyl-B12/L-Mefolate/B6 Phos) 1 Each Tablet 1 Tab PO BID Escitalopram Oxalate 10 Mg Tablet 10 Mg PO DAILY Aricept (Donepezil Hcl) 23 Mg Tablet 23 Mg PO QHS Depakote Sprinkle (Divalproex Sodium) 125 Mg Cap.sprink 250 Mg PO BID I have reviewed the current psychotropics carefully including drug interactions. Risk benefit ratio favors no change other than as noted in my dictated progress note. Diagnosis: Problems: (1) Dementia (2) Anxiety disorder (3) Dementia, vascular, with delusions (4) Dementia in Alzheimer's disease with delusions (5) Dementia in Alzheimer's disease with depression (6) Dementia, vascular, with depression (7) Impulse control disorder GERALD KUMAR MD Oct 13, 2017 22:20
--- NOTE | 2017-10-14 01:07 | PN ---
DATE: 10/12/2017 This is a late entry for 10/12/2017 and covers the elements not covered in my initial note of 10/12/2017 SUBJECTIVE: The patient was staffed at a treatment team meeting with the entire team in the morning of 10/12/2017 and the patient's , Nancy, attended the conference. We had a lengthy discussion about the patient's diagnosis, relative lack of progress with his behaviors on psychotropics since he is sedated and we find it difficult to increase the psychotropics, but when awake, he is agitated, aggressive with cares, has to have gloves on his hands not to bite and scratch staff during cares. Discussed alternate placement options at length. REVIEW OF SYSTEMS: Ambulation impaired, in Broda chair. No CV, , pulmonary, eye, ENT system symptoms on review. Reliability poor. MENTAL STATUS EXAM: Oriented to himself. Insight, judgment, recent and remote memory, attention, concentration, fund of knowledge poor, consistent with his diagnosis mentioned in my initial note. IMPRESSION: Major neurocognitive disorder, Alzheimer, vascular with depression, delusion, behavioral disturbance. Rest unchanged. PLAN: Continue current psychotropics mentioned in my initial note. Adjust further as clinically indicated. GERALD KUMAR MD DR: SAKINA/yasemin JOB#: [id number] / [id number]
--- NOTE | 2017-10-14 01:07 | PN ---
DATE: 10/11/2017 This late entry for 10/11/2017 covers elements not covered in my initial note of 10/11/2017. SUBJECTIVE: I met with the patient in the evening of 10/11/2017. The patient is intermittently sedated, sleeping off during the day, having to be assisted for feeding, combative with cares, ignored his when she visited, remains withdrawn. REVIEW OF SYSTEMS: Ambulation impaired, in wheelchair. No CV, , pulmonary, eye, ENT system symptoms on review. Reliability poor. MENTAL STATUS EXAM: Oriented to himself. Insight, judgment, recent and remote memory, attention, concentration, fund of knowledge poor, consistent with his diagnosis mentioned in my initial note. IMPRESSION: Major neurocognitive disorder, Alzheimer, vascular with depression, delusion, behavioral disturbance. Rest unchanged. PLAN: Start Wellbutrin-XL 150 mg in the morning as an antidepressant that is activating to help awaken him during the day. Maintain rest psychotropics, unchanged from initial note. MAN Gigi KUMAR MD DR: SAKINA/yasemin JOB#: [id number] / [id number]
[2017-10-14 05:44] VITALS: BP 124/80
[2017-10-14] MEDS: MULTIVITAMIN with MINERAL TABLET. PO SCH (07:45)
[2017-10-14] MEDS: VALPROATE ACID 250 MG/5 ML ORAL SOLUTION PO SCH ×2 (07:45→22:36)
[2017-10-14] MEDS: POLYETHYLENE GLYCOL 3350 17 GM PACKET. PO SCH (07:45)
[2017-10-14] MEDS: DOCUSATE SODIUM 100 MG CAPSULE PO SCH ×2 (07:45→22:39)
[2017-10-14] MEDS: busPIRone 5 MG TABLET. PO SCH ×2 (07:46→13:13)
[2017-10-14] MEDS: DULoxetine HCL 60 MG CAPSULE.DR PO SCH (07:46)
[2017-10-14] MEDS: VITAMIN B COMPLEX CAPSULE. PO SCH (07:46)
[2017-10-14] MEDS: risperiDONE ORAL 1 MG/ML 30ml BOTTLE. PO SCH ×3 (07:47→17:12)
[2017-10-14] MEDS: buPROPion 75 MG TABLET PO SCH ×2 (07:47→12:15)
[2017-10-14] MEDS ORDERED: MAGNESIUM CITRATE 296 ML SOLUTION. PO PRN (10:30)
[2017-10-14 16:12] VITALS: BP 100/68
[2017-10-14] MEDS: busPIRone 10 MG TABLET. PO SCH (17:12)
--- NOTE | 2017-10-14 21:29 | PDOC ---
Exam Note: Cyrus Note: Please also refer to the separate dictated note~for this date of service dictated separately.~Patient seen individually. Discussed the patient with Nursing staff reviewed the chart.~Reviewed interim history and current functioning. Reviewed vital signs,~Labs/ Radiology~and current medications noted below. Continue current treatment with the changes noted in the dictated addendum note Assessment: Vital Signs: Vital Signs Date Time Temp Pulse Resp B/P (MAP) Pulse Ox O2 Delivery O2 Flow Rate FiO2 10/14/17 16:12 97.2 84 16 100/68 (79) 98 Room Air I&O Intake and Output 10/14/17 07:00 Intake Total 560 ml Balance 560 ml Intake Oral 560 ml Labs: Laboratory Tests Test 10/14/17 10:35 Potassium Level 4.6 mmol/L (3.5-5.1) Current Medications: Meds: Current Medications Iohexol (Omnipaque 300 Mg/ml) 75 ml 1X ONCE IV Last administered on 21:29; Start 09/18/17 at 20:30; Stop 09/18/17 at 20:31; Status DC Lorazepam (Ativan) 2 mg 1X ONCE IV Last administered on 09/18/17 21:14; Start 09/18/17 at 20:30; Stop 09/18/17 at 20:31; Status DC Diphenhydramine HCl (Benadryl) 50 mg 1X ONCE IVP Last administered on 21:14; Start 09/18/17 at 20:30; Stop 09/18/17 at 20:31; Status DC Lactated Ringer's 1,000 ml @ 1,000 mls/hr 1X ONCE IV Last administered on 21:14; Start 09/18/17 at 20:30; Stop 09/18/17 at 21:29; Status DC Ziprasidone (Geodon Im) 20 mg 1X ONCE IM Last administered on 09/18/17 22:07 ; Start 09/18/17 at 22:30; Stop 09/18/17 at 22:31; Status DC Lorazepam (Ativan) 2 mg 1X ONCE IM ; Start 09/18/17 at 22:45; Stop 09/18/17 at 22:46; Status DC Ziprasidone (Geodon Im) 10 mg 1X ONCE IM ; Start 09/18/17 at 22:45; Stop at 22:46; Status DC Acetaminophen (Tylenol) 650 mg PRN Q6HRS PRN PO MILD PAIN / TEMP; Start at 01:30; Stop 10/06/17 at 10:13; Status DC Multi-Ingredient Ointment (Analgesic [place]) 1 betzy PRN QID PRN TP MUSCLE PAIN; Start 09/19/17 at 01:30 Al Hydroxide/Mg Hydroxide (Mylanta Plus Xs) 15 ml PRN AFTMEALHC PRN PO DYSPEPSIA; Start 09/19/17 at 01:30 Magnesium Hydroxide (Milk Of Magnesia) 2,400 mg PRN QHS PRN PO CONSTIPATION Last administered on 10/12/17 10:33; Start 09/19/17 at 01:30 Divalproex Sodium (Depakote Sprinkles) 250 mg BID PO Last administered on 09/19 08:04; Start 09/19/17 at 09:00; Stop 09/19/17 at 19:02; Status DC Donepezil HCl (Aricept) 23 mg QHS PO Last administered on 10/13/17 20:01; Start 09/19/17 at 21:00 Lorazepam (Ativan) 0.25 mg PRN Q4HRS PRN PO ANXIETY / AGITATION Last administered on 09/26/17 17:47; Start 09/19/17 at 01:30 Quetiapine Fumarate (SEROquel) 25 mg QHS PO Last administered on 09/23/17 19: 31; Start 09/19/17 at 21:00; Stop 09/24/17 at 09:56; Status DC Trazodone HCl (Desyrel) 125 mg QHS PO Last administered on 10/13/17 20:00; Start 09/19/17 at 21:00 Citalopram Hydrobromide (CeleXA) 20 mg DAILY PO Last administered on 09:29; Start 09/19/17 at 09:00; Stop 10/03/17 at 18:16; Status DC Acetaminophen (Tylenol) 650 mg PRN Q6HRS PRN PO PAIN / TEMP; Start 09/19/17 at 06:15; Status UNV Magnesium Hydroxide (Milk Of Magnesia) 2,400 mg PRN QHS PRN PO CONSTIPATION; Start 09/19/17 at 06:15; Status UNV Potassium Chloride (Klor-Con) 20 meq BID PO Last administered on 10/05/17 09: 11; Start 09/19/17 at 09:00; Stop 10/05/17 at 14:04; Status DC Senna/Docusate Sodium (Senna Plus) 2 tab QHS PO Last administered on 20:01; Start 09/19/17 at 21:00; Stop 10/14/17 at 17:37; Status DC Vitamin B Complex 1 cap BID PO Last administered on 09/20/17 09:01; Start at 09:00; Stop 09/21/17 at 14:27; Status DC Multivitamins/ Calcium (Thera-M Plus) 1 tab DAILY PO Last administered on 10/14 07:45; Start 09/19/17 at 09:00 Divalproex Sodium (Depakote Sprinkles) 375 mg BID PO Last administered on 10:03; Start 09/19/17 at 21:00; Stop 09/24/17 at 18:07; Status DC Quetiapine Fumarate (SEROquel) 12.5 mg DAILY PO Last administered on 09/22/17 10:49; Start 09/21/17 at 09:00; Stop 09/22/17 at 19:35; Status DC Vitamin B Complex 1 cap DAILY PO Last administered on 10/14/17 07:46; Start 09/22/17 at 09:00 Quetiapine Fumarate (SEROquel) 12.5 mg TID@0900,1400,1700 PO Last administered on 09/23/17 17:04; Start 09/23/17 at 09:00; Stop 09/24/17 at 09:56; Status DC Divalproex Sodium (Depakote Sprinkles) 500 mg BID PO Last administered on 10/06 09:37; Start 09/24/17 at 21:00; Stop 10/06/17 at 10:31; Status DC Olanzapine (ZyPREXA ZYDIS) 2.5 mg PRN Q2HR PRN PO PSYCHOSIS Last administered on 09/28/17 08:55; Start 09/26/17 at 18:30 Risperidone (RisperDAL) 0.125 mg DAILY@0900,1400,1700 PO Last administered on 09/30/17 17:00; Start 09/28/17 at 14:00; Stop 09/30/17 at 19:17; Status DC Risperidone (RisperDAL) 0.125 mg DAILY@1400 PO Last administered on 10/05/17 13:47; Start 10/01/17 at 14:00; Stop 10/06/17 at 10:16; Status DC Risperidone (RisperDAL) 0.25 mg BID@0900,1700 PO Last administered on 09:38; Start 10/01/17 at 09:00; Stop 10/06/17 at 10:18; Status DC Buspirone HCl (Buspar) 5 mg TID@0900,1400,1700 PO Last administered on 09:10; Start 10/03/17 at 09:00; Stop 10/05/17 at 11:21; Status DC Guaifenesin (MUCINEX ER with DM) 1 tab BID PO Last administered on 10/08/17 07:50; Start 10/03/17 at 21:00; Stop 10/08/17 at 21:00; Status DC Duloxetine HCl (Cymbalta) 30 mg DAILY PO Last administered on 10/04/17 09:37 ; Start 10/04/17 at 09:00; Stop 10/04/17 at 18:59; Status DC Duloxetine HCl (Cymbalta) 60 mg DAILY PO Last administered on 10/14/17 07:46 ; Start 10/05/17 at 09:00 Buspirone HCl (Buspar) 5 mg BID92 PO Last administered on 10/14/17 13:13; Start 10/05/17 at 14:00 Buspirone HCl (Buspar) 10 mg DAILY@1700 PO Last administered on 10/14/17 17: 12; Start 10/05/17 at 17:00 Sodium Polystyrene Sulfonate (Kayexalate) 40 gm 1X ONCE PO Last administered on 10/05/17 14:50; Start 10/05/17 at 15:00; Stop 10/05/17 at 15:01; Status DC Acetaminophen (Tylenol) 650 mg PRN Q6HRS PRN PO PAIN; Start 10/06/17 at 10:15 Risperidone (RisperDAL) 0.125 mg DAILY@1400 PO Last administered on 10/07/17 13:46; Start 10/06/17 at 14:00; Stop 10/07/17 at 14:31; Status DC Risperidone (RisperDAL) 0.25 mg BID@0900,1700 PO Last administered on 08:22; Start 10/06/17 at 17:00; Stop 10/07/17 at 14:32; Status DC Valproic Acid (Depakene) 500 mg BID PO Last administered on 10/14/17 07:45; Start 10/06/17 at 10:30 Risperidone (RisperDAL) 0.125 mg DAILY@1400 PO Last administered on 10/14/17 13:11; Start 10/07/17 at 14:31 Risperidone (RisperDAL) 0.25 mg BID@0900,1700 PO Last administered on 17:12; Start 10/07/17 at 14:32 Bupropion HCl (Wellbutrin Xl) 150 mg DAILY PO Last administered on 10/12/17 10:32; Start 10/12/17 at 09:00; Stop 10/13/17 at 18:02; Status DC Docusate Sodium (Colace) 100 mg BID PO Last administered on 10/14/17 07:45; Start 10/12/17 at 21:00 Polyethylene Glycol (miraLAX) 17 gm DAILY PO Last administered on 10/14/17 07 :45; Start 10/13/17 at 09:00 Bupropion HCl (Wellbutrin) 75 mg BID@0900,1200 PO Last administered on 12:15; Start 10/14/17 at 09:00 Magnesium Citrate (Citroma) 296 ml PRN 1X PRN PO CONSTIPATION Last administered on 10/14/17 12:14; Start 10/14/17 at 10:30 Senna/Docusate Sodium (Senna Plus) 2 tab BID PO ; Start 10/14/17 at 21:00 Active Scripts Active Reported Milk Of Magnesia (Magnesium Hydroxide) 400 Mg/5 Ml Oral.susp 2,400 Mg PO PRN QHS PRN Ativan (Lorazepam) 0.5 Mg Tablet 0.25 Mg PO PRN Q4HRS PRN Tylenol (Acetaminophen) 325 Mg Tablet 650 Mg PO PRN Q6HRS PRN Trazodone Hcl 50 Mg Tablet 125 Mg PO QHS Senna S Tablet (Sennosides/Docusate Sodium) 1 Each Tablet 2 Tab PO QHS Seroquel (Quetiapine Fumarate) 25 Mg Tablet 25 Mg PO QHS Klor-Con M20 (Potassium Chloride) 20 Meq Tab.er.prt 20 Meq PO BID Multivitamins (Multivitamin) 1 Each Tablet 1 Tab PO DAILY U-[id number]-F5-B12 Tablet (Methyl-B12/L-Mefolate/B6 Phos) 1 Each Tablet 1 Tab PO BID Escitalopram Oxalate 10 Mg Tablet 10 Mg PO DAILY Aricept (Donepezil Hcl) 23 Mg Tablet 23 Mg PO QHS Depakote Sprinkle (Divalproex Sodium) 125 Mg Cap.sprink 250 Mg PO BID I have reviewed the current psychotropics carefully including drug interactions. Risk benefit ratio favors no change other than as noted in my dictated progress note. Diagnosis: Problems: (1) Dementia (2) Pleural disorder (3) Anxiety disorder (4) Dementia, vascular, with delusions (5) Dementia in Alzheimer's disease with delusions (6) Dementia in Alzheimer's disease with depression (7) Dementia, vascular, with depression (8) Impulse control disorder GERALD KUMAR MD Oct 14, 2017 21:29
[2017-10-14] MEDS: traZODone 50 MG TABLET. PO SCH (22:36)
[2017-10-14] MEDS: SENNOSIDES/DOCUSATE 8.6/50MG TABLET. PO SCH (22:36)
[2017-10-14] MEDS: DONEPEZIL 23 MG TABLET PO SCH (22:39)
[2017-10-14] MEDS: MAGNESIUM HYDROXIDE 2,400 MG/30 ML ORAL.SUSP. PO PRN (23:25)
[2017-10-15 06:29] VITALS: BP 119/84
[2017-10-15] MEDS: VALPROATE ACID 250 MG/5 ML ORAL SOLUTION PO SCH ×2 (08:27→20:01)
[2017-10-15] MEDS: DOCUSATE SODIUM 100 MG CAPSULE PO SCH ×2 (08:27→20:02)
[2017-10-15] MEDS: DULoxetine HCL 60 MG CAPSULE.DR PO SCH (08:27)
[2017-10-15] MEDS: busPIRone 5 MG TABLET. PO SCH ×2 (08:27→12:15)
[2017-10-15] MEDS: SENNOSIDES/DOCUSATE 8.6/50MG TABLET. PO SCH ×2 (08:27→20:02)
[2017-10-15] MEDS: MULTIVITAMIN with MINERAL TABLET. PO SCH (08:27)
[2017-10-15] MEDS: buPROPion 75 MG TABLET PO SCH ×2 (08:27→12:15)
[2017-10-15] MEDS: VITAMIN B COMPLEX CAPSULE. PO SCH (08:27)
[2017-10-15] MEDS: POLYETHYLENE GLYCOL 3350 17 GM PACKET. PO SCH (08:28)
[2017-10-15] MEDS: risperiDONE ORAL 1 MG/ML 30ml BOTTLE. PO SCH ×3 (08:29→17:05)
[2017-10-15 16:03] VITALS: BP 122/78
[2017-10-15] MEDS: busPIRone 10 MG TABLET. PO SCH (17:04)
[2017-10-15] MEDS: DONEPEZIL 23 MG TABLET PO SCH (20:01)
[2017-10-15] MEDS: traZODone 50 MG TABLET. PO SCH (20:01)
--- NOTE | 2017-10-15 20:02 | PN ---
DATE: 10/14/2017 This late entry 10/14/2017 covers elements not covered in my initial note 10/14/2017. Met with the patient evening of 10/14/2017. The patient is more awake and alert during the day. Wellbutrin seems to be helping with this. Family, his Nancy visited and she was pleased with him being more awake, less irritable, less labile. REVIEW OF SYSTEMS: Ambulation impaired, in a Broda chair. No CV, , pulmonary, eye, ENT system symptoms on review. Reliability poor. MENTAL STATUS EXAM: Oriented to self. Insight, judgment, recent and remote memory, attention, concentration, fund of knowledge poor, consistent with his diagnosis mentioned in my initial note. IMPRESSION: Major neurocognitive disorder, Alzheimer, vascular with depression, delusion, behavioral disturbance. Rest unchanged from initial note. PLAN: Continue psychotropics mentioned in my initial note. MAN Gigi KUMAR MD DR: SAKINA/yasemin JOB#: [id number] / [id number]
--- NOTE | 2017-10-15 20:20 | PDOC ---
Exam Note: Cyrus Note: Please also refer to the separate dictated note~for this date of service dictated separately.~Patient seen individually. Discussed the patient with Nursing staff reviewed the chart.~Reviewed interim history and current functioning. Reviewed vital signs,~Labs/ Radiology~and current medications noted below. Continue current treatment with the changes noted in the dictated addendum note Assessment: Vital Signs: Vital Signs Date Time Temp Pulse Resp B/P (MAP) Pulse Ox O2 Delivery O2 Flow Rate FiO2 10/15/17 16:03 97.5 72 18 122/78 (93) 96 10/14/17 16:12 Room Air I&O Intake and Output 10/15/17 07:00 Intake Total 1740 ml Balance 1740 ml Intake Oral 1740 ml # Bowel Movements 1 Current Medications: Meds: Current Medications Iohexol (Omnipaque 300 Mg/ml) 75 ml 1X ONCE IV Last administered on 21:29; Start 09/18/17 at 20:30; Stop 09/18/17 at 20:31; Status DC Lorazepam (Ativan) 2 mg 1X ONCE IV Last administered on 09/18/17 21:14; Start 09/18/17 at 20:30; Stop 09/18/17 at 20:31; Status DC Diphenhydramine HCl (Benadryl) 50 mg 1X ONCE IVP Last administered on 21:14; Start 09/18/17 at 20:30; Stop 09/18/17 at 20:31; Status DC Lactated Ringer's 1,000 ml @ 1,000 mls/hr 1X ONCE IV Last administered on 21:14; Start 09/18/17 at 20:30; Stop 09/18/17 at 21:29; Status DC Ziprasidone (Geodon Im) 20 mg 1X ONCE IM Last administered on 09/18/17 22:07 ; Start 09/18/17 at 22:30; Stop 09/18/17 at 22:31; Status DC Lorazepam (Ativan) 2 mg 1X ONCE IM ; Start 09/18/17 at 22:45; Stop 09/18/17 at 22:46; Status DC Ziprasidone (Geodon Im) 10 mg 1X ONCE IM ; Start 09/18/17 at 22:45; Stop at 22:46; Status DC Acetaminophen (Tylenol) 650 mg PRN Q6HRS PRN PO MILD PAIN / TEMP; Start at 01:30; Stop 10/06/17 at 10:13; Status DC Multi-Ingredient Ointment (Analgesic [place]) 1 betzy PRN QID PRN TP MUSCLE PAIN; Start 09/19/17 at 01:30 Al Hydroxide/Mg Hydroxide (Mylanta Plus Xs) 15 ml PRN AFTMEALHC PRN PO DYSPEPSIA; Start 09/19/17 at 01:30 Magnesium Hydroxide (Milk Of Magnesia) 2,400 mg PRN QHS PRN PO CONSTIPATION Last administered on 10/14/17 23:25; Start 09/19/17 at 01:30 Divalproex Sodium (Depakote Sprinkles) 250 mg BID PO Last administered on 09/19 08:04; Start 09/19/17 at 09:00; Stop 09/19/17 at 19:02; Status DC Donepezil HCl (Aricept) 23 mg QHS PO Last administered on 10/15/17 20:01; Start 09/19/17 at 21:00 Lorazepam (Ativan) 0.25 mg PRN Q4HRS PRN PO ANXIETY / AGITATION Last administered on 09/26/17 17:47; Start 09/19/17 at 01:30 Quetiapine Fumarate (SEROquel) 25 mg QHS PO Last administered on 09/23/17 19: 31; Start 09/19/17 at 21:00; Stop 09/24/17 at 09:56; Status DC Trazodone HCl (Desyrel) 125 mg QHS PO Last administered on 10/15/17 20:01; Start 09/19/17 at 21:00 Citalopram Hydrobromide (CeleXA) 20 mg DAILY PO Last administered on 09:29; Start 09/19/17 at 09:00; Stop 10/03/17 at 18:16; Status DC Acetaminophen (Tylenol) 650 mg PRN Q6HRS PRN PO PAIN / TEMP; Start 09/19/17 at 06:15; Status UNV Magnesium Hydroxide (Milk Of Magnesia) 2,400 mg PRN QHS PRN PO CONSTIPATION; Start 09/19/17 at 06:15; Status UNV Potassium Chloride (Klor-Con) 20 meq BID PO Last administered on 10/05/17 09: 11; Start 09/19/17 at 09:00; Stop 10/05/17 at 14:04; Status DC Senna/Docusate Sodium (Senna Plus) 2 tab QHS PO Last administered on 20:01; Start 09/19/17 at 21:00; Stop 10/14/17 at 17:37; Status DC Vitamin B Complex 1 cap BID PO Last administered on 09/20/17 09:01; Start at 09:00; Stop 09/21/17 at 14:27; Status DC Multivitamins/ Calcium (Thera-M Plus) 1 tab DAILY PO Last administered on 10/15 08:27; Start 09/19/17 at 09:00 Divalproex Sodium (Depakote Sprinkles) 375 mg BID PO Last administered on 10:03; Start 09/19/17 at 21:00; Stop 09/24/17 at 18:07; Status DC Quetiapine Fumarate (SEROquel) 12.5 mg DAILY PO Last administered on 09/22/17 10:49; Start 09/21/17 at 09:00; Stop 09/22/17 at 19:35; Status DC Vitamin B Complex 1 cap DAILY PO Last administered on 10/15/17 08:27; Start 09/22/17 at 09:00 Quetiapine Fumarate (SEROquel) 12.5 mg TID@0900,1400,1700 PO Last administered on 09/23/17 17:04; Start 09/23/17 at 09:00; Stop 09/24/17 at 09:56; Status DC Divalproex Sodium (Depakote Sprinkles) 500 mg BID PO Last administered on 10/06 09:37; Start 09/24/17 at 21:00; Stop 10/06/17 at 10:31; Status DC Olanzapine (ZyPREXA ZYDIS) 2.5 mg PRN Q2HR PRN PO PSYCHOSIS Last administered on 09/28/17 08:55; Start 09/26/17 at 18:30 Risperidone (RisperDAL) 0.125 mg DAILY@0900,1400,1700 PO Last administered on 09/30/17 17:00; Start 09/28/17 at 14:00; Stop 09/30/17 at 19:17; Status DC Risperidone (RisperDAL) 0.125 mg DAILY@1400 PO Last administered on 10/05/17 13:47; Start 10/01/17 at 14:00; Stop 10/06/17 at 10:16; Status DC Risperidone (RisperDAL) 0.25 mg BID@0900,1700 PO Last administered on 09:38; Start 10/01/17 at 09:00; Stop 10/06/17 at 10:18; Status DC Buspirone HCl (Buspar) 5 mg TID@0900,1400,1700 PO Last administered on 09:10; Start 10/03/17 at 09:00; Stop 10/05/17 at 11:21; Status DC Guaifenesin (MUCINEX ER with DM) 1 tab BID PO Last administered on 10/08/17 07:50; Start 10/03/17 at 21:00; Stop 10/08/17 at 21:00; Status DC Duloxetine HCl (Cymbalta) 30 mg DAILY PO Last administered on 10/04/17 09:37 ; Start 10/04/17 at 09:00; Stop 10/04/17 at 18:59; Status DC Duloxetine HCl (Cymbalta) 60 mg DAILY PO Last administered on 10/15/17 08:27 ; Start 10/05/17 at 09:00 Buspirone HCl (Buspar) 5 mg BID92 PO Last administered on 10/15/17 12:15; Start 10/05/17 at 14:00 Buspirone HCl (Buspar) 10 mg DAILY@1700 PO Last administered on 10/15/17 17: 04; Start 10/05/17 at 17:00 Sodium Polystyrene Sulfonate (Kayexalate) 40 gm 1X ONCE PO Last administered on 10/05/17 14:50; Start 10/05/17 at 15:00; Stop 10/05/17 at 15:01; Status DC Acetaminophen (Tylenol) 650 mg PRN Q6HRS PRN PO PAIN; Start 10/06/17 at 10:15 Risperidone (RisperDAL) 0.125 mg DAILY@1400 PO Last administered on 10/07/17 13:46; Start 10/06/17 at 14:00; Stop 10/07/17 at 14:31; Status DC Risperidone (RisperDAL) 0.25 mg BID@0900,1700 PO Last administered on 08:22; Start 10/06/17 at 17:00; Stop 10/07/17 at 14:32; Status DC Valproic Acid (Depakene) 500 mg BID PO Last administered on 10/15/17 20:01; Start 10/06/17 at 10:30 Risperidone (RisperDAL) 0.125 mg DAILY@1400 PO Last administered on 10/14/17 13:11; Start 10/07/17 at 14:31 Risperidone (RisperDAL) 0.25 mg BID@0900,1700 PO Last administered on 17:05; Start 10/07/17 at 14:32 Bupropion HCl (Wellbutrin Xl) 150 mg DAILY PO Last administered on 10/12/17 10:32; Start 10/12/17 at 09:00; Stop 10/13/17 at 18:02; Status DC Docusate Sodium (Colace) 100 mg BID PO Last administered on 10/15/17 20:02; Start 10/12/17 at 21:00 Polyethylene Glycol (miraLAX) 17 gm DAILY PO Last administered on 10/15/17 08 :28; Start 10/13/17 at 09:00 Bupropion HCl (Wellbutrin) 75 mg BID@0900,1200 PO Last administered on 12:15; Start 10/14/17 at 09:00 Magnesium Citrate (Citroma) 296 ml PRN 1X PRN PO CONSTIPATION Last administered on 10/14/17 12:14; Start 10/14/17 at 10:30 Senna/Docusate Sodium (Senna Plus) 2 tab BID PO Last administered on 20:02; Start 10/14/17 at 21:00 Active Scripts Active Reported Milk Of Magnesia (Magnesium Hydroxide) 400 Mg/5 Ml Oral.susp 2,400 Mg PO PRN QHS PRN Ativan (Lorazepam) 0.5 Mg Tablet 0.25 Mg PO PRN Q4HRS PRN Tylenol (Acetaminophen) 325 Mg Tablet 650 Mg PO PRN Q6HRS PRN Trazodone Hcl 50 Mg Tablet 125 Mg PO QHS Senna S Tablet (Sennosides/Docusate Sodium) 1 Each Tablet 2 Tab PO QHS Seroquel (Quetiapine Fumarate) 25 Mg Tablet 25 Mg PO QHS Klor-Con M20 (Potassium Chloride) 20 Meq Tab.er.prt 20 Meq PO BID Multivitamins (Multivitamin) 1 Each Tablet 1 Tab PO DAILY Q-Tvxmhm-G6-B12 Tablet (Methyl-B12/L-Mefolate/B6 Phos) 1 Each Tablet 1 Tab PO BID Escitalopram Oxalate 10 Mg Tablet 10 Mg PO DAILY Aricept (Donepezil Hcl) 23 Mg Tablet 23 Mg PO QHS Depakote Sprinkle (Divalproex Sodium) 125 Mg Cap.sprink 250 Mg PO BID I have reviewed the current psychotropics carefully including drug interactions. Risk benefit ratio favors no change other than as noted in my dictated progress note. Diagnosis: Problems: (1) Dementia (2) Pleural disorder (3) Anxiety disorder (4) Dementia, vascular, with delusions (5) Dementia in Alzheimer's disease with delusions (6) Dementia in Alzheimer's disease with depression (7) Dementia, vascular, with depression (8) Impulse control disorder GERALD KUMAR MD Oct 15, 2017 20:20
--- NOTE | 2017-10-16 00:35 | PN ---
DATE: 10/13/2017 PSYCHIATRIC PROGRESS NOTE This late entry 10/13/2017 covers elements, not covered in my initial note of 10/13/2017. SUBJECTIVE: I met with the patient in the evening of 10/13/2017. Overall, the patient remains confused. He had some constipation, received laxatives, withdrawn, combative ____ asked to do anything sexually inappropriate with female nursing staff, but redirected. REVIEW OF SYSTEMS: Ambulation impaired, in [place]da chair. No CV, , pulmonary, eye, ENT system symptoms on review. MENTAL STATUS EXAM: Oriented to himself. Insight, judgment, recent and remote memory, attention, concentration, fund of knowledge poor consistent with his diagnosis mentioned in my initial note. IMPRESSION: Major neurocognitive disorder, Alzheimer, vascular with depression, delusion, behavioral disturbance. Rest unchanged. PLAN: Change Wellbutrin-XL 150 mg a day to Wellbutrin regular 75 mg a.m. and noon as he takes his medications crushed. Rest unchanged from initial note. He is a little more awake during the day. MAN Gigi KUMAR MD DR: SAKINA/yasemin JOB#: [id number] / [id number]
[2017-10-16 05:57] VITALS: BP 122/71
[2017-10-16] MEDS: MULTIVITAMIN with MINERAL TABLET. PO SCH (08:34)
[2017-10-16] MEDS: DOCUSATE SODIUM 100 MG CAPSULE PO SCH ×2 (08:34→19:52)
[2017-10-16] MEDS: VITAMIN B COMPLEX CAPSULE. PO SCH (08:34)
[2017-10-16] MEDS: buPROPion 75 MG TABLET PO SCH ×2 (08:34→13:05)
[2017-10-16] MEDS: DULoxetine HCL 60 MG CAPSULE.DR PO SCH (08:34)
[2017-10-16] MEDS: SENNOSIDES/DOCUSATE 8.6/50MG TABLET. PO SCH ×2 (08:34→19:52)
[2017-10-16] MEDS: busPIRone 5 MG TABLET. PO SCH ×2 (08:34→13:05)
[2017-10-16] MEDS: POLYETHYLENE GLYCOL 3350 17 GM PACKET. PO SCH (08:34)
[2017-10-16] MEDS: VALPROATE ACID 250 MG/5 ML ORAL SOLUTION PO SCH ×2 (08:35→19:51)
[2017-10-16] MEDS: risperiDONE ORAL 1 MG/ML 30ml BOTTLE. PO SCH ×3 (08:36→17:00)
--- NOTE | 2017-10-16 09:27 | PN ---
DATE: 09/29/2017 SUBJECTIVE: The patient continues to complain of generalized weakness and aches, more prominent on the shoulder blades on the right side. He has difficulty raising his upper extremities secondary to pain. It was reported that the patient was having bad day. He was agitated, refusing to get up in the morning and refusing to take his medications. OBJECTIVE: NEUROLOGIC: Obese white male, not in acute distress. He is sitting in the chair mumbling. He follows one-step command. Speech is slow, memory, judgment, and abstract thinking are poor. The patient denies hallucination or delusion. Cranial nerves: The pupils are pinpoint. The extraocular movements are intact. There is no nystagmus. There is no facial motor or sensory deficit. Hearing is intact bilaterally. The palate is elevated symmetrically. Sternocleidomastoid muscles are powerful bilaterally; otherwise, unremarkable. Motor examination: The patient has continued to have mild weakness of the left upper extremity and probably due to underlying degenerative joint disease, more prominent on the right shoulder, the strength also was 5/5 throughout. Sensory examination revealed normal pinprick and light touch senses. Deep tendon reflexes are symmetric and hypoactive without pathologic responses. Gait: The patient had unsteady stance VITAL SIGNS: Blood pressure 197/63, respiratory rate 20, pulse is 84, temperature 97.5, oxygen saturation 99% on room air. IMPRESSION: 1. 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 Miosis is common in a patient taking opioids, MAO inhibitors, and other antidepressants. 2. Dementia, anxiety, depressions with psychotropic features. 3. Gait disturbances. 4. Generalized joint disease, more prominent on the right upper extremity. RECOMMENDATIONS: 1. Continue with current medical and psychiatric care. 2. Physical therapy as tolerated. 3. Recommend x-ray of the right shoulder. M Kori REED MD DR: KATY/yasemin JOB#: [id number] / [id number]
--- NOTE | 2017-10-16 12:29 | PN ---
DATE: 10/02/2017 SUBJECTIVE: The patient denies new medical or neurological complaints. He continues to complain of pain of the right shoulder. He denies headaches, visual disturbances, nausea, vomiting, chest pain, shortness of breath, or palpitation. It was reported that the patient continued to have psychotic features with agitation, refusing care, and sometimes hitting his staff. OBJECTIVE: GENERAL: Obese white male, not in acute distress. VITAL SIGNS: Blood pressure ____, respiratory rate 20, pulse is 88, temperature 97.6, and oxygen saturation is 95%. HEENT: Normocephalic, atraumatic, otherwise unremarkable. NECK: Supple. Negative for carotid bruit, lymphadenopathy, or thyromegaly. LUNGS: Clear to A and P. CARDIOVASCULAR: Regular rate and rhythm, normal S1 and S2. EXTREMITIES: Negative for cyanosis, clubbing, or pitting edema. NEUROLOGICAL EXAM: Mental Status: The patient is alert and oriented to day, time and person. Speech is fluent. There is no language dysfunction. Memory, judgment, and abstract thinking are poor. The patient denies hallucination or delusion. Cranial nerves are consistent with bilateral pinpoint pupils, otherwise unremarkable. Motor Examination: No focal muscle bulk was seen. The tone is normal. The strength is 4/5 in the right upper and lower extremities probably secondary to pain. Strength was 5/5 throughout. Sensory examination revealed normal pinprick, light touch senses. Deep tendon reflexes are symmetric and hypoactive with absent Achilles responses. Gait not tested and the patient has unsteady stance. IMPRESSION: 1. Bilateral miosis, probably due to underlying antipsychotics and antidepressants. 2. Persistent weakness of the right upper extremity, probably due to underlying degenerative joint disease. 3. Multiple psychiatric problems including dementia of Alzheimer type, depression, and anxiety. RECOMMENDATIONS: 1. Continue with current medical and psychiatric care. 2. Physical therapy evaluation. M Kori REED MD DR: KATY/yasemin JOB#: [id number] / [id number]
--- NOTE | 2017-10-16 12:41 | PN ---
DATE: 10/05/2017 SUBJECTIVE: The patient denies any new medical neurological complaints. He continued to complain of generalized weakness and pain of the shoulders. It was reported that the patient continues to be sometimes agitated and sometimes not cooperative. OBJECTIVE: GENERAL: Obese white male, not in acute distress. VITAL SIGNS: Blood pressure 103/67, respiratory rate 18, pulse is 82, temperature 98.1, oxygen saturation 99% on room air. HEENT: Normocephalic, atraumatic, otherwise unremarkable. NECK: Supple. Negative for carotid bruit, lymphadenopathy or thyromegaly. LUNGS: Clear to A and P. CARDIOVASCULAR: Regular rate and rhythm. Normal S1, S2. ____. EXTREMITIES: Decreased range of motions of the right upper extremity, probably secondary to pain. NEUROLOGIC: The patient is alert and oriented x 3. The speech is fluent. There is no language dysfunction. Memory, judgment, and abstract thinking are impaired. The patient denies hallucination or delusion. Cranial nerves are intact except for bilateral miosis. Motor: No focal muscle bulk was seen. The strength was 4/5 in the right upper extremity, otherwise it was 5/5 throughout. Sensory examination revealed normal pinprick and light touch senses. Deep tendon reflexes were hypoactive with absent Achilles responses. Gait not tested. LABORATORY DATA: From 10/03/2017, revealed white blood cells of 3, hemoglobin of 13.1, hematocrit 38.2, platelet count 68,000. Chemistry: Sodium 150, potassium 4.9, chloride 112, CO2 of 31, BUN 14, creatinine 1, glucose 128, and calcium 8.7. IMPRESSION: 1. 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 2. Leukopenia and thrombocytopenia. 3. Multiple psychiatric problems include dementia of Alzheimer type, anxiety and depressions, behavior disturbances. RECOMMENDATIONS: 1. To monitor leukopenia and thrombocytopenia. 2. Continue with current medical and psychiatric care. 3. Physical therapy evaluation. M Kori REED MD DR: KATY/yasemin JOB#: [id number] / [id number]
[2017-10-16 16:14] VITALS: BP 170/91
[2017-10-16] MEDS: busPIRone 10 MG TABLET. PO SCH (17:00)
[2017-10-16] MEDS: DONEPEZIL 23 MG TABLET PO SCH (19:51)
[2017-10-16] MEDS: traZODone 50 MG TABLET. PO SCH (19:52)
--- NOTE | 2017-10-16 20:17 | PDOC ---
Exam Note: Cyrus Note: Please also refer to the separate dictated note~for this date of service dictated separately.~Patient seen individually. Discussed the patient with Nursing staff reviewed the chart.~Reviewed interim history and current functioning. Reviewed vital signs,~Labs/ Radiology~and current medications noted below. Continue current treatment with the changes noted in the dictated addendum note Assessment: Vital Signs: Vital Signs Date Time Temp Pulse Resp B/P (MAP) Pulse Ox O2 Delivery O2 Flow Rate FiO2 10/16/17 16:14 97.3 67 20 170/91 (117) 94 Room Air I&O Intake and Output 10/16/17 06:59 Intake Total 1440 ml Balance 1440 ml Intake Oral 1440 ml Current Medications: Meds: Current Medications Iohexol (Omnipaque 300 Mg/ml) 75 ml 1X ONCE IV Last administered on 21:29; Start 09/18/17 at 20:30; Stop 09/18/17 at 20:31; Status DC Lorazepam (Ativan) 2 mg 1X ONCE IV Last administered on 09/18/17 21:14; Start 09/18/17 at 20:30; Stop 09/18/17 at 20:31; Status DC Diphenhydramine HCl (Benadryl) 50 mg 1X ONCE IVP Last administered on 21:14; Start 09/18/17 at 20:30; Stop 09/18/17 at 20:31; Status DC Lactated Ringer's 1,000 ml @ 1,000 mls/hr 1X ONCE IV Last administered on 21:14; Start 09/18/17 at 20:30; Stop 09/18/17 at 21:29; Status DC Ziprasidone (Geodon Im) 20 mg 1X ONCE IM Last administered on 09/18/17 22:07 ; Start 09/18/17 at 22:30; Stop 09/18/17 at 22:31; Status DC Lorazepam (Ativan) 2 mg 1X ONCE IM ; Start 09/18/17 at 22:45; Stop 09/18/17 at 22:46; Status DC Ziprasidone (Geodon Im) 10 mg 1X ONCE IM ; Start 09/18/17 at 22:45; Stop at 22:46; Status DC Acetaminophen (Tylenol) 650 mg PRN Q6HRS PRN PO MILD PAIN / TEMP; Start at 01:30; Stop 10/06/17 at 10:13; Status DC Multi-Ingredient Ointment (Analgesic [place]) 1 betzy PRN QID PRN TP MUSCLE PAIN; Start 09/19/17 at 01:30 Al Hydroxide/Mg Hydroxide (Mylanta Plus Xs) 15 ml PRN AFTMEALHC PRN PO DYSPEPSIA; Start 09/19/17 at 01:30 Magnesium Hydroxide (Milk Of Magnesia) 2,400 mg PRN QHS PRN PO CONSTIPATION Last administered on 10/14/17 23:25; Start 09/19/17 at 01:30 Divalproex Sodium (Depakote Sprinkles) 250 mg BID PO Last administered on 09/19 08:04; Start 09/19/17 at 09:00; Stop 09/19/17 at 19:02; Status DC Donepezil HCl (Aricept) 23 mg QHS PO Last administered on 10/16/17 19:51; Start 09/19/17 at 21:00 Lorazepam (Ativan) 0.25 mg PRN Q4HRS PRN PO ANXIETY / AGITATION Last administered on 09/26/17 17:47; Start 09/19/17 at 01:30 Quetiapine Fumarate (SEROquel) 25 mg QHS PO Last administered on 09/23/17 19: 31; Start 09/19/17 at 21:00; Stop 09/24/17 at 09:56; Status DC Trazodone HCl (Desyrel) 125 mg QHS PO Last administered on 10/16/17 19:52; Start 09/19/17 at 21:00 Citalopram Hydrobromide (CeleXA) 20 mg DAILY PO Last administered on 09:29; Start 09/19/17 at 09:00; Stop 10/03/17 at 18:16; Status DC Acetaminophen (Tylenol) 650 mg PRN Q6HRS PRN PO PAIN / TEMP; Start 09/19/17 at 06:15; Status UNV Magnesium Hydroxide (Milk Of Magnesia) 2,400 mg PRN QHS PRN PO CONSTIPATION; Start 09/19/17 at 06:15; Status UNV Potassium Chloride (Klor-Con) 20 meq BID PO Last administered on 10/05/17 09: 11; Start 09/19/17 at 09:00; Stop 10/05/17 at 14:04; Status DC Senna/Docusate Sodium (Senna Plus) 2 tab QHS PO Last administered on 20:01; Start 09/19/17 at 21:00; Stop 10/14/17 at 17:37; Status DC Vitamin B Complex 1 cap BID PO Last administered on 09/20/17 09:01; Start at 09:00; Stop 09/21/17 at 14:27; Status DC Multivitamins/ Calcium (Thera-M Plus) 1 tab DAILY PO Last administered on 10/16 08:34; Start 09/19/17 at 09:00 Divalproex Sodium (Depakote Sprinkles) 375 mg BID PO Last administered on 10:03; Start 09/19/17 at 21:00; Stop 09/24/17 at 18:07; Status DC Quetiapine Fumarate (SEROquel) 12.5 mg DAILY PO Last administered on 09/22/17 10:49; Start 09/21/17 at 09:00; Stop 09/22/17 at 19:35; Status DC Vitamin B Complex 1 cap DAILY PO Last administered on 10/16/17 08:34; Start 09/22/17 at 09:00 Quetiapine Fumarate (SEROquel) 12.5 mg TID@0900,1400,1700 PO Last administered on 09/23/17 17:04; Start 09/23/17 at 09:00; Stop 09/24/17 at 09:56; Status DC Divalproex Sodium (Depakote Sprinkles) 500 mg BID PO Last administered on 10/06 09:37; Start 09/24/17 at 21:00; Stop 10/06/17 at 10:31; Status DC Olanzapine (ZyPREXA ZYDIS) 2.5 mg PRN Q2HR PRN PO PSYCHOSIS Last administered on 09/28/17 08:55; Start 09/26/17 at 18:30 Risperidone (RisperDAL) 0.125 mg DAILY@0900,1400,1700 PO Last administered on 09/30/17 17:00; Start 09/28/17 at 14:00; Stop 09/30/17 at 19:17; Status DC Risperidone (RisperDAL) 0.125 mg DAILY@1400 PO Last administered on 10/05/17 13:47; Start 10/01/17 at 14:00; Stop 10/06/17 at 10:16; Status DC Risperidone (RisperDAL) 0.25 mg BID@0900,1700 PO Last administered on 09:38; Start 10/01/17 at 09:00; Stop 10/06/17 at 10:18; Status DC Buspirone HCl (Buspar) 5 mg TID@0900,1400,1700 PO Last administered on 09:10; Start 10/03/17 at 09:00; Stop 10/05/17 at 11:21; Status DC Guaifenesin (MUCINEX ER with DM) 1 tab BID PO Last administered on 10/08/17 07:50; Start 10/03/17 at 21:00; Stop 10/08/17 at 21:00; Status DC Duloxetine HCl (Cymbalta) 30 mg DAILY PO Last administered on 10/04/17 09:37 ; Start 10/04/17 at 09:00; Stop 10/04/17 at 18:59; Status DC Duloxetine HCl (Cymbalta) 60 mg DAILY PO Last administered on 10/16/17 08:34 ; Start 10/05/17 at 09:00 Buspirone HCl (Buspar) 5 mg BID92 PO Last administered on 10/16/17 13:05; Start 10/05/17 at 14:00 Buspirone HCl (Buspar) 10 mg DAILY@1700 PO Last administered on 10/16/17 17: 00; Start 10/05/17 at 17:00 Sodium Polystyrene Sulfonate (Kayexalate) 40 gm 1X ONCE PO Last administered on 10/05/17 14:50; Start 10/05/17 at 15:00; Stop 10/05/17 at 15:01; Status DC Acetaminophen (Tylenol) 650 mg PRN Q6HRS PRN PO PAIN; Start 10/06/17 at 10:15 Risperidone (RisperDAL) 0.125 mg DAILY@1400 PO Last administered on 10/07/17 13:46; Start 10/06/17 at 14:00; Stop 10/07/17 at 14:31; Status DC Risperidone (RisperDAL) 0.25 mg BID@0900,1700 PO Last administered on 08:22; Start 10/06/17 at 17:00; Stop 10/07/17 at 14:32; Status DC Valproic Acid (Depakene) 500 mg BID PO Last administered on 10/16/17 19:51; Start 10/06/17 at 10:30 Risperidone (RisperDAL) 0.125 mg DAILY@1400 PO Last administered on 10/16/17 13:06; Start 10/07/17 at 14:31 Risperidone (RisperDAL) 0.25 mg BID@0900,1700 PO Last administered on 17:00; Start 10/07/17 at 14:32 Bupropion HCl (Wellbutrin Xl) 150 mg DAILY PO Last administered on 10/12/17 10:32; Start 10/12/17 at 09:00; Stop 10/13/17 at 18:02; Status DC Docusate Sodium (Colace) 100 mg BID PO Last administered on 10/16/17 19:52; Start 10/12/17 at 21:00 Polyethylene Glycol (miraLAX) 17 gm DAILY PO Last administered on 10/16/17 08 :34; Start 10/13/17 at 09:00 Bupropion HCl (Wellbutrin) 75 mg BID@0900,1200 PO Last administered on 13:05; Start 10/14/17 at 09:00 Magnesium Citrate (Citroma) 296 ml PRN 1X PRN PO CONSTIPATION Last administered on 10/14/17 12:14; Start 10/14/17 at 10:30 Senna/Docusate Sodium (Senna Plus) 2 tab BID PO Last administered on 19:52; Start 10/14/17 at 21:00 Active Scripts Active Reported Milk Of Magnesia (Magnesium Hydroxide) 400 Mg/5 Ml Oral.susp 2,400 Mg PO PRN QHS PRN Ativan (Lorazepam) 0.5 Mg Tablet 0.25 Mg PO PRN Q4HRS PRN Tylenol (Acetaminophen) 325 Mg Tablet 650 Mg PO PRN Q6HRS PRN Trazodone Hcl 50 Mg Tablet 125 Mg PO QHS Senna S Tablet (Sennosides/Docusate Sodium) 1 Each Tablet 2 Tab PO QHS Seroquel (Quetiapine Fumarate) 25 Mg Tablet 25 Mg PO QHS Klor-Con M20 (Potassium Chloride) 20 Meq Tab.er.prt 20 Meq PO BID Multivitamins (Multivitamin) 1 Each Tablet 1 Tab PO DAILY [id number] Tablet (Methyl-B12/L-Mefolate/B6 Phos) 1 Each Tablet 1 Tab PO BID Escitalopram Oxalate 10 Mg Tablet 10 Mg PO DAILY Aricept (Donepezil Hcl) 23 Mg Tablet 23 Mg PO QHS Depakote Sprinkle (Divalproex Sodium) 125 Mg Cap.sprink 250 Mg PO BID I have reviewed the current psychotropics carefully including drug interactions. Risk benefit ratio favors no change other than as noted in my dictated progress note. Diagnosis: Problems: (1) Dementia (2) Pleural disorder (3) Anxiety disorder (4) Dementia, vascular, with delusions (5) Dementia in Alzheimer's disease with delusions (6) Dementia in Alzheimer's disease with depression (7) Dementia, vascular, with depression (8) Impulse control disorder GERALD KUMAR MD Oct 16, 2017 20:17
--- NOTE | 2017-10-16 22:07 | PN ---
DATE: 10/15/2017 This is a late entry 10/15/2017 covers elements not covered in my initial note 10/15/2017. I met with the patient in the evening of 10/15/2017. The patient has been agitated with cares, drowsy at times, 1:00 p.m. Risperdal oral was held due to sedation, resisted to treatment at 5:00 p.m. Had a bowel movement 10/14/2017. REVIEW OF SYSTEMS: Ambulation impaired, in Broda chair. No CV, , pulmonary, eye, ENT system symptoms on review. Reliability poor. MENTAL STATUS EXAM: Oriented to himself. Insight, judgment, recent and remote memory, attention, concentration, fund of knowledge poor, consistent with his diagnosis mentioned in my initial note. IMPRESSION: Major neurocognitive disorder, Alzheimer, vascular with depression, delusion, behavioral disturbance. Rest unchanged. PLAN: Continue psychotropics mentioned in my initial note. Adjust as clinically indicated. MAN Gigi KUMAR MD DR: SAKINA/yasemin JOB#: [id number] / [id number]
[2017-10-17] MEDS: POLYETHYLENE GLYCOL 3350 17 GM PACKET. PO SCH (08:37)
[2017-10-17] MEDS: VITAMIN B COMPLEX CAPSULE. PO SCH (08:37)
[2017-10-17] MEDS: DOCUSATE SODIUM 100 MG CAPSULE PO SCH ×2 (08:37→19:29)
[2017-10-17] MEDS: DULoxetine HCL 60 MG CAPSULE.DR PO SCH (08:37)
[2017-10-17] MEDS: buPROPion 75 MG TABLET PO SCH ×2 (08:37→12:00)
[2017-10-17] MEDS: VALPROATE ACID 250 MG/5 ML ORAL SOLUTION PO SCH ×2 (08:37→19:28)
[2017-10-17] MEDS: MULTIVITAMIN with MINERAL TABLET. PO SCH (08:37)
[2017-10-17] MEDS: busPIRone 5 MG TABLET. PO SCH ×2 (08:37→13:25)
[2017-10-17] MEDS: SENNOSIDES/DOCUSATE 8.6/50MG TABLET. PO SCH ×2 (08:37→19:29)
[2017-10-17] MEDS: risperiDONE ORAL 1 MG/ML 30ml BOTTLE. PO SCH ×3 (08:38→17:23)
[2017-10-17 13:20] VITALS: BP 113/71
[2017-10-17 15:57] VITALS: BP 115/76
[2017-10-17] MEDS: busPIRone 10 MG TABLET. PO SCH (17:23)
[2017-10-17] MEDS: DONEPEZIL 23 MG TABLET PO SCH (19:29)
[2017-10-17] MEDS: traZODone 50 MG TABLET. PO SCH (19:29)
--- NOTE | 2017-10-17 20:14 | PDOC ---
Exam Note: Cyrus Note: Please also refer to the separate dictated note~for this date of service dictated separately.~Patient seen individually. Discussed the patient with Nursing staff reviewed the chart.~Reviewed interim history and current functioning. Reviewed vital signs,~Labs/ Radiology~and current medications noted below. Continue current treatment with the changes noted in the dictated addendum note Assessment: Vital Signs: Vital Signs Date Time Temp Pulse Resp B/P (MAP) Pulse Ox O2 Delivery O2 Flow Rate FiO2 10/17/17 15:57 97.8 85 18 115/76 (89) 96 10/16/17 16:14 Room Air I&O Intake and Output 10/17/17 07:00 Intake Total 580 ml Balance 580 ml Intake Oral 580 ml # Voids 1 Current Medications: Meds: Current Medications Iohexol (Omnipaque 300 Mg/ml) 75 ml 1X ONCE IV Last administered on 21:29; Start 09/18/17 at 20:30; Stop 09/18/17 at 20:31; Status DC Lorazepam (Ativan) 2 mg 1X ONCE IV Last administered on 09/18/17 21:14; Start 09/18/17 at 20:30; Stop 09/18/17 at 20:31; Status DC Diphenhydramine HCl (Benadryl) 50 mg 1X ONCE IVP Last administered on 21:14; Start 09/18/17 at 20:30; Stop 09/18/17 at 20:31; Status DC Lactated Ringer's 1,000 ml @ 1,000 mls/hr 1X ONCE IV Last administered on 21:14; Start 09/18/17 at 20:30; Stop 09/18/17 at 21:29; Status DC Ziprasidone (Geodon Im) 20 mg 1X ONCE IM Last administered on 09/18/17 22:07 ; Start 09/18/17 at 22:30; Stop 09/18/17 at 22:31; Status DC Lorazepam (Ativan) 2 mg 1X ONCE IM ; Start 09/18/17 at 22:45; Stop 09/18/17 at 22:46; Status DC Ziprasidone (Geodon Im) 10 mg 1X ONCE IM ; Start 09/18/17 at 22:45; Stop at 22:46; Status DC Acetaminophen (Tylenol) 650 mg PRN Q6HRS PRN PO MILD PAIN / TEMP; Start at 01:30; Stop 10/06/17 at 10:13; Status DC Multi-Ingredient Ointment (Analgesic [place]) 1 betzy PRN QID PRN TP MUSCLE PAIN; Start 09/19/17 at 01:30 Al Hydroxide/Mg Hydroxide (Mylanta Plus Xs) 15 ml PRN AFTMEALHC PRN PO DYSPEPSIA; Start 09/19/17 at 01:30 Magnesium Hydroxide (Milk Of Magnesia) 2,400 mg PRN QHS PRN PO CONSTIPATION Last administered on 10/14/17 23:25; Start 09/19/17 at 01:30 Divalproex Sodium (Depakote Sprinkles) 250 mg BID PO Last administered on 09/19 08:04; Start 09/19/17 at 09:00; Stop 09/19/17 at 19:02; Status DC Donepezil HCl (Aricept) 23 mg QHS PO Last administered on 10/17/17 19:29; Start 09/19/17 at 21:00 Lorazepam (Ativan) 0.25 mg PRN Q4HRS PRN PO ANXIETY / AGITATION Last administered on 09/26/17 17:47; Start 09/19/17 at 01:30 Quetiapine Fumarate (SEROquel) 25 mg QHS PO Last administered on 09/23/17 19: 31; Start 09/19/17 at 21:00; Stop 09/24/17 at 09:56; Status DC Trazodone HCl (Desyrel) 125 mg QHS PO Last administered on 10/17/17 19:29; Start 09/19/17 at 21:00 Citalopram Hydrobromide (CeleXA) 20 mg DAILY PO Last administered on 09:29; Start 09/19/17 at 09:00; Stop 10/03/17 at 18:16; Status DC Acetaminophen (Tylenol) 650 mg PRN Q6HRS PRN PO PAIN / TEMP; Start 09/19/17 at 06:15; Status UNV Magnesium Hydroxide (Milk Of Magnesia) 2,400 mg PRN QHS PRN PO CONSTIPATION; Start 09/19/17 at 06:15; Status UNV Potassium Chloride (Klor-Con) 20 meq BID PO Last administered on 10/05/17 09: 11; Start 09/19/17 at 09:00; Stop 10/05/17 at 14:04; Status DC Senna/Docusate Sodium (Senna Plus) 2 tab QHS PO Last administered on 20:01; Start 09/19/17 at 21:00; Stop 10/14/17 at 17:37; Status DC Vitamin B Complex 1 cap BID PO Last administered on 09/20/17 09:01; Start at 09:00; Stop 09/21/17 at 14:27; Status DC Multivitamins/ Calcium (Thera-M Plus) 1 tab DAILY PO Last administered on 10/17 08:37; Start 09/19/17 at 09:00 Divalproex Sodium (Depakote Sprinkles) 375 mg BID PO Last administered on 10:03; Start 09/19/17 at 21:00; Stop 09/24/17 at 18:07; Status DC Quetiapine Fumarate (SEROquel) 12.5 mg DAILY PO Last administered on 09/22/17 10:49; Start 09/21/17 at 09:00; Stop 09/22/17 at 19:35; Status DC Vitamin B Complex 1 cap DAILY PO Last administered on 10/17/17 08:37; Start 09/22/17 at 09:00 Quetiapine Fumarate (SEROquel) 12.5 mg TID@0900,1400,1700 PO Last administered on 09/23/17 17:04; Start 09/23/17 at 09:00; Stop 09/24/17 at 09:56; Status DC Divalproex Sodium (Depakote Sprinkles) 500 mg BID PO Last administered on 10/06 09:37; Start 09/24/17 at 21:00; Stop 10/06/17 at 10:31; Status DC Olanzapine (ZyPREXA ZYDIS) 2.5 mg PRN Q2HR PRN PO PSYCHOSIS Last administered on 09/28/17 08:55; Start 09/26/17 at 18:30 Risperidone (RisperDAL) 0.125 mg DAILY@0900,1400,1700 PO Last administered on 09/30/17 17:00; Start 09/28/17 at 14:00; Stop 09/30/17 at 19:17; Status DC Risperidone (RisperDAL) 0.125 mg DAILY@1400 PO Last administered on 10/05/17 13:47; Start 10/01/17 at 14:00; Stop 10/06/17 at 10:16; Status DC Risperidone (RisperDAL) 0.25 mg BID@0900,1700 PO Last administered on 09:38; Start 10/01/17 at 09:00; Stop 10/06/17 at 10:18; Status DC Buspirone HCl (Buspar) 5 mg TID@0900,1400,1700 PO Last administered on 09:10; Start 10/03/17 at 09:00; Stop 10/05/17 at 11:21; Status DC Guaifenesin (MUCINEX ER with DM) 1 tab BID PO Last administered on 10/08/17 07:50; Start 10/03/17 at 21:00; Stop 10/08/17 at 21:00; Status DC Duloxetine HCl (Cymbalta) 30 mg DAILY PO Last administered on 10/04/17 09:37 ; Start 10/04/17 at 09:00; Stop 10/04/17 at 18:59; Status DC Duloxetine HCl (Cymbalta) 60 mg DAILY PO Last administered on 10/17/17 08:37 ; Start 10/05/17 at 09:00 Buspirone HCl (Buspar) 5 mg BID92 PO Last administered on 10/17/17 13:25; Start 10/05/17 at 14:00 Buspirone HCl (Buspar) 10 mg DAILY@1700 PO Last administered on 10/17/17 17: 23; Start 10/05/17 at 17:00 Sodium Polystyrene Sulfonate (Kayexalate) 40 gm 1X ONCE PO Last administered on 10/05/17 14:50; Start 10/05/17 at 15:00; Stop 10/05/17 at 15:01; Status DC Acetaminophen (Tylenol) 650 mg PRN Q6HRS PRN PO PAIN; Start 10/06/17 at 10:15 Risperidone (RisperDAL) 0.125 mg DAILY@1400 PO Last administered on 10/07/17 13:46; Start 10/06/17 at 14:00; Stop 10/07/17 at 14:31; Status DC Risperidone (RisperDAL) 0.25 mg BID@0900,1700 PO Last administered on 08:22; Start 10/06/17 at 17:00; Stop 10/07/17 at 14:32; Status DC Valproic Acid (Depakene) 500 mg BID PO Last administered on 10/17/17 19:28; Start 10/06/17 at 10:30 Risperidone (RisperDAL) 0.125 mg DAILY@1400 PO Last administered on 10/17/17 13:29; Start 10/07/17 at 14:31 Risperidone (RisperDAL) 0.25 mg BID@0900,1700 PO Last administered on 17:23; Start 10/07/17 at 14:32 Bupropion HCl (Wellbutrin Xl) 150 mg DAILY PO Last administered on 10/12/17 10:32; Start 10/12/17 at 09:00; Stop 10/13/17 at 18:02; Status DC Docusate Sodium (Colace) 100 mg BID PO Last administered on 10/17/17 19:29; Start 10/12/17 at 21:00 Polyethylene Glycol (miraLAX) 17 gm DAILY PO Last administered on 10/17/17 08 :37; Start 10/13/17 at 09:00 Bupropion HCl (Wellbutrin) 75 mg BID@0900,1200 PO Last administered on 12:00; Start 10/14/17 at 09:00 Magnesium Citrate (Citroma) 296 ml PRN 1X PRN PO CONSTIPATION Last administered on 10/14/17 12:14; Start 10/14/17 at 10:30 Senna/Docusate Sodium (Senna Plus) 2 tab BID PO Last administered on 19:29; Start 10/14/17 at 21:00 Active Scripts Active Reported Milk Of Magnesia (Magnesium Hydroxide) 400 Mg/5 Ml Oral.susp 2,400 Mg PO PRN QHS PRN Ativan (Lorazepam) 0.5 Mg Tablet 0.25 Mg PO PRN Q4HRS PRN Tylenol (Acetaminophen) 325 Mg Tablet 650 Mg PO PRN Q6HRS PRN Trazodone Hcl 50 Mg Tablet 125 Mg PO QHS Senna S Tablet (Sennosides/Docusate Sodium) 1 Each Tablet 2 Tab PO QHS Seroquel (Quetiapine Fumarate) 25 Mg Tablet 25 Mg PO QHS Klor-Con M20 (Potassium Chloride) 20 Meq Tab.er.prt 20 Meq PO BID Multivitamins (Multivitamin) 1 Each Tablet 1 Tab PO DAILY E-Somhva-W6-B12 Tablet (Methyl-B12/L-Mefolate/B6 Phos) 1 Each Tablet 1 Tab PO BID Escitalopram Oxalate 10 Mg Tablet 10 Mg PO DAILY Aricept (Donepezil Hcl) 23 Mg Tablet 23 Mg PO QHS Depakote Sprinkle (Divalproex Sodium) 125 Mg Cap.sprink 250 Mg PO BID I have reviewed the current psychotropics carefully including drug interactions. Risk benefit ratio favors no change other than as noted in my dictated progress note. Diagnosis: Problems: (1) Dementia (2) Pleural disorder (3) Anxiety disorder (4) Dementia, vascular, with delusions (5) Dementia in Alzheimer's disease with delusions (6) Dementia in Alzheimer's disease with depression (7) Dementia, vascular, with depression (8) Impulse control disorder GERALD KUMAR MD Oct 17, 2017 20:14
[2017-10-18 05:15] VITALS: BP 93/52
[2017-10-18] MEDS: buPROPion 75 MG TABLET PO SCH ×2 (09:29→12:00)
[2017-10-18] MEDS: MULTIVITAMIN with MINERAL TABLET. PO SCH (09:29)
[2017-10-18] MEDS: SENNOSIDES/DOCUSATE 8.6/50MG TABLET. PO SCH ×2 (09:29→19:26)
[2017-10-18] MEDS: DOCUSATE SODIUM 100 MG CAPSULE PO SCH ×2 (09:29→19:26)
[2017-10-18] MEDS: DULoxetine HCL 60 MG CAPSULE.DR PO SCH (09:29)
[2017-10-18] MEDS: busPIRone 5 MG TABLET. PO SCH ×2 (09:29→13:39)
[2017-10-18] MEDS: VITAMIN B COMPLEX CAPSULE. PO SCH (09:29)
[2017-10-18] MEDS: risperiDONE ORAL 1 MG/ML 30ml BOTTLE. PO SCH ×3 (09:29→16:48)
[2017-10-18] MEDS: POLYETHYLENE GLYCOL 3350 17 GM PACKET. PO SCH (09:29)
[2017-10-18] MEDS: VALPROATE ACID 250 MG/5 ML ORAL SOLUTION PO SCH ×2 (09:29→19:25)
[2017-10-18 09:33] LABS: BASO % 0 % (0-3); EOS % 1 % (0-3); HEMATOCRIT 40.1 % (39.0-53.0); HEMOGLOBIN 13.8 g/dL (13.0-17.5); LYMPH # 0.7 x10^3/uL (1.0-4.8); LYMPH % 14 % (24-48); MEAN CORPUSCULAR HEMOGLOBIN 35 pg (25-35); MEAN CORPUSCULAR HGB CONC 34 g/dL (31-37); MEAN CORPUSCULAR VOLUME 102 fL (79-100); MONO # 0.6 x10^3/uL (0.0-1.1); MONO % 11 % (0-9); NEUT # 3.9 x10^3uL (1.8-7.7); NEUT % 74 % (31-73); PLATELET COUNT 104 x10^3/uL (140-400); RED BLOOD COUNT 3.95 x10^6/uL (4.30-5.70); RED CELL DISTRIBUTION WIDTH 15.7 % (11.5-14.5); WHITE BLOOD COUNT 5.2 x10^3/uL (4.0-11.0)
[2017-10-18 09:50] LABS: ALBUMIN 2.7 g/dL (3.4-5.0); ALBUMIN/GLOBULIN RATIO 0.8 (1.0-1.7); CALCIUM 8.6 mg/dL (8.5-10.1); CREATININE 1.2 mg/dL (0.7-1.3); MAGNESIUM 2.5 mg/dL (1.8-2.4); POTASSIUM 4.7 mmol/L (3.5-5.1); TOTAL PROTEIN 6.3 g/dL (6.4-8.2)
--- NOTE | 2017-10-18 12:30 | PN ---
DATE: 10/16/2017 This late entry 10/16/2017 covers elements not covered in my initial note 10/16/2017. SUBJECTIVE: I met with the patient in the evening of 10/16/2017. The patient slept 7 hours previous evening, done better during the day per nursing report, still very confused. REVIEW OF SYSTEMS: Ambulation impaired, in wheelchair, not very interactive with me, disorganized. Insight, judgment, recent and remote memory, attention, concentration, fund of knowledge poor, consistent with his diagnosis. No CV, , pulmonary, eye, ENT system symptoms on further review of systems. LABORATORY DATA: Reviewed. IMPRESSION: Major neurocognitive disorder, Alzheimer, vascular with depression, delusion, behavioral disturbance. Rest unchanged from initial note. PLAN: Continue psychotropics mentioned in my initial note. Adjust as clinically indicated. MAN Gigi KUMAR MD DR: SAKINA/yasemin JOB#: [id number] / [id number]
[2017-10-18 16:07] VITALS: BP 122/85
[2017-10-18] MEDS: busPIRone 10 MG TABLET. PO SCH (16:48)
[2017-10-18] MEDS: traZODone 50 MG TABLET. PO SCH (19:25)
[2017-10-18] MEDS: DONEPEZIL 23 MG TABLET PO SCH (19:26)
--- NOTE | 2017-10-18 19:58 | PDOC ---
Exam Note: Cyrus Note: Please also refer to the separate dictated note~for this date of service dictated separately.~Patient seen individually. Discussed the patient with Nursing staff reviewed the chart.~Reviewed interim history and current functioning. Reviewed vital signs,~Labs/ Radiology~and current medications noted below. Continue current treatment with the changes noted in the dictated addendum note Assessment: Vital Signs: Vital Signs Date Time Temp Pulse Resp B/P (MAP) Pulse Ox O2 Delivery O2 Flow Rate FiO2 10/18/17 16:07 97.8 95 18 122/85 (97) 97 10/16/17 16:14 Room Air I&O Intake and Output 10/18/17 06:59 Intake Total 580 ml Balance 580 ml Intake Oral 580 ml # Voids 1 # Bowel Movements 2 Labs: Laboratory Tests Test 10/18/17 09:05 White Blood Count 5.2 x10^3/uL (4.0-11.0) # Red Blood Count 3.95 x10^6/uL (4.30-5.70) L Hemoglobin 13.8 g/dL (13.0-17.5) Hematocrit 40.1 % (39.0-53.0) Mean Corpuscular Volume 102 fL (79-100) H Mean Corpuscular Hemoglobin 35 pg (25-35) Mean Corpuscular Hemoglobin Concent 34 g/dL (31-37) Red Cell Distribution Width 15.7 % (11.5-14.5) H Platelet Count 104 x10^3/uL (140-400) L Neutrophils (%) (Auto) 74 % (31-73) H Lymphocytes (%) (Auto) 14 % (24-48) L Monocytes (%) (Auto) 11 % (0-9) H Eosinophils (%) (Auto) 1 % (0-3) Basophils (%) (Auto) 0 % (0-3) Neutrophils # (Auto) 3.9 x10^3uL (1.8-7.7) Lymphocytes # (Auto) 0.7 x10^3/uL (1.0-4.8) L Monocytes # (Auto) 0.6 x10^3/uL (0.0-1.1) Eosinophils # (Auto) 0.0 x10^3/uL (0.0-0.7) Basophils # (Auto) 0.0 x10^3/uL (0.0-0.2) Sodium Level 149 mmol/L (136-145) H Potassium Level 4.7 mmol/L (3.5-5.1) Chloride Level 113 mmol/L (98-107) H Carbon Dioxide Level 28 mmol/L (21-32) Anion Gap 8 (6-14) Blood Urea Nitrogen 16 mg/dL (8-26) Creatinine 1.2 mg/dL (0.7-1.3) Estimated GFR (Cockcroft-Gault) 58.0 BUN/Creatinine Ratio 13 (6-20) Glucose Level 120 mg/dL (70-99) H Calcium Level 8.6 mg/dL (8.5-10.1) Magnesium Level 2.5 mg/dL (1.8-2.4) H Total Bilirubin 1.0 mg/dL (0.2-1.0) Aspartate Amino Transferase (AST) 22 U/L (15-37) Alanine Aminotransferase (ALT) 25 U/L (16-63) Alkaline Phosphatase 108 U/L (46-116) Total Protein 6.3 g/dL (6.4-8.2) L Albumin 2.7 g/dL (3.4-5.0) L Albumin/Globulin Ratio 0.8 (1.0-1.7) L Current Medications: Meds: Current Medications Iohexol (Omnipaque 300 Mg/ml) 75 ml 1X ONCE IV Last administered on 21:29; Start 09/18/17 at 20:30; Stop 09/18/17 at 20:31; Status DC Lorazepam (Ativan) 2 mg 1X ONCE IV Last administered on 09/18/17 21:14; Start 09/18/17 at 20:30; Stop 09/18/17 at 20:31; Status DC Diphenhydramine HCl (Benadryl) 50 mg 1X ONCE IVP Last administered on 21:14; Start 09/18/17 at 20:30; Stop 09/18/17 at 20:31; Status DC Lactated Ringer's 1,000 ml @ 1,000 mls/hr 1X ONCE IV Last administered on 21:14; Start 09/18/17 at 20:30; Stop 09/18/17 at 21:29; Status DC Ziprasidone (Geodon Im) 20 mg 1X ONCE IM Last administered on 09/18/17 22:07 ; Start 09/18/17 at 22:30; Stop 09/18/17 at 22:31; Status DC Lorazepam (Ativan) 2 mg 1X ONCE IM ; Start 09/18/17 at 22:45; Stop 09/18/17 at 22:46; Status DC Ziprasidone (Geodon Im) 10 mg 1X ONCE IM ; Start 09/18/17 at 22:45; Stop at 22:46; Status DC Acetaminophen (Tylenol) 650 mg PRN Q6HRS PRN PO MILD PAIN / TEMP; Start at 01:30; Stop 10/06/17 at 10:13; Status DC Multi-Ingredient Ointment (Analgesic [place]) 1 betzy PRN QID PRN TP MUSCLE PAIN; Start 09/19/17 at 01:30 Al Hydroxide/Mg Hydroxide (Mylanta Plus Xs) 15 ml PRN AFTMEALHC PRN PO DYSPEPSIA; Start 09/19/17 at 01:30 Magnesium Hydroxide (Milk Of Magnesia) 2,400 mg PRN QHS PRN PO CONSTIPATION Last administered on 10/14/17 23:25; Start 09/19/17 at 01:30 Divalproex Sodium (Depakote Sprinkles) 250 mg BID PO Last administered on 09/19 08:04; Start 09/19/17 at 09:00; Stop 09/19/17 at 19:02; Status DC Donepezil HCl (Aricept) 23 mg QHS PO Last administered on 10/18/17 19:26; Start 09/19/17 at 21:00 Lorazepam (Ativan) 0.25 mg PRN Q4HRS PRN PO ANXIETY / AGITATION Last administered on 09/26/17 17:47; Start 09/19/17 at 01:30 Quetiapine Fumarate (SEROquel) 25 mg QHS PO Last administered on 09/23/17 19: 31; Start 09/19/17 at 21:00; Stop 09/24/17 at 09:56; Status DC Trazodone HCl (Desyrel) 125 mg QHS PO Last administered on 10/18/17 19:25; Start 09/19/17 at 21:00 Citalopram Hydrobromide (CeleXA) 20 mg DAILY PO Last administered on 09:29; Start 09/19/17 at 09:00; Stop 10/03/17 at 18:16; Status DC Acetaminophen (Tylenol) 650 mg PRN Q6HRS PRN PO PAIN / TEMP; Start 09/19/17 at 06:15; Status UNV Magnesium Hydroxide (Milk Of Magnesia) 2,400 mg PRN QHS PRN PO CONSTIPATION; Start 09/19/17 at 06:15; Status UNV Potassium Chloride (Klor-Con) 20 meq BID PO Last administered on 10/05/17 09: 11; Start 09/19/17 at 09:00; Stop 10/05/17 at 14:04; Status DC Senna/Docusate Sodium (Senna Plus) 2 tab QHS PO Last administered on 20:01; Start 09/19/17 at 21:00; Stop 10/14/17 at 17:37; Status DC Vitamin B Complex 1 cap BID PO Last administered on 09/20/17 09:01; Start at 09:00; Stop 09/21/17 at 14:27; Status DC Multivitamins/ Calcium (Thera-M Plus) 1 tab DAILY PO Last administered on 10/18 09:29; Start 09/19/17 at 09:00 Divalproex Sodium (Depakote Sprinkles) 375 mg BID PO Last administered on 10:03; Start 09/19/17 at 21:00; Stop 09/24/17 at 18:07; Status DC Quetiapine Fumarate (SEROquel) 12.5 mg DAILY PO Last administered on 09/22/17 10:49; Start 09/21/17 at 09:00; Stop 09/22/17 at 19:35; Status DC Vitamin B Complex 1 cap DAILY PO Last administered on 10/18/17 09:29; Start 09/22/17 at 09:00 Quetiapine Fumarate (SEROquel) 12.5 mg TID@0900,1400,1700 PO Last administered on 09/23/17 17:04; Start 09/23/17 at 09:00; Stop 09/24/17 at 09:56; Status DC Divalproex Sodium (Depakote Sprinkles) 500 mg BID PO Last administered on 10/06 09:37; Start 09/24/17 at 21:00; Stop 10/06/17 at 10:31; Status DC Olanzapine (ZyPREXA ZYDIS) 2.5 mg PRN Q2HR PRN PO PSYCHOSIS Last administered on 09/28/17 08:55; Start 09/26/17 at 18:30 Risperidone (RisperDAL) 0.125 mg DAILY@0900,1400,1700 PO Last administered on 09/30/17 17:00; Start 09/28/17 at 14:00; Stop 09/30/17 at 19:17; Status DC Risperidone (RisperDAL) 0.125 mg DAILY@1400 PO Last administered on 10/05/17 13:47; Start 10/01/17 at 14:00; Stop 10/06/17 at 10:16; Status DC Risperidone (RisperDAL) 0.25 mg BID@0900,1700 PO Last administered on 09:38; Start 10/01/17 at 09:00; Stop 10/06/17 at 10:18; Status DC Buspirone HCl (Buspar) 5 mg TID@0900,1400,1700 PO Last administered on 09:10; Start 10/03/17 at 09:00; Stop 10/05/17 at 11:21; Status DC Guaifenesin (MUCINEX ER with DM) 1 tab BID PO Last administered on 10/08/17 07:50; Start 10/03/17 at 21:00; Stop 10/08/17 at 21:00; Status DC Duloxetine HCl (Cymbalta) 30 mg DAILY PO Last administered on 10/04/17 09:37 ; Start 10/04/17 at 09:00; Stop 10/04/17 at 18:59; Status DC Duloxetine HCl (Cymbalta) 60 mg DAILY PO Last administered on 10/18/17 09:29 ; Start 10/05/17 at 09:00 Buspirone HCl (Buspar) 5 mg BID92 PO Last administered on 10/18/17 13:39; Start 10/05/17 at 14:00 Buspirone HCl (Buspar) 10 mg DAILY@1700 PO Last administered on 10/18/17 16: 48; Start 10/05/17 at 17:00 Sodium Polystyrene Sulfonate (Kayexalate) 40 gm 1X ONCE PO Last administered on 10/05/17 14:50; Start 10/05/17 at 15:00; Stop 10/05/17 at 15:01; Status DC Acetaminophen (Tylenol) 650 mg PRN Q6HRS PRN PO PAIN; Start 10/06/17 at 10:15 Risperidone (RisperDAL) 0.125 mg DAILY@1400 PO Last administered on 10/07/17 13:46; Start 10/06/17 at 14:00; Stop 10/07/17 at 14:31; Status DC Risperidone (RisperDAL) 0.25 mg BID@0900,1700 PO Last administered on 08:22; Start 10/06/17 at 17:00; Stop 10/07/17 at 14:32; Status DC Valproic Acid (Depakene) 500 mg BID PO Last administered on 10/18/17 19:25; Start 10/06/17 at 10:30 Risperidone (RisperDAL) 0.125 mg DAILY@1400 PO Last administered on 10/17/17 13:29; Start 10/07/17 at 14:31 Risperidone (RisperDAL) 0.25 mg BID@0900,1700 PO Last administered on 16:48; Start 10/07/17 at 14:32 Bupropion HCl (Wellbutrin Xl) 150 mg DAILY PO Last administered on 10/12/17 10:32; Start 10/12/17 at 09:00; Stop 10/13/17 at 18:02; Status DC Docusate Sodium (Colace) 100 mg BID PO Last administered on 10/18/17 19:26; Start 10/12/17 at 21:00 Polyethylene Glycol (miraLAX) 17 gm DAILY PO Last administered on 10/18/17 09 :29; Start 10/13/17 at 09:00 Bupropion HCl (Wellbutrin) 75 mg BID@0900,1200 PO Last administered on 09:29; Start 10/14/17 at 09:00 Magnesium Citrate (Citroma) 296 ml PRN 1X PRN PO CONSTIPATION Last administered on 10/14/17 12:14; Start 10/14/17 at 10:30 Senna/Docusate Sodium (Senna Plus) 2 tab BID PO Last administered on 19:26; Start 10/14/17 at 21:00 Active Scripts Active Reported Milk Of Magnesia (Magnesium Hydroxide) 400 Mg/5 Ml Oral.susp 2,400 Mg PO PRN QHS PRN Ativan (Lorazepam) 0.5 Mg Tablet 0.25 Mg PO PRN Q4HRS PRN Tylenol (Acetaminophen) 325 Mg Tablet 650 Mg PO PRN Q6HRS PRN Trazodone Hcl 50 Mg Tablet 125 Mg PO QHS Senna S Tablet (Sennosides/Docusate Sodium) 1 Each Tablet 2 Tab PO QHS Seroquel (Quetiapine Fumarate) 25 Mg Tablet 25 Mg PO QHS Klor-Con M20 (Potassium Chloride) 20 Meq Tab.er.prt 20 Meq PO BID Multivitamins (Multivitamin) 1 Each Tablet 1 Tab PO DAILY L-Sdctrv-D9-B12 Tablet (Methyl-B12/L-Mefolate/B6 Phos) 1 Each Tablet 1 Tab PO BID Escitalopram Oxalate 10 Mg Tablet 10 Mg PO DAILY Aricept (Donepezil Hcl) 23 Mg Tablet 23 Mg PO QHS Depakote Sprinkle (Divalproex Sodium) 125 Mg Cap.sprink 250 Mg PO BID I have reviewed the current psychotropics carefully including drug interactions. Risk benefit ratio favors no change other than as noted in my dictated progress note. Diagnosis: Problems: (1) Dementia (2) Pleural disorder (3) Anxiety disorder (4) Dementia, vascular, with delusions (5) Dementia in Alzheimer's disease with delusions (6) Dementia in Alzheimer's disease with depression (7) Dementia, vascular, with depression (8) Impulse control disorder GERALD KUMAR MD Oct 18, 2017 19:58
[2017-10-19] MEDS ORDERED: DOCU100C28 PO (02:21)
[2017-10-19] MEDS ORDERED: METH29OI TP (02:22)
[2017-10-19] MEDS ORDERED: POLY17PO5 PO (02:24)
[2017-10-19] MEDS ORDERED: DULO60CA6 PO (02:27)
[2017-10-19] MEDS ORDERED: OLAN5TAB5 PO (02:27)
[2017-10-19] MEDS ORDERED: BUPR75TA6 PO (02:30)
[2017-10-19] MEDS ORDERED: BUSP10TA PO (02:32)
[2017-10-19] MEDS ORDERED: BUSP5TAB PO (02:32)
[2017-10-19] MEDS ORDERED: RISP0.5T3 PO ×2 (02:33→02:34)
[2017-10-19 06:11] VITALS: BP 112/86
--- NOTE | 2017-10-19 09:30 | PN ---
DATE: 10/17/2017 PSYCHIATRIC PROGRESS NOTE This is a late entry 10/17/2017, covers elements not covered in my initial note 10/17/2017. SUBJECTIVE: I met with the patient the evening of 10/17/2017. Overall, the patient has been medically declining somewhat, had some tremors, Dr. Godfrey is following, oral intake is poor, states he is unable to lift his arms and consideration is being given to hospice care, resistive to medications. I returned a call from the patient's and had a lengthy discussion with her about the patient's psychotropics, his overall condition at [phone] (Nancy). REVIEW OF SYSTEMS: Ambulation impaired, in wheelchair. No CV, , pulmonary, eye, ENT system symptoms on review. Reliability poor. MENTAL STATUS EXAM: Oriented to himself. Insight, judgment, recent and remote memory, attention, concentration, fund of knowledge poor, consistent with his diagnoses mentioned in my initial note. IMPRESSION: Major neurocognitive disorder, Alzheimer, vascular with delusion, depression, behavioral disturbance. Rest unchanged from initial note. PLAN: Continue current psychotropics. If he continues to be somewhat withdrawn, sedated, we may stop the Depakote. Maintain Aricept, trazodone, Zyprexa p.r.n., Risperdal, BuSpar, Cymbalta and Wellbutrin for now. MAN Gigi KUMAR MD DR: SAKINA/yasemin JOB#: [id number] / [id number]
[2017-10-19] MEDS: MULTIVITAMIN with MINERAL TABLET. PO SCH (10:52)
[2017-10-19] MEDS: DOCUSATE SODIUM 100 MG CAPSULE PO SCH (10:52)
[2017-10-19] MEDS: busPIRone 5 MG TABLET. PO SCH (10:52)
[2017-10-19] MEDS: POLYETHYLENE GLYCOL 3350 17 GM PACKET. PO SCH (10:52)
[2017-10-19] MEDS: DULoxetine HCL 60 MG CAPSULE.DR PO SCH (10:52)
[2017-10-19] MEDS: VITAMIN B COMPLEX CAPSULE. PO SCH (10:52)
[2017-10-19] MEDS: VALPROATE ACID 250 MG/5 ML ORAL SOLUTION PO SCH (10:52)
[2017-10-19] MEDS: SENNOSIDES/DOCUSATE 8.6/50MG TABLET. PO SCH (10:52)
[2017-10-19] MEDS: buPROPion 75 MG TABLET PO SCH ×2 (10:52→11:49)
[2017-10-19] MEDS: risperiDONE ORAL 1 MG/ML 30ml BOTTLE. PO SCH (10:54)
--- NOTE | 2017-10-19 18:28 | PDOC ---
Exam Note: Cyrus Note: Please also refer to the separate dictated note~for this date of service dictated separately.~Patient seen individually. Discussed the patient with Nursing staff reviewed the chart.~Reviewed interim history and current functioning. Reviewed vital signs,~Labs/ Radiology~and current medications noted below. Continue current treatment with the changes noted in the dictated addendum note Assessment: Vital Signs: Vital Signs Date Time Temp Pulse Resp B/P (MAP) Pulse Ox O2 Delivery O2 Flow Rate FiO2 10/19/17 06:11 99.4 121 20 112/86 (95) 94 10/16/17 16:14 Room Air I&O Intake and Output 10/19/17 07:00 Intake Total 340 ml Balance 340 ml Intake Oral 340 ml # Voids 1 # Bowel Movements 1 Current Medications: Meds: Current Medications Iohexol (Omnipaque 300 Mg/ml) 75 ml 1X ONCE IV Last administered on 21:29; Start 09/18/17 at 20:30; Stop 09/18/17 at 20:31; Status DC Lorazepam (Ativan) 2 mg 1X ONCE IV Last administered on 09/18/17 21:14; Start 09/18/17 at 20:30; Stop 09/18/17 at 20:31; Status DC Diphenhydramine HCl (Benadryl) 50 mg 1X ONCE IVP Last administered on 21:14; Start 09/18/17 at 20:30; Stop 09/18/17 at 20:31; Status DC Lactated Ringer's 1,000 ml @ 1,000 mls/hr 1X ONCE IV Last administered on 21:14; Start 09/18/17 at 20:30; Stop 09/18/17 at 21:29; Status DC Ziprasidone (Geodon Im) 20 mg 1X ONCE IM Last administered on 09/18/17 22:07 ; Start 09/18/17 at 22:30; Stop 09/18/17 at 22:31; Status DC Lorazepam (Ativan) 2 mg 1X ONCE IM ; Start 09/18/17 at 22:45; Stop 09/18/17 at 22:46; Status DC Ziprasidone (Geodon Im) 10 mg 1X ONCE IM ; Start 09/18/17 at 22:45; Stop at 22:46; Status DC Acetaminophen (Tylenol) 650 mg PRN Q6HRS PRN PO MILD PAIN / TEMP; Start at 01:30; Stop 10/06/17 at 10:13; Status DC Multi-Ingredient Ointment (Analgesic [place]) 1 lynn PRN QID PRN TP MUSCLE PAIN; Start 09/19/17 at 01:30; Stop 10/19/17 at 12:36; Status DC Al Hydroxide/Mg Hydroxide (Mylanta Plus Xs) 15 ml PRN AFTMEALHC PRN PO DYSPEPSIA; Start 09/19/17 at 01:30; Stop 10/19/17 at 12:36; Status DC Magnesium Hydroxide (Milk Of Magnesia) 2,400 mg PRN QHS PRN PO CONSTIPATION Last administered on 10/14/17 23:25; Start 09/19/17 at 01:30; Stop 10/19/17 at 12:36; Status DC Divalproex Sodium (Depakote Sprinkles) 250 mg BID PO Last administered on 09/19 08:04; Start 09/19/17 at 09:00; Stop 09/19/17 at 19:02; Status DC Donepezil HCl (Aricept) 23 mg QHS PO Last administered on 10/18/17 19:26; Start 09/19/17 at 21:00; Stop 10/19/17 at 12:36; Status DC Lorazepam (Ativan) 0.25 mg PRN Q4HRS PRN PO ANXIETY / AGITATION Last administered on 09/26/17 17:47; Start 09/19/17 at 01:30; Stop 10/19/17 at 12: 36; Status DC Quetiapine Fumarate (SEROquel) 25 mg QHS PO Last administered on 09/23/17 19: 31; Start 09/19/17 at 21:00; Stop 09/24/17 at 09:56; Status DC Trazodone HCl (Desyrel) 125 mg QHS PO Last administered on 10/18/17 19:25; Start 09/19/17 at 21:00; Stop 10/19/17 at 12:36; Status DC Citalopram Hydrobromide (CeleXA) 20 mg DAILY PO Last administered on 09:29; Start 09/19/17 at 09:00; Stop 10/03/17 at 18:16; Status DC Acetaminophen (Tylenol) 650 mg PRN Q6HRS PRN PO PAIN / TEMP; Start 09/19/17 at 06:15; Status UNV Magnesium Hydroxide (Milk Of Magnesia) 2,400 mg PRN QHS PRN PO CONSTIPATION; Start 09/19/17 at 06:15; Status UNV Potassium Chloride (Klor-Con) 20 meq BID PO Last administered on 10/05/17 09: 11; Start 09/19/17 at 09:00; Stop 10/05/17 at 14:04; Status DC Senna/Docusate Sodium (Senna Plus) 2 tab QHS PO Last administered on 20:01; Start 09/19/17 at 21:00; Stop 10/14/17 at 17:37; Status DC Vitamin B Complex 1 cap BID PO Last administered on 09/20/17 09:01; Start at 09:00; Stop 09/21/17 at 14:27; Status DC Multivitamins/ Calcium (Thera-M Plus) 1 tab DAILY PO Last administered on 10/19 10:52; Start 09/19/17 at 09:00; Stop 10/19/17 at 12:36; Status DC Divalproex Sodium (Depakote Sprinkles) 375 mg BID PO Last administered on 10:03; Start 09/19/17 at 21:00; Stop 09/24/17 at 18:07; Status DC Quetiapine Fumarate (SEROquel) 12.5 mg DAILY PO Last administered on 09/22/17 10:49; Start 09/21/17 at 09:00; Stop 09/22/17 at 19:35; Status DC Vitamin B Complex 1 cap DAILY PO Last administered on 10/19/17 10:52; Start 09/22/17 at 09:00; Stop 10/19/17 at 12:36; Status DC Quetiapine Fumarate (SEROquel) 12.5 mg TID@0900,1400,1700 PO Last administered on 09/23/17 17:04; Start 09/23/17 at 09:00; Stop 09/24/17 at 09:56; Status DC Divalproex Sodium (Depakote Sprinkles) 500 mg BID PO Last administered on 10/06 09:37; Start 09/24/17 at 21:00; Stop 10/06/17 at 10:31; Status DC Olanzapine (ZyPREXA ZYDIS) 2.5 mg PRN Q2HR PRN PO PSYCHOSIS Last administered on 09/28/17 08:55; Start 09/26/17 at 18:30; Stop 10/19/17 at 12:36; Status DC Risperidone (RisperDAL) 0.125 mg DAILY@0900,1400,1700 PO Last administered on 09/30/17 17:00; Start 09/28/17 at 14:00; Stop 09/30/17 at 19:17; Status DC Risperidone (RisperDAL) 0.125 mg DAILY@1400 PO Last administered on 10/05/17 13:47; Start 10/01/17 at 14:00; Stop 10/06/17 at 10:16; Status DC Risperidone (RisperDAL) 0.25 mg BID@0900,1700 PO Last administered on 09:38; Start 10/01/17 at 09:00; Stop 10/06/17 at 10:18; Status DC Buspirone HCl (Buspar) 5 mg TID@0900,1400,1700 PO Last administered on 09:10; Start 10/03/17 at 09:00; Stop 10/05/17 at 11:21; Status DC Guaifenesin (MUCINEX ER with DM) 1 tab BID PO Last administered on 10/08/17 07:50; Start 10/03/17 at 21:00; Stop 10/08/17 at 21:00; Status DC Duloxetine HCl (Cymbalta) 30 mg DAILY PO Last administered on 10/04/17 09:37 ; Start 10/04/17 at 09:00; Stop 10/04/17 at 18:59; Status DC Duloxetine HCl (Cymbalta) 60 mg DAILY PO Last administered on 10/19/17 10:52 ; Start 10/05/17 at 09:00; Stop 10/19/17 at 12:36; Status DC Buspirone HCl (Buspar) 5 mg BID92 PO Last administered on 10/19/17 10:52; Start 10/05/17 at 14:00; Stop 10/19/17 at 12:36; Status DC Buspirone HCl (Buspar) 10 mg DAILY@1700 PO Last administered on 10/18/17 16: 48; Start 10/05/17 at 17:00; Stop 10/19/17 at 12:36; Status DC Sodium Polystyrene Sulfonate (Kayexalate) 40 gm 1X ONCE PO Last administered on 10/05/17 14:50; Start 10/05/17 at 15:00; Stop 10/05/17 at 15:01; Status DC Acetaminophen (Tylenol) 650 mg PRN Q6HRS PRN PO PAIN; Start 10/06/17 at 10:15 ; Stop 10/19/17 at 12:36; Status DC Risperidone (RisperDAL) 0.125 mg DAILY@1400 PO Last administered on 10/07/17 13:46; Start 10/06/17 at 14:00; Stop 10/07/17 at 14:31; Status DC Risperidone (RisperDAL) 0.25 mg BID@0900,1700 PO Last administered on 08:22; Start 10/06/17 at 17:00; Stop 10/07/17 at 14:32; Status DC Valproic Acid (Depakene) 500 mg BID PO Last administered on 10/19/17 10:52; Start 10/06/17 at 10:30; Stop 10/19/17 at 12:36; Status DC Risperidone (RisperDAL) 0.125 mg DAILY@1400 PO Last administered on 10/17/17 13:29; Start 10/07/17 at 14:31; Stop 10/19/17 at 12:36; Status DC Risperidone (RisperDAL) 0.25 mg BID@0900,1700 PO Last administered on 10:54; Start 10/07/17 at 14:32; Stop 10/19/17 at 12:36; Status DC Bupropion HCl (Wellbutrin Xl) 150 mg DAILY PO Last administered on 10/12/17 10:32; Start 10/12/17 at 09:00; Stop 10/13/17 at 18:02; Status DC Docusate Sodium (Colace) 100 mg BID PO Last administered on 10/19/17 10:52; Start 10/12/17 at 21:00; Stop 10/19/17 at 12:36; Status DC Polyethylene Glycol (miraLAX) 17 gm DAILY PO Last administered on 10/19/17 10 :52; Start 10/13/17 at 09:00; Stop 10/19/17 at 12:36; Status DC Bupropion HCl (Wellbutrin) 75 mg BID@0900,1200 PO Last administered on 10:52; Start 10/14/17 at 09:00; Stop 10/19/17 at 12:36; Status DC Magnesium Citrate (Citroma) 296 ml PRN 1X PRN PO CONSTIPATION Last administered on 10/14/17 12:14; Start 10/14/17 at 10:30; Stop 10/19/17 at 12 :36; Status DC Senna/Docusate Sodium (Senna Plus) 2 tab BID PO Last administered on 10:52; Start 10/14/17 at 21:00; Stop 10/19/17 at 12:36; Status DC Active Scripts Active Reported Risperidone 0.5 Mg Tablet 0.25 Mg PO BID@0900/1700 Risperidone 0.5 Mg Tablet 0.125 Mg PO DAILY@1400 Buspirone Hcl 10 Mg Tablet 10 Mg PO DAILY@1700 Buspirone Hcl 5 Mg Tablet 5 Mg PO BID92 Bupropion Hcl 75 Mg Tablet 75 Mg PO BID@0900/1200 Zyprexa Zydis (Olanzapine) 5 Mg Tab.rapdis 2.5 Mg PO PRN Q2HR PRN Cymbalta (Duloxetine Hcl) 60 Mg Capsule.dr 60 Mg PO DAILY Miralax (Polyethylene Glycol 3350) 17 Gm Powd.pack 17 Gm PO DAILY Analgesic [place] (Methyl Salicylate/Menthol) 28 Gm Oint...g. 1 Lynn TP PRN QID PRN Docusate Sodium 100 Mg Capsule 100 Mg PO BID Milk Of Magnesia (Magnesium Hydroxide) 400 Mg/5 Ml Oral.susp 2,400 Mg PO PRN QHS PRN Tylenol (Acetaminophen) 325 Mg Tablet 650 Mg PO PRN Q6HRS PRN Trazodone Hcl 50 Mg Tablet 125 Mg PO QHS Senna S Tablet (Sennosides/Docusate Sodium) 1 Each Tablet 2 Tab PO BID I have reviewed the current psychotropics carefully including drug interactions. Risk benefit ratio favors no change other than as noted in my dictated progress note. Diagnosis: Problems: (1) Impulse control disorder (2) Dementia, vascular, with depression (3) Dementia in Alzheimer's disease with depression (4) Dementia in Alzheimer's disease with delusions (5) Dementia, vascular, with delusions (6) Anxiety disorder GERALD KUMAR MD Oct 19, 2017 18:28
--- NOTE | 2017-10-20 23:14 | DS ---
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 REASON FOR ADMISSION: Please refer to the admission history for details. Briefly, the patient is an 82-year-old male referred to us from [facility] by his primary care physician doctor, a psychiatrist on account of worsening confusion after the patient was hitting peers at the longterm, increased agitation, aggressive, disruptive behaviors that were deemed dangerous at the longterm and need failed outpatient psychiatric interventions. SIGNIFICANT FINDINGS AND CLINICAL COURSE: Following admission, the patient was seen daily individually by myself from a psychiatric standpoint, medical followup per Dr. Urena/Dr. Trotter. The patient was quite abrasive, aggressive, agitated. Adjustments were made in his psychotropics and he seemed to do better behaviorally on a combination of Depakote 500 mg b.i.d., Aricept 23 mg a day, trazodone 125 mg at bedtime, Ativan p.r.n., Zyprexa p.r.n., Risperdal 0.125 mg at 2:00 p.m., 0.25 mg at 09:00 a.m. and 5:00 p.m., BuSpar 5 mg at 09:00 a.m., 2:00 p.m., 10 mg at 5:00 p.m., Cymbalta 60 mg a day, Wellbutrin had been added 75 mg b.i.d. because of his withdrawal apathy, motivation as part of his depressive symptoms and seemed to help with this. However, prior to discharge, he was quite sedated and the Depakote was discontinued and it was felt the Aricept would be of little benefit and was stopped as well since he was being discharged on hospice care. Prior to discharge on 10/19/2017, ambulation impaired, in Broda chair. No CV, , pulmonary, eye, ENT system symptoms on review. Reliability poor. MENTAL STATUS EXAM: Oriented to himself. Insight, judgment, recent and remote memory, attention, concentration, fund of knowledge poor, consistent with his diagnosis. I also had a lengthy telephone conversation with the patient's the evening of 10/18/2017. She wanted to make sure we done all we could "from a psychiatric standpoint for stabilization. We went over every step, we done and as part of his treatment and follow up recommendations shared with her. CONDITION AT DISCHARGE: improved. FINAL DIAGNOSES: Major neurocognitive disorder, Alzheimer, vascular with depression, delusion, behavioral disturbance; anxiety disorder, unspecified; impulse control disorder, unspecified. Rest is unchanged from initial note. DISCHARGE MEDICATIONS: Please refer to the EMRAD and has noted the Depakote and Aricept was stopped prior to discharge. Outpatient psychiatric and medical followup at the longterm where he will be considered for hospice care. Time for discharge day management is greater than 30 minutes. GERALD KUMAR MD DR: SAKINA/yasemin JOB#: [id number] / [id number]
--- NOTE | 2017-10-21 13:01 | PN ---
DATE: 10/18/2017 This is a late entry 10/18, covers elements not covered in my initial note 10/18. SUBJECTIVE: I met with the patient in the evening of 10/18. Per nursing report, the patient remains withdrawn, intermittently restless, but not aggressive. REVIEW OF SYSTEMS: Ambulation impaired, in Broda chair. No CV, , pulmonary, eye, ENT system symptoms on review. Reliability poor. He is somewhat sedated, keeps his eyes closed, even at mealtimes. MENTAL STATUS EXAM: Oriented to himself. Insight, judgment, recent and remote memory, attention, concentration, fund of knowledge poor, consistent with his diagnosis mentioned in my initial note. IMPRESSION: Major neurocognitive disorder, Alzheimer, vascular with depression, delusion, behavioral disturbance. Rest unchanged. PLAN: Continue psychotropics mentioned in my initial note. MAN Gigi KUMAR MD DR: SAKINA/yasemin JOB#: [id number] / [id number]
== END 2017-10-19 12:05 | disposition hospice, inpatient (51) | DRG 884 ==
LOC: EEVIPCON 17:46 → ER 17:46 → GEROPSY 09-19 00:22
PROVIDERS: ADMIT Psychiatry & Neurology Psychiatry; ATTEND Psychiatry & Neurology Psychiatry
DX: F01.51 Vascular dementia, unspecified severity, with behavioral disturbance (principal); E46 Unspecified protein-calorie malnutrition; D69.6 Thrombocytopenia, unspecified; G30.9 Alzheimer's disease, unspecified; F02.81 Dementia in other diseases classified elsewhere, unspecified severity, with behavioral disturbance; D72.819 Decreased white blood cell count, unspecified; E78.5 Hyperlipidemia, unspecified; F22 Delusional disorders; F32.9 Major depressive disorder, single episode, unspecified; F41.9 Anxiety disorder, unspecified; F63.9 Impulse disorder, unspecified; H57.03 Miosis; K59.00 Constipation, unspecified; M19.90 Unspecified osteoarthritis, unspecified site; Z51.5 Encounter for palliative care; Z66 Do not resuscitate; R26.9 Unspecified abnormalities of gait and mobility; Z88.8 Allergy status to other drugs, medicaments and biological substances; Z68.30 Body mass index [BMI] 30.0-30.9, adult
CPT/HCPCS: 36415; 70450; 71010; 71275; 74000; 80048; 80053; 80061; 80164; 81001; 82306; 82607; 83036; 83540; 83550; 83735; 83880; 84132; 84436; 84443; 84480; 84484; 85025; 85027; 85610; 85730; 86592; 86593; 93005; 96361; 96372; 96374; 96375; J1200; J2060; J3486; J7120; P9612; Q9967; 99285-25